=== PATIENT | female | born 1940 | race Caucasian/White ===

== ENCOUNTER 2017-04-22 11:51 | Emergency (ER) | payer MEDICARE, OTHER ==
[2017-04-22] MEDS ORDERED: Zofran 4 MG/2 ML VIAL IV ONE (12:18)
[2017-04-22] MEDS ORDERED: MORPHINE SULFATE 10 MG/ML IV ONE (12:21)
[2017-04-22] MEDS ORDERED: MORPHINE SULFATE 10 MG/ML ONE (12:23)
[2017-04-22] MEDS ORDERED: Zofran 4 MG/2 ML VIAL ONE (12:23)
[2017-04-22] MEDS ORDERED: Sodium Chloride 0.9% 1000 ML 1,000 ML ONE (12:23)
--- NOTE | 2017-04-22 12:25 | ERPHSYRPT ---
- History of Present Illness Time Seen by Provider: 04/22/17 12:05 Source: patient Exam Limitations: clinical condition Patient Subjective Stated Complaint: slipped in snow and fell landed on left arm. pt co pain to left arm and left knee Triage Nursing Assessment: pt arrived per wc moaning and crying in pain . pt alert, resp easy. skin w/d pink. pt unable to left left arm or move wrist, no swelling oar brusing noted. Physician History: PATIENT SLIPPED AND FELL IN SNOW SUSTAINED INJURY TO LEFT KNEE, SHOULDER, AND WRIST. DENIES HEAD OR NECK INJURY, LOSS OF CONSCIOUSNESS, NUMBNESS, TINGLING OR WEAKNESS IN EXTREMITIES. PATIENT COMPLAINS OF SEVERE PAIN IN HER LEFT SHOULDER. Occurred: just prior to arrival Reason for Fall: slipped Injuries/Pain Location: upper extremity, lower extremity Loss of Consciousness: no loss of consciousness Severity of Pain-Max: severe Severity of Pain-Current: severe Modifying Factors: Improves With: movement Associated Symptoms (Fall): extremity injury Allergies/Adverse Reactions: cefaclor [From Ceclor] Allergy (Intermediate, Verified 04/22/17 12:07) Itching face tight, swelling, felt hot Penicillins Allergy (Intermediate, Verified 04/22/17 12:07) Rash clindamycin HCl [From Cleocin] Allergy (Verified 04/22/17 12:07) clindamycin palmitate HCl [From Cleocin] Allergy (Verified 04/22/17 12:07) Hives entire body clindamycin phosphate [From Cleocin] Allergy (Verified 04/22/17 12:07) Home Medications: Alendronate Sodium 70 mg [Fosamax 70 MG] 70 mg PO WEEKLY 07/01/13 [History ] Loratadine 10 mg [Claritin 10 mg] 10 mg PO DAILY PRN 07/01/13 [History] Venlafaxine HCl [Effexor] 75 mg PO DAILY 07/01/13 [History] Calcium Carbonate/Vitamin D3 [Calcium 500-Vit D3 200 Caplet] 1 each PO BID 07/02 [History] Alendronate Sodium [Alendronate Sodium] 70 mg DAILY 04/22/17 [History] Hx Tetanus, Diphtheria Vaccination/Date Given: Yes Hx Influenza Vaccination/Date Given: Yes Hx Pneumococcal Vaccination/Date Given: Yes Immunizations Up to Date: Yes - Review of Systems Constitutional: No Fever, No Chills Eyes: No Symptoms Ears, Nose, & Throat: No Symptoms Respiratory: No Symptoms, No Cough, No Dyspnea Cardiac: No Symptoms, No Chest Pain, No Edema, No Syncope Abdominal/Gastrointestinal: No Symptoms, No Abdominal Pain, No Nausea, No Vomiting, No Diarrhea Genitourinary Symptoms: Incontinence, No Dysuria Musculoskeletal: Injury, Joint Pain, Joint Swelling, No Back Pain, No Neck Pain Skin: No Rash Neurological: No Symptoms, No Dizziness, No Focal Weakness, No Sensory Changes Psychological: No Symptoms Endocrine: No Symptoms All Other Systems: Reviewed and Negative - Past Medical History Pertinent Past Medical History: Yes Neurological History: No Pertinent History ENT History: Cataracts, Other Cardiac History: No Pertinent History Respiratory History: Sleep Apnea Endocrine Medical History: No Pertinent History Musculoskeletal History: Osteoarthritis GI Medical History: GI Bleed, Polyps History: No Pertinent History Psycho-Social History: Anxiety, Depression, Panic Disorder Female Reproductive Disorders: No Pertinent History Other Medical History: sleep apnea - Past Surgical History Past Surgical History: Yes Neuro Surgical History: No Pertinent History Cardiac: No Pertinent History Respiratory: No Pertinent History Gastrointestinal: Appendectomy Genitourinary: No Pertinent History Musculoskeletal: Joint Replacement, Orthopedic Surgery Female Surgical History: Tubal Ligation, Other Other Surgical History: sinus surgery, tonsils, D&C x2, cataract, left KNEE REPLACEMENT , antibiotic spacer placement in left knee. - Social History Smoking Status: Never smoker Exposure to second hand smoke: No Alcohol Use: None Drug Use: none Patient Lives Alone: No Significant Family History: no pertinent family hx - Female History Hx Last Menstrual Period: post Hx Now: No - Nursing Vital Signs Nursing Vital Signs: Initial Vital Signs Temperature 97.6 F 04/22/17 11:53 Pulse Rate 91 H 04/22/17 11:53 Respiratory Rate 18 04/22/17 11:53 Blood Pressure 135/66 04/22/17 11:53 O2 Sat by Pulse Oximetry 97 04/22/17 11:53 Pain Scale Pain Intensity 5 - [place] Coma Score Best Eye Response ([place]): (4) open spontaneously Best Verbal Response ([place]): (5) oriented Best Motor Response ([place]): (6) obeys commands [place] Total: 15 - Physical Exam General Appearance: mild distress Head Injury: no evidence of injury Eye Exam: PERRL/EOMI ENT Exam: airway nml Neck Exam: normal inspection, other (NO POSTERIOR SPINAL TENDERNESS.), No tenderness Back Exam: normal inspection Extremity Exam: bony point tenderness (LEFT WRIST MINIMAL SWELLING WITH TENDERNESS, MINIMAL SWELLING, NO ECCHYMOSIS, LIMITED RANGE OF MOTION WITH PAIN , TENDERNESS LEFT LATERAL EPICONDYLE, NO CEPITUS, LEFT SHOULDER, MINIMLA TENDERNESS, NO SWELLING OR ECHYMOSIS, MARKED LIMITED RANGE OF MOTION, NO CREPITUS OR DEFORMITY), other (LEFT KNEE TENDERNESS OVER MEDIAL FEMORAL CONDYLE , NO SWELLING , FULL RANGE OF MOTION, MINIMAL PAIN) Peripheral Pulses: carotid (R): 2+, carotid (L): 2+, femoral (R): 2+, femoral (L ): 2+, dorsalis-pedis (R): 2+, dorsalis-pedis (L): 2+ Neurologic Exam: alert, 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 Skin Exam: normal color SpO2 Interpretation: normal SpO2: 97 Oxygen Delivery: Room Air - Radiology Exams Left Shoulder X-ray Interpretation: Interpreted by me (SURGICAL NECK FRACTURE LEFT SHOULDER MINIMAL DISPLACEMENT) Left Elbow X-ray Interpretation: Interpreted by me (NO FRACTURE OR DISLOCATION) Left Wrist X-ray Interpretation: Interpreted by me (OLD RIGHT ULNAR STYLOID FRACTURE ) Ordered Tests: Active Orders 24 hr Category Date Time Status IV Insertion STAT Care 04/22/17 12:16 Active Immobilizer STAT Care 04/22/17 13:41 Active Oxygen-ED Only NASAL CANNULA 2 lpm Care 04/22/17 12:18 Active Pulse Oximetry (ED) STAT Care 04/22/17 12:18 Active ELBOW (MINIMUM 3 VIEWS) Stat Exams 04/22/17 12:22 Taken KNEE (3 VIEWS) Stat Exams 04/22/17 12:26 Taken SHOULDER Stat Exams 04/22/17 12:21 Taken WRIST (MIN 3 VIEWS) Stat Exams 04/22/17 12:23 Taken Medication Summary Generic Name Dose Route Start Last Admin Trade Name Freq PRN Reason Stop Dose Admin Sodium Chloride 1,000 mls @ 50 mls/hr 04/22/17 12:30 04/22/17 12:25 Sodium Chloride 0.9% 1000 Ml IV 05/22/17 12:29 50 mls/hr .Q20H JOY Administration Discontinued Medications Generic Name Dose Route Start Last Admin Trade Name Freq PRN Reason Stop Dose Admin Morphine Sulfate 6 mg 04/22/17 12:21 04/22/17 12:25 Morphine Sulfate 10 Mg/Ml IV 04/22/17 12:22 6 mg STAT ONE Administration Morphine Sulfate Confirm 04/22/17 12:23 Morphine Sulfate 10 Mg/Ml Administered 04/22/17 12:24 Dose 10 mg .ROUTE .STK-MED ONE Ondansetron HCl 4 mg 04/22/17 12:18 04/22/17 12:25 Zofran 4 Mg/2 Ml Vial IV 04/22/17 12:19 4 mg STAT ONE Administration Ondansetron HCl Confirm 04/22/17 12:23 Zofran 4 Mg/2 Ml Vial Administered 04/22/17 12:24 Dose 4 mg .ROUTE .STK-MED ONE - Progress Progress: pain not gone completely Progress Note: 04/22/17 13:44 ADMINISTERED MORPHINE 6MG, ZOFRAN 4MG IV, APPLICATION SHOULDER IMMOBILIZER Counseled pt/family regarding: diagnosis, need for follow-up - Departure Time of Disposition: 14:00 Departure Disposition: Home Clinical Impression: LEFT HUMERAL HEAD FRACTURE Condition: Stable Critical Care Time: No Referrals: TA FREIRE [Primary Care Provider] - Additional Instructions: MAINTAIN SHOULDER IMMOBILIZER UNTIL EVALUATED BY ORTHOPEDIC SURGEON. CALL FOR APPOINTMENT IN 2 DAYS. APPLY ICE OVER LEFT SHOULDER EVERY 4 HOURS, 30 MINUTES FOR 48 HOURS. NOR[place] 10/325 EVERY 4 HOURS NEEDED FOR PAIN. Prescriptions: Hydrocodone/APAP 10/325 mg [[place] 10/325 MG Tablet] 1 tab PO Q4H PRN PRN # 20 tablet MDD 4 PRN Reason: Pain
[2017-04-22] MEDS ORDERED: Sodium Chloride 0.9% 1000 ML 1,000 ML IV SCH (12:30)
[2017-04-22 13:40] VITALS: BP 105/57; PULSE 68
[2017-04-22 13:45] VITALS: O2SAT 97
[2017-04-22] MEDS ORDERED: MORPHINE SULFATE 4 MG INJ IV ONE (13:45)
[2017-04-22] MEDS ORDERED: MORPHINE SULFATE 4 MG INJ ONE (13:48)
--- NOTE | 2017-04-22 23:02 | XRAY ---
Indication: Pain following fall. Comparison: August 02, 2013. 3 views of the left knee again demonstrates osteopenia with interval total knee arthroplasty revision with new intact bipolar prosthesis. No other bony, articular, or soft tissue abnormalities.
--- NOTE | 2017-04-22 23:04 | XRAY ---
Indication: Pain following fall. Comparison: None 3 views of the left elbow demonstrates osteopenia. No other bony, articular, or soft tissue abnormalities.
--- NOTE | 2017-04-22 23:04 | XRAY ---
Indication: Pain following fall. Comparison: None 3 views of the left shoulder demonstrates minimally impacted humeral subcapital fracture. Elsewhere osteopenia, degenerative spondylosis, and mild AC degenerative arthropathy. No other bony, articular, or soft tissue abnormalities.
--- NOTE | 2017-04-22 23:06 | XRAY ---
Indication: Pain following fall. Comparison: None 3 views of the left wrist demonstrates osteopenia, moderate first metacarpal multangular degenerative changes, and tiny ulnar styloid tip well-circumscribed ossification either degenerative versus old injury. No other bony, articular, or soft tissue abnormalities.
== END 2017-04-22 14:05 | disposition home or self-care (01) ==
LOC: ED 11:51
DX: S42.292A Other displaced fracture of upper end of left humerus, initial encounter for closed fracture (principal); W00.0XXA Fall on same level due to ice and snow, initial encounter; M79.602 Pain in left arm; M25.562 Pain in left knee; Z79.899 Other long term (current) drug therapy; G47.30 Sleep apnea, unspecified; F41.8 Other specified anxiety disorders
CPT/HCPCS: 36000; 73030; 73080; 73110; 73562; 96360; 96361; 96374; 96375; 96376; 99284; J2270; J2405; L3650

== ENCOUNTER 2018-07-26 14:14 | Emergency (ER) | payer MEDICARE, OTHER ==
[2018-07-26] MEDS ORDERED: Zofran 4 MG/2 ML VIAL IV ONE (14:32)
[2018-07-26] MEDS ORDERED: Sodium Chloride 0.9% 1000 ML 1,000 ML IV STA (14:32)
[2018-07-26] MEDS ORDERED: MORPHINE SULFATE 4 MG INJ IV ONE (14:32)
--- NOTE | 2018-07-26 14:37 | ERPHSYRPT ---
- History of Present Illness Time Seen by Provider: 07/26/18 14:33 Historian: patient Exam Limitations: no limitations Patient Subjective Stated Complaint: pt here for rigbht hip pain that radiates down leg for a week now, she was seen by coral and given advil and a muscle relaxer Triage Nursing Assessment: pt alert, walked in, no injury to hip, resp easy, skin w/d/p. no edema Physician History: 78-year-old white female arrives with complaint of pain in her right flank radiating to right lower quadrant symptoms for one week. Pain is described as sharp patient had been seen by her family doctor's she states it is worse with movement is not better with nonsteroidal anti- inflammatory agents. She denies dysuria hematuria. Past medical history includes cataracts, sleep apnea, osteoarthritis, GI bleed, polyps, anxiety, depression, panic disorder, Past surgical history includes left humeral head surgery appendectomy left knee replacement, tubal ligation, sinus surgery, D&C, Timing/Duration: week(s) (one week) Activities at Onset: none Quality: sharpness Abdominal Pain Onset Location: RLQ, flank (right flank) Pain Radiation: no radiation Severity of Pain-Max: moderate Severity of Pain-Current: moderate Modifying Factors: Improves With: other (nonsteroidal anti-inflammatories) Associated Symptoms: back (right flank pain), No chest pain, No diaphoresis, No diarrhea, No fever/chills, No fatigue, No headache, No heartburn, No loss of appetite, No nausea, No neck pain, No rash, No shortness of breath, No syncope Previous symptoms: recently seen (seen by Dr. Coto recently) Allergies/Adverse Reactions: cefaclor [From Ceclor] Allergy (Intermediate, Verified 04/22/17 12:07) Itching face tight, swelling, felt hot Penicillins Allergy (Intermediate, Verified 04/22/17 12:07) Rash clindamycin HCl [From Cleocin] Allergy (Verified 04/22/17 12:07) clindamycin palmitate HCl [From Cleocin] Allergy (Verified 04/22/17 12:07) Hives entire body clindamycin phosphate [From Cleocin] Allergy (Verified 04/22/17 12:07) Home Medications: Alendronate Sodium 70 mg [Fosamax 70 MG] 70 mg PO WEEKLY 07/01/13 [History ] Loratadine 10 mg [Claritin 10 mg] 10 mg PO DAILY PRN 07/01/13 [History] Venlafaxine HCl [Effexor] 75 mg PO DAILY 07/01/13 [History] Calcium Carbonate/Vitamin D3 [Calcium 500-Vit D3 200 Caplet] 1 each PO BID 07/02 [History] Alendronate Sodium 70 mg DAILY 04/22/17 [History] Hx Tetanus, Diphtheria Vaccination/Date Given: Yes Hx Influenza Vaccination/Date Given: Yes Hx Pneumococcal Vaccination/Date Given: Yes Immunizations Up to Date: Yes - Review of Systems Constitutional: No Symptoms Eyes: No Symptoms Ears, Nose, & Throat: No Symptoms Respiratory: No Cough, No Dyspnea Cardiac: No Chest Pain, No Edema, No Syncope Abdominal/Gastrointestinal: Abdominal Pain (right lower quadrant pain), No Nausea, No Vomiting, No Diarrhea, No Constipation, No Hematemesis, No Hematochezia, No Melena, No Dysphagia, No Appetite Changes Genitourinary Symptoms: Flank Pain ( right flank pain), No Dysuria, No Frequency , No Hematuria, No Hesitancy, No Incontinence, No Urgency, No Urinary Retention Musculoskeletal: Back Pain (right flank pain), No Arthralgias, No Deformity, No Fall, No Injury, No Joint Redness, No Joint Pain, No Joint Swelling, No Myalgias Skin: No Rash Neurological: No Dizziness, No Focal Weakness, No Sensory Changes Psychological: No Symptoms Endocrine: No Symptoms All Other Systems: Reviewed and Negative - Past Medical History Pertinent Past Medical History: Yes Neurological History: No Pertinent History ENT History: Cataracts, Other Cardiac History: High Cholesterol Respiratory History: Sleep Apnea, Other Endocrine Medical History: No Pertinent History Musculoskeletal History: Osteoarthritis GI Medical History: GI Bleed, Polyps History: No Pertinent History Psycho-Social History: Anxiety, Depression, Panic Disorder Female Reproductive Disorders: No Pertinent History Other Medical History: sleep apnea - Past Surgical History Past Surgical History: Yes Neuro Surgical History: No Pertinent History Cardiac: No Pertinent History Respiratory: No Pertinent History Gastrointestinal: Appendectomy Genitourinary: No Pertinent History Musculoskeletal: Joint Replacement, Orthopedic Surgery Female Surgical History: Tubal Ligation, Other Other Surgical History: sinus surgery, tonsils, D&C x2, cataract, left KNEE REPLACEMENT , antibiotic spacer placement in left knee. - Social History Smoking Status: Never smoker Exposure to second hand smoke: No Alcohol Use: None Drug Use: none Patient Lives Alone: No Significant Family History: no pertinent family hx - Female History Hx Last Menstrual Period: post Hx Now: No - Nursing Vital Signs Nursing Vital Signs: Initial Vital Signs Temperature 97.8 F 07/26/18 14:18 Pulse Rate 79 07/26/18 14:18 Respiratory Rate 18 07/26/18 14:18 Blood Pressure 125/89 07/26/18 14:18 O2 Sat by Pulse Oximetry 98 07/26/18 14:18 Pain Scale Pain Intensity 7 - Physical Exam General Appearance: mild distress, alert Eye Exam: PERRL/EOMI, eyes nml inspection Ears, Nose, Throat Exam: normal ENT inspection, pharynx normal, moist mucous membranes Neck Exam: normal inspection, non-tender, supple, full range of motion Respiratory Exam: normal breath sounds, lungs clear, No respiratory distress Cardiovascular Exam: regular rate/rhythm, normal heart sounds, capillary refill <2 sec Gastrointestinal/Abdomen Exam: soft, normal bowel sounds, tenderness (mild right lower quadrant tenderness), No distention, No mass, No guarding, No ecchymosis, No pulsatile mass, No rebound, No organomegaly, No splenomegaly Back Exam: normal range of motion, CVA tenderness (right flank tenderness), No vertebral tenderness, No rash, No decreased range of motion, No muscle spasm, No point tenderness Extremity Exam: normal inspection, normal range of motion, pelvis stable Neurologic Exam: alert, 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, cooperative, [place] II-XII nml as tested, normal mood/affect, nml cerebellar function, sensation nml, No motor deficits Skin Exam: normal color, warm, dry SpO2 Interpretation: normal (98%) SpO2: 98 O2 Delivery: Room Air - Course Nursing assessment & vital signs reviewed: Yes - CT Exams Abdomen/Pelvis CT Interpretation: Discussed w/radiologist (CT abdomen and pelvis: Impression 1. New punctate gallstone. No CT evidence for cholecystitis or biliary distention.2. Incidental hepatic cyst, degenerative spondylosis. L4 grade 1 spondylolisthesis. And evidence for old granulomatous disease. 3. No acute intra-abdominal/pelvic abnormalities on this noncontrast exam) Ordered Tests: Active Orders 24 hr Category Date Time Status IV Insertion STAT Care 07/26/18 14:32 Active ABDOMEN AND PELVIS W/0 CONTRAS [CT] Stat Exams 07/26/18 14:32 Completed AMYLASE Stat Lab 07/26/18 15:00 Completed CBC W DIFF Stat Lab 07/26/18 15:00 Completed CMP Stat Lab 07/26/18 15:00 Completed CULTURE,URINE Stat Lab 07/26/18 15:30 Received LIPASE Stat Lab 07/26/18 15:00 Completed UA W/RFX UR CULTURE Stat Lab 07/26/18 15:30 Completed Medication Summary Discontinued Medications Generic Name Dose Route Start Last Admin Trade Name Freq PRN Reason Stop Dose Admin Sodium Chloride 1,000 mls @ 999 mls/hr 07/26/18 14:32 07/26/18 15:23 Sodium Chloride 0.9% 1000 Ml IV 07/26/18 15:32 999 mls/hr .Q1H1M STA Administration Sodium Chloride Confirm 07/26/18 15:21 Sodium Chloride 0.9% 1000 Ml Administered 07/26/18 15:22 Dose 1,000 mls @ ud .ROUTE .STK-MED ONE Morphine Sulfate 4 mg 07/26/18 14:32 07/26/18 15:23 Morphine Sulfate 4 Mg Inj IV 07/26/18 14:33 4 mg STAT ONE Administration Morphine Sulfate Confirm 07/26/18 15:21 Morphine Sulfate 4 Mg Inj Administered 07/26/18 15:22 Dose 4 mg .ROUTE .STK-MED ONE Ondansetron HCl 4 mg 07/26/18 14:32 07/26/18 15:22 Zofran 4 Mg/2 Ml Vial IV 07/26/18 14:33 4 mg STAT ONE Administration Ondansetron HCl Confirm 07/26/18 15:21 Zofran 4 Mg/2 Ml Vial Administered 07/26/18 15:22 Dose 4 mg .ROUTE .STK-MED ONE Lab/Rad Data: Laboratory Result Diagrams 07/26/18 15:00 07/26/18 15:00 Laboratory Results 07/26/18 07/26/18 07/26/18 Range/Units 15:30 15:00 15:00 WBC 6.9 (4.0-10.5) K/mm3 RBC 4.71 (4.1-5.4) M/mm3 Hgb 13.8 (12.0-16.0) gm/dl Hct 43.1 (35-47) % MCV 91.5 (78-100) fl MCH 29.3 (26-32) pg MCHC 32.0 (32-36) g/dl RDW 14.3 H (11.5-14.0) % Plt Count 187 (150-450) K/mm3 MPV 11.4 H (6-9.5) fl Gran % 54.1 (36.0-66.0) % Eos # (Auto) 0.47 (0-0.5) Absolute Lymphs (auto) 2.06 (1.0-4.6) Absolute Monos (auto) 0.63 (0.0-1.3) Lymphocytes % 29.9 (24.0-44.0) % Monocytes % 9.1 (0.0-12.0) % Eosinophils % 6.8 H (0.00-5.0) % Basophils % 0.1 (0.0-0.4) % Absolute Granulocytes 3.72 (1.4-6.9) Basophils # 0.01 (0-0.4) Sodium 142 (137-145) mmol/L Potassium 4.2 (3.5-5.1) mmol/L Chloride 106 (98-107) mmol/L Carbon Dioxide 26 (22-30) mmol/L Anion Gap 15.1 H (5-15) MEQ/L BUN 18 H (7-17) mg/dL Creatinine 0.96 (0.52-1.04) mg/dL Estimated GFR > 60.0 ML/MIN Glucose 91 (74-106) mg/dL Calcium 9.9 (8.4-10.2) mg/dL Total Bilirubin 0.50 (0.2-1.3) mg/dL AST 38 H (14-36) U/L ALT 25 (0-35) U/L Alkaline Phosphatase 53 (38-126) U/L Serum Total Protein 7.9 (6.3-8.2) g/dL Albumin 4.3 (3.5-5.0) g/dL Amylase 107 (30-110) U/L Lipase 141 (23-300) U/L Urine Color YELLOW (YELLOW) Urine Appearance CLEAR (CLEAR) Urine pH 6.0 (5-6) Ur Specific [place] 1.013 (1.005-1.025) Urine Protein NEGATIVE (Negative) Urine Ketones NEGATIVE (NEGATIVE) Urine Blood NEGATIVE (0-5) [place] Urine Nitrite NEGATIVE (NEGATIVE) Urine Bilirubin NEGATIVE (NEGATIVE) Urine Urobilinogen NEGATIVE (0-1) mg/dL Ur Leukocyte Esterase SMALL (NEGATIVE) Urine WBC (Auto) 11-15 (0-5) /HPF Urine RBC (Auto) NONE (0-2) /HPF U Epithel Cells (Auto) NONE (FEW) /HPF Urine Bacteria (Auto) RARE (NEGATIVE) /HPF Urine Mucus (Auto) SLIGHT (NEGATIVE) /HPF Urine Culture Reflexed YES (NO) Urine Glucose NEGATIVE (NEGATIVE) mg/dL - Progress Progress: improved Progress Note: 07/26/18 16:06 Patient feeling better after morphine injection. Patient is on hydrocodone at home she also states she is on muscle relaxers. Patient with a positive UTI CT abdomen remarkable for a new punctate gallstone. No evidence for cholecystitis or biliary distention 2. Incidental hepatic cyst, degenerative spondylolisthesis L4 grade 1, spondylolisthesis and evidence for old granulomatous disease There are no acute intra-abdominal/pelvic abnormalities on this noncontrast exam. Will go ahead and place patient on Bactrim. patient is on muscle relaxants will place patient on tramadol She is to follow-up with your family doctor. 07/26/18 16:13 - Departure Departure Disposition: Home (:) Clinical Impression: Right flank pain, Spondylolisthesis at L4-L5 level, Spondylosis UTI (urinary tract infection) Qualifiers: Urinary tract infection type: site unspecified Hematuria presence: without hematuria Qualified Code(s): N39.0 - Urinary tract infection, site not specified Condition: Fair Critical Care Time: No Referrals: TA COTO [Primary Care Provider] - Additional Instructions: Return home. tramadol as prescribed Bactrim DS one orally twice a day for 10 days. Follow-up with your family doctor Return for acute distress or for severe symptoms. Prescriptions: Tramadol HCl 50 mg [Ultram 50 mg] 50 mg PO Q6H PRN PRN #12 tablet PRN Reason: right flank pain Smz/Tmp Ds Tablet [Bactrim Ds Tablet] 1 tab PO BID #20 tablet
[2018-07-26 15:14] LABS: BASOPHIL % 0.1 % (0.0-0.4); Basophil (Absolute #) 0.01 (0-0.4); Eosinophil % 6.8 % (0.00-5.0); Eosinophil (Absolute #) 0.47 (0-0.5); Granulocyte Absolute (ANC) 3.72 (1.4-6.9); Granulocytes % 54.1 % (36.0-66.0); Hematocrit 43.1 % (35-47); Hemoglobin 13.8 gm/dl (12.0-16.0); Lymphocyte (Absolute #) 2.06 (1.0-4.6); Lymphocytes % 29.9 % (24.0-44.0); Mean Cell Volume 91.5 fl (78-100); Mean Corpuscular Hemoglobin 29.3 pg (26-32); Mean Platelet Volume 11.4 fl (6-9.5); Monocyte (Absolute #) 0.63 (0.0-1.3); Monocytes % 9.1 % (0.0-12.0); Platelet Count 187 K/mm3 (150-450); Red Blood Count 4.71 M/mm3 (4.1-5.4); Red Cell Distribution Width 14.3 % (11.5-14.0); White Blood Count 6.9 K/mm3 (4.0-10.5)
--- NOTE | 2018-07-26 15:16 | XRAY ---
Indication: Right side/flank pain. Multiple contiguous axial images obtained through the abdomen and pelvis without contrast as ordered. Comparison: CT renal stone study January 24, 2011. Lung bases again demonstrates minimal fibrosis/scarring and right base calcified granuloma. No infiltrate or effusion. Heart is not enlarged. A few tiny right infrahilar calcified nodes not previously imaged. Stomach is distended with food/fluid.. Noncontrasted stomach and bowel loops appear nonobstructed. Previous reported appendectomy. No free fluid/air. New punctate gallstone without cholelithiasis or biliary distention.. Minimally enlarging 2.4 cm inferior right lobe hepatic cyst, previously 1.8 cm. Again calcified splenic granulomas. Remaining liver, gallbladder, pancreas, spleen, adrenal glands, kidneys, ureters, bladder, and uterus appear unremarkable for noncontrast exam. Mild aortoiliac calcifications without AAA. Osseous structures again demonstrates mild/moderate degenerative changes throughout the spine including grade 1 L4 spondylolisthesis. No ventral or inguinal hernias. Impression: 1. New punctate gallstone. No CT evidence for cholecystitis or biliary distention. 2. Again incidental hepatic cyst, degenerative spondylosis, L4 grade 1 spondylolisthesis, and evidence for old granulomatous disease. 3. No acute intra-abdominal/pelvic abnormalities on this noncontrast exam. CT DI 22.00
[2018-07-26] MEDS ORDERED: MORPHINE SULFATE 4 MG INJ ONE (15:21)
[2018-07-26] MEDS ORDERED: Zofran 4 MG/2 ML VIAL ONE (15:21)
[2018-07-26] MEDS ORDERED: Sodium Chloride 0.9% 1000 ML 1,000 ML ONE (15:21)
[2018-07-26 15:24] LABS: ALBUMIN 4.3 g/dL (3.5-5.0); ALKALINE PHOSPHATASE 53 U/L (38-126); AMYLASE 107 U/L (30-110); ANION GAP 15.1 MEQ/L (5-15); BLOOD UREA NITROGEN 18 mg/dL (7-17); CHLORIDE 106 mmol/L (98-107); Calcium 9.9 mg/dL (8.4-10.2); Carbon Dioxide 26 mmol/L (22-30); Creatinine 1 0.96 mg/dL (0.52-1.04); Glucose 91 mg/dL (74-106); LIPASE 141 U/L (23-300); Potassium 4.2 mmol/L (3.5-5.1); SGOT/AST 38 U/L (14-36); SGPT/ALT 25 U/L (0-35); SODIUM 142 mmol/L (137-145); Total Protein 7.9 g/dL (6.3-8.2)
[2018-07-26 15:59] LABS: Appearance CLEAR (CLEAR); Bacteria RARE /HPF (NEGATIVE); Bilirubin NEGATIVE (NEGATIVE); Blood NEGATIVE Ery/ul (0-5); Glucose NEGATIVE (NEGATIVE); Ketones NEGATIVE (NEGATIVE); Leukocyte Esterase SMALL (NEGATIVE); Mucus SLIGHT /HPF (NEGATIVE); Nitrite NEGATIVE (NEGATIVE); Protein,Urine Dip NEGATIVE (Negative); Specific Gravity 1.013 (1.005-1.025); Urobilinogen NEGATIVE mg/dL (0-1)
[2018-07-26 16:43] VITALS: BP 121/63; PULSE 61; O2SAT 96
== END 2018-07-26 16:45 | disposition home or self-care (01) ==
LOC: ED 14:14
DX: R10.9 Unspecified abdominal pain (principal); M47.896 Other spondylosis, lumbar region; N39.0 Urinary tract infection, site not specified; G47.30 Sleep apnea, unspecified; F41.8 Other specified anxiety disorders; M19.90 Unspecified osteoarthritis, unspecified site; F32.9 Major depressive disorder, single episode, unspecified; Z79.899 Other long term (current) drug therapy
CPT/HCPCS: 36000; 36415; 74176; 80053; 81001; 82150; 83690; 85025; 87086; 96360; 96374; 96375; 99284; J2270; J2405

== ENCOUNTER 2018-11-02 09:50 | Inpatient (IN) | payer MEDICARE, OTHER ==
[2018-11-02] MEDS ORDERED: Sodium Chloride 0.9% 1000 ML 1,000 ML IV STA (10:01)
[2018-11-02] MEDS ORDERED: BABY ASPIRIN 81 MG CHEW PO ONE (10:01)
--- NOTE | 2018-11-02 10:02 | ERPHSYRPT ---
- History of Present Illness Time Seen by Provider: 11/02/18 09:55 Source: patient, family Exam Limitations: no limitations Patient Subjective Stated Complaint: Pt states "I started to have chest pain a couple hours ago and it feels like a band in my chest." Triage Nursing Assessment: Pt presented through the front door and placed in room 4. Pt presented alert and oriented X4, skin pwd Pt ambulates with an upright steady gait, able to speak in clear full sentences. PT in no apparent respiratory distress. Physician History: 78 y/o white female presents with cp described as a tight band around her chest. pt also noticed her heart racing. pt has no cardiac issues. 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 pt is under a lot of stress. sudden onset 2 hours ago. no new meds. no changes in meds. no cough, no fever. pt does have anxiety and panic disorder Activities at Onset: none Quality: tightness Location: other (band like around chest) Chest Pain Radiation: no radiation Severity of Pain-Max: mild Severity of Pain-Current: mild Modifying Factors: Improves With: nothing Aspirin Treatment Today: 81 mg x 4, provided by ED Associated Symptoms: shortness of breath (mild), chest pain (mild), No nausea, No vomiting, No abdominal pain Prior Chest Pain/Cardiac Workup: no prior chest pain Allergies/Adverse Reactions: cefaclor [From Ceclor] Allergy (Intermediate, Verified 04/22/17 12:07) Itching face tight, swelling, felt hot Penicillins Allergy (Intermediate, Verified 04/22/17 12:07) Rash clindamycin HCl [From Cleocin] Allergy (Verified 04/22/17 12:07) clindamycin palmitate HCl [From Cleocin] Allergy (Verified 04/22/17 12:07) Hives entire body clindamycin phosphate [From Cleocin] Allergy (Verified 04/22/17 12:07) Home Medications: Alendronate Sodium 70 mg [Fosamax 70 MG] 70 mg PO WEEKLY 07/01/13 [History ] Loratadine 10 mg [Claritin 10 mg] 10 mg PO DAILY PRN 07/01/13 [History] Venlafaxine HCl [Effexor] 75 mg PO DAILY 07/01/13 [History] Calcium Carbonate/Vitamin D3 [Calcium 500-Vit D3 200 Caplet] 1 each PO BID 07/02 [History] Magnesium 200 mg PO HS 11/02/18 [History] Simvastatin 40 mg PO HS 11/02/18 [History] Hx Tetanus, Diphtheria Vaccination/Date Given: Yes Hx Influenza Vaccination/Date Given: Yes Hx Pneumococcal Vaccination/Date Given: Yes Immunizations Up to Date: Yes - Review of Systems Constitutional: No Symptoms Eyes: No Symptoms Ears, Nose, & Throat: No Symptoms Respiratory: No Symptoms Cardiac: Chest Pain, Palpitations Abdominal/Gastrointestinal: No Symptoms Genitourinary Symptoms: No Symptoms Musculoskeletal: No Symptoms Skin: No Symptoms Neurological: No Symptoms Psychological: No Symptoms Endocrine: No Symptoms Hematologic/Lymphatic: No Symptoms Immunological/Allergic: No Symptoms All Other Systems: Reviewed and Negative - Past Medical History Pertinent Past Medical History: Yes Neurological History: No Pertinent History ENT History: Cataracts, Other Cardiac History: High Cholesterol Respiratory History: Sleep Apnea, Other Endocrine Medical History: No Pertinent History Musculoskeletal History: Osteoarthritis GI Medical History: GI Bleed, Polyps History: No Pertinent History Psycho-Social History: Anxiety, Depression, Panic Disorder Female Reproductive Disorders: No Pertinent History Other Medical History: sleep apnea - Past Surgical History Past Surgical History: Yes Neuro Surgical History: No Pertinent History Cardiac: No Pertinent History Respiratory: No Pertinent History Gastrointestinal: Appendectomy Genitourinary: No Pertinent History Musculoskeletal: Joint Replacement, Orthopedic Surgery Female Surgical History: Tubal Ligation, Other Other Surgical History: sinus surgery, tonsils, D&C x2, cataract, left KNEE REPLACEMENT , antibiotic spacer placement in left knee. - Social History Smoking Status: Former smoker Exposure to second hand smoke: No Alcohol Use: None Drug Use: none Patient Lives Alone: No Significant Family History: no pertinent family hx - Female History Hx Now: No - Nursing Vital Signs Nursing Vital Signs: Initial Vital Signs Temperature 98.1 F 11/02/18 09:53 Pulse Rate 160 H 11/02/18 09:53 Respiratory Rate 24 11/02/18 09:53 Blood Pressure 147/118 11/02/18 09:53 O2 Sat by Pulse Oximetry 94 L 11/02/18 09:53 Pain Scale Pain Intensity 0 - Physical Exam General Appearance: mild distress, alert, anxiety Eye Exam: PERRL/EOMI, eyes nml inspection Ears, Nose, Throat Exam: normal ENT inspection, moist mucous membranes Neck Exam: normal inspection Respiratory Exam: normal breath sounds, lungs clear, airway intact, No chest tenderness, No respiratory distress Cardiovascular Exam: tachycardia, irregular Gastrointestinal/Abdomen Exam: soft, normal bowel sounds, No tenderness, No guarding Pelvic Exam: not done Rectal Exam: not done Back Exam: normal inspection, normal range of motion, No CVA tenderness, No vertebral tenderness Extremity Exam: normal inspection, normal range of motion, pelvis stable Neurologic Exam: alert, 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, cooperative, assistant in nursing II-XII nml as tested Skin Exam: normal color, warm, dry Lymphatic Exam: No adenopathy SpO2 Interpretation: normal SpO2: 94 O2 Delivery: Room Air - Course Nursing assessment & vital signs reviewed: Yes EKG Interpreted by Me: RATE (153), A-fib, NORMAL AXIS, NORMAL INTERVALS, NORMAL QRS, Other (new afib with rvr compared to ekg dated 06/20/13) Ordered Tests: Active Orders 24 hr Category Date Time 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 Care 11/02/18 10:02 Active EKG-ER Only STAT Care 11/02/18 10:01 Active Nuno [Catheter-[place] Nuno] STAT Care 11/02/18 13:15 Active IV Insertion STAT Care 11/02/18 10:01 Active CHEST 1 VIEW (PORTABLE) Stat Exams 11/02/18 10:02 Completed CHEST WITH CONTRAST [CT] Stat Exams 11/02/18 10:53 Completed FOOT (MINIMUM 3 VIEWS) Stat Exams 11/02/18 10:52 Completed BLOOD CULTURE Stat Lab 11/02/18 12:07 Received CBC W DIFF Stat Lab 11/02/18 10:10 Completed CMP Stat Lab 11/02/18 10:10 Completed D-DIMER QUANTITATION Stat Lab 11/02/18 10:10 Completed NT PRO BNP Stat Lab 11/02/18 10:10 Completed TROPONIN Q3H Lab 11/02/18 10:10 Completed TROPONIN Q3H Lab 11/02/18 12:15 Completed TROPONIN Q3H Lab 11/02/18 16:15 Ordered TROPONIN Q3H Lab 11/02/18 19:15 Ordered TROPONIN Q3H Lab 11/02/18 22:15 Ordered Transfer Order Routine Transfer 11/02/18 Ordered Medication Summary Generic Name Dose Route Start Last Admin Trade Name Freq PRN Reason Stop Dose Admin Diltiazem HCl 100 mls @ 5 mls/hr 11/02/18 10:19 Cardizem Drip 100 Mg/100 Ml D5w IV 12/02/18 10:18 .Q20H PRN HEART RATE/ A-FIB Protocol 5 MG/HR Sodium Chloride 1,000 mls @ 100 mls/hr 11/02/18 12:15 11/02/18 12:34 Sodium Chloride 0.9% 1000 Ml IV 12/02/18 12:14 Not Given .Q10H JOY Levofloxacin/Dextrose 750 mg in 150 mls @ 100 mls/hr 11/02/18 13:14 Levofloxacin 750mg/150ml D5w IV 11/02/18 14:43 STAT STA Discontinued Medications Generic Name Dose Route Start Last Admin Trade Name Freq PRN Reason Stop Dose Admin Aspirin 324 mg 11/02/18 10:01 11/02/18 10:07 Baby Aspirin 81 Mg Chew PO 11/02/18 10:02 324 mg STAT ONE Administration Aspirin Confirm 11/02/18 10:06 Baby Aspirin 81 Mg Chew Administered 11/02/18 10:07 Dose 324 mg .ROUTE .STK-MED ONE Diltiazem HCl 15 mg 11/02/18 10:03 11/02/18 10:08 Cardizem Iv 50 Mg/10 Ml IV 11/02/18 10:04 15 mg STAT ONE Administration Diltiazem HCl Confirm 11/02/18 10:07 Cardizem Iv 50 Mg/10 Ml Administered 11/02/18 10:08 Dose 50 mg IV .STK-MED ONE Diltiazem HCl 10 mg 11/02/18 10:53 11/02/18 10:57 Cardizem Iv 50 Mg/10 Ml IV 11/02/18 10:54 10 mg STAT ONE Administration Enoxaparin Sodium 80 mg 11/02/18 13:14 Enoxaparin Sodium SQ 11/02/18 13:15 STAT ONE Furosemide 40 mg 11/02/18 11:39 11/02/18 13:00 Lasix 40 Mg/4 Ml IV 11/02/18 11:40 40 mg STAT ONE Administration Furosemide Confirm 11/02/18 12:59 Lasix 40 Mg/4 Ml Administered 11/02/18 13:00 Dose 40 mg .ROUTE .STK-MED ONE Sodium Chloride 1,000 mls @ 999 mls/hr 11/02/18 10:01 08/02/19 12:10 Sodium Chloride 0.9% 1000 Ml IV 11/02/18 11:01 Infused .Q1H1M STA Infusion Sodium Chloride Confirm 11/02/18 10:06 Sodium Chloride 0.9% 1000 Ml Administered 11/02/18 10:07 Dose 1,000 mls @ ud .ROUTE .STK-MED ONE Diltiazem HCl Confirm 11/02/18 10:17 Cardizem Drip 100 Mg/100 Ml D5w Administered 11/02/18 10:18 Dose 100 mls @ ud IV .STK-MED ONE Lab/Rad Data: Laboratory Result Diagrams 11/02/18 10:10 11/02/18 10:10 Laboratory Results 11/02/18 11/02/18 11/02/18 Range/Units 12:15 10:10 10:10 WBC (4.0-10.5) K/mm3 RBC (4.1-5.4) M/mm3 Hgb (12.0-16.0) gm/dl Hct (35-47) % MCV (78-100) fl MCH (26-32) pg MCHC (32-36) g/dl RDW (11.5-14.0) % Plt Count (150-450) K/mm3 MPV (6-9.5) fl Gran % (36.0-66.0) % Eos # (Auto) (0-0.5) Absolute Lymphs (auto) (1.0-4.6) Absolute Monos (auto) (0.0-1.3) Lymphocytes % (24.0-44.0) % Monocytes % (0.0-12.0) % Eosinophils % (0.00-5.0) % Basophils % (0.0-0.4) % Absolute Granulocytes (1.4-6.9) Basophils # (0-0.4) D-Dimer 553 H* (215-500) ng/mL Sodium (137-145) mmol/L Potassium (3.5-5.1) mmol/L Chloride (98-107) mmol/L Carbon Dioxide (22-30) mmol/L Anion Gap (5-15) MEQ/L BUN (7-17) mg/dL Creatinine (0.52-1.04) mg/dL Estimated GFR ML/MIN Glucose (74-106) mg/dL Calcium (8.4-10.2) mg/dL Total Bilirubin (0.2-1.3) mg/dL AST (14-36) U/L ALT (0-35) U/L Alkaline Phosphatase (38-126) U/L Troponin I 0.018 0.016 (0.000-0.034) ng/mL NT-Pro-B Natriuret Pep (0-1800) pg/mL Serum Total Protein (6.3-8.2) g/dL Albumin (3.5-5.0) g/dL 11/02/18 11/02/18 Range/Units 10:10 10:10 WBC 11.7 H (4.0-10.5) K/mm3 RBC 4.71 (4.1-5.4) M/mm3 Hgb 13.7 (12.0-16.0) gm/dl Hct 42.4 (35-47) % MCV 90.0 (78-100) fl MCH 29.1 (26-32) pg MCHC 32.3 (32-36) g/dl RDW 15.0 H (11.5-14.0) % Plt Count 225 (150-450) K/mm3 MPV 11.1 H (6-9.5) fl Gran % 78.7 H (36.0-66.0) % Eos # (Auto) 0.12 (0-0.5) Absolute Lymphs (auto) 1.35 (1.0-4.6) Absolute Monos (auto) 1.00 (0.0-1.3) Lymphocytes % 11.6 L (24.0-44.0) % Monocytes % 8.6 (0.0-12.0) % Eosinophils % 1.0 (0.00-5.0) % Basophils % 0.1 (0.0-0.4) % Absolute Granulocytes 9.18 H (1.4-6.9) Basophils # 0.01 (0-0.4) D-Dimer (215-500) ng/mL Sodium 139 (137-145) mmol/L Potassium 4.1 (3.5-5.1) mmol/L Chloride 108 H (98-107) mmol/L Carbon Dioxide 24 (22-30) mmol/L Anion Gap 11.4 (5-15) MEQ/L BUN 18 H (7-17) mg/dL Creatinine 0.83 (0.52-1.04) mg/dL Estimated GFR > 60.0 ML/MIN Glucose 154 H (74-106) mg/dL Calcium 9.2 (8.4-10.2) mg/dL Total Bilirubin 0.70 (0.2-1.3) mg/dL AST 41 H (14-36) U/L ALT 49 H (0-35) U/L Alkaline Phosphatase 48 (38-126) U/L Troponin I (0.000-0.034) ng/mL NT-Pro-B Natriuret Pep 2430 H (0-1800) pg/mL Serum Total Protein 7.2 (6.3-8.2) g/dL Albumin 3.9 (3.5-5.0) g/dL - Progress Progress: improved, re-examined Air Movement: good Progress Note: 11/02/18 12:03 cxr-cannot r/o superimposed pneumonia cta chest-borderline cardiomegaly with bilat effusions. no pulmonary emboli. cannot r/o a superimposed pneumonia 11/02/18 13:[address] cruz who is covering for dr. moncada. i reviewed pt hx, condition, labs, ekg and xray results. he accepts for admission. levaquin, lovenox and echo ordered. Blood Culture(s) Obtained: Yes Antibiotics given: Yes Discussed with : Eder Counseled pt/family regarding: lab results, diagnosis, rad results - Departure Departure Disposition: In-patient Admission Clinical Impression: Atrial fibrillation with RVR, CHF (congestive heart failure), Pulmonary infiltrate Condition: Fair Critical Care Time: Yes Critical Care Time(excluding separately billable procedures): 30-74 minutes Referrals: TA MONCADA [Primary Care Provider] - Instructions: Heart Failure
[2018-11-02] MEDS ORDERED: Cardizem IV 50 MG/10 ML IV ONE ×3 (10:03→10:53)
[2018-11-02] MEDS ORDERED: Sodium Chloride 0.9% 1000 ML 1,000 ML ONE ×2 (10:06→12:12)
[2018-11-02] MEDS ORDERED: BABY ASPIRIN 81 MG CHEW ONE (10:06)
[2018-11-02] MEDS ORDERED: CARDIZEM DRIP 100 MG/100 ML D5W 100 ML IV ONE (10:17)
[2018-11-02 10:19] LABS: BASOPHIL % 0.1 % (0.0-0.4); Basophil (Absolute #) 0.01 (0-0.4); Eosinophil (Absolute #) 0.12 (0-0.5); Granulocyte Absolute (ANC) 9.18 (1.4-6.9); Granulocytes % 78.7 % (36.0-66.0); Hematocrit 42.4 % (35-47); Hemoglobin 13.7 gm/dl (12.0-16.0); Lymphocyte (Absolute #) 1.35 (1.0-4.6); Lymphocytes % 11.6 % (24.0-44.0); Mean Corpuscular Hemoglobin 29.1 pg (26-32); Mean Corpuscular Hgb Concent. 32.3 g/dl (32-36); Mean Platelet Volume 11.1 fl (6-9.5); Monocytes % 8.6 % (0.0-12.0); Platelet Count 225 K/mm3 (150-450); Red Blood Count 4.71 M/mm3 (4.1-5.4); White Blood Count 11.7 K/mm3 (4.0-10.5)
--- NOTE | 2018-11-02 10:22 | XRAY ---
Indication: Tachycardia. Chest pain. Comparison: July 01, 2015. Portable chest demonstrates new left mid to lower lung infiltrate/atelectasis, small bibasilar effusions, and borderline cardiomegaly possibly cardiac decompensation. Superimposed pneumonia not completely excluded. Stable calcified granulomas and mild bony degenerative changes.
[2018-11-02 10:34] LABS: ALBUMIN 3.9 g/dL (3.5-5.0); ALKALINE PHOSPHATASE 48 U/L (38-126); ANION GAP 11.4 MEQ/L (5-15); BLOOD UREA NITROGEN 18 mg/dL (7-17); CHLORIDE 108 mmol/L (98-107); Calcium 9.2 mg/dL (8.4-10.2); Carbon Dioxide 24 mmol/L (22-30); Creatinine 1 0.83 mg/dL (0.52-1.04); Glucose 154 mg/dL (74-106); NT PRO BNP 2430 pg/mL (0-1800); Potassium 4.1 mmol/L (3.5-5.1); SGOT/AST 41 U/L (14-36); SGPT/ALT 49 U/L (0-35); SODIUM 139 mmol/L (137-145); Total Protein 7.2 g/dL (6.3-8.2)
[2018-11-02] MEDS ORDERED: Lasix 40 MG/4 ML IV ONE (11:39)
--- NOTE | 2018-11-02 11:45 | XRAY ---
Indication: Tachycardia. Chest pain. Elevated d-dimer. Multiple contiguous axial images obtained through the chest using 80 cc Isovue 370 contrast and PE protocol. Comparison: None There is satisfactory opacification of the pulmonary arteries to include the lobar and segmental branches. No filling defect or pulmonary embolus. Heart is borderline enlarged. No pericardial effusion. Aorta is normal in course and caliber. Small subcarinal and bilateral perihilar calcified nodes. No pathologic mediastinal/hilar lymphadenopathy. Examination of the lung parenchyma demonstrates small bilateral effusions, right greater than left with minimal compressive atelectasis. Additional bilateral mid to lower lung subsegmental atelectasis/scarring. Small right base calcified granuloma. Bony thorax intact with flowing osteophytes throughout the spine. Limited upper abdomen demonstrates fatty liver and calcified splenic granulomas. Left upper kidney demonstrates subtle wedge-shaped cortical hypoattenuation, possible focal nephritis. Impression: 1. Negative pulmonary embolus. 2. Borderline cardiomegaly with bilateral effusions. Rule out cardiac decompensation. Superimposed pneumonia not completely excluded. 3. Left upper renal cortical wedge-shaped hypoattenuation. Rule out focal nephritis. 4. Fatty liver and evidence for old granulomatous disease. CT DI 18.85
--- NOTE | 2018-11-02 11:56 | XRAY ---
Indication: Swelling following injury 2 weeks ago. Comparison: None 3 nonweightbearing views of the left foot demonstrates mild 1st MTP degenerative changes, small heel spurs, and medial/lateral midfoot accessory ossicles. No other bony, articular, or soft tissue abnormalities.
[2018-11-02] MEDS: Sodium Chloride 0.9% 1000 ML 1,000 ML IV SCH ×2 (12:13→12:34)
[2018-11-02] MEDS ORDERED: Lasix 40 MG/4 ML ONE (12:59)
[2018-11-02] MEDS ORDERED: ENOXAPARIN SODIUM SQ ONE ×2 (13:14→13:39)
[2018-11-02] MEDS ORDERED: LEVOFLOXACIN 750MG/150ML D5W 750 MG/150 ML BAG IV STA (13:14)
[2018-11-02] MEDS ORDERED: Levofloxacin 250MG Tablet ONE (13:39)
[2018-11-02] MEDS ORDERED: Levofloxacin 500 MG Tablet ONE (13:39)
[2018-11-02] MEDS ORDERED: TYLENOL 325 MG PO PRN (14:05)
[2018-11-02] MEDS ORDERED: Zofran 4 MG/2 ML VIAL IV PRN (14:05)
[2018-11-02 15:04] LABS: Appearance CLEAR (CLEAR); Bilirubin NEGATIVE (NEGATIVE); Blood NEGATIVE Ery/ul (0-5); Glucose NEGATIVE (NEGATIVE); Ketones NEGATIVE (NEGATIVE); Leukocyte Esterase NEGATIVE (NEGATIVE); Nitrite NEGATIVE (NEGATIVE); Protein,Urine Dip NEGATIVE (Negative); Specific Gravity 1.008 (1.005-1.025); Urobilinogen NEGATIVE mg/dL (0-1)
[2018-11-02 15:09] LABS: Bacteria NONE SEEN /HPF (NEGATIVE)
--- NOTE | 2018-11-02 16:39 | PCM.HP ---
History of Present Illness - Chief Complaint Chief Complaint: afib with rvr History of Present Illness: is a 78 year old female who presented to the ER this morning with a tight sensation in her lower chest and upper abdomen. She denies cough or shortness of breath. She has no prior cardiac history, has had vague symptoms of feeling poorly since yesterday. Denies any recent stoppage or starting of a new medication. - Review of Systems Constitutional: Fever, Chills Cardiac: Chest Pain Abdominal/Gastrointestinal: No Abdominal Pain, No Nausea, No Vomiting, No Diarrhea Genitourinary Symptoms: No Dysuria Skin: No Rash Neurological: No Dizziness, No Focal Weakness, No Sensory Changes All Other Systems: Reviewed and Negative Medications & Allergies Home Medications: Home Medication List Alendronate Sodium 70 mg [Fosamax 70 MG] 70 mg PO WEEKLY 07/01/13 [ History Confirmed 11/02/18] Loratadine 10 mg [Claritin 10 mg] 10 mg PO DAILY PRN 07/01/13 [History Confirmed 11/02/18] Venlafaxine HCl [Effexor] 75 mg PO HS 07/01/13 [History Confirmed 11/02/18] Calcium Carbonate/Vitamin D3 [Calcium 500-Vit D3 200 Caplet] 1 each PO BID 07/02 [History Confirmed 11/02/18] Magnesium 200 mg PO HS 11/02/18 [History Confirmed 11/02/18] Simvastatin 40 mg PO HS 11/02/18 [History Confirmed 11/02/18] Venlafaxine HCl [Venlafaxine HCl ER] 150 mg PO DAILY 11/02/18 [History Confirmed 11/02/18] Allergies/Adverse Reactions: Allergies Allergy/AdvReac Type Severity Reaction Status Date / Time cefaclor [From Ceclor] Allergy Intermediate Itching Verified 04/22/17 12:07 Penicillins Allergy Intermediate Rash Verified 04/22/17 12:07 clindamycin HCl Allergy Verified 04/22/17 12:07 [From Cleocin] clindamycin palmitate HCl Allergy Hives Verified 04/22/17 12:07 [From Cleocin] clindamycin phosphate Allergy Verified 04/22/17 12:07 [From Cleocin] - Past Medical History Past Medical History: Yes Neurological History: No Pertinent History ENT History: Cataracts, Other Cardiac History: High Cholesterol Respiratory History: Sleep Apnea, Other Endocrine Medical History: No Pertinent History Musculoskelatal History: Osteoarthritis GI Medical History: GI Bleed, Polyps History: No Pertinent History Pyscho-Social History: Anxiety, Depression, Panic Disorder Reproductive Disorders: No Pertinent History Comment: sleep apnea - Female History Are you now?: No - Past Surgical History Past Surgical History: Yes Neuro Surgical History: No Pertinent History Cardiac History: No Pertinent History Respiratory Surgery: No Pertinent History GI Surgical History: Appendectomy Genitourinary Surgical Hx: No Pertinent History Musculskeletal Surgical Hx: Joint Replacement, Orthopedic Surgery Female Surgical History: Tubal Ligation, Other Other Surgical History: sinus surgery, tonsils, D&C x2, cataract, left KNEE REPLACEMENT , antibiotic spacer placement in left knee. - Social History Smoking Status: Never smoker Exposure to second hand smoke: No Alcohol: None Drug Use: none Significant Family History: no pertinent family hx - Physical Exam Vital Signs: Vital Signs - 24 hr Temp Pulse Pulse Resp BP BP Pulse Ox 11/02/18 15:48 98.3 F 138 H 122/82 95 11/02/18 14:05 91 L 11/02/18 14:04 98 F 147 H 20 114/87 94 L 11/02/18 14:01 98 F 147 H 20 114/87 120/96 94 L 11/02/18 13:40 98 F 147 H 20 114/87 11/02/18 13:29 94 L 11/02/18 12:55 135 H 18 120/96 98 11/02/18 12:04 97.7 F 128 H 18 128/90 98 11/02/18 11:10 97.8 F 118 H 18 109/88 98 11/02/18 09:53 98.1 F 162 H 160 H 24 147/118 94 L Oxygen-Last 24 hours O2 Percentage 2 Liters = 28% General Appearance: no apparent distress Neurologic Exam: alert, 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 Eye Exam: PERRL/EOMI, eyes nml inspection Respiratory Exam: normal breath sounds, lungs clear, No respiratory distress Cardiovascular Exam: tachycardia, irregular Gastrointestinal/Abdomen Exam: soft, normal bowel sounds, No tenderness, No mass Extremity Exam: normal inspection, normal range of motion, pelvis stable Skin Exam: normal color, warm, dry, No rash Results - Labs Lab/Micro Results: Lab Results-Last 24 Hours 11/02/18 11/02/18 11/02/18 Range/Units 10:10 10:10 10:10 WBC 11.7 H (4.0-10.5) K/mm3 RBC 4.71 (4.1-5.4) M/mm3 Hgb 13.7 (12.0-16.0) gm/dl Hct 42.4 (35-47) % MCV 90.0 (78-100) fl MCH 29.1 (26-32) pg MCHC 32.3 (32-36) g/dl RDW 15.0 H (11.5-14.0) % Plt Count 225 (150-450) K/mm3 MPV 11.1 H (6-9.5) fl Gran % 78.7 H (36.0-66.0) % Eos # (Auto) 0.12 (0-0.5) Absolute Lymphs (auto) 1.35 (1.0-4.6) Absolute Monos (auto) 1.00 (0.0-1.3) Lymphocytes % 11.6 L (24.0-44.0) % Monocytes % 8.6 (0.0-12.0) % Eosinophils % 1.0 (0.00-5.0) % Basophils % 0.1 (0.0-0.4) % Absolute Granulocytes 9.18 H (1.4-6.9) Basophils # 0.01 (0-0.4) D-Dimer 553 H* (215-500) ng/mL Sodium 139 (137-145) mmol/L Potassium 4.1 (3.5-5.1) mmol/L Chloride 108 H (98-107) mmol/L Carbon Dioxide 24 (22-30) mmol/L Anion Gap 11.4 (5-15) MEQ/L BUN 18 H (7-17) mg/dL Creatinine 0.83 (0.52-1.04) mg/dL Estimated GFR > 60.0 ML/MIN Glucose 154 H (74-106) mg/dL Calcium 9.2 (8.4-10.2) mg/dL Total Bilirubin 0.70 (0.2-1.3) mg/dL AST 41 H (14-36) U/L ALT 49 H (0-35) U/L Alkaline Phosphatase 48 (38-126) U/L Troponin I (0.000-0.034) ng/mL NT-Pro-B Natriuret Pep 2430 H (0-1800) pg/mL Serum Total Protein 7.2 (6.3-8.2) g/dL Albumin 3.9 (3.5-5.0) g/dL Urine Color (YELLOW) Urine Appearance (CLEAR) Urine pH (5-6) Ur Specific [place] (1.005-1.025) Urine Protein (Negative) Urine Ketones (NEGATIVE) Urine Blood (0-5) Ryder/ul Urine Nitrite (NEGATIVE) Urine Bilirubin (NEGATIVE) Urine Urobilinogen (0-1) mg/dL Ur Leukocyte Esterase (NEGATIVE) Urine WBC (Auto) (0-5) /HPF Urine RBC (Auto) (0-2) /HPF U Epithel Cells (Auto) (FEW) /HPF Urine Bacteria (Auto) (NEGATIVE) /HPF Urine Glucose (NEGATIVE) mg/dL 11/02/18 11/02/18 11/02/18 Range/Units 10:10 12:15 14:22 WBC (4.0-10.5) K/mm3 RBC (4.1-5.4) M/mm3 Hgb (12.0-16.0) gm/dl Hct (35-47) % MCV (78-100) fl MCH (26-32) pg MCHC (32-36) g/dl RDW (11.5-14.0) % Plt Count (150-450) K/mm3 MPV (6-9.5) fl Gran % (36.0-66.0) % Eos # (Auto) (0-0.5) Absolute Lymphs (auto) (1.0-4.6) Absolute Monos (auto) (0.0-1.3) Lymphocytes % (24.0-44.0) % Monocytes % (0.0-12.0) % Eosinophils % (0.00-5.0) % Basophils % (0.0-0.4) % Absolute Granulocytes (1.4-6.9) Basophils # (0-0.4) D-Dimer (215-500) ng/mL Sodium (137-145) mmol/L Potassium (3.5-5.1) mmol/L Chloride (98-107) mmol/L Carbon Dioxide (22-30) mmol/L Anion Gap (5-15) MEQ/L BUN (7-17) mg/dL Creatinine (0.52-1.04) mg/dL Estimated GFR ML/MIN Glucose (74-106) mg/dL Calcium (8.4-10.2) mg/dL Total Bilirubin (0.2-1.3) mg/dL AST (14-36) U/L ALT (0-35) U/L Alkaline Phosphatase (38-126) U/L Troponin I 0.016 0.018 (0.000-0.034) ng/mL NT-Pro-B Natriuret Pep (0-1800) pg/mL Serum Total Protein (6.3-8.2) g/dL Albumin (3.5-5.0) g/dL Urine Color COLORLESS (YELLOW) Urine Appearance CLEAR (CLEAR) Urine pH 7.0 (5-6) Ur Specific [place] 1.008 (1.005-1.025) Urine Protein NEGATIVE (Negative) Urine Ketones NEGATIVE (NEGATIVE) Urine Blood NEGATIVE (0-5) Ryder/ul Urine Nitrite NEGATIVE (NEGATIVE) Urine Bilirubin NEGATIVE (NEGATIVE) Urine Urobilinogen NEGATIVE (0-1) mg/dL Ur Leukocyte Esterase NEGATIVE (NEGATIVE) Urine WBC (Auto) NONE (0-5) /HPF Urine RBC (Auto) NONE (0-2) /HPF U Epithel Cells (Auto) NONE (FEW) /HPF Urine Bacteria (Auto) NONE SEEN (NEGATIVE) /HPF Urine Glucose NEGATIVE (NEGATIVE) mg/dL - Radiology Impressions Radiology Exams & Impressions: Radiology Procedures Category Date Time Status CHEST 1 VIEW (PORTABLE) Stat Exams 11/02/18 10:02 Completed CHEST WITH CONTRAST [CT] Stat Exams 11/02/18 10:53 Completed ECHO W/2D AND DOPPLER [US] Routine Exams 11/02/18 14:05 Taken FOOT (MINIMUM 3 VIEWS) Stat Exams 11/02/18 10:52 Completed - Other Procedures and Tests Respiratory Therapy 11/02/18 14:05 EKG REPEAT IN AM 11/02/18 15:02 RT Screen per Nursing Assess ONCE Assessment/Plan (1) Atrial fibrillation with RVR Current Visit: Yes Status: Acute Assessment & Plan: on cardizem gtt at 10mg/hr and current bp 108 systolic so unable to increase and heart rate still 130-140, will check thyroid labs. initial troponins are negative. bnp elevated and has some signs of chf on chest ct, was given lasix in ER. will consult with Dr Cage regarding rate control and further recommendations. on lovenox 70mg bid Code(s): I48.91 - UNSPECIFIED ATRIAL FIBRILLATION (2) CHF (congestive heart failure) Current Visit: Yes Status: Acute Assessment & Plan: on lasix currently, will monitor Code(s): I50.9 - HEART FAILURE, UNSPECIFIED (3) Chest pain Current Visit: Yes Status: Acute Assessment & Plan: continue chest pain pathway to r/o TN, no PE on CTA chest Code(s): R07.9 - CHEST PAIN, UNSPECIFIED (4) Fatty liver Current Visit: Yes Status: Acute Assessment & Plan: elevated LFT's are mild, were elevated similarly 07/2018 and has fatty liver on ct chest Code(s): K76.0 - FATTY (CHANGE OF) LIVER, NOT ELSEWHERE CLASSIFIED
[2018-11-02] MEDS ORDERED: Lanoxin 0.5 MG/2 ML INJECTION IV ONE (18:23)
[2018-11-02] MEDS: Klor Con 10 MEQ PO SCH (21:27)
[2018-11-02] MEDS: Lasix 40 MG/4 ML IV SCH (21:27)
[2018-11-02] MEDS: CARDIZEM DRIP 100 MG/100 ML D5W 100 ML IV PRN (21:31)
[2018-11-02] MEDS ORDERED: ZOCOR 20MG PO ONE (22:00)
[2018-11-02] MEDS ORDERED: ENOXAPARIN SODIUM SQ SCH (22:00)
[2018-11-02] MEDS ORDERED: Calcium 500MG W/Vit D Tablet PO ONE (22:00)
[2018-11-03] MEDS: CARDIZEM DRIP 100 MG/100 ML D5W 100 ML IV PRN (04:13)
[2018-11-03 05:59] LABS: BASOPHIL % 0.2 % (0.0-0.4); Basophil (Absolute #) 0.02 (0-0.4); Eosinophil (Absolute #) 0.26 (0-0.5); Granulocyte Absolute (ANC) 5.45 (1.4-6.9); Granulocytes % 62.4 % (36.0-66.0); Hematocrit 42.4 % (35-47); Hemoglobin 13.5 gm/dl (12.0-16.0); Lymphocyte (Absolute #) 2.08 (1.0-4.6); Lymphocytes % 23.8 % (24.0-44.0); Mean Corpuscular Hgb Concent. 31.8 g/dl (32-36); Mean Platelet Volume 11.3 fl (6-9.5); Monocyte (Absolute #) 0.93 (0.0-1.3); Monocytes % 10.6 % (0.0-12.0); Platelet Count 205 K/mm3 (150-450); Red Blood Count 4.66 M/mm3 (4.1-5.4); Red Cell Distribution Width 14.9 % (11.5-14.0); White Blood Count 8.7 K/mm3 (4.0-10.5)
[2018-11-03 06:13] LABS: ALBUMIN 3.8 g/dL (3.5-5.0); ANION GAP 9.7 MEQ/L (5-15); BILIRUBIN,TOTAL 0.7 mg/dL (0.2-1.3); Calcium 8.7 mg/dL (8.4-10.2); Creatinine 1 1.02 mg/dL (0.52-1.04); MAGNESIUM 1.6 mg/dL (1.6-2.3); Potassium 4.4 mmol/L (3.5-5.1); Total Protein 6.9 g/dL (6.3-8.2)
--- NOTE | 2018-11-03 09:59 | PCM.NOTE ---
Date and Time: 11/03/18955 Subjective Assessment: patient doing well today, has some pressure in upper abdomen she attributes to trying to move in bed and going to restroom etc. her heart rate is stable under 100 at this time, remains in a fib. no shortness of breath Objective Exam General Appearance: no apparent distress, alert Respiratory Exam: normal breath sounds, lungs clear, No respiratory distress Cardiovascular Exam: irregular Gastrointestinal/Abdomen Exam: soft, No tenderness, No mass Extremity Exam: normal inspection, normal range of motion OBJECTIVE DATA Vital Signs: Vital Signs - 24 hr Temp Pulse Resp BP BP BP Pulse Ox 11/03/18 09:00 88 16 121/80 93 L 11/03/18 08:00 97.8 F 95 H 16 128/71 91 L 11/03/18 07:00 92 H 16 112/85 94 L 11/03/18 05:59 103 H 18 112/64 95 11/03/18 05:37 96 H 18 100/77 11/03/18 05:00 109 H 18 100/77 96 11/03/18 04:13 101 H 23 113/73 11/03/18 04:00 97.9 F 120 H 23 113/73 97 11/03/18 03:00 106 H 18 125/76 94 L 11/03/18 02:00 117 H 114/77 11/03/18 01:00 124 H 117/71 11/03/18 00:01 128 H 11/03/18 00:00 98.3 F 128 H 22 114/64 98 11/02/18 23:00 121 H 114/64 11/02/18 22:00 98.4 F 133 H 22 98/51 115/75 95 11/02/18 21:31 109 H 18 99/76 11/02/18 21:00 120 H 98/51 11/02/18 20:29 96 11/02/18 20:00 119 H 22 112/58 96 11/02/18 19:00 98.2 F 109 H 24 103/82 96 11/02/18 16:00 134 H 11/02/18 15:48 98.3 F 138 H 122/82 95 11/02/18 14:05 91 L 11/02/18 14:04 98 F 147 H 20 114/87 94 L 11/02/18 14:01 98 F 147 H 20 114/87 120/96 94 L 11/02/18 13:40 98 F 147 H 20 114/87 11/02/18 13:29 94 L 11/02/18 12:55 135 H 18 120/96 98 11/02/18 12:04 97.7 F 128 H 18 128/90 98 11/02/18 11:10 97.8 F 118 H 18 109/88 98 Oxygen-Last 24 hours O2 Percentage 2 Liters = 28% O2 Percentage 2 Liters = 28% O2 Percentage 2 Liters = 28% O2 Percentage 2 Liters = 28% O2 Percentage 2 Liters = 28% O2 Percentage 2 Liters = 28% O2 Percentage 2 Liters = 28% O2 Percentage 2 Liters = 28% O2 Percentage 2 Liters = 28% O2 Percentage 2 Liters = 28% Pain Assessment - Last Documented Pain Intensity 0 Pain Scale Used 0-10 Pain Scale Intake and Output: Intake & Output 10/31/18 11/01/18 11/02/18 11/03/18 11:59 11:59 11:59 11:59 Intake Total 1940 Output Total 4450 Balance -2510 Weight 72.575 kg 72.575 kg Lab Results: Lab Results-Last 24 Hours 11/02/18 11/02/18 11/02/18 Range/Units 10:10 10:10 10:10 WBC 11.7 H (4.0-10.5) K/mm3 RBC 4.71 (4.1-5.4) M/mm3 Hgb 13.7 (12.0-16.0) gm/dl Hct 42.4 (35-47) % MCV 90.0 (78-100) fl MCH 29.1 (26-32) pg MCHC 32.3 (32-36) g/dl RDW 15.0 H (11.5-14.0) % Plt Count 225 (150-450) K/mm3 MPV 11.1 H (6-9.5) fl Gran % 78.7 H (36.0-66.0) % Eos # (Auto) 0.12 (0-0.5) Absolute Lymphs (auto) 1.35 (1.0-4.6) Absolute Monos (auto) 1.00 (0.0-1.3) Lymphocytes % 11.6 L (24.0-44.0) % Monocytes % 8.6 (0.0-12.0) % Eosinophils % 1.0 (0.00-5.0) % Basophils % 0.1 (0.0-0.4) % Absolute Granulocytes 9.18 H (1.4-6.9) Basophils # 0.01 (0-0.4) D-Dimer 553 H* (215-500) ng/mL Sodium 139 (137-145) mmol/L Potassium 4.1 (3.5-5.1) mmol/L Chloride 108 H (98-107) mmol/L Carbon Dioxide 24 (22-30) mmol/L Anion Gap 11.4 (5-15) MEQ/L BUN 18 H (7-17) mg/dL Creatinine 0.83 (0.52-1.04) mg/dL Estimated GFR > 60.0 ML/MIN Glucose 154 H (74-106) mg/dL Hemoglobin A1c (4.5-6.0) % Calcium 9.2 (8.4-10.2) mg/dL Magnesium (1.6-2.3) mg/dL Total Bilirubin 0.70 (0.2-1.3) mg/dL AST 41 H (14-36) U/L ALT 49 H (0-35) U/L Alkaline Phosphatase 48 (38-126) U/L Troponin I (0.000-0.034) ng/mL NT-Pro-B Natriuret Pep 2430 H (0-1800) pg/mL Serum Total Protein 7.2 (6.3-8.2) g/dL Albumin 3.9 (3.5-5.0) g/dL TSH 3rd Generation (0.47-4.68) mIU/L Urine Color (YELLOW) Urine Appearance (CLEAR) Urine pH (5-6) Ur Specific Arion (1.005-1.025) Urine Protein (Negative) Urine Ketones (NEGATIVE) Urine Blood (0-5) Ryder/ul Urine Nitrite (NEGATIVE) Urine Bilirubin (NEGATIVE) Urine Urobilinogen (0-1) mg/dL Ur Leukocyte Esterase (NEGATIVE) Urine WBC (Auto) (0-5) /HPF Urine RBC (Auto) (0-2) /HPF U Epithel Cells (Auto) (FEW) /HPF Urine Bacteria (Auto) (NEGATIVE) /HPF Urine Glucose (NEGATIVE) mg/dL 08/02/19 08/02/19 08/02/19 Range/Units 10:10 12:15 14:22 WBC (4.0-10.5) K/mm3 RBC (4.1-5.4) M/mm3 Hgb (12.0-16.0) gm/dl Hct (35-47) % MCV (78-100) fl MCH (26-32) pg MCHC (32-36) g/dl RDW (11.5-14.0) % Plt Count (150-450) K/mm3 MPV (6-9.5) fl Gran % (36.0-66.0) % Eos # (Auto) (0-0.5) Absolute Lymphs (auto) (1.0-4.6) Absolute Monos (auto) (0.0-1.3) Lymphocytes % (24.0-44.0) % Monocytes % (0.0-12.0) % Eosinophils % (0.00-5.0) % Basophils % (0.0-0.4) % Absolute Granulocytes (1.4-6.9) Basophils # (0-0.4) D-Dimer (215-500) ng/mL Sodium (137-145) mmol/L Potassium (3.5-5.1) mmol/L Chloride (98-107) mmol/L Carbon Dioxide (22-30) mmol/L Anion Gap (5-15) MEQ/L BUN (7-17) mg/dL Creatinine (0.52-1.04) mg/dL Estimated GFR ML/MIN Glucose (74-106) mg/dL Hemoglobin A1c (4.5-6.0) % Calcium (8.4-10.2) mg/dL Magnesium (1.6-2.3) mg/dL Total Bilirubin (0.2-1.3) mg/dL AST (14-36) U/L ALT (0-35) U/L Alkaline Phosphatase (38-126) U/L Troponin I 0.016 0.018 (0.000-0.034) ng/mL NT-Pro-B Natriuret Pep (0-1800) pg/mL Serum Total Protein (6.3-8.2) g/dL Albumin (3.5-5.0) g/dL TSH 3rd Generation (0.47-4.68) mIU/L Urine Color COLORLESS (YELLOW) Urine Appearance CLEAR (CLEAR) Urine pH 7.0 (5-6) Ur Specific Arion 1.008 (1.005-1.025) Urine Protein NEGATIVE (Negative) Urine Ketones NEGATIVE (NEGATIVE) Urine Blood NEGATIVE (0-5) Ryder/ul Urine Nitrite NEGATIVE (NEGATIVE) Urine Bilirubin NEGATIVE (NEGATIVE) Urine Urobilinogen NEGATIVE (0-1) mg/dL Ur Leukocyte Esterase NEGATIVE (NEGATIVE) Urine WBC (Auto) NONE (0-5) /HPF Urine RBC (Auto) NONE (0-2) /HPF U Epithel Cells (Auto) NONE (FEW) /HPF Urine Bacteria (Auto) NONE SEEN (NEGATIVE) /HPF Urine Glucose NEGATIVE (NEGATIVE) mg/dL 11/02/18 11/02/18 11/02/18 Range/Units 16:18 16:33 19:24 WBC (4.0-10.5) K/mm3 RBC (4.1-5.4) M/mm3 Hgb (12.0-16.0) gm/dl Hct (35-47) % MCV (78-100) fl MCH (26-32) pg MCHC (32-36) g/dl RDW (11.5-14.0) % Plt Count (150-450) K/mm3 MPV (6-9.5) fl Gran % (36.0-66.0) % Eos # (Auto) (0-0.5) Absolute Lymphs (auto) (1.0-4.6) Absolute Monos (auto) (0.0-1.3) Lymphocytes % (24.0-44.0) % Monocytes % (0.0-12.0) % Eosinophils % (0.00-5.0) % Basophils % (0.0-0.4) % Absolute Granulocytes (1.4-6.9) Basophils # (0-0.4) D-Dimer (215-500) ng/mL Sodium (137-145) mmol/L Potassium (3.5-5.1) mmol/L Chloride (98-107) mmol/L Carbon Dioxide (22-30) mmol/L Anion Gap (5-15) MEQ/L BUN (7-17) mg/dL Creatinine (0.52-1.04) mg/dL Estimated GFR ML/MIN Glucose (74-106) mg/dL Hemoglobin A1c (4.5-6.0) % Calcium (8.4-10.2) mg/dL Magnesium (1.6-2.3) mg/dL Total Bilirubin (0.2-1.3) mg/dL AST (14-36) U/L ALT (0-35) U/L Alkaline Phosphatase (38-126) U/L Troponin I 0.020 0.017 (0.000-0.034) ng/mL NT-Pro-B Natriuret Pep (0-1800) pg/mL Serum Total Protein (6.3-8.2) g/dL Albumin (3.5-5.0) g/dL TSH 3rd Generation 4.820 H (0.47-4.68) mIU/L Urine Color (YELLOW) Urine Appearance (CLEAR) Urine pH (5-6) Ur Specific Arion (1.005-1.025) Urine Protein (Negative) Urine Ketones (NEGATIVE) Urine Blood (0-5) Ryder/ul Urine Nitrite (NEGATIVE) Urine Bilirubin (NEGATIVE) Urine Urobilinogen (0-1) mg/dL Ur Leukocyte Esterase (NEGATIVE) Urine WBC (Auto) (0-5) /HPF Urine RBC (Auto) (0-2) /HPF U Epithel Cells (Auto) (FEW) /HPF Urine Bacteria (Auto) (NEGATIVE) /HPF Urine Glucose (NEGATIVE) mg/dL 11/02/18 11/02/18 11/03/18 Range/Units 22:32 Unknown 05:25 WBC 8.7 (4.0-10.5) K/mm3 RBC 4.66 (4.1-5.4) M/mm3 Hgb 13.5 (12.0-16.0) gm/dl Hct 42.4 (35-47) % MCV 91.0 (78-100) fl MCH 29.0 (26-32) pg MCHC 31.8 L (32-36) g/dl RDW 14.9 H (11.5-14.0) % Plt Count 205 (150-450) K/mm3 MPV 11.3 H (6-9.5) fl Gran % 62.4 (36.0-66.0) % Eos # (Auto) 0.26 (0-0.5) Absolute Lymphs (auto) 2.08 (1.0-4.6) Absolute Monos (auto) 0.93 (0.0-1.3) Lymphocytes % 23.8 L (24.0-44.0) % Monocytes % 10.6 (0.0-12.0) % Eosinophils % 3.0 (0.00-5.0) % Basophils % 0.2 (0.0-0.4) % Absolute Granulocytes 5.45 (1.4-6.9) Basophils # 0.02 (0-0.4) D-Dimer (215-500) ng/mL Sodium (137-145) mmol/L Potassium (3.5-5.1) mmol/L Chloride (98-107) mmol/L Carbon Dioxide (22-30) mmol/L Anion Gap (5-15) MEQ/L BUN (7-17) mg/dL Creatinine (0.52-1.04) mg/dL Estimated GFR ML/MIN Glucose (74-106) mg/dL Hemoglobin A1c 5.72 (4.5-6.0) % Calcium (8.4-10.2) mg/dL Magnesium (1.6-2.3) mg/dL Total Bilirubin (0.2-1.3) mg/dL AST (14-36) U/L ALT (0-35) U/L Alkaline Phosphatase (38-126) U/L Troponin I 0.025 (0.000-0.034) ng/mL NT-Pro-B Natriuret Pep (0-1800) pg/mL Serum Total Protein (6.3-8.2) g/dL Albumin (3.5-5.0) g/dL TSH 3rd Generation (0.47-4.68) mIU/L Urine Color (YELLOW) Urine Appearance (CLEAR) Urine pH (5-6) Ur Specific Arion (1.005-1.025) Urine Protein (Negative) Urine Ketones (NEGATIVE) Urine Blood (0-5) Ryder/ul Urine Nitrite (NEGATIVE) Urine Bilirubin (NEGATIVE) Urine Urobilinogen (0-1) mg/dL Ur Leukocyte Esterase (NEGATIVE) Urine WBC (Auto) (0-5) /HPF Urine RBC (Auto) (0-2) /HPF U Epithel Cells (Auto) (FEW) /HPF Urine Bacteria (Auto) (NEGATIVE) /HPF Urine Glucose (NEGATIVE) mg/dL 11/03/18 Range/Units 05:25 WBC (4.0-10.5) K/mm3 RBC (4.1-5.4) M/mm3 Hgb (12.0-16.0) gm/dl Hct (35-47) % MCV (78-100) fl MCH (26-32) pg MCHC (32-36) g/dl RDW (11.5-14.0) % Plt Count (150-450) K/mm3 MPV (6-9.5) fl Gran % (36.0-66.0) % Eos # (Auto) (0-0.5) Absolute Lymphs (auto) (1.0-4.6) Absolute Monos (auto) (0.0-1.3) Lymphocytes % (24.0-44.0) % Monocytes % (0.0-12.0) % Eosinophils % (0.00-5.0) % Basophils % (0.0-0.4) % Absolute Granulocytes (1.4-6.9) Basophils # (0-0.4) D-Dimer (215-500) ng/mL Sodium 140 (137-145) mmol/L Potassium 4.4 (3.5-5.1) mmol/L Chloride 103 (98-107) mmol/L Carbon Dioxide 32 H (22-30) mmol/L Anion Gap 9.7 (5-15) MEQ/L BUN 16 (7-17) mg/dL Creatinine 1.02 (0.52-1.04) mg/dL Estimated GFR 56.0 ML/MIN Glucose 115 H (74-106) mg/dL Hemoglobin A1c (4.5-6.0) % Calcium 8.7 (8.4-10.2) mg/dL Magnesium 1.6 (1.6-2.3) mg/dL Total Bilirubin 0.70 (0.2-1.3) mg/dL AST 38 H (14-36) U/L ALT 46 H (0-35) U/L Alkaline Phosphatase 49 (38-126) U/L Troponin I (0.000-0.034) ng/mL NT-Pro-B Natriuret Pep 1660 (0-1800) pg/mL Serum Total Protein 6.9 (6.3-8.2) g/dL Albumin 3.8 (3.5-5.0) g/dL TSH 3rd Generation (0.47-4.68) mIU/L Urine Color (YELLOW) Urine Appearance (CLEAR) Urine pH (5-6) Ur Specific Arion (1.005-1.025) Urine Protein (Negative) Urine Ketones (NEGATIVE) Urine Blood (0-5) Ryder/ul Urine Nitrite (NEGATIVE) Urine Bilirubin (NEGATIVE) Urine Urobilinogen (0-1) mg/dL Ur Leukocyte Esterase (NEGATIVE) Urine WBC (Auto) (0-5) /HPF Urine RBC (Auto) (0-2) /HPF U Epithel Cells (Auto) (FEW) /HPF Urine Bacteria (Auto) (NEGATIVE) /HPF Urine Glucose (NEGATIVE) mg/dL Radiology Exams: Radiology Procedures Category Date Time Status CHEST 1 VIEW (PORTABLE) Stat Exams 11/02/18 10:02 Completed CHEST WITH CONTRAST [CT] Stat Exams 11/02/18 10:53 Completed ECHO W/2D AND DOPPLER [US] Routine Exams 11/02/18 14:05 Taken FOOT (MINIMUM 3 VIEWS) Stat Exams 11/02/18 10:52 Completed Assessment/Plan (1) Atrial fibrillation with RVR Current Visit: Yes Status: Acute Assessment & Plan: heart rate currently controlled with cardizem 10mg/hr gtt and addition of digoxin. echo pending, appreciate Dr Cage's input Code(s): I48.91 - UNSPECIFIED ATRIAL FIBRILLATION (2) CHF (congestive heart failure) Current Visit: Yes Status: Acute Assessment & Plan: good diuresis noted Code(s): I50.9 - HEART FAILURE, UNSPECIFIED (3) Chest pain Current Visit: Yes Status: Acute Assessment & Plan: CT ruled out Code(s): R07.9 - CHEST PAIN, UNSPECIFIED (4) Fatty liver Current Visit: Yes Status: Acute Code(s): K76.0 - FATTY (CHANGE OF) LIVER, NOT ELSEWHERE CLASSIFIED
[2018-11-03] MEDS ORDERED: Levofloxacin 500 MG Tablet PO SCH ×2 (10:00)
[2018-11-03] MEDS ORDERED: Lanoxin 0.5 MG/2 ML INJECTION IV SCH (10:00)
[2018-11-03] MEDS ORDERED: Levofloxacin 500MG/100ML D5W 500 MG/100 ML BAG IV SCH (10:00)
[2018-11-03] MEDS ORDERED: PHARMACY DOSING REQUEST MC ONE (10:15)
[2018-11-03] MEDS: Lasix 40 MG/4 ML IV SCH ×2 (10:20→21:13)
[2018-11-03] MEDS: Klor Con 10 MEQ PO SCH ×2 (10:21→21:13)
[2018-11-03] MEDS: Calcium 500MG W/Vit D Tablet PO SCH ×2 (10:50→21:12)
[2018-11-03] MEDS: Cardizem 30 MG PO SCH ×2 (10:50→17:42)
[2018-11-03] MEDS: ELIQUIS 2.5 MG TABLET PO SCH ×2 (10:50→21:10)
[2018-11-03] MEDS: Effexor XR 75 MG PO SCH ×2 (10:51→21:10)
[2018-11-03] MEDS: MAG-OX 400 PO SCH (21:11)
[2018-11-03] MEDS: ZOCOR 20MG PO SCH (21:13)
[2018-11-03] MEDS ORDERED: MAG-OX 400 PO ONE (22:00)
[2018-11-03] MEDS ORDERED: NON-FORMULARY ITEM (Venlafaxine Hcl [Effexor] 75 MG) PO SCH (22:00)
[2018-11-03] MEDS ORDERED: MAGNESIUM 200 MG PO SCH (22:00)
[2018-11-03] MEDS ORDERED: Lanoxin 0.5 MG/2 ML INJECTION IV ONE (22:49)
[2018-11-04] MEDS: CARDIZEM DRIP 100 MG/100 ML D5W 100 ML IV PRN ×2 (00:45→01:55)
[2018-11-04] MEDS ORDERED: D5w 100ML Mini Bag 100 ML 100 ML IV ONE (01:45)
[2018-11-04] MEDS: Cardizem 30 MG PO SCH (02:06)
[2018-11-04 05:49] LABS: BASOPHIL % 0.1 % (0.0-0.4); Basophil (Absolute #) 0.01 (0-0.4); Eosinophil % 3.1 % (0.00-5.0); Eosinophil (Absolute #) 0.31 (0-0.5); Granulocyte Absolute (ANC) 6.91 (1.4-6.9); Granulocytes % 70.1 % (36.0-66.0); Hematocrit 45.6 % (35-47); Hemoglobin 14.5 gm/dl (12.0-16.0); Lymphocyte (Absolute #) 1.84 (1.0-4.6); Lymphocytes % 18.7 % (24.0-44.0); Mean Cell Volume 90.8 fl (78-100); Mean Corpuscular Hemoglobin 28.9 pg (26-32); Mean Corpuscular Hgb Concent. 31.8 g/dl (32-36); Mean Platelet Volume 11.3 fl (6-9.5); Monocyte (Absolute #) 0.79 (0.0-1.3); Platelet Count 231 K/mm3 (150-450); Red Blood Count 5.02 M/mm3 (4.1-5.4); White Blood Count 9.9 K/mm3 (4.0-10.5)
[2018-11-04 06:23] LABS: ANION GAP 9.4 MEQ/L (5-15); Calcium 9.7 mg/dL (8.4-10.2); Creatinine 1 0.98 mg/dL (0.52-1.04); Potassium 4.8 mmol/L (3.5-5.1); TROPONIN 0.018 ng/mL (0.000-0.034)
--- NOTE | 2018-11-04 08:04 | PCM.NOTE ---
Date and Time: 11/04/18801 Subjective Assessment: patient had cardizem gtt restarted last pm, currently on 12.5mg/hr/ bp 120's/70' s and heart rate in 90's. was not controlled on po cardizem with digoxin. she denies chest pain or shortness of breath, cecil po intake Objective Exam General Appearance: no apparent distress Neurologic Exam: alert, 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 Respiratory Exam: normal breath sounds, lungs clear, No respiratory distress Cardiovascular Exam: irregular Gastrointestinal/Abdomen Exam: soft, No tenderness, No mass Extremity Exam: normal inspection, normal range of motion OBJECTIVE DATA Vital Signs: Vital Signs - 24 hr Temp Pulse Resp BP BP Pulse Ox 11/04/18 07:37 97.4 F 105 H 25 H 128/77 94 L 11/04/18 07:11 105 H 25 H 128/77 94 L 11/04/18 06:00 113 H 24 128/77 92 L 11/04/18 05:00 111 H 25 H 140/84 96 11/04/18 04:19 137 H 24 139/85 11/04/18 04:00 97.4 F 137 H 24 139/85 95 11/04/18 03:00 132 H 21 133/84 95 11/04/18 02:56 132 H 21 133/84 11/04/18 02:00 124 H 23 108/69 97 11/04/18 01:55 124 H 19 142/93 11/04/18 01:00 128 H 142/93 11/04/18 00:45 132 H 19 128/97 11/04/18 00:01 153 H 11/04/18 00:00 153 H 128/97 11/03/18 23:11 131 H 23 122/78 95 11/03/18 22:00 142 H 25 H 134/84 90 L 11/03/18 21:14 113 H 20 142/67 95 11/03/18 20:00 113 H 11/03/18 19:55 94 L 11/03/18 19:22 98.2 F 123 H 18 115/87 95 11/03/18 19:00 133 H 23 93 L 11/03/18 18:00 120 H 21 123/78 95 11/03/18 17:48 122 H 20 96 11/03/18 17:00 138 H 23 129/93 93 L 11/03/18 16:00 97.5 F 101 H 20 128/109 94 L 11/03/18 15:00 118 H 20 122/80 94 L 11/03/18 13:33 93 H 20 124/71 94 L 11/03/18 12:53 102 H 18 119/67 92 L 11/03/18 12:00 98.0 F 111 H 22 145/82 94 L 11/03/18 11:53 103 H 14 131/74 11/03/18 10:00 101 H 20 115/47 92 L 11/03/18 09:00 88 16 121/80 93 L Oxygen-Last 24 hours O2 Percentage 2 Liters = 28% O2 Percentage 2 Liters = 28% O2 Percentage 2 Liters = 28% O2 Percentage 2 Liters = 28% Pain Assessment - Last Documented Pain Intensity 0 Pain Scale Used 0-10 Pain Scale Intake and Output: Intake & Output 11/01/18 11/02/18 11/03/18 11/04/18 11:59 11:59 11:59 11:59 Intake Total 1940 1189 Output Total 4455 2740 Balance -9340 -3324 Weight 72.575 kg 72.575 kg 73.3 kg Lab Results: Lab Results-Last 24 Hours 11/04/18 11/04/18 Range/Units 05:25 05:25 WBC 9.9 (4.0-10.5) K/mm3 RBC 5.02 (4.1-5.4) M/mm3 Hgb 14.5 (12.0-16.0) gm/dl Hct 45.6 (35-47) % MCV 90.8 (78-100) fl MCH 28.9 (26-32) pg MCHC 31.8 L (32-36) g/dl RDW 15.0 H (11.5-14.0) % Plt Count 231 (150-450) K/mm3 MPV 11.3 H (6-9.5) fl Gran % 70.1 H (36.0-66.0) % Eos # (Auto) 0.31 (0-0.5) Absolute Lymphs (auto) 1.84 (1.0-4.6) Absolute Monos (auto) 0.79 (0.0-1.3) Lymphocytes % 18.7 L (24.0-44.0) % Monocytes % 8.0 (0.0-12.0) % Eosinophils % 3.1 (0.00-5.0) % Basophils % 0.1 (0.0-0.4) % Absolute Granulocytes 6.91 H (1.4-6.9) Basophils # 0.01 (0-0.4) Sodium 140 (137-145) mmol/L Potassium 4.8 (3.5-5.1) mmol/L Chloride 100 (98-107) mmol/L Carbon Dioxide 36 H (22-30) mmol/L Anion Gap 9.4 (5-15) MEQ/L BUN 20 H (7-17) mg/dL Creatinine 0.98 (0.52-1.04) mg/dL Estimated GFR 58.6 ML/MIN Glucose 124 H (74-106) mg/dL Calcium 9.7 (8.4-10.2) mg/dL Troponin I 0.018 (0.000-0.034) ng/mL NT-Pro-B Natriuret Pep 788 (0-1800) pg/mL Radiology Exams: Radiology Procedures Category Date Time Status CHEST 1 VIEW (PORTABLE) Stat Exams 11/02/18 10:02 Completed CHEST WITH CONTRAST [CT] Stat Exams 11/02/18 10:53 Completed ECHO W/2D AND DOPPLER [US] Routine Exams 11/02/18 14:05 Taken FOOT (MINIMUM 3 VIEWS) Stat Exams 11/02/18 10:52 Completed Assessment/Plan (1) Atrial fibrillation with RVR Current Visit: Yes Status: Acute Assessment & Plan: continue digoxin and cardizem gtt. will check with Dr Cage regarding adding amiodarone at this point. patient is stable and doing well clinically Code(s): I48.91 - UNSPECIFIED ATRIAL FIBRILLATION (2) CHF (congestive heart failure) Current Visit: Yes Status: Acute Assessment & Plan: appears euvolemic at this time, will reduce lasix Code(s): I50.9 - HEART FAILURE, UNSPECIFIED (3) Chest pain Current Visit: Yes Status: Acute Code(s): R07.9 - CHEST PAIN, UNSPECIFIED (4) Fatty liver Current Visit: Yes Status: Acute Code(s): K76.0 - FATTY (CHANGE OF) LIVER, NOT ELSEWHERE CLASSIFIED
[2018-11-04] MEDS ORDERED: PHARMACY DOSING REQUEST MC ONE (08:07)
[2018-11-04] MEDS ORDERED: Cordarone 150 MG/3 ML Injection*** 150 MG in D5w 100ML Mini Bag 100 ML 100 ML IV ONE (08:15)
[2018-11-04] MEDS: NEXTERONE 360 MG/200 ML BAG 360 MG/200 ML PLAST..BAG IV SCH ×2 (08:47→14:18)
[2018-11-04] MEDS: Effexor XR 75 MG PO SCH ×2 (09:14→21:34)
[2018-11-04] MEDS: ELIQUIS 2.5 MG TABLET PO SCH ×2 (09:14→21:35)
[2018-11-04] MEDS: Calcium 500MG W/Vit D Tablet PO SCH ×2 (09:14→21:34)
[2018-11-04] MEDS: LASIX 20 MG PO SCH (09:14)
[2018-11-04] MEDS: Klor Con 10 MEQ PO SCH (10:00)
[2018-11-04] MEDS ORDERED: Lanoxin 0.125MG TABLET PO SCH (10:00)
[2018-11-04] MEDS: ZOCOR 20MG PO SCH (21:34)
[2018-11-04] MEDS: MAG-OX 400 PO SCH (21:34)
[2018-11-05 06:49] LABS: SGOT/AST 41 U/L (14-36); SGPT/ALT 38 U/L (0-35)
[2018-11-05] MEDS: Cordarone 200 MG PO SCH ×2 (09:02→21:44)
[2018-11-05] MEDS: Lopressor 50 MG PO SCH ×2 (09:03→21:44)
[2018-11-05] MEDS: Klor Con 10 MEQ PO SCH (09:04)
[2018-11-05] MEDS: Effexor XR 75 MG PO SCH ×2 (09:04→21:43)
[2018-11-05] MEDS: Calcium 500MG W/Vit D Tablet PO SCH ×2 (09:04→21:43)
[2018-11-05] MEDS: Lanoxin 0.125MG TABLET PO SCH (09:05)
[2018-11-05] MEDS: ELIQUIS 2.5 MG TABLET PO SCH ×2 (09:05→21:44)
[2018-11-05] MEDS: LASIX 20 MG PO SCH (09:06)
--- NOTE | 2018-11-05 09:17 | CONS ---
CONSULT DATE: 11/02/2018 BRIEF HISTORY: This is a 78 year-old female who was seen because of shortness of breath, atrial fibrillation. The patient stated that for the last one and a half weeks after having some guests and family at home she noticed that she has been getting increasingly short of breath and was having also some chest discomfort. She eventually went to the [facility] and subsequently admitted. Initial evaluation was found to be in atrial fibrillation with rapid ventricular response and she was placed on Cardizem drip and was anticoagulated with Lovenox. The patient stated that prior to this incident she has been doing well. 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 She has never had myocardial infarction or previous heart failure. She denies any paroxysmal nocturnal dyspnea, no orthopnea prior to this illness. She has no peripheral edema. No syncopal attacks. CARDIAC RISK FACTORS: Negative for diabetes. No hypertension. She has hyperlipidemia. She does not smoke. CURRENT MEDICATIONS: Fosamax, calcium with vitamin D, loratadine, magnesium, simvastatin, Effexor. ALLERGIES: PENICILLIN, CEFACLOR, CLINDAMYCIN. FAMILY HISTORY: Negative for premature coronary artery disease. REVIEW OF SYSTEMS: CONSULTING PROPERTY MANAGER: There is no history of stroke. No seizures. No chronic headache. No visual disturbances. No hearing difficulties. RESPIRATORY: No chronic cough or hemoptysis. No history of pulmonary embolism. Recent chest x-ray did show some pleural effusion. GI: Denies any nausea. No vomiting. No diarrhea or constipation. : Negative for dysuria or hematuria. PERIPHERAL VASCULAR: No history of DVT or claudication. SKIN: No active dermatological problems. HEMATOLOGY: No blood dyscrasia. She does have some bruising. ENDOCRINE: No history of thyroid disorder. Her TSH is just mildly elevated. MUSCULOSKELETAL: No significant degenerative joint disorder. PAST SURGICAL HISTORY: Knee replacement. SOCIAL HISTORY: She is . 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 She denies any significant alcohol intake. PHYSICAL EXAMINATION: Her blood pressure is 123/70 with a heart rate of 150 in atrial fibrillation, respirations about 18. GENERAL: The patient is an elderly female who is alert, oriented, who is not in any form of distress. Conversational, very pleasant. HEENT: Unremarkable. NECK: No significant JVD. No carotid bruits. CHEST: The breath sounds are clear bilaterally. CARDIAC: Heart tones are distant. The rhythm is atrial fibrillation with variable first heart sound. No definite S3 gallop is noted. ABDOMEN: Soft with normal bowel sounds. No hepatosplenomegaly. EXTREMITIES: No significant edema. Distal pulses are palpable. IMPRESSION: 1) The EKG shows atrial fibrillation with rapid ventricular response. I agree with IV Cardizem. We are going to add Lanoxin for heart rate control. If this is ineffective will place on amiodarone. Meanwhile continue with subcu Lovenox and switch to DOAC (direct oral anticoagulant) when her rhythm has stabilized. Henrique troponin I is still in the normal range. The chest pain is probably secondary to tachycardia. Eventually will do some work up for coronary artery disease. 2) Hyperlipidemia: Continue statin therapy. I will review her echocardiogram. I will follow up with you.
--- NOTE | 2018-11-05 09:25 | ECHO ---
Transthoracic echocardiographic examination and color Doppler was done on 11/02/2018. INDICATION: atrial fibrillation, shortness of breath. IMPRESSION: 1) MILD LEFT VENTRICULAR HYPOKINESIA. EJECTION FRACTION 50%. 2) MILD TO MODERATE MITRAL REGURGITATION. 3) MODERATE MILD TRICUSPID REGURGITATION. RIGHT VENTRICULAR SYSTOLIC PRESSURE OF 25 MM OF MERCURY. 4) MILD PULMONARY INSUFFICIENCY. 5) LEFT ATRIAL ENLARGEMENT. 6) LEFT VENTRICULAR HYPERTROPHY. 7) MILDLY DILATED RIGHT-SIDE CHAMBERS. 8) MILD PERICARDIAL EFFUSION. The left ventricle is visualized and demonstrated mild left ventricular hypokinesia with a global left ventricular ejection fraction around 50% (this may be under estimation because of the tachycardia). There is some mild left ventricular hypertrophy. The mitral valve is sclerotic but opens adequately. There is mild to moderate mitral regurgitation. Left atrium is enlarged. The aortic valve is sclerotic. The peak gradient across the aortic valve is 12 mm of Mercury. The right side chambers are mildly dilated. There is moderate tricuspid regurgitation. The right ventricular systolic pressure of 35 mm of Mercury. There is also mild pulmonic insufficiency. There is also mild pulmonic insufficiency. There is mild pericardial effusion.
[2018-11-05] MEDS: MAG-OX 400 PO SCH (21:42)
[2018-11-05] MEDS: ZOCOR 20MG PO SCH (21:43)
[2018-11-06] MEDS ORDERED: Sodium Chloride 0.9% 10 ML FLUSH Syringe IV SCH (06:00)
[2018-11-06 07:37] VITALS: BP 129/89; O2SAT 95
[2018-11-06] MEDS: Cordarone 200 MG PO SCH (09:08)
[2018-11-06] MEDS: Lanoxin 0.125MG TABLET PO SCH (09:09)
[2018-11-06] MEDS: Klor Con 10 MEQ PO SCH (09:10)
[2018-11-06] MEDS: Lopressor 50 MG PO SCH (09:10)
[2018-11-06] MEDS: LASIX 20 MG PO SCH (09:11)
[2018-11-06] MEDS: Effexor XR 75 MG PO SCH (09:12)
[2018-11-06] MEDS: ELIQUIS 2.5 MG TABLET PO SCH (09:12)
[2018-11-06] MEDS: Calcium 500MG W/Vit D Tablet PO SCH (09:13)
[2018-11-06 09:14] VITALS: PULSE 89
[2018-11-06 10:49] LABS: INR 1.6 (0.8-3.0); PROTIME 18.2 SECONDS (9.95-12.35)
--- NOTE | 2018-11-06 11:41 | DS ---
DISCHARGE DIAGNOSIS: ATRIAL FIBRILLATION WITH RAPID VENTRICULAR RESPONSE. HOSPITAL COURSE: The patient is a 78 year-old white female who presented to the hospital with shortness of breath and chest pain. She was ruled out for myocardial infarction but was found to be in atrial fibrillation with rapid ventricular response. She was admitted to the hospital and placed on a Cardizem drip. She did not convert with this and she was consulted by cardiology. Dr. Cage did see the patient and placed her on Cordarone drip. She still persisted to be in atrial fibrillation with rapid ventricular response even with this. She was placed on digoxin and once again still remained in atrial fibrillation with rapid ventricular response. By 11/05/2018, I saw the patient and placed her on metoprolol in addition to the other medicines after which she did slow her heart rate to less than 100 at rest where she was running 130's the day before. The patient is feeling much better today and had eaten all of her breakfast and appears to be in good spirits and otherwise doing okay. She is however still in atrial fibrillation. She reports to me that she may not be able to afford her Eliquis as prescribed by Dr. Cage for her atrial fibrillation. We will discuss with his office for potential second option for his choice of prophylaxis with stroke as she may not be able to afford her medication. She is otherwise ready for discharge home by the morning of 11/06/2018 with instructions to follow up with Dr. Cage in his office in the next coming week and my own office shortly thereafter. At this time she will discharge home with metoprolol 50 mg b.i.d., Cordarone 200 mg one and a half tablets b.i.d. and Eliquis 2.5 mg b.i.d., Lanoxin 0.125 mg a day, Lasix 20 mg a day, magnesium oxide 200 mg daily, potassium 10 mEq daily, Zocor 40 mg daily, Effexor 75 mg daily. She is instructed to return to the hospital should she have any problems in the interim.
[2018-11-08] MEDS ORDERED: Cordarone 200 MG PO SCH (10:00)
[2018-11-11] MEDS ORDERED: Cordarone 200 MG PO SCH (10:00)
== END 2018-11-06 13:05 | disposition home or self-care (01) | DRG 310 ==
LOC: ED 09:50 → ICU 14:01
PROVIDERS: ADMIT Family Medicine; ATTEND Family Medicine
DX: I48.91 Unspecified atrial fibrillation (principal); E78.5 Hyperlipidemia, unspecified; E78.00 Pure hypercholesterolemia, unspecified; I50.9 Heart failure, unspecified; R07.9 Chest pain, unspecified; K76.0 Fatty (change of) liver, not elsewhere classified; Z79.899 Other long term (current) drug therapy
CPT/HCPCS: 36000; 36415; 51702; 71045; 71260; 73630; 80048; 80053; 81001; 83036; 83735; 83880; 84443; 84450; 84460; 84484; 85025; 85379; 85610; 85652; 87040; 87086; 93005; 93041; 93306; 96360; 96372; 96374; 96375; 96376; 99285; J0282; J1160; J1650; J1940; A9270-GY

== ENCOUNTER 2019-01-29 19:35 | Emergency (ER) | payer MEDICARE, OTHER ==
--- NOTE | 2019-01-29 19:43 | ERPHSYRPT ---
- History of Present Illness Time Seen by Provider: 01/29/19 19:43 Source: patient, family Exam Limitations: no limitations Physician History: 78 y/o white female presents with lbp after a fall. pt with newly dx afib. pt on coumadin. pt tripped over cat and tried to miss cat when she fell. she hit her head. pt also complains of mild bilateral lateral rib pain on deep inspiration. additionally, pt fell last week injurying left knee. no xrays taken of this knee. Occurred: just prior to arrival Reason for Fall: tripped Injuries/Pain Location: head, chest, back, lower extremity (left knee), lower Loss of Consciousness: no loss of consciousness Quality: aching (mild) Modifying Factors: Improves With: movement Associated Symptoms (Fall): back pain, No neck pain, No shortness of breath Allergies/Adverse Reactions: cefaclor [From Ceclor] Allergy (Intermediate, Verified 01/29/19 19:58) Itching face tight, swelling, felt hot Penicillins Allergy (Intermediate, Verified 01/29/19 19:58) Rash clindamycin HCl [From Cleocin] Allergy (Verified 01/29/19 19:58) clindamycin palmitate HCl [From Cleocin] Allergy (Verified 01/29/19 19:58) Hives entire body clindamycin phosphate [From Cleocin] Allergy (Verified 01/29/19 19:58) Home Medications: Alendronate Sodium 70 mg [Fosamax 70 MG] 70 mg PO WEEKLY 07/01/13 [History ] Loratadine 10 mg [Claritin 10 mg] 10 mg PO DAILY PRN 07/01/13 [History] Venlafaxine HCl [Effexor] 75 mg PO HS 07/01/13 [History] Calcium Carbonate/Vitamin D3 [Calcium 500-Vit D3 200 Caplet] 1 each PO BID 07/02 [History] Magnesium 200 mg PO HS 11/02/18 [History] Simvastatin 40 mg PO HS 11/02/18 [History] Venlafaxine HCl [Venlafaxine HCl ER] 150 mg PO DAILY 11/02/18 [History] Furosemide 20 mg [Lasix 20 mg] 20 mg PO DAILY 11/13/18 [History] Metoprolol Tartrate 50 mg PO HS 11/13/18 [History] Potassium Chloride 10 meq PO DAILY 11/13/18 [History] Digoxin 0.125 mg Tablet [Lanoxin 0.125MG TABLET] 0.0625 mg PO DAILY [History] Metoprolol Tartrate 75 mg PO DAILY 01/29/19 [History] Hx Tetanus, Diphtheria Vaccination/Date Given: Yes Hx Influenza Vaccination/Date Given: Yes Hx Pneumococcal Vaccination/Date Given: Yes - Review of Systems Constitutional: No Symptoms Eyes: No Symptoms Ears, Nose, & Throat: No Symptoms Respiratory: No Symptoms Cardiac: No Symptoms Abdominal/Gastrointestinal: No Symptoms Genitourinary Symptoms: No Symptoms Musculoskeletal: Back Pain Skin: Other (ecchymosis left ant knee) Neurological: No Symptoms Psychological: No Symptoms Endocrine: No Symptoms Hematologic/Lymphatic: No Symptoms Immunological/Allergic: No Symptoms All Other Systems: Reviewed and Negative - Past Medical History Pertinent Past Medical History: Yes Neurological History: No Pertinent History ENT History: Cataracts, Other Cardiac History: High Cholesterol Respiratory History: Sleep Apnea, Other Endocrine Medical History: No Pertinent History Musculoskeletal History: Osteoarthritis GI Medical History: GI Bleed, Polyps History: No Pertinent History Psycho-Social History: Anxiety, Depression, Panic Disorder Female Reproductive Disorders: No Pertinent History Other Medical History: sleep apnea - Past Surgical History Past Surgical History: Yes Neuro Surgical History: No Pertinent History Cardiac: No Pertinent History Respiratory: No Pertinent History Gastrointestinal: Appendectomy Genitourinary: No Pertinent History Musculoskeletal: Joint Replacement, Orthopedic Surgery Female Surgical History: Tubal Ligation, Other Other Surgical History: sinus surgery, tonsils, D&C x2, cataract, left KNEE REPLACEMENT , antibiotic spacer placement in left knee. - Social History Smoking Status: Never smoker Exposure to second hand smoke: No Alcohol Use: None Drug Use: none Patient Lives Alone: No Significant Family History: no pertinent family hx - Nursing Vital Signs Nursing Vital Signs: Initial Vital Signs Temperature 97.6 F 01/29/19 19:38 Pulse Rate 103 H 01/29/19 19:38 Respiratory Rate 15 01/29/19 19:38 Blood Pressure 119/82 01/29/19 19:38 O2 Sat by Pulse Oximetry 97 01/29/19 19:38 Pain Scale Pain Intensity 9 - [place] Coma Score Best Eye Response ([place]): (4) open spontaneously Best Verbal Response ([place]): (5) oriented Best Motor Response ([place]): (6) obeys commands [place] Total: 15 - Physical Exam General Appearance: no apparent distress, alert, anxiety Head Injury: no evidence of injury Eye Exam: PERRL/EOMI, eyes nml inspection ENT Exam: airway nml, nml ext.inspection, No evidence of ENT injury Neck Exam: supple, trachea midline, full range of motion, normal alignment, normal inspection Respiratory/Chest Exam: normal breath sounds, No chest tenderness, No respiratory distress, No ecchymosis, No crepitus, No decreased breath sounds Gastrointestinal Exam: soft, normal bowel sounds, No tenderness, No guarding Rectal Exam: not done Back Exam: normal inspection, normal range of motion, muscle spasm Extremity Exam: normal range of motion, evidence of injury (left ant knee with ecchymosis and swelling) Neurologic Exam: alert, 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, cooperative, 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 tested, normal mood/affect Skin Exam: ecchymosis (as above) SpO2 Interpretation: normal O2 Delivery: Room Air Ordered Tests: Active Orders 24 hr Category Date Time Status CHEST 1 VIEW (PORTABLE) Stat Exams 01/29/19 20:21 Ordered HEAD WITHOUT CONTRAST [CT] Stat Exams 01/29/19 20:20 Ordered KNEE (3 VIEWS) Stat Exams 01/29/19 20:21 Ordered LUMBAR LIMITED (2 OR 3 VIEWS) Stat Exams 01/29/19 20:21 Ordered Medication Summary Discontinued Medications Generic Name Dose Route Start Last Admin Trade Name Dmq PRN Reason Stop Dose Admin Hydrocodone Bitart/Acetaminophen 1 tab 01/29/19 21:54 01/29/19 22:03 [place] 5/325 Mg PO 01/29/19 21:55 1 tab STAT ONE Administration Hydrocodone Bitart/Acetaminophen 2 tab 01/29/19 21:54 01/29/19 22:04 [place] 5/325 Mg PO 01/29/19 21:55 2 tab SENT HOME W/ PATIENT ONE Administration Hydrocodone Bitart/Acetaminophen Confirm 01/29/19 21:58 [place] 5/325 Mg Administered 01/29/19 21:59 Dose 3 tab .ROUTE .STK-MED ONE - Progress Progress: unchanged Progress Note: 01/29/19 21:55 xray chest, lumbar spine, left knee-no acute fx or subluxation/dislocation 01/29/19 22:25 ct head-no acute intracranial abnormality. Counseled pt/family regarding: diagnosis, need for follow-up, rad results - Departure Departure Disposition: Home Clinical Impression: Fall, Contusion Condition: Stable Critical Care Time: No Referrals: [facility] [LOCATION] - Additional Instructions: ice pack to sore areas 3 times daily for 2 days. follow up with primary doctor for further management Prescriptions: Hydrocodone/APAP 5/325 [[place] 5/325 mg] 1 each PO Q12H PRN PRN #4 tablet MDD 2 PRN Reason: Pain
[2019-01-29] MEDS ORDERED: NORCO 5/325 MG PO ONE ×2 (21:54)
[2019-01-29] MEDS ORDERED: NORCO 5/325 MG ONE (21:58)
[2019-01-29 22:07] VITALS: BP 132/95; PULSE 57; O2SAT 95
--- NOTE | 2019-01-30 09:00 | XRAY ---
Indication: Headache injury following fall. Coumadin therapy. Multiple contiguous axial images obtained through the head without contrast. Comparison: November 17, 2007. Again age-appropriate global atrophy and mild periventricular degenerative micro-ischemia bilaterally. No acute intracranial hemorrhage, abnormal extra-axial fluid collection, or mass effect. Fourth ventricle is midline without hydrocephalus. Bony calvarium intact. Visualized paranasal sinuses and mastoid air cells are clear. Impression: Nonacute senile brain. Comment: Preliminary interpretation was made by [facility]. No discrepancy. CT DI 40.54
--- NOTE | 2019-01-30 09:02 | XRAY ---
Indication: Low back pain following fall. Comparison: June 11, 2010. 3 views of the lumbar spine demonstrate stable mild osteopenia, grade 1 L4 anterolisthesis, L5-S1 disc space narrowing, calcified splenic granulomas, and scattered vascular calcifications. Progressive worsening mild/moderate multilevel thoracolumbar degenerative spondylosis. No new/acute findings.
--- NOTE | 2019-01-30 09:04 | XRAY ---
Indication: Short of breath. Status post fall. Comparison: November 02, 2018. Portable apical lordotic chest again demonstrates left mid to lower lung subsegmental atelectasis/scarring and right base calcified granuloma. Remaining lungs are clear. Heart is not enlarged. Bony thorax intact again with mild osteopenia, degenerative changes, and old left neck fracture. Impression: Nonacute chest with chronic features.
--- NOTE | 2019-01-30 09:04 | XRAY ---
Indication: Pain following fall. Comparison: April 22, 2017. 3 views of the left knee unchanged again demonstrating osteopenia, total knee arthroplasty with intact articulation/prosthesis, and scattered vascular calcifications. No new/acute findings.
== END 2019-01-29 22:41 | disposition home or self-care (01) ==
LOC: ED 19:35
DX: S00.93XA Contusion of unspecified part of head, initial encounter (principal); W01.198A Fall on same level from slipping, tripping and stumbling with subsequent striking against other object, initial encounter; S80.02XA Contusion of left knee, initial encounter; W19.XXXA Unspecified fall, initial encounter; R51 Headache; R07.9 Chest pain, unspecified; M54.9 Dorsalgia, unspecified; M25.562 Pain in left knee; Z79.01 Long term (current) use of anticoagulants; Z79.899 Other long term (current) drug therapy; E78.00 Pure hypercholesterolemia, unspecified
CPT/HCPCS: 70450; 71045; 72100; 73562; 99284; A9270-GY

== ENCOUNTER 2019-09-10 21:15 | Emergency (ER) | payer MEDICARE, OTHER ==
[2019-09-10] MEDS ORDERED: LOPRESSOR 5 MG/5 ML INJECTION IV ONE ×2 (21:30→21:40)
--- NOTE | 2019-09-10 21:30 | ERPHSYRPT ---
- History of Present Illness Time Seen by Provider: 09/10/19 21:25 Source: patient Exam Limitations: no limitations Physician History: This is a 79-year-old white female has a history of atrial fibrillation and is taking metoprolol and digoxin for it. Patient forgot to take her medications this morning. She has not yet taken her evening medications. Patient was walking around her house when she noticed her heart racing. She denies any chest pain and she just suddenly felt tired. Patient has a history of CHF. Patient is also on Coumadin daily. 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 Cage. Her primary care physician is Dr. Gardner. Timing/Duration: today Activities at Onset: activity Quality: other (No pain to palpitation) Chest Pain Radiation: no radiation Severity of Pain-Max: none Severity of Pain-Current: none Aspirin Treatment Today: no aspirin today Associated Symptoms: denies symptoms Allergies/Adverse Reactions: cefaclor [From Ceclor] Allergy (Intermediate, Verified 09/10/19 21:39) Itching face tight, swelling, felt hot clindamycin HCl [From Cleocin] Allergy (Intermediate, Verified 09/10/19 21:39) clindamycin palmitate HCl [From Cleocin] Allergy (Intermediate, Verified 21:39) Hives entire body clindamycin phosphate [From Cleocin] Allergy (Intermediate, Verified 09/10/19 21 :39) Penicillins Allergy (Intermediate, Verified 09/10/19 21:39) Rash Home Medications: Alendronate Sodium 70 mg [Fosamax 70 MG] 70 mg PO WEEKLY 07/01/13 [History ] Calcium Carbonate/Vitamin D3 [Calcium 500-Vit D3 200 Caplet] 1 each PO BID 07/02 [History] Magnesium 200 mg PO HS 11/02/18 [History] Simvastatin 40 mg PO HS 11/02/18 [History] Venlafaxine HCl [Venlafaxine HCl ER] 150 mg PO DAILY 11/02/18 [History] Furosemide 20 mg [Lasix 20 mg] 20 mg PO DAILY 11/13/18 [History] Potassium Chloride 10 meq PO DAILY 11/13/18 [History] Digoxin 0.125 mg Tablet [Lanoxin 0.125MG TABLET] 0.0625 mg PO DAILY [History] Metoprolol Tartrate 25 mg PO HS 03/21/19 [History] Metoprolol Tartrate 50 mg PO QAM 03/21/19 [History] Venlafaxine HCl [Effexor Xr] 75 mg PO HS 03/21/19 [History] Hx Tetanus, Diphtheria Vaccination/Date Given: Yes Hx Influenza Vaccination/Date Given: Yes Hx Pneumococcal Vaccination/Date Given: Yes Travel Risk - International Travel Have you traveled outside of the country in past 3 weeks: No - Coronavirus Screening Are you exhibiting any of the following symptoms?: No Close contact with a COVID-19 positive Pt in past 14-21 Days: No - Review of Systems Constitutional: No Symptoms Eyes: No Symptoms Ears, Nose, & Throat: No Symptoms Respiratory: No Symptoms Cardiac: Palpitations, No Chest Pain Abdominal/Gastrointestinal: No Symptoms Genitourinary Symptoms: No Symptoms Musculoskeletal: No Symptoms Skin: No Symptoms Neurological: No Symptoms Psychological: No Symptoms Endocrine: No Symptoms Hematologic/Lymphatic: No Symptoms Immunological/Allergic: No Symptoms All Other Systems: Reviewed and Negative - Past Medical History Pertinent Past Medical History: Yes Neurological History: No Pertinent History ENT History: Cataracts, Other Cardiac History: High Cholesterol Respiratory History: Sleep Apnea, Other Endocrine Medical History: No Pertinent History Musculoskeletal History: Osteoarthritis GI Medical History: GI Bleed, Polyps History: No Pertinent History Psycho-Social History: Anxiety, Depression, Panic Disorder Female Reproductive Disorders: No Pertinent History Other Medical History: sleep apnea - Past Surgical History Past Surgical History: Yes Neuro Surgical History: No Pertinent History Cardiac: No Pertinent History Respiratory: No Pertinent History Gastrointestinal: Appendectomy Genitourinary: No Pertinent History Musculoskeletal: Joint Replacement, Orthopedic Surgery Female Surgical History: Tubal Ligation, Other Other Surgical History: sinus surgery, tonsils, D&C x2, cataract, left KNEE REPLACEMENT , antibiotic spacer placement in left knee. - Social History Smoking Status: Never smoker Exposure to second hand smoke: No Alcohol Use: None Drug Use: none Patient Lives Alone: No Significant Family History: no pertinent family hx - Nursing Vital Signs Nursing Vital Signs: Initial Vital Signs Temperature 98.0 F 09/10/19 21:26 Pulse Rate 122 H 09/10/19 21:26 Respiratory Rate 20 09/10/19 21:26 Blood Pressure 113/83 09/10/19 21:26 O2 Sat by Pulse Oximetry 97 09/10/19 21:26 Pain Scale Pain Intensity 0 - Physical Exam General Appearance: mild distress, alert, anxiety Eye Exam: PERRL/EOMI, eyes nml inspection Ears, Nose, Throat Exam: normal ENT inspection, moist mucous membranes Neck Exam: normal inspection, non-tender, supple, full range of motion Respiratory Exam: normal breath sounds, lungs clear, airway intact, No chest tenderness, No respiratory distress Cardiovascular Exam: tachycardia, irregular Gastrointestinal/Abdomen Exam: soft, normal bowel sounds, No tenderness Pelvic Exam: not done Rectal Exam: not done Back Exam: normal inspection, normal range of motion, No CVA tenderness, No vertebral tenderness Extremity Exam: normal inspection, normal range of motion, pelvis stable Neurologic Exam: alert, 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, cooperative, 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 nml as tested, normal mood/affect, nml cerebellar function, nml station & gait Skin Exam: normal color, warm, dry Lymphatic Exam: No adenopathy SpO2 Interpretation: normal O2 Delivery: Room Air - Course Nursing assessment & vital signs reviewed: Yes EKG Interpreted by Me: RATE (112), A-fib, Left Hardy Deviation, Other (No acute ischemic changes) Ordered Tests: Active Orders 24 hr Category Date Time Status [place] Operator STAT Care 09/10/19 21:31 Active EKG-ER Only STAT Care 09/10/19 21:30 Active IV Insertion STAT Care 09/10/19 21:30 Active Re-Check Vital Signs STAT Care 09/10/19 21:30 Active CBC W DIFF Stat Lab 09/10/19 21:35 Completed CMP Stat Lab 09/10/19 21:35 Completed MAGNESIUM Stat Lab 09/10/19 21:35 Completed NT PRO BNP Stat Lab 09/10/19 21:35 Completed PROTIME WITH INR Stat Lab 09/10/19 21:35 Completed TROPONIN Q3H Lab 09/10/19 21:35 Completed TROPONIN Q3H Lab 09/11/19 00:45 Ordered TROPONIN Q3H Lab 09/11/19 03:45 Ordered TROPONIN Q3H Lab 09/11/19 06:45 Ordered TROPONIN Q3H Lab 09/11/19 09:45 Ordered UA W/RFX UR CULTURE Stat Lab 09/10/19 22:55 Completed Medication Summary Generic Name Dose Route Start Last Admin Trade Name Freq PRN Reason Stop Dose Admin Sodium Chloride 1,000 mls @ 100 mls/hr 09/10/19 22:00 09/10/19 21:58 Sodium Chloride 0.9% 1000 Ml IV 10/10/19 21:59 100 mls/hr .Q10H JOY Administration Discontinued Medications Generic Name Dose Route Start Last Admin Trade Name Livia PRN Reason Stop Dose Admin Digoxin 0.125 mg 09/10/19 22:10 09/10/19 22:47 Lanoxin 0.5 Mg/2 Ml Injection IV 09/10/19 22:11 0.125 mg STAT ONE Administration Digoxin Confirm 09/10/19 22:43 Lanoxin 0.5 Mg/2 Ml Injection Administered 09/10/19 22:44 Dose 0.5 mg .ROUTE .STK-MED ONE Sodium Chloride Confirm 09/10/19 21:40 Sodium Chloride 0.9% 1000 Ml Administered 09/10/19 21:41 Dose 1,000 mls @ ud .ROUTE .STK-MED ONE Metoprolol Tartrate 5 mg 09/10/19 21:30 09/10/19 21:43 Lopressor 5 Mg/5 Ml Injection IV 09/10/19 21:31 5 mg STAT ONE Administration Metoprolol Tartrate Confirm 09/10/19 21:40 Lopressor 5 Mg/5 Ml Injection Administered 09/10/19 21:41 Dose 5 mg IV .STK-MED ONE Lab/Rad Data: Laboratory Result Diagrams 09/10/19 21:35 09/10/19 21:35 Laboratory Results 09/10/19 09/10/19 09/10/19 Range/Units 22:55 21:35 21:35 WBC (4.0-10.5) K/mm3 RBC (4.1-5.4) M/mm3 Hgb (12.0-16.0) gm/dl Hct (35-47) % MCV (78-100) fl MCH (26-32) pg MCHC (32-36) g/dl RDW (11.5-14.0) % Plt Count (150-450) K/mm3 MPV (7.5-11.0) fl Gran % (36.0-66.0) % Eos # (Auto) (0-0.5) Absolute Lymphs (auto) (1.0-4.6) Absolute Monos (auto) (0.0-1.3) Lymphocytes % (24.0-44.0) % Monocytes % (0.0-12.0) % Eosinophils % (0.00-5.0) % Basophils % (0.0-0.4) % Absolute Granulocytes (1.4-6.9) Basophils # (0-0.4) PT (9.95-12.35) SECONDS INR (0.8-3.0) Sodium (137-145) mmol/L Potassium (3.5-5.1) mmol/L Chloride (98-107) mmol/L Carbon Dioxide (22-30) mmol/L Anion Gap (5-15) MEQ/L BUN (7-17) mg/dL Creatinine (0.52-1.04) mg/dL Estimated GFR ML/MIN Glucose (74-106) mg/dL Calcium (8.4-10.2) mg/dL Magnesium (1.6-2.3) mg/dL Total Bilirubin (0.2-1.3) mg/dL AST (14-36) U/L ALT (0-35) U/L Alkaline Phosphatase (38-126) U/L Troponin I < 0.012 (0.000-0.034) ng/mL NT-Pro-B Natriuret Pep (0-1800) pg/mL Serum Total Protein (6.3-8.2) g/dL Albumin (3.5-5.0) g/dL Urine Color YELLOW (YELLOW) Urine Appearance CLEAR (CLEAR) Urine pH 7.0 (5-6) Ur Specific [place] 1.008 (1.005-1.025) Urine Protein NEGATIVE (Negative) Urine Ketones NEGATIVE (NEGATIVE) Urine Blood NEGATIVE (0-5) [place] Urine Nitrite NEGATIVE (NEGATIVE) Urine Bilirubin NEGATIVE (NEGATIVE) Urine Urobilinogen NEGATIVE (0-1) mg/dL Ur Leukocyte Esterase SMALL (NEGATIVE) Urine WBC (Auto) 3-5 (0-5) /HPF Urine RBC (Auto) NONE (0-2) /HPF U Epithel Cells (Auto) NONE (FEW) /HPF Urine Bacteria (Auto) NONE (NEGATIVE) /HPF Urine Culture Reflexed NO (NO) Urine Glucose NEGATIVE (NEGATIVE) mg/dL Digoxin < 0.4 L (0.8-1.9) ng/mL 0609/10/19 09/10/19 Range/Units 21:35 21:35 21:35 WBC 9.0 (4.0-10.5) K/mm3 RBC 4.75 (4.1-5.4) M/mm3 Hgb 14.1 (12.0-16.0) gm/dl Hct 43.3 (35-47) % MCV 91.2 (78-100) fl MCH 29.7 (26-32) pg MCHC 32.6 (32-36) g/dl RDW 14.6 H (11.5-14.0) % Plt Count 197 (150-450) K/mm3 MPV 10.6 (7.5-11.0) fl Gran % 46.1 (36.0-66.0) % Eos # (Auto) 0.24 (0-0.5) Absolute Lymphs (auto) 3.70 (1.0-4.6) Absolute Monos (auto) 0.90 (0.0-1.3) Lymphocytes % 41.0 (24.0-44.0) % Monocytes % 10.0 (0.0-12.0) % Eosinophils % 2.7 (0.00-5.0) % Basophils % 0.2 (0.0-0.4) % Absolute Granulocytes 4.17 (1.4-6.9) Basophils # 0.02 (0-0.4) PT 24.0 H (9.95-12.35) SECONDS INR 2.09 (0.8-3.0) Sodium 144 (137-145) mmol/L Potassium 3.7 (3.5-5.1) mmol/L Chloride 104 (98-107) mmol/L Carbon Dioxide 30 (22-30) mmol/L Anion Gap 13.1 (5-15) MEQ/L BUN 24 H (7-17) mg/dL Creatinine 1.00 (0.52-1.04) mg/dL Estimated GFR 57.1 ML/MIN Glucose 79 (74-106) mg/dL Calcium 8.7 (8.4-10.2) mg/dL Magnesium 2.3 (1.6-2.3) mg/dL Total Bilirubin 0.40 (0.2-1.3) mg/dL AST 45 H (14-36) U/L ALT 46 H (0-35) U/L Alkaline Phosphatase 57 (38-126) U/L Troponin I (0.000-0.034) ng/mL NT-Pro-B Natriuret Pep 814 (0-1800) pg/mL Serum Total Protein 7.2 (6.3-8.2) g/dL Albumin 4.0 (3.5-5.0) g/dL Urine Color (YELLOW) Urine Appearance (CLEAR) Urine pH (5-6) Ur Specific [place] (1.005-1.025) Urine Protein (Negative) Urine Ketones (NEGATIVE) Urine Blood (0-5) [place]/ul Urine Nitrite (NEGATIVE) Urine Bilirubin (NEGATIVE) Urine Urobilinogen (0-1) mg/dL Ur Leukocyte Esterase (NEGATIVE) Urine WBC (Auto) (0-5) /HPF Urine RBC (Auto) (0-2) /HPF U Epithel Cells (Auto) (FEW) /HPF Urine Bacteria (Auto) (NEGATIVE) /HPF Urine Culture Reflexed (NO) Urine Glucose (NEGATIVE) mg/dL Digoxin (0.8-1.9) ng/mL - Progress Progress: improved, re-examined Air Movement: good Progress Note: 09/10/19 22:16 I placed a call into Dr. Gaines who is the hospitalist on for this week. I reviewed the patient's history condition, laboratory results, EKG results and patient's response to the treatment. We agree that the patient's symptoms are likely due to the fact that she did not take her medications this morning and this evening. Her BNP and troponin as well as her electrolytes are within normal limits. Patient responded well to intravenous metoprolol and digoxin. Patient symptoms have resolved. Dr. Gaines feels that the patient can go home but he is also okay with placing the patient in observation. I discussed this with the patient. She prefers to be discharged to home. Patient will take her medication as prescribed and follow-up with her primary care physician as well as her java programmer. Blood Culture(s) Obtained: No Antibiotics given: No Counseled pt/family regarding: lab results, diagnosis, need for follow-up - Departure Departure Disposition: Home Clinical Impression: Atrial fibrillation with RVR Condition: Stable Critical Care Time: No Referrals: [facility] [Primary Care Provider] - Additional Instructions: Take your medications as prescribed. Follow-up with your java programmer and primary care physician tomorrow for further management. Return to the emergency department if your symptoms recur.
[2019-09-10 21:40] LABS: Absolute Neutrophil Ct (ANC) 4.17 (1.4-6.9); BASOPHIL % 0.2 % (0.0-0.4); Basophil (Absolute #) 0.02 (0-0.4); Eosinophil % 2.7 % (0.00-5.0); Eosinophil (Absolute #) 0.24 (0-0.5); Hematocrit 43.3 % (35-47); Hemoglobin 14.1 gm/dl (12.0-16.0); Mean Cell Volume 91.2 fl (78-100); Mean Corpuscular Hemoglobin 29.7 pg (26-32); Mean Corpuscular Hgb Concent. 32.6 g/dl (32-36); Mean Platelet Volume 10.6 fl (7.5-11.0); Neutrophil % 46.1 % (36.0-66.0); Platelet Count 197 K/mm3 (150-450); Red Blood Count 4.75 M/mm3 (4.1-5.4); Red Cell Distribution Width 14.6 % (11.5-14.0)
[2019-09-10] MEDS ORDERED: Sodium Chloride 0.9% 1000 ML 1,000 ML ONE (21:40)
[2019-09-10 21:47] LABS: INR 2.09 (0.8-3.0)
[2019-09-10] MEDS ORDERED: Sodium Chloride 0.9% 1000 ML 1,000 ML IV SCH (22:00)
[2019-09-10 22:06] LABS: ANION GAP 13.1 MEQ/L (5-15); BILIRUBIN,TOTAL 0.4 mg/dL (0.2-1.3); Calcium 8.7 mg/dL (8.4-10.2); MAGNESIUM 2.3 mg/dL (1.6-2.3); Potassium 3.7 mmol/L (3.5-5.1); Total Protein 7.2 g/dL (6.3-8.2)
[2019-09-10] MEDS ORDERED: Lanoxin 0.5 MG/2 ML INJECTION IV ONE (22:10)
[2019-09-10] MEDS ORDERED: Lanoxin 0.5 MG/2 ML INJECTION ONE (22:43)
[2019-09-10 23:11] LABS: Appearance CLEAR (CLEAR); Bilirubin NEGATIVE (NEGATIVE); Blood NEGATIVE Ery/ul (0-5); Glucose NEGATIVE (NEGATIVE); Ketones NEGATIVE (NEGATIVE); Nitrite NEGATIVE (NEGATIVE); Protein,Urine Dip NEGATIVE (Negative); Specific Gravity 1.008 (1.005-1.025); Urobilinogen NEGATIVE mg/dL (0-1)
[2019-09-10 23:13] LABS: Leukocyte Esterase SMALL (NEGATIVE)
[2019-09-10 23:26] VITALS: BP 127/91; PULSE 91; O2SAT 96
== END 2019-09-10 23:40 | disposition home or self-care (01) ==
LOC: ED 21:15
DX: I48.91 Unspecified atrial fibrillation (principal); Z79.899 Other long term (current) drug therapy; I50.9 Heart failure, unspecified
CPT/HCPCS: 36000; 36415; 80053; 80162; 81001; 83735; 83880; 84484; 85025; 85610; 93005; 93041; 96374; 96375; 99284; J1160

== ENCOUNTER 2021-06-07 10:07 | Emergency (ER) | payer MEDICARE, OTHER ==
--- NOTE | 2021-06-07 10:49 | ERPHSYRPT ---
- History of Present Illness Source: patient Exam Limitations: no limitations Patient Subjective Stated Complaint: pt was standing by the bed with the foot on the bed putting a sock on and lost her balance and fell backwards and hit her head on the door and injured her head, left side of neck, left wrist, right lower back Triage Nursing Assessment: Pt brought to the ER by her , vitals wnl, rates pain as 9/10, lump to back of head, no swelling noted anywhere else, bruise noted to left hand and pt unsure if it was there previously and pt is on blood thinners, pulses normal, skin n/w/d Physician History: 80 yo wf fell after losing balance putting her sock on before ER arrival. Pt is on anticoagulant and hit her head. She denies LOC but has a CARRERA/C-spine pain/Lumbar pain/R flank pain/L wrist pain. She denies hip pain/chest pain/dys pnea. Occurred: just prior to arrival Reason for Fall: lost balance (While putting on sock) Injuries/Pain Location: head, neck, upper extremity (L wrist), abdomen, back Loss of Consciousness: no loss of consciousness, dazed Quality: aching Severity of Pain-Max: moderate Severity of Pain-Current: moderate Modifying Factors: Improves With: nothing, movement Associated Symptoms (Fall): abdominal pain, back pain, extremity injury (L wrist), headache, neck pain, No confusion, No chest pain, No dizziness, No lightheadedness, No muscle spasms, No nausea, No ringing in ears, No seizures, No shortness of breath, No slurred speech, No trouble walking, No vomiting, No vision changes Allergies/Adverse Reactions: cefaclor [From Ceclor] Allergy (Intermediate, Verified 06/07/21 10:26) Itching face tight, swelling, felt hot clindamycin HCl [From Cleocin] Allergy (Intermediate, Verified 06/07/21 10:26) clindamycin palmitate HCl [From Cleocin] Allergy (Intermediate, Verified 06/07/21 10:26) Hives entire body clindamycin phosphate [From Cleocin] Allergy (Intermediate, Verified 06/07/21 10:26) Penicillins Allergy (Intermediate, Verified 06/07/21 10:26) Rash Home Medications: Alendronate Sodium 70 mg [Fosamax 70 MG] 70 mg PO WEEKLY 07/01/13 [History] Calcium Carbonate/Vitamin D3 [Calcium 500-Vit D3 200 Caplet] 1 tab PO BID 07/02/13 [History] Magnesium 200 mg PO HS 11/02/18 [History] Furosemide 20 mg [Lasix 20 mg] 20 mg PO DAILY 11/13/18 [History] Potassium Chloride 10 meq PO DAILY 11/13/18 [History] Digoxin 0.125 mg Tablet [Lanoxin 0.125MG TABLET] 0.0625 mg PO DAILY 01/29/19 [History] Metoprolol Tartrate 25 mg PO HS 03/21/19 [History] Metoprolol Tartrate 50 mg PO QAM 03/21/19 [History] Venlafaxine HCl [Effexor Xr] 75 mg PO QAM 03/21/19 [History] Escitalopram Oxalate [Lexapro] 10 mg PO HS 03/12/20 [History] Ascorbic Acid [C-1000] 1,000 mg PO DAILY 04/20/21 [History] Levothyroxine Sodium [Levothyroxine] 75 mcg PO DAILY 04/20/21 [History] Simvastatin 10 mg PO HS 04/20/21 [History] Warfarin Sodium 2.5 mg PO WE 04/20/21 [History] Warfarin Sodium 5 mg PO SUMOTUTHFRSA 04/20/21 [History] Zinc 50 mg PO DAILY 04/20/21 [History] Hx Tetanus, Diphtheria Vaccination/Date Given: Yes Hx Influenza Vaccination/Date Given: Yes Hx Pneumococcal Vaccination/Date Given: Yes Travel Risk - International Travel Have you traveled outside of the country in past 3 weeks: No - Coronavirus Screening Are you exhibiting any of the following symptoms?: No Close contact with a COVID-19 positive Pt in past 14-21 Days: No - Vaccine Status Have you recieved a Covid-19 vaccination: Yes 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[employer] - Vaccination Dates Date of 2cond Vaccination (if applicable): 07/2020 - Review of Systems Constitutional: No Symptoms Eyes: No Symptoms Ears, Nose, & Throat: No Symptoms Respiratory: No Symptoms Cardiac: No Symptoms Abdominal/Gastrointestinal: No Symptoms, Abdominal Pain Genitourinary Symptoms: No Symptoms Musculoskeletal: No Symptoms, Back Pain Skin: No Symptoms Neurological: No Symptoms Psychological: No Symptoms Endocrine: No Symptoms Hematologic/Lymphatic: No Symptoms Immunological/Allergic: No Symptoms - Past Medical History Pertinent Past Medical History: Yes Neurological History: No Pertinent History ENT History: Cataracts, Other Cardiac History: High Cholesterol Respiratory History: Sleep Apnea, Other Endocrine Medical History: No Pertinent History Musculoskeletal History: Osteoarthritis GI Medical History: GI Bleed, Polyps History: No Pertinent History Psycho-Social History: Anxiety, Depression, Panic Disorder Female Reproductive Disorders: No Pertinent History Other Medical History: . - Past Surgical History Past Surgical History: Yes Neuro Surgical History: No Pertinent History Cardiac: No Pertinent History Respiratory: No Pertinent History Gastrointestinal: Appendectomy Genitourinary: No Pertinent History Musculoskeletal: Joint Replacement, Orthopedic Surgery Female Surgical History: Tubal Ligation, Other Other Surgical History: sinus surgery, tonsils, D&C x2, cataract, left KNEE REPLACEMENT , antibiotic spacer placement in left knee. - Social History Smoking Status: Never smoker Exposure to second hand smoke: No Alcohol Use: None Drug Use: none Patient Lives Alone: No Significant Family History: no pertinent family hx - Nursing Vital Signs Nursing Vital Signs: Initial Vital Signs Temperature 98.2 F 06/07/21 10:15 Pulse Rate 84 06/07/21 10:15 Blood Pressure 139/101 06/07/21 10:15 O2 Sat by Pulse Oximetry 97 06/07/21 10:15 Pain Scale Pain Intensity 9 Hypertensive - [place] Coma Score Best Eye Response ([place]): (4) open spontaneously Best Verbal Response ([place]): (5) oriented Best Motor Response ([place]): (6) obeys commands [place] Total: 15 - Physical Exam General Appearance: no apparent distress (In pain) Head Injury: tenderness (Occiput TTP) Eye Exam: PERRL/EOMI, eyes nml inspection ENT Exam: airway nml, No evidence of ENT injury, No clear fluid (ears), No clear fluid (nose) Neck Exam: supple, trachea midline, tenderness (C-spine TTP) Respiratory/Chest Exam: chest tenderness, normal breath sounds Cardiovascular Exam: normal heart sounds, regular rate/rhythm, normal peripheral pulses, No murmur Gastrointestinal Exam: soft, tenderness (R flank TTP) Back Exam: vertebral tenderness (L-spine TTP) Extremity Exam: capillary refill <3 sec, pelvis stable, other (L wrist TTP), No hip tenderness Peripheral Pulses: carotid (R): 2+, carotid (L): 2+ Neurologic Exam: alert, 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, cooperative, mixer foam rubber II-XII nml as tested, normal mood/affect, sensation nml, No motor deficits, No sensory deficit Skin Exam: normal color, warm, dry, No rash SpO2 Interpretation: normal SpO2: 97 O2 Delivery: Room Air Procedures - Splinting Location of Splint: Left, Wrist Type of Splint: Orthoglass Short Arm Splint Splint Applied By: ED Physician Pre-Proc Neuro Vasc Exam: normal Post-Proc Neuro Vasc Exam: neurovascular intact - Course Nursing assessment & vital signs reviewed: Yes - Radiology Exams Wrist X-ray Interpretation: Discussed w/ radiologist (Distal L radius Fx) - CT Exams Head CT Interpretation: Discussed w/radiologist (No acute traumatic injury) Cervical Spine CT Interpretation: Discussed w/radiologist (C-spine no acute traumatic injury) Abdomen/Pelvis CT Interpretation: Discussed w/radiologist (No acute traumatic injury) Ordered Tests: Active Orders 24 hr Category Date Time Status ABDOMEN AND PELVIS W CONTRAST [CT] Stat Exams 06/07/21 10:41 Completed CERVICAL SPINE WO CONTRAST [CT] Stat Exams 06/07/21 10:43 Completed HEAD WITHOUT CONTRAST [CT] Stat Exams 06/07/21 10:42 Completed WRIST (MIN 3 VIEWS) Stat Exams 06/07/21 12:34 Completed CBC W DIFF Stat Lab 06/07/21 11:11 Completed CMP Stat Lab 06/07/21 11:11 Completed TROPONIN Q3H Lab 06/07/21 11:11 Completed TROPONIN Q3H Lab 06/07/21 13:45 Ordered TROPONIN Q3H Lab 06/07/21 16:45 Ordered TROPONIN Q3H Lab 06/07/21 19:45 Ordered TROPONIN Q3H Lab 06/07/21 22:45 Ordered Medication Summary Discontinued Medications Generic Name Dose Route Start Last Admin Trade Name Freq PRN Reason Stop Dose Admin Hydrocodone Bitart/Acetaminophen 1 tablet 06/07/21 11:48 06/07/21 11:49 Hydrocodone/Acetamin 10-325 Mg Tablet PO 06/07/21 11:49 1 tablet STAT ONE Administration Lab/Rad Data: Laboratory Result Diagrams 06/07/21 11:11 06/07/21 11:11 Laboratory Results 06/07/21 06/07/21 06/07/21 Range/Units 11:11 11:11 11:11 WBC 7.9 (4.0-10.5) K/mm3 RBC 4.71 (4.1-5.4) M/mm3 Hgb 13.9 (12.0-16.0) gm/dl Hct 43.2 (35-47) % MCV 91.7 (78-100) fl MCH 29.5 (26-32) pg MCHC 32.2 (32-36) g/dl RDW 14.2 H (11.5-14.0) % Plt Count 197 (150-450) K/mm3 MPV 10.5 (7.5-11.0) fl Gran % 69.7 H (36.0-66.0) % Eos # (Auto) 0.23 (0-0.5) Absolute Lymphs (auto) 1.49 (1.0-4.6) Absolute Monos (auto) 0.66 (0.0-1.3) Lymphocytes % 18.8 L (24.0-44.0) % Monocytes % 8.3 (0.0-12.0) % Eosinophils % 2.9 (0.00-5.0) % Basophils % 0.3 (0.0-0.4) % Absolute Granulocytes 5.53 (1.4-6.9) Basophils # 0.02 (0-0.4) Sodium 139 (137-145) mmol/L Potassium 3.8 (3.5-5.1) mmol/L Chloride 105 (98-107) mmol/L Carbon Dioxide 30 (22-30) mmol/L Anion Gap 7.3 (5-15) MEQ/L BUN 23 H (7-17) mg/dL Creatinine 1.01 (0.52-1.04) mg/dL Estimated GFR 56.3 ML/MIN Glucose 130 H (74-106) mg/dL Calcium 8.7 (8.4-10.2) mg/dL Total Bilirubin 0.50 (0.2-1.3) mg/dL AST 35 (14-36) U/L ALT 28 (0-35) U/L Alkaline Phosphatase 55 (38-126) U/L Troponin I < 0.012 (0.000-0.034) ng/mL Serum Total Protein 7.0 (6.3-8.2) g/dL Albumin 3.8 (3.5-5.0) g/dL - Progress Progress: improved Progress Note: 06/07/21 13:12 Pain improved w Norco10 po x1 Counseled pt/family regarding: lab results, diagnosis, need for follow-up, rad results - Departure Departure Disposition: Home Clinical Impression: Radius distal fracture, Lumbar back pain, Minor head injury without loss of consciousness, Cervical strain Condition: Stable Critical Care Time: No Referrals: [facility] [Primary Care Provider] - Follow up/PCP as directed [facility] - 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
[2021-06-07 11:17] LABS: Absolute Neutrophil Ct (ANC) 5.53 (1.4-6.9); Basophil (Absolute #) 0.02 (0-0.4); Eosinophil % 2.9 % (0.00-5.0); Eosinophil (Absolute #) 0.23 (0-0.5); Hematocrit 43.2 % (35-47); Hemoglobin 13.9 gm/dl (12.0-16.0); Lymphocyte (Absolute #) 1.49 (1.0-4.6); Lymphocytes % 18.8 % (24.0-44.0); Mean Cell Volume 91.7 fl (78-100); Mean Corpuscular Hemoglobin 29.5 pg (26-32); Mean Corpuscular Hgb Concent. 32.2 g/dl (32-36); Mean Platelet Volume 10.5 fl (7.5-11.0); Monocyte (Absolute #) 0.66 (0.0-1.3); Monocytes % 8.3 % (0.0-12.0); Neutrophil % 69.7 % (36.0-66.0); Platelet Count 197 K/mm3 (150-450); Red Blood Count 4.71 M/mm3 (4.1-5.4); Red Cell Distribution Width 14.2 % (11.5-14.0); White Blood Count 7.9 K/mm3 (4.0-10.5)
[2021-06-07 11:26] LABS: ALBUMIN 3.8 g/dL (3.5-5.0); ANION GAP 7.3 MEQ/L (5-15); BILIRUBIN,TOTAL 0.5 mg/dL (0.2-1.3); Calcium 8.7 mg/dL (8.4-10.2); Creatinine 1 1.01 mg/dL (0.52-1.04); EST GLOMERULAR FILTRATION RATE 56.3 ML/MIN; Potassium 3.8 mmol/L (3.5-5.1)
[2021-06-07] MEDS ORDERED: HYDROCODONE-ACETAMIN 10-325 MG PO ONE (11:48)
--- NOTE | 2021-06-07 12:40 | XRAY ---
Indication: Status post fall. Multiple contiguous axial images obtained through the head without contrast. Comparison: January 29, 2019. Again age-appropriate global atrophy and mild periventricular degenerative micro-ischemia bilaterally. No acute intracranial hemorrhage, abnormal extra-axial fluid collection, or mass effect. Fourth ventricle is midline without hydrocephalus. Bony calvarium intact. Visualized paranasal sinuses and mastoid air cells are clear. Impression: Continued nonacute senile brain.
--- NOTE | 2021-06-07 12:44 | XRAY ---
Indication: Status post fall. Multiple contiguous axial images obtained through the cervical spine. Sagittal and coronal reformatted images obtained. Comparison: None. Age-related osteopenia. Axial images negative for acute fracture, suspicious bony lesions, or spinal canal stenosis. Mild/moderate multilevel degenerative endplate spurring greatest at C6-C7. Incidental C2-C3 congenital fusion. Also moderate atlantoaxial degenerative arthropathy and moderate multilevel bilateral degenerative facet hypertrophy. Sagittal and coronal reformatted images demonstrates lordotic straightening, positional versus paraspinal spasm. Minimal 1-2 mm anterolisthesis of C4 on C5 on C6. No acute compression fracture or jumped facet. Normal appearing craniocervical junction. Visualized noncontrasted soft tissues demonstrates moderate scattered vascular calcifications. Lung apices are clear. Impression: 1. Cervical lordotic straightening, positional versus paraspinal spasm. 2. Osteopenia, multilevel degenerative changes, minimal grade 1 anterolisthesis of C4 on C5 on C6, and congenital C2-C3 fusion.
--- NOTE | 2021-06-07 12:48 | XRAY ---
Indication: Right flank and lumbar pain following fall. Multiple contiguous axial images obtained through the abdomen and pelvis using 80 cc Isovue 370 contrast. Comparison: July 26, 2018. Lung bases demonstrates minimal dependent atelectasis with stable small right lower lobe calcified granuloma. No infiltrate or effusion. Heart not enlarged. Noncontrasted stomach and bowel loops nonobstructed. Again previous appendectomy. No free fluid/air. Stable 2.4 cm inferior right lobe hepatic cyst and a few tiny splenic calcified granulomas. Remaining liver, gallbladder, pancreas, spleen, adrenal glands, kidneys, ureters, bladder, and uterus are unremarkable. Stable mild scattered aortoiliac calcifications. No AAA or pathologic retroperitoneal lymphadenopathy. Osseous structures intact again with osteopenia, mild/moderate multilevel thoracolumbar degenerative spondylosis and grade 1 L4 spondylolisthesis. New finding old right 10 rib fracture. Impression: 1. Again hepatic cyst, scattered arteriosclerotic disease, chronic bony findings, and old granulomatous disease. 2. Remaining CT abdomen/pelvis with contrast exam is negative.
--- NOTE | 2021-06-07 12:50 | XRAY ---
Indication: Pain following fall. Comparison: April 22, 2017. 3 view left wrist demonstrates osteopenia with new nondisplaced vertical fracture distal radius with intra-articular extension. Stable moderate 1st metacarpal multangular degenerative changes and old nonunited ulnar styloid tip fracture. Remaining wrist unremarkable.
[2021-06-07 13:20] VITALS: O2SAT 97
[2021-06-07 13:21] VITALS: BP 145/76; PULSE 82
== END 2021-06-07 13:40 | disposition home or self-care (01) ==
LOC: ED 10:07
DX: S09.90XA Unspecified injury of head, initial encounter (principal); S52.502A Unspecified fracture of the lower end of left radius, initial encounter for closed fracture; S16.1XXA Strain of muscle, fascia and tendon at neck level, initial encounter; W01.198A Fall on same level from slipping, tripping and stumbling with subsequent striking against other object, initial encounter; Y93.E8 Activity, other personal hygiene; Y92.003 Bedroom of unspecified non-institutional (private) residence as the place of occurrence of the external cause; M54.50 Low back pain, unspecified; E78.5 Hyperlipidemia, unspecified; Z79.01 Long term (current) use of anticoagulants; Z79.891 Long term (current) use of opiate analgesic
CPT/HCPCS: 29125; 36415; 70450; 72125; 73110; 74177; 80053; 84484; 85025; 99284; A9270-GY

== ENCOUNTER 2022-02-25 10:46 | Observation (INO) | payer MEDICARE, OTHER ==
--- NOTE | 2022-02-25 11:11 | ERPHSYRPT ---
- History of Present Illness Time Seen by Provider: 02/25/22 11:06 Source: patient, family, EMS Exam Limitations: no limitations Patient Subjective Stated Complaint: weakness Triage Nursing Assessment: Patient brought into ED per EMS and transferred to bed with assist of 3. Patient's skin pink, warm and dry. Patient states prior to coming to ED she was sitting at kitchen table with daughter when she had trouble thinking and her left side felt numb and weak. Patient's states he came into room and said she was confused and unable to speak for around 15 min. Patient complains of neck pain 5/10. Physician History: pt had aphasic episode about 30 minutes prior to admission and with left sided weakness. Is on Coumaden for A fib. Sym[ptoms are improving rapidly. No hx of trauma. No CP or SOBreath. No abd pain cough or fever. Neuro exam normal now with some slowness to respond to some questions but normal cognition now and speech. No pronator drift No facial droop. symmet strength and reflexes right pupil slightly larger and responsive. Timing/Duration: today Severity: moderate Character of Deficits: new weakness Deficits: weak Baseline/Normal Cognition: alert 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 Current Cognition: alert 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 Baseline Gait: walks w/o assistance Associated Symptoms: other (aphasia resolving) Allergies/Adverse Reactions: cefaclor [From Ceclor] Allergy (Intermediate, Verified 02/25/22 10:48) Itching face tight, swelling, felt hot clindamycin HCl [From Cleocin] Allergy (Intermediate, Verified 02/25/22 10:48) clindamycin palmitate HCl [From Cleocin] Allergy (Intermediate, Verified 02/25/22 10:48) Hives entire body clindamycin phosphate [From Cleocin] Allergy (Intermediate, Verified 02/25/22 10:48) Penicillins Allergy (Intermediate, Verified 02/25/22 10:48) Rash Home Medications: Alendronate Sodium 70 mg [Fosamax 70 MG] 70 mg PO WEEKLY 07/01/13 [History] Calcium Carbonate/Vitamin D3 [Calcium 500-Vit D3 200 Caplet] 1 tab PO BID@1200,2000 07/02/13 [History] Magnesium 200 mg PO QPM 11/02/18 [History] Furosemide 20 mg [Lasix 20 mg] 20 mg PO DAILY@1200 11/13/18 [History] Potassium Chloride 10 meq PO QAM 11/13/18 [History] Digoxin 0.125 mg Tablet [Lanoxin 0.125MG TABLET] 0.0625 mg PO QAM 01/29/19 [History] Metoprolol Tartrate 25 mg PO HS 03/21/19 [History] Metoprolol Tartrate 50 mg PO QAM 03/21/19 [History] Venlafaxine HCl [Effexor Xr] 75 mg PO QAM 03/21/19 [History] Escitalopram Oxalate [Lexapro] 10 mg PO DAILY@1200 03/12/20 [History] Ascorbic Acid [C-1000] 1,000 mg PO DAILY 04/20/21 [History] Levothyroxine Sodium [Levothyroxine] 75 mcg PO QAM 04/20/21 [History] Simvastatin 10 mg PO 04/20/21 [History] Warfarin Sodium 2.5 mg PO 04/20/21 [History] Warfarin Sodium 5 mg PO SUMOTUTHFRSA 04/20/21 [History] Zinc 50 mg PO QPM 04/20/21 [History] Albuterol 2.5 mg/0.5 ml [PROVENTIL Solution 2.5 MG/0.5 ML] 2.5 mg IH QID 10/07/21 [History] Allopurinol 100 mg [Zyloprim 100 mg] 100 mg PO DAILY 10/07/21 [History] Fluticasone Propionate [Flonase NASAL] 1 gm NS QA 10/07/21 [History] Ipratropium Tye 0.5 mg [Atrovent 0.5MG NEBULE] 0.5 mg IH QID 10/07/21 [History] Loratadine 10 mg PO QAM 10/07/21 [History] Hx Tetanus, Diphtheria Vaccination/Date Given: Yes Hx Influenza Vaccination/Date Given: Yes Hx Pneumococcal Vaccination/Date Given: Yes Immunizations Up to Date: Yes Travel Risk - International Travel Have you traveled outside of the country in past 3 weeks: No - Coronavirus Screening Are you exhibiting any of the following symptoms?: No Close contact with a COVID-19 positive Pt in past 14-21 Days: No - Vaccine Status Have you recieved a Covid-19 vaccination: Yes 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: [employer] - Vaccination Dates Date of 2cond Vaccination (if applicable): 07/2020 - Review of Systems Constitutional: Weakness, No Fever, No Chills Eyes: No Symptoms Ears, Nose, & Throat: No Symptoms Respiratory: No Cough, No Dyspnea Cardiac: No Chest Pain, No Edema, No Syncope Abdominal/Gastrointestinal: No Abdominal Pain, No Nausea, No Vomiting, No Diarrhea Genitourinary Symptoms: No Dysuria Musculoskeletal: No Back Pain, No Neck Pain Skin: No Symptoms, No Rash Neurological: No Dizziness, No Focal Weakness, No Sensory Changes Psychological: No Symptoms Endocrine: No Symptoms Hematologic/Lymphatic: No Symptoms Immunological/Allergic: No Symptoms All Other Systems: Reviewed and Negative - Past Medical History Pertinent Past Medical History: Yes Neurological History: No Pertinent History ENT History: Cataracts, Other Cardiac History: High Cholesterol Respiratory History: Sleep Apnea, Other Endocrine Medical History: No Pertinent History Musculoskeletal History: Osteoarthritis GI Medical History: GI Bleed, Polyps History: No Pertinent History Psycho-Social History: Anxiety, Depression, Panic Disorder Female Reproductive Disorders: No Pertinent History Other Medical History: . - Past Surgical History Past Surgical History: Yes Neuro Surgical History: No Pertinent History Cardiac: No Pertinent History Respiratory: No Pertinent History Gastrointestinal: Appendectomy Genitourinary: No Pertinent History Musculoskeletal: Joint Replacement, Orthopedic Surgery Female Surgical History: Tubal Ligation, Other Other Surgical History: sinus surgery, tonsils, D&C x2, cataract, left KNEE REPLACEMENT , antibiotic spacer placement in left knee. - Social History Smoking Status: Never smoker Exposure to second hand smoke: No Alcohol Use: None Drug Use: none Patient Lives Alone: No Significant Family History: no pertinent family hx - Nursing Vital Signs Nursing Vital Signs: Initial Vital Signs Temperature 97.2 F 02/25/22 10:49 Pulse Rate 103 H 02/25/22 10:49 Respiratory Rate 18 02/25/22 10:49 Blood Pressure 136/93 02/25/22 10:49 O2 Sat by Pulse Oximetry 98 02/25/22 10:49 Pain Scale Pain Intensity 0 - [place] Coma Scale Best Eye Response ([place]): (4) open spontaneously Best Verbal Response ([place]): (5) oriented Best Motor Response ([place]): (6) obeys commands [place] Total: 15 - Physical Exam General Appearance: no apparent distress, alert Eye Exam: bilateral eye: PERRL, EOMI Ears, Nose, Throat Exam: normal ENT inspection, moist mucous membranes Neck Exam: normal inspection, non-tender, supple Respiratory: normal breath sounds, lungs clear, airway intact, No respiratory distress Cardiovascular: regular rate/rhythm, No edema Gastrointestinal: soft, No tenderness, No distention Pelvic Exam: deferred Rectal Exam: deferred Back Exam: normal inspection Extremity Exam: normal inspection, No pedal edema Peripheral Pulses: carotid (R): 2+, carotid (L): 2+, femoral (R): 2+, femoral (L): 2+, dorsalis-pedis (R): 2+, dorsalis-pedis (L): 2+ Mental Status: alert, 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, 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 Exam: normal speech, PERRL (slightly larger right pupil reactive ), tongue midline, No facial asymmetry, No facial droop Coordination/Gait: normal finger to nose, normal gait Motor/Sensory: no motor deficit, no sensory deficit, no pronator drift, No pronator drift (R), No pronator drift (L) DTR: bicep (R): 2+, bicep (L): 2+, tricep (R): 2+, tricep (L): 2+, knee (R): 2+, knee (L): 2+, ankle (R): 2+, ankle (L): 2+ Skin Exam: normal color, warm, dry, No rash SpO2 Interpretation: normal SpO2: 98 O2 Delivery: Room Air - Course Nursing assessment & vital signs reviewed: Yes EKG Interpreted by Me: A-fib, Left [place] Deviation, Non-specific ST Changes, Other (low voltage) - Radiology Exams Chest X-ray Interpretation: Reviewed by me, Teleradiologist Report, Other (right granuloma and left elev diaph ) - CT Exams Head CT Interpretation: Tele-radiologist Report, No/Intracranial Hemorrhag, Other (age related changes per rad read ) Other CT Interpretation: Tele-radiologist Report, Other (athersclerotic vessels without obstruction. ) Ordered Tests: Active Orders 24 hr Category Date Time Status Operator Receptionist STAT Care 02/25/22 11:08 Active EKG-ER Only STAT Care 02/25/22 11:06 Active IV Insertion STAT Care 02/25/22 11:14 Active NPO (ED) STAT Care 02/25/22 11:06 Active Pulse Oximetry (ED) STAT Care 02/25/22 11:06 Active Tele-Health Consult ROUTINE Cons 02/25/22 11:08 Active CHEST 1 VIEW (PORTABLE) Stat Exams 02/25/22 11:[address] ANGIOGRAPHY NECK [CT] Stat Exams 02/25/22 15:15 Completed CTA HEAD W AND/OR WO CONTRAST [CT] Stat Exams 02/25/22 15:23 Completed HEAD WITHOUT CONTRAST [CT] Stat Exams 02/25/22 11:07 Completed MRI BRAIN W/O CONTRAST [MRI] Stat Exams 02/25/22 13:45 Completed CBC W DIFF Stat Lab 02/25/22 11:45 Completed CMP Stat Lab 02/25/22 11:45 Completed ESR [Erythrocyte Sedimentation Rate] Stat Lab 02/25/22 11:45 Completed Lactic Acid Stat Lab 02/25/22 12:10 Completed PROTIME WITH INR Stat Lab 02/25/22 11:45 Completed T4 (Thyroxine) Stat Lab 02/25/22 11:45 Completed TSH [TSH, 3RD Generation] Stat Lab 02/25/22 11:45 Completed UA W/RFX CULTURE Stat Lab 02/25/22 11:59 Completed Medication Summary Generic Name Dose Route Start Last Admin Trade Name Freq PRN Reason Stop Dose Admin Sodium Chloride 1,000 mls @ 100 mls/hr 02/25/22 11:15 02/25/22 11:21 Sodium Chloride 0.9% 1000 Ml IV 03/27/22 11:14 100 mls/hr .Q10H JOY Administration Discontinued Medications Generic Name Dose Route Start Last Admin Trade Name Freq PRN Reason Stop Dose Admin Lorazepam 1 mg 02/25/22 13:42 02/25/22 13:45 Lorazepam 1 Mg Tablet PO 02/25/22 13:43 1 mg STAT ONE Administration Lorazepam Confirm 02/25/22 13:41 Lorazepam 2 Mg/1 Ml 2 Mg Vial Administered 02/25/22 13:42 Dose 2 mg .ROUTE .STK-MED ONE Lab/Rad Data: Laboratory Result Diagrams 02/25/22 11:45 02/25/22 11:45 Laboratory Results 02/25/22 02/25/22 02/25/22 Range/Units 13:31 12:10 11:59 WBC (4.0-10.5) x10^3/uL RBC (4.1-5.4) x10^6/uL Hgb (12.0-16.0) g/dL Hct (35-47) % MCV (78-100) fL MCH (26-32) pg MCHC (32-36) g/dL RDW (11.5-14.0) % Plt Count (150-450) x10^3/uL MPV (7.5-11.0) fL Gran % (36.0-66.0) % Immature Gran % (Auto) (0.00-0.4) % Nucleat RBC Rel Count (0.00-0.1) % Eos # (Auto) (0-0.5) x10^3/uL Immature Gran # (Auto) (0.00-0.03) x10^3u/L Absolute Lymphs (auto) (1.0-4.6) x10^3/uL Absolute Monos (auto) (0.0-1.3) x10^3/uL Absolute Nucleated RBC (0.00-0.01) x10^3u/L Lymphocytes % (24.0-44.0) % Monocytes % (0.0-12.0) % Eosinophils % (0.00-5.0) % Basophils % (0.0-0.4) % Absolute Granulocytes (1.4-6.9) x10^3/uL Basophils # (0-0.4) x10^3/uL ESR (0-20) mm/hr PT (9.4-12.5) SECONDS INR (0.8-3.0) Sodium (137-145) mmol/L Potassium (3.5-5.1) mmol/L Chloride (98-107) mmol/L Carbon Dioxide (22-30) mmol/L Anion Gap (5-15) MEQ/L BUN (7-17) mg/dL Creatinine (0.52-1.04) mg/dL Estimated GFR ML/MIN Glucose (74-106) mg/dL Lactic Acid 1.2 (0.4-2.0) Calcium (8.4-10.2) mg/dL Total Bilirubin (0.2-1.3) mg/dL AST (14-36) U/L ALT (0-35) U/L Alkaline Phosphatase (38-126) U/L Serum Total Protein (6.3-8.2) g/dL Albumin (3.5-5.0) g/dL Thyroxine (T4) (5.53-10.96) ug/dL TSH 3rd Generation (0.47-4.68) mIU/L Urinalys Dipstick Clnc MAIN LAB Urine Color YELLOW (YELLOW) Urine Appearance CLEAR (CLEAR) Urine pH 7.0 (5-6) Ur Specific [place] 1.010 (1.005-1.025) POC Urine Protein Conf NEGATIVE (Negative) Urine Ketones NEGATIVE (NEGATIVE) Urine Nitrite NEGATIVE (NEGATIVE) Urine Bilirubin NEGATIVE (NEGATIVE) Urine Urobilinogen 0.2 (0-1) mg/dL Urine Leukocytes TRACE A (NEGATIVE) Urine WBC (Auto) 0-2 (0-5) /HPF Urine RBC (Auto) 0-2 (0-2) /HPF U Epithel Cells (Auto) Not Reportable Urine Bacteria (Auto) NONE (NEGATIVE) /HPF Urine RBC NEGATIVE (0-5) Ryder/ul Ur Culture Indicated? NO Urine Glucose NEGATIVE (NEGATIVE) mg/dL Influenza Type A Ag NEGATIVE (NEGATIVE) Influenza Type B Ag NEGATIVE (NEGATIVE) RSV (PCR) NEGATIVE (Negative) SARS-CoV-2 (PCR) NEGATIVE (NEGATIVE) 02/25/22 02/25/22 02/25/22 Range/Units 11:45 11:45 11:45 WBC (4.0-10.5) x10^3/uL RBC (4.1-5.4) x10^6/uL Hgb (12.0-16.0) g/dL Hct (35-47) % MCV (78-100) fL MCH (26-32) pg MCHC (32-36) g/dL RDW (11.5-14.0) % Plt Count (150-450) x10^3/uL MPV (7.5-11.0) fL Gran % (36.0-66.0) % Immature Gran % (Auto) (0.00-0.4) % Nucleat RBC Rel Count (0.00-0.1) % Eos # (Auto) (0-0.5) x10^3/uL Immature Gran # (Auto) (0.00-0.03) x10^3u/L Absolute Lymphs (auto) (1.0-4.6) x10^3/uL Absolute Monos (auto) (0.0-1.3) x10^3/uL Absolute Nucleated RBC (0.00-0.01) x10^3u/L Lymphocytes % (24.0-44.0) % Monocytes % (0.0-12.0) % Eosinophils % (0.00-5.0) % Basophils % (0.0-0.4) % Absolute Granulocytes (1.4-6.9) x10^3/uL Basophils # (0-0.4) x10^3/uL ESR 40 H (0-20) mm/hr PT (9.4-12.5) SECONDS INR (0.8-3.0) Sodium (137-145) mmol/L Potassium (3.5-5.1) mmol/L Chloride (98-107) mmol/L Carbon Dioxide (22-30) mmol/L Anion Gap (5-15) MEQ/L BUN (7-17) mg/dL Creatinine (0.52-1.04) mg/dL Estimated GFR ML/MIN Glucose (74-106) mg/dL Lactic Acid (0.4-2.0) Calcium (8.4-10.2) mg/dL Total Bilirubin (0.2-1.3) mg/dL AST (14-36) U/L ALT (0-35) U/L Alkaline Phosphatase (38-126) U/L Serum Total Protein (6.3-8.2) g/dL Albumin (3.5-5.0) g/dL Thyroxine (T4) 8.86 (5.53-10.96) ug/dL TSH 3rd Generation 0.403 L (0.47-4.68) mIU/L Urinalys Dipstick Clnc Urine Color (YELLOW) Urine Appearance (CLEAR) Urine pH (5-6) Ur Specific [place] (1.005-1.025) POC Urine Protein Conf (Negative) Urine Ketones (NEGATIVE) Urine Nitrite (NEGATIVE) Urine Bilirubin (NEGATIVE) Urine Urobilinogen (0-1) mg/dL Urine Leukocytes (NEGATIVE) Urine WBC (Auto) (0-5) /HPF Urine RBC (Auto) (0-2) /HPF U Epithel Cells (Auto) Urine Bacteria (Auto) (NEGATIVE) /HPF Urine RBC (0-5) Ryder/ul Ur Culture Indicated? Urine Glucose (NEGATIVE) mg/dL Influenza Type A Ag (NEGATIVE) Influenza Type B Ag (NEGATIVE) RSV (PCR) (Negative) SARS-CoV-2 (PCR) (NEGATIVE) 02/25/22 02/25/22 02/25/22 Range/Units 11:45 11:45 11:45 WBC 9.2 (4.0-10.5) x10^3/uL RBC 4.07 L (4.1-5.4) x10^6/uL Hgb 12.0 (12.0-16.0) g/dL Hct 38.5 (35-47) % MCV 94.6 (78-100) fL MCH 29.5 (26-32) pg MCHC 31.2 L (32-36) g/dL RDW 14.7 H (11.5-14.0) % Plt Count 241 (150-450) x10^3/uL MPV 10.0 (7.5-11.0) fL Gran % 69.7 H (36.0-66.0) % Immature Gran % (Auto) 0.5 H (0.00-0.4) % Nucleat RBC Rel Count 0.0 (0.00-0.1) % Eos # (Auto) 0.17 (0-0.5) x10^3/uL Immature Gran # (Auto) 0.05 H (0.00-0.03) x10^3u/L Absolute Lymphs (auto) 1.88 (1.0-4.6) x10^3/uL Absolute Monos (auto) 0.67 (0.0-1.3) x10^3/uL Absolute Nucleated RBC 0.00 (0.00-0.01) x10^3u/L Lymphocytes % 20.3 L (24.0-44.0) % Monocytes % 7.3 (0.0-12.0) % Eosinophils % 1.8 (0.00-5.0) % Basophils % 0.4 (0.0-0.4) % Absolute Granulocytes 6.43 (1.4-6.9) x10^3/uL Basophils # 0.04 (0-0.4) x10^3/uL ESR (0-20) mm/hr PT 20.8 H (9.4-12.5) SECONDS INR 2.10 (0.8-3.0) Sodium 139 (137-145) mmol/L Potassium 4.3 (3.5-5.1) mmol/L Chloride 104 (98-107) mmol/L Carbon Dioxide 33 H (22-30) mmol/L Anion Gap 5.9 (5-15) MEQ/L BUN 16 (7-17) mg/dL Creatinine 0.76 (0.52-1.04) mg/dL Estimated GFR > 60.0 ML/MIN Glucose 102 (74-106) mg/dL Lactic Acid (0.4-2.0) Calcium 8.6 (8.4-10.2) mg/dL Total Bilirubin 0.50 (0.2-1.3) mg/dL AST 39 H (14-36) U/L ALT 40 H (0-35) U/L Alkaline Phosphatase 56 (38-126) U/L Serum Total Protein 7.0 (6.3-8.2) g/dL Albumin 3.6 (3.5-5.0) g/dL Thyroxine (T4) (5.53-10.96) ug/dL TSH 3rd Generation (0.47-4.68) mIU/L Urinalys Dipstick Clnc Urine Color (YELLOW) Urine Appearance (CLEAR) Urine pH (5-6) Ur Specific [place] (1.005-1.025) POC Urine Protein Conf (Negative) Urine Ketones (NEGATIVE) Urine Nitrite (NEGATIVE) Urine Bilirubin (NEGATIVE) Urine Urobilinogen (0-1) mg/dL Urine Leukocytes (NEGATIVE) Urine WBC (Auto) (0-5) /HPF Urine RBC (Auto) (0-2) /HPF U Epithel Cells (Auto) Urine Bacteria (Auto) (NEGATIVE) /HPF Urine RBC (0-5) Ryder/ul Ur Culture Indicated? Urine Glucose (NEGATIVE) mg/dL Influenza Type A Ag (NEGATIVE) Influenza Type B Ag (NEGATIVE) RSV (PCR) (Negative) SARS-CoV-2 (PCR) (NEGATIVE) - Progress Progress: improved, re-examined Progress Note: 02/25/22 13:41 discussed with neuro and he agrees probably TIA or very small CVA and will try shorter MRI with sedation. Pt and agree. 02/25/22 13:41 02/25/22 14:33 Pt could not cecil MRI due ot anxiety. and discussed risk/benefit of sedation and will try with that again. 02/25/22 15:16 could not get MRA in radiology due to motion, so will now try CTA head and neck. 02/25/22 15:29 this process will take some more time prior to dispo and admit. 02/25/22 17:[address] Cabrera wardrobe consultant and he will take pt for obs and pt / family agree. 02/25/22 17:17 MRI has micro foci of ischemia - will discuss with neuro. 02/25/22 17:[address] ramos give one full ASA 325 then no furhter ASA and maintain coumaden. Counseled pt/family regarding: lab results, diagnosis, need for follow-up, rad results - Departure Departure Disposition: Observation Clinical Impression: TIA small CVA Condition: Good Critical Care Time: Yes Critical Care Time(excluding separately billable procedures): Critical 75-104 mins (90 minutes for teleneuro , CVA scale, monitoring) Referrals: CINDY ALONZO DO [Primary Care Provider] - Follow up/PCP as directed
[2022-02-25] MEDS ORDERED: Sodium Chloride 0.9% 1000 ML 1,000 ML IV SCH ×2 (11:15→21:26)
--- NOTE | 2022-02-25 11:31 | XRAY ---
Indication: Acute mental status change. Comparison: December 14, 2020 Portable chest remains clear again with incidental tiny right base calcified granuloma and mild left hemidiaphragm elevation. Heart not enlarged. Bony thorax intact again without osteopenia and degenerative changes. Impression: Continued nonacute chest with chronic features.
--- NOTE | 2022-02-25 11:33 | XRAY ---
Indication: "Trouble speaking." Left-sided numbness. CVA/TIA. Multiple contiguous axial images obtained through the head without contrast. Comparison: June 30, 2021. Again age-appropriate global atrophy and mild/moderate periventricular degenerative micro-ischemia bilaterally. No acute intracranial hemorrhage, abnormal extra-axial fluid collection, or mass effect. Fourth ventricle is midline without hydrocephalus. Bony calvarium intact. Visualized paranasal sinuses and mastoid air cells are clear. Impression: Continued nonacute senile brain.
[2022-02-25 12:12] LABS: Absolute Neutrophil Ct (ANC) 6.43 x10^3/uL (1.4-6.9); Basophil (Absolute #) 0.04 x10^3/uL (0-0.4); Eosinophil % 1.8 % (0.00-5.0); Eosinophil (Absolute #) 0.17 x10^3/uL (0-0.5); Hematocrit 38.5 % (35-47); Lymphocyte (Absolute #) 1.88 x10^3/uL (1.0-4.6); Lymphocytes % 20.3 % (24.0-44.0); Mean Cell Volume 94.6 fL (78-100); Mean Corpuscular Hemoglobin 29.5 pg (26-32); Mean Corpuscular Hgb Concent. 31.2 g/dL (32-36); Monocyte (Absolute #) 0.67 x10^3/uL (0.0-1.3); Monocytes % 7.3 % (0.0-12.0); Neutrophil % 69.7 % (36.0-66.0); Platelet Count 241 x10^3/uL (150-450); Red Blood Count 4.07 x10^6/uL (4.1-5.4); Red Cell Distribution Width 14.7 % (11.5-14.0); White Blood Count 9.2 x10^3/uL (4.0-10.5)
[2022-02-25 12:14] LABS: RBC 0-2 /HPF (0-2); WBC 0-2 /HPF (0-5)
[2022-02-25 12:21] LABS: Appearance CLEAR (CLEAR); Bilirubin NEGATIVE (NEGATIVE); Dipstick done @ ? MAIN LAB; Glucose NEGATIVE (NEGATIVE); Ketones NEGATIVE (NEGATIVE); Nitrite NEGATIVE (NEGATIVE); Protein,Urine Dip NEGATIVE (Negative); RBC NEGATIVE Ery/ul (0-5); Urobilinogen 0.2 mg/dL (0-1)
[2022-02-25 12:22] LABS: Urine Cultured Indicated? NO
[2022-02-25 12:23] LABS: INR 2.1 (0.8-3.0); PROTIME 20.8 SECONDS (9.4-12.5)
[2022-02-25 12:24] LABS: ALBUMIN 3.6 g/dL (3.5-5.0); ALKALINE PHOSPHATASE 56 U/L (38-126); ANION GAP 5.9 MEQ/L (5-15); BLOOD UREA NITROGEN 16 mg/dL (7-17); CHLORIDE 104 mmol/L (98-107); Calcium 8.6 mg/dL (8.4-10.2); Carbon Dioxide 33 mmol/L (22-30); Creatinine 1 0.76 mg/dL (0.52-1.04); EST GLOMERULAR FILTRATION RATE > 60.0 ML/MIN; Glucose 102 mg/dL (74-106); Potassium 4.3 mmol/L (3.5-5.1); SGOT/AST 39 U/L (14-36); SGPT/ALT 40 U/L (0-35); SODIUM 139 mmol/L (137-145)
[2022-02-25] MEDS ORDERED: Ativan 2 MG/1 ML VIAL ONE (13:41)
[2022-02-25] MEDS ORDERED: Ativan 1 MG PO ONE (13:42)
[2022-02-25 14:10] LABS: INFLUENZA A NEGATIVE (NEGATIVE); INFLUENZA B NEGATIVE (NEGATIVE); RESPIRATORY SYNCTIAL VIRUS NEGATIVE (Negative); SARS-CoV-2 Xpert Express NEGATIVE (NEGATIVE)
--- NOTE | 2022-02-25 15:21 | XRAY ---
Indication: Confusion and weakness. Sagittal, coronal, and axial MRI brain performed without contrast using T1, T2, FLAIR, diffusion, and ADC sequences. Comparison: None Several images and sequences are slightly degraded by motion artifact. Age-appropriate global atrophy and mild periventricular degenerative micro-ischemia signal bilaterally. Brainstem demonstrates additional minimal degenerative micro-ischemia signal. No acute intracranial hemorrhage, abnormal extra-axial fluid collection, or mass effect. Diffusion images demonstrates 2 petechial foci of restricted signal in the precentral gyrus near the vertex. Fourth ventricle is midline without hydrocephalus. 7/8 cranial nerve complex bilaterally symmetric. Normal flow void signal within the major intra-service circulation. Normal appearing craniocervical junction and sella turcica. Paranasal sinuses are clear. Impression: 1. Motion artifact. 2. 2 petechial foci acute micro-ischemia left precentral gyrus. 3. Atrophy and degenerative micro-ischemia within normal limits for patient's age.
--- NOTE | 2022-02-25 16:33 | XRAY ---
Indication: Confusion and weakness. Conventional contrast enhanced CTA head performed with contrast using 100 cc Isovue 370 contrast. 2-dimensional sagittal and coronal reformatted images obtained. Additional 3-dimensional reformatted images obtained using a separate workstation. Comparison: None Distal internal carotid arteries are bilaterally symmetric. Both parasellar internal carotid arteries demonstrates moderate arteriosclerotic calcifications without obstruction. Normal patent carotid terminus with normal branching anterior and middle cerebral arteries bilaterally. More distal anterior cerebral and middle cerebral arteries are normal in CTA appearance bilaterally. Posterior circulation demonstrates mild/moderate calcifications in both distal vertebral arteries without obstruction. Remaining basilar, left/right posterior cerebral, and left/right superior cerebellar arteries are normal in CTA appearance. Venous sinuses/drainage unremarkable. No abnormal enhancing intra extra-axial mass. Impression: Arteriosclerotic calcifications in both parasellar internal carotid and both distal vertebral arteries without obstruction. Remaining CTA head with contrast exam is negative.
--- NOTE | 2022-02-25 16:46 | XRAY ---
Indication: Confusion and weakness. Conventional contrast enhanced CTA neck performed with contrast using 100 cc Isovue 370 contrast. 2-dimensional sagittal and coronal reformatted images obtained. Additional 3-dimensional reformatted images obtained using a separate workstation. Comparison: None Visualized aortic arch demonstrates anatomic variant for bovine arch. Minimal calcifications origin right brachiocephalic artery and lesser degree origin left common carotid artery. Widely patent left subclavian artery. Examination of the right carotid circulation demonstrates minimal eccentric calcifications carotid bulb and lesser degree origin internal carotid. Remaining common carotid, internal carotid, and external carotid arteries are normal in CTA appearance. Examination of the left carotid circulation demonstrates mild calcifications at origin and proximal internal carotid artery. Remaining common carotid, carotid bulb, and external carotid arteries are normal in CTA appearance. Vertebral arteries are bilaterally symmetric with the right slightly larger in caliber. Distal vertebral arteries demonstrates moderate calcifications with high-grade 99% stenosis bilaterally just distal to the posterior inferior cerebellar artery branches. Visualized soft tissues demonstrates a few subcentimeter cervical and submandibular lymph nodes bilaterally. Parotid and submandibular glands are bilaterally symmetric. Thyroid gland is atrophic. Supra-and infraglottic airway widely patent. Osseous structures demonstrates osteopenia, congenital C2-C3 fusion, minimal 2 mm anterolisthesis of C5 on C6, and mild/moderate multilevel cervicothoracic degenerative changes greatest at C6-C7. Lung apices demonstrates bilateral patchy groundglass opacities. Impression: 1. Scattered arteriosclerotic calcifications in both distal vertebral arteries with high-grade 99% stenosis bilaterally. 2. Mild left carotid and minimal right carotid arteriosclerotic calcifications without critical stenosis/obstruction. 3. Biapical groundglass airspace disease. 4. Chronic bony findings.
[2022-02-25] MEDS ORDERED: Lopressor 50 MG ONE (19:24)
[2022-02-25] MEDS ORDERED: Lanoxin 0.125MG TABLET ONE (19:42)
[2022-02-25] MEDS ORDERED: JANTOVEN PO SCH (21:26)
[2022-02-25] MEDS ORDERED: TYLENOL 325 MG PO PRN (21:26)
[2022-02-25] MEDS ORDERED: Zofran 4 MG/2 ML VIAL IV PRN (21:26)
[2022-02-25] MEDS ORDERED: HUMULIN R SQ PRN (21:26)
[2022-02-25] MEDS ORDERED: DUONEB 0.5-3 MG/3 ml Neb IH PRN (22:16)
[2022-02-25] MEDS ORDERED: ZOCOR 20MG PO ONE (22:26)
[2022-02-25] MEDS ORDERED: Lexapro PO ONE (22:26)
[2022-02-25] MEDS ORDERED: CLARITIN 10 MG PO ONE (22:27)
[2022-02-25] MEDS ORDERED: Calcium 500MG W/Vit D Tablet PO ONE (22:28)
[2022-02-25] MEDS ORDERED: MAG-OX 400 PO ONE (22:29)
[2022-02-25] MEDS ORDERED: THERAGRAN MULTIVITAMIN PO ONE (22:30)
[2022-02-25] MEDS: Pepcid 20 MG VIAL IV SCH (22:43)
[2022-02-26 06:25] LABS: Absolute Neutrophil Ct (ANC) 5.58 x10^3/uL (1.4-6.9); Basophil (Absolute #) 0.05 x10^3/uL (0-0.4); Eosinophil % 2.7 % (0.00-5.0); Eosinophil (Absolute #) 0.22 x10^3/uL (0-0.5); Hematocrit 39.3 % (35-47); Lymphocyte (Absolute #) 1.69 x10^3/uL (1.0-4.6); Lymphocytes % 20.6 % (24.0-44.0); Mean Cell Volume 94.7 fL (78-100); Mean Corpuscular Hemoglobin 28.9 pg (26-32); Mean Corpuscular Hgb Concent. 30.5 g/dL (32-36); Mean Platelet Volume 10.2 fL (7.5-11.0); Monocyte (Absolute #) 0.64 x10^3/uL (0.0-1.3); Monocytes % 7.8 % (0.0-12.0); Neutrophil % 67.9 % (36.0-66.0); Platelet Count 249 x10^3/uL (150-450); Red Blood Count 4.15 x10^6/uL (4.1-5.4); White Blood Count 8.2 x10^3/uL (4.0-10.5)
[2022-02-26 06:40] LABS: PROTIME 19.9 SECONDS (9.4-12.5)
[2022-02-26 06:49] LABS: ALBUMIN 3.4 g/dL (3.5-5.0); ALKALINE PHOSPHATASE 54 U/L (38-126); ANION GAP 7.8 MEQ/L (5-15); BLOOD UREA NITROGEN 14 mg/dL (7-17); CHLORIDE 106 mmol/L (98-107); Calcium 8.5 mg/dL (8.4-10.2); Carbon Dioxide 28 mmol/L (22-30); Creatinine 1 0.77 mg/dL (0.52-1.04); EST GLOMERULAR FILTRATION RATE > 60.0 ML/MIN; Glucose 113 mg/dL (74-106); Potassium 4.2 mmol/L (3.5-5.1); SGOT/AST 34 U/L (14-36); SGPT/ALT 38 U/L (0-35); SODIUM 138 mmol/L (137-145); Total Protein 6.8 g/dL (6.3-8.2)
[2022-02-26] MEDS: Pepcid 20 MG VIAL IV SCH (09:10)
[2022-02-26] MEDS ORDERED: Toprol Xl 50 MG PO SCH (10:00)
[2022-02-26] MEDS ORDERED: Lopressor 25MG Tab PO SCH ×2 (10:00→22:00)
[2022-02-26] MEDS ORDERED: Lanoxin 0.125MG TABLET PO SCH (10:00)
[2022-02-26] MEDS ORDERED: LASIX 20 MG PO SCH (10:00)
[2022-02-26] MEDS ORDERED: PROVENTIL Solution 2.5 MG/0.5 ML IH SCH (11:30)
[2022-02-26 11:35] VITALS: BP 108/68; PULSE 87; O2SAT 94
[2022-02-26] MEDS ORDERED: Zinc Gluconate 50 MG PO SCH (12:00)
[2022-02-26] MEDS ORDERED: Vitamin C 500 MG PO SCH (12:00)
[2022-02-26] MEDS ORDERED: Calcium 500MG W/Vit D Tablet PO SCH (12:00)
[2022-02-26] MEDS ORDERED: ZYLOPRIM 100 MG PO SCH (12:00)
[2022-02-26] MEDS ORDERED: Flonase NASAL NS SCH (12:00)
[2022-02-26] MEDS ORDERED: Effexor XR 75 MG PO SCH (12:00)
[2022-02-26] MEDS ORDERED: Klor Con PO SCH (12:00)
[2022-02-26] MEDS ORDERED: Atrovent 0.5MG NEBULE IH SCH (15:00)
[2022-02-26] MEDS ORDERED: Lopressor 50 MG PO ONE (19:22)
[2022-02-26] MEDS ORDERED: Lanoxin 0.125MG TABLET PO ONE (19:23)
[2022-02-26] MEDS ORDERED: NON-FORMULARY ITEM (Magnesium [Magnesium] 200 MG Tablet) PO SCH (22:00)
[2022-02-26] MEDS ORDERED: Zocor 10MG PO SCH (22:00)
[2022-02-26] MEDS ORDERED: [UNRECOGNIZED DRUG - OTHER] PO SCH (22:00)
[2022-02-26] MEDS ORDERED: CLARITIN 10 MG PO SCH (22:00)
[2022-02-26] MEDS ORDERED: THERAGRAN MULTIVITAMIN PO SCH (22:00)
[2022-02-26] MEDS ORDERED: FOLIC ACID PO SCH (22:00)
[2022-02-26] MEDS ORDERED: IRON PO SCH (22:00)
[2022-02-26] MEDS ORDERED: MAG-OX 400 PO SCH (22:00)
[2022-02-26] MEDS ORDERED: ZOCOR 20MG PO SCH (22:00)
[2022-02-26] MEDS ORDERED: MULTIVIT MIN PO SCH (22:00)
[2022-02-26] MEDS ORDERED: Lexapro PO SCH (22:00)
[2022-02-27] MEDS ORDERED: NON-FORMULARY ITEM (Zinc [Zinc] 50 MG Tablet) PO SCH (10:00)
[2022-02-27] MEDS ORDERED: NON-FORMULARY ITEM (Potassium Chloride [Potassium Chloride] 10 MEQ Tablet.Er) PO SCH (10:00)
[2022-02-27] MEDS ORDERED: NON-FORMULARY ITEM (Ascorbic Acid [C-1000] 1,000 MG Tablet) PO SCH (10:00)
[2022-03-02] MEDS ORDERED: JANTOVEN PO SCH (18:00)
== END 2022-02-26 13:10 | disposition home or self-care (01) ==
LOC: ED 10:46 → MED SURG 21:20
PROVIDERS: ADMIT Family Medicine; ATTEND Family Medicine
DX: G45.9 Transient cerebral ischemic attack, unspecified (principal); I48.91 Unspecified atrial fibrillation; F80.9 Developmental disorder of speech and language, unspecified; Z79.01 Long term (current) use of anticoagulants; Z79.899 Other long term (current) drug therapy; Z20.828 Contact with and (suspected) exposure to other viral communicable diseases
CPT/HCPCS: 0241U; 36000; 36415; 70450; 70496; 70498; 70551; 71045; 80053; 81015; 83605; 84436; 84443; 85025; 85610; 85652; 93005; 93041; 94002; 94760; 99285; 99291; 99292; 93268; 96374; J2060; A9270-GY; G0378

== ENCOUNTER 2022-05-01 22:21 | Emergency (ER) | payer MEDICARE, OTHER ==
[2022-05-01] MEDS ORDERED: ULTRAM 50 MG PO ONE (22:46)
--- NOTE | 2022-05-01 22:46 | ERPHSYRPT ---
- History of Present Illness Time Seen by Provider: 05/01/22 22:40 Source: patient Exam Limitations: no limitations Patient Subjective Stated Complaint: L shoulder pain and pain up to L neck Triage Nursing Assessment: . Physician History: This is a 81 y/o white female pt of dr. march who c/o left post neck and left post shoulder pain without fall or injury. she states she woke up with the pain, ache this morning. she denies cp and sob. never had before. pt has h/o arrhythmia on digoxin and eliquis, anxiety issues, htn and high cholesterol. she denies headache and denies visual changes Timing/Duration: today Method of Injury: other (no injury) Quality: aching Back Pain Location: paraspinous muscles (left into left trapezius) Severity of Pain-Max: moderate Severity of Pain-Current: mild (to moderate with turning of head left) Modifying Factors: Improves With: movement (worsens), rest Previous symptoms: no prior history Allergies/Adverse Reactions: cefaclor [From Ceclor] Allergy (Intermediate, Verified 05/01/22 22:34) Itching face tight, swelling, felt hot clindamycin HCl [From Cleocin] Allergy (Intermediate, Verified 05/01/22 22:34) clindamycin palmitate HCl [From Cleocin] Allergy (Intermediate, Verified 05/01/22 22:34) Hives entire body clindamycin phosphate [From Cleocin] Allergy (Intermediate, Verified 05/01/22 22:34) Penicillins Allergy (Intermediate, Verified 05/01/22 22:34) Rash Home Medications: Calcium Carbonate/Vitamin D3 [Calcium 500-Vit D3 200 Caplet] 1 tab PO BID@1200,199907/02/13 [History] Magnesium 250 mg PO 11/02/18 [History] Furosemide 20 mg [Lasix 20 mg] 20 mg PO DAILY@1200 11/13/18 [History] Potassium Chloride 10 meq PO QA 11/13/18 [History] Digoxin 0.125 mg Tablet [Lanoxin 0.125MG TABLET] 0.0625 mg PO QA 01/29/19 [History] Metoprolol Tartrate 25 mg PO 03/21/19 [History] Metoprolol Tartrate 50 mg PO QA 03/21/19 [History] Venlafaxine HCl [Effexor Xr] 75 mg PO [facility] 03/21/19 [History] Escitalopram Oxalate [Lexapro] 10 mg PO 03/12/20 [History] Ascorbic Acid [C-1000] 500 mg PO DAILY 04/20/21 [History] Simvastatin 20 mg PO HS 04/20/21 [History] Zinc 50 mg PO DAILY 04/20/21 [History] Albuterol 2.5 mg/0.5 ml [PROVENTIL Solution 2.5 MG/0.5 ML] 2.5 mg IH QID 10/07/21 [History] Allopurinol 100 mg [Zyloprim 100 mg] 100 mg PO DAILY 10/07/21 [History] Fluticasone Propionate [Flonase NASAL] 1 gm NS [facility] 10/07/21 [History] Ipratropium [place] 0.5 mg [Atrovent 0.5MG NEBULE] 0.5 mg QID 10/07/21 [History] Loratadine 10 mg PO 10/07/21 [History] Multivit-Min/Iron/Folic Acid/K [Adults Multivitamin Tablet] 1 tablet PO HS 02/25/22 [History] Apixaban [Eliquis 5 mg Tablet] 1 tablet PO DAILY 05/01/22 [History] Hx Tetanus, Diphtheria Vaccination/Date Given: Yes Hx Influenza Vaccination/Date Given: Yes Hx Pneumococcal Vaccination/Date Given: Yes Travel Risk - International Travel Have you traveled outside of the country in past 3 weeks: No - Coronavirus Screening Are you exhibiting any of the following symptoms?: No Symptoms: Cough: New Onset Close contact with a COVID-19 positive Pt in past 14-21 Days: No - Vaccine Status Have you recieved a Covid-19 vaccination: Yes [employer]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: [employer] - Vaccination Dates Date of 2cond Vaccination (if applicable): 2020 - Review of Systems Constitutional: No Symptoms Eyes: No Symptoms Ears, Nose, & Throat: No Symptoms Respiratory: No Symptoms Cardiac: No Symptoms Abdominal/Gastrointestinal: No Symptoms Genitourinary Symptoms: No Symptoms Musculoskeletal: Neck Pain (left cervical paraspinous mm) Skin: No Symptoms Neurological: No Symptoms Psychological: No Symptoms Endocrine: No Symptoms Hematologic/Lymphatic: No Symptoms Immunological/Allergic: No Symptoms All Other Systems: Reviewed and Negative - Past Medical History Pertinent Past Medical History: Yes Neurological History: No Pertinent History ENT History: Cataracts, Other Cardiac History: High Cholesterol, Hypertension Respiratory History: Sleep Apnea, Other Endocrine Medical History: No Pertinent History Musculoskeletal History: Osteoarthritis GI Medical History: GI Bleed, Polyps History: No Pertinent History Psycho-Social History: Anxiety, Depression, Panic Disorder Female Reproductive Disorders: No Pertinent History Other Medical History: . - Past Surgical History Past Surgical History: Yes Neuro Surgical History: No Pertinent History Cardiac: No Pertinent History Respiratory: No Pertinent History Gastrointestinal: Appendectomy Genitourinary: No Pertinent History Musculoskeletal: Joint Replacement, Orthopedic Surgery Female Surgical History: Tubal Ligation, Other Other Surgical History: sinus surgery, tonsils, D&C x2, cataract, left KNEE REPLACEMENT , antibiotic spacer placement in left knee. - Social History Smoking Status: Never smoker Exposure to second hand smoke: No Alcohol Use: None Drug Use: none Patient Lives Alone: No Significant Family History: no pertinent family hx - Nursing Vital Signs Nursing Vital Signs: Initial Vital Signs Temperature 97.2 F 05/01/22 22:27 Pulse Rate 63 05/01/22 22:27 Respiratory Rate 16 05/01/22 22:27 Blood Pressure 133/82 05/01/22 22:27 O2 Sat by Pulse Oximetry 95 05/01/22 22:27 Pain Scale Pain Intensity 8 - Physical Exam General Appearance: no apparent distress, alert, anxiety Eye Exam: PERRL/EOMI, eyes nml inspection Ears, Nose, Throat Exam: normal ENT inspection, moist mucous membranes Neck Exam: normal inspection, supple, full range of motion, other (tenderness to palpation left cervical paraspinous mm and left trapezius m) Cardiovascular Exam: normal peripheral pulses Gastrointestinal Exam: No tenderness Pelvic Exam: not done Rectal Exam: not done Back Exam: normal inspection, normal range of motion, No CVA tenderness, No vertebral tenderness Extremity Exam: normal inspection, normal range of motion, pelvis stable Neurologic Exam: alert, 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, cooperative, immersion metalcleaner II-XII nml as tested, normal mood/affect, nml cerebellar function, nml station & gait, sensation nml Skin Exam: normal color, warm, dry Lymphatic Exam: No adenopathy SpO2 Interpretation: normal SpO2: 95 O2 Delivery: Room Air - Course Nursing assessment & vital signs reviewed: Yes Ordered Tests: Active Orders 24 hr Category Date Time Status CERVICAL SPINE WO CONTRAST [CT] Stat Exams 05/01/22 22:33 Taken Medication Summary Generic Name Dose Route Start Last Admin Trade Name Livia PRN Reason Stop Dose Admin Prednisone 20 mg 05/01/22 23:31 Prednisone 20 Mg Tablet PO 05/01/22 23:32 STAT ONE Discontinued Medications Generic Name Dose Route Start Last Admin Trade Name Livia PRN Reason Stop Dose Admin Tramadol HCl 50 mg 05/01/22 22:46 05/01/22 23:05 Tramadol Hcl 50 Mg Tablet PO 05/01/22 22:47 50 mg STAT ONE Administration Tramadol HCl Confirm 05/01/22 23:05 Tramadol Hcl 50 Mg Tablet Administered 05/01/22 23:06 Dose 50 mg .ROUTE .STK-MED ONE - Progress Progress: improved, pain not gone completely, re-examined Progress Note: 05/01/22 23:32 ct cervical spine without shows no fx or subluxation. degenerative changes. Medical decision making: using the hx obtained from pt and additional hx from pt spouse and after examining the patient and review of pts medication, i obtained a ct scan of the cervicle spine. results indicate pt has a low complexiity medical issue. pt is anticoagulated on eliquis and has multiple medical issues. .i revieweed the radiographic results with patient and spouse. after all the above, i provided pt with medications here in the ed and formulated and provided pt and spouse with discharge medications and instruction Counseled pt/family regarding: diagnosis, need for follow-up, rad results - Departure Departure Disposition: Home Clinical Impression: Cervical spine arthritis, Musculoskeletal pain Condition: Stable Critical Care Time: No Referrals: CINDY MARCH DO [Primary Care Provider] - Follow up/PCP as directed Additional Instructions: take your medications as prescribed. follow up with your primary doctor tomorrow to make arrangements for further management. Prescriptions: Prednisone 10 mg [Deltasone 10 mg] 10 mg PO TID #12 tablet Orphenadrine Citrate 100 mg [Norflex 100 MG Tablet] 100 mg PO BID #10 tab
[2022-05-01] MEDS ORDERED: ULTRAM 50 MG ONE (23:05)
[2022-05-01 23:17] VITALS: BP 125/97; PULSE 94
[2022-05-01] MEDS ORDERED: DELTASONE 20 MG PO ONE (23:31)
[2022-05-01 23:37] VITALS: O2SAT 95
[2022-05-01] MEDS ORDERED: DELTASONE 20 MG ONE (23:39)
--- NOTE | 2022-05-02 08:55 | XRAY ---
Indication: Left neck and left shoulder pain. Multiple contiguous images obtained through the cervical spine. Sagittal and coronal reformatted images obtained. Comparison: February 25, 2022 Osseous structures remain demineralized. Axial images negative for acute fracture, suspicious bony lesions, or spinal canal stenosis. Stable C2-C3 congenital fusion, moderate atlantoaxial, mild/moderate multilevel degenerative endplate spurring, and moderate/significant multilevel bilateral degenerative facet hypertrophy. Sagittal and coronal reformatted images again demonstrates minimal grade 1 anterolisthesis of C5 on C6. No acute compression fracture or jumped facet. Normal appearing craniocervical junction. Visualized noncontrasted soft tissues again demonstrates scattered arteriosclerotic calcifications bilaterally. Base of brain unremarkable. New left maxillary sinus fluid leveling and incompletely visualized left upper lobe consolidating airspace disease. Impression: 1. Stable osteopenia, multilevel degenerative spondylosis, minimal grade 1 C5 listhesis, and scattered arteriosclerotic disease. 2. New left maxillary sinus disease and incompletely visualized left upper lobe consolidating airspace disease. Comment: Preliminary interpretation made by [facility]. No critical discrepancy.
== END 2022-05-02 00:01 | disposition home or self-care (01) ==
LOC: ED 22:21
DX: M47.812 Spondylosis without myelopathy or radiculopathy, cervical region (principal); M79.18 Myalgia, other site; M54.2 Cervicalgia; M25.512 Pain in left shoulder; I10 Essential (primary) hypertension; E78.5 Hyperlipidemia, unspecified; Z79.01 Long term (current) use of anticoagulants; Z79.52 Long term (current) use of systemic steroids; Z79.899 Other long term (current) drug therapy
CPT/HCPCS: 72125; 99283; A9270-GY

== ENCOUNTER 2023-01-13 09:26 | Emergency (ER) | payer MEDICARE ==
--- NOTE | 2023-01-13 09:33 | ERPHSYRPT ---
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 Patient's also provided independent, additional history on this patient. Patient has a history of rate controlled atrial fibrillation and is on Eliquis, metoprolol and digoxin. This morning, patient woke up fine and was beginning to eat breakfast when she just felt off. She stated that she could not figure out exactly what she was supposed to do when the cereal was presented to her. Patient states she always has double vision but she also had an episode of double vision at that time. was there at the time and felt maybe her left lip was drooping. Both patient and state that the patient's symptoms appear to have completely resolved. Patient has a history of TIA in the past. Patient also states that she had a cough that was productive of thick mucus yesterday. No coughing today. Patient was diagnosed with COVID 19 infection approximately 2 to 3 weeks ago. Additionally, patient has a history of hypertension, hyperlipidemia and panic disorder. She presents to the emergency department with no complaints of pain whatsoever. Paramedics found the patient to be in atrial fibrillation with RVR and a heart rate of 130s. She was given Cardizem intravenously 15 mg. When she arrived to the emergency department patient was still in atrial fibrillation but her heart rate was in the 80s. Timing/Duration: today Activities at Onset: none Quality: other Location: other (No pain no pain) Severity of Pain-Max: none Severity of Pain-Current: none Modifying Factors: Improves With: other (Atrial fibrillation with RVR resolved with 50 mg Cardizem intravenously) Nitro Today/Relief: no nitro taken today Aspirin Treatment Today: no aspirin today (Patient is on Eliquis) Associated Symptoms: denies symptoms (Patient's foggy thoughts and double vision have resolved) Prior Chest Pain/Cardiac Workup: no prior chest pain, no prior cardiac workup, non-cardiac Allergies/Adverse Reactions: cefaclor [From Ceclor] Allergy (Intermediate, Verified 01/13/23 09:33) Itching face tight, swelling, felt hot clindamycin HCl [From Cleocin] Allergy (Intermediate, Verified 05/01/22 22:34) clindamycin palmitate HCl [From Cleocin] Allergy (Intermediate, Verified 05/01/22 22:34) Hives entire body clindamycin phosphate [From Cleocin] Allergy (Intermediate, Verified 05/01/22 22:34) Penicillins Allergy (Intermediate, Verified 05/01/22 22:34) Rash Home Medications: Calcium Carbonate/Vitamin D3 [Calcium 500-Vit D3 200 Caplet] 1 tab PO BID@1200,199907/02/13 [History] Magnesium 250 mg PO HS 11/02/18 [History] Furosemide 20 mg [Lasix 20 mg] 20 mg PO DAILY@1200 11/13/18 [History] Potassium Chloride 10 meq PO QA 11/13/18 [History] Digoxin 0.125 mg Tablet [Lanoxin 0.125MG TABLET] 0.0625 mg PO QA 01/29/19 [History] Metoprolol Tartrate 25 mg PO 03/21/19 [History] Metoprolol Tartrate 50 mg PO QA 03/21/19 [History] Venlafaxine HCl [Effexor Xr] 75 mg PO QA 03/21/19 [History] Escitalopram Oxalate [Lexapro] 10 mg PO HS 03/12/20 [History] Ascorbic Acid [C-1000] 500 mg PO DAILY 04/20/21 [History] Simvastatin 20 mg PO HS 04/20/21 [History] Zinc 50 mg PO DAILY 04/20/21 [History] Albuterol 2.5 mg/0.5 ml [PROVENTIL Solution 2.5 MG/0.5 ML] 2.5 mg IH QID 10/07/21 [History] Allopurinol 100 mg [Zyloprim 100 mg] 100 mg PO DAILY 10/07/21 [History] Fluticasone Propionate [Flonase NASAL] 1 gm NS QA 10/07/21 [History] Ipratropium [place] 0.5 mg [Atrovent 0.5MG NEBULE] 0.5 mg IH QID 10/07/21 [History] Loratadine 10 mg PO HS 10/07/21 [History] Multivit-Min/Iron/Folic Acid/K [Adults Multivitamin Tablet] 1 tablet PO HS 02/25/22 [History] Apixaban [Eliquis 5 mg Tablet] 1 tablet PO DAILY 05/01/22 [History] Hx Tetanus, Diphtheria Vaccination/Date Given: Yes Hx Influenza Vaccination/Date Given: Yes Hx Pneumococcal Vaccination/Date Given: Yes Travel Risk - International Travel Have you traveled outside of the country in past 3 weeks: No - Coronavirus Screening Are you exhibiting any of the following symptoms?: Yes Symptoms: Cough: New Onset Close contact with a COVID-19 positive Pt in past 14-21 Days: No - Vaccine Status Have you recieved a Covid-19 vaccination: Yes 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: [employer] - Vaccination Dates Date of 2cond Vaccination (if applicable): 2020 - Review of Systems Constitutional: No Symptoms Eyes: No Symptoms Ears, Nose, & Throat: No Symptoms Respiratory: Cough Cardiac: No Symptoms Abdominal/Gastrointestinal: No Symptoms Genitourinary Symptoms: No Symptoms Musculoskeletal: No Symptoms Skin: No Symptoms Neurological: Other (Double visionresolved; drooping left lip resolved) Psychological: No Symptoms Endocrine: No Symptoms Hematologic/Lymphatic: No Symptoms Immunological/Allergic: No Symptoms All Other Systems: Reviewed and Negative - Past Medical History Pertinent Past Medical History: Yes Neurological History: No Pertinent History ENT History: Cataracts, Other Cardiac History: High Cholesterol, Hypertension Respiratory History: Sleep Apnea, Other Endocrine Medical History: No Pertinent History Musculoskeletal History: Osteoarthritis GI Medical History: GI Bleed, Polyps History: No Pertinent History Psycho-Social History: Anxiety, Depression, Panic Disorder Female Reproductive Disorders: No Pertinent History Other Medical History: . - Past Surgical History Past Surgical History: Yes Neuro Surgical History: No Pertinent History Cardiac: No Pertinent History Respiratory: No Pertinent History Gastrointestinal: Appendectomy Genitourinary: No Pertinent History Musculoskeletal: Joint Replacement, Orthopedic Surgery Female Surgical History: Tubal Ligation, Other Other Surgical History: sinus surgery, tonsils, D&C x2, cataract, left KNEE REPLACEMENT , antibiotic spacer placement in left knee. - Social History Smoking Status: Never smoker Exposure to second hand smoke: No Alcohol Use: None Drug Use: none Patient Lives Alone: No Significant Family History: no pertinent family hx - Nursing Vital Signs Nursing Vital Signs: Initial Vital Signs Pulse Rate 64 01/13/23 09:27 Respiratory Rate 22 01/13/23 09:27 Blood Pressure 126/84 01/13/23 09:27 O2 Sat by Pulse Oximetry 95 01/13/23 09:27 Pain Scale Pain Intensity 0 - Physical Exam General Appearance: no apparent distress, alert, anxiety, obese Eye Exam: PERRL/EOMI, eyes nml inspection Ears, Nose, Throat Exam: normal ENT inspection, moist mucous membranes Neck Exam: normal inspection, non-tender, supple, full range of motion Respiratory Exam: normal breath sounds, lungs clear, No chest tenderness, No respiratory distress Cardiovascular Exam: irregular Gastrointestinal/Abdomen Exam: soft, normal bowel sounds, No tenderness Pelvic Exam: not done Rectal Exam: not done Back Exam: normal inspection, normal range of motion, No CVA tenderness, No vertebral tenderness Extremity Exam: normal inspection, normal range of motion, pelvis stable Neurologic Exam: alert, 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, 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, 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, normal mood/affect, nml station & gait, No facial droop, No slurred speech Skin Exam: normal color, warm, dry Lymphatic Exam: No adenopathy SpO2 Interpretation: normal O2 Delivery: Room Air - Course Nursing assessment & vital signs reviewed: Yes EKG Interpreted by Me: RATE (86), A-fib, Other (No acute ischemic changes on today's twelve-lead EKG) Ordered Tests: Active Orders 24 hr Category Date Time 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 STAT Care 01/13/23 09:34 Active EKG-ER Only STAT Care 01/13/23 09:34 Active IV Insertion STAT Care 01/13/23 09:34 Active Pulse Oximetry (ED) STAT Care 01/13/23 09:34 Active CHEST 1 VIEW (PORTABLE) Stat Exams 01/13/23 09:47 Completed HEAD WITHOUT CONTRAST [CT] Stat Exams 01/13/23 09:35 Completed CBC W DIFF Stat Lab 01/13/23 10:00 Completed CMP Stat Lab 01/13/23 10:00 Completed PROTIME WITH INR Stat Lab 01/13/23 10:00 Completed T4 (Thyroxine) Stat Lab 01/13/23 10:00 Completed TROPONIN Q4H Lab 01/13/23 10:00 Completed TROPONIN Q4H Lab 01/13/23 13:45 Ordered TROPONIN Q4H Lab 01/13/23 17:45 Ordered TSH [TSH, 3RD Generation] Stat Lab 01/13/23 10:00 Completed UA W/RFX UR CULTURE Stat Lab 01/13/23 10:56 Ordered Medication Summary Discontinued Medications Generic Name Dose Route Start Last Admin Trade Name Livia PRN Reason Stop Dose Admin Apixaban 5 mg 01/13/23 10:14 01/13/23 10:44 Apixaban 2.5 Mg Tablet PO 01/13/23 10:15 5 mg STAT ONE Administration Digoxin 0.0625 mg 01/13/23 10:15 01/13/23 10:44 Digoxin 0.125 Mg Tablet PO 01/13/23 10:16 0.0625 mg STAT ONE Administration Lab/Rad Data: Laboratory Result Diagrams 01/13/23 10:00 01/13/23 10:00 Laboratory Results 01/13/23 01/13/23 01/13/23 Range/Units 10:00 10:00 10:00 WBC (4.0-10.5) x10^3/uL RBC (4.1-5.4) x10^6/uL Hgb (12.0-16.0) g/dL Hct (35-47) % MCV (78-100) fL MCH (26-32) pg MCHC (32-36) g/dL RDW (11.5-14.0) % Plt Count (150-450) x10^3/uL MPV (7.5-11.0) fL Gran % (36.0-66.0) % Immature Gran % (Auto) (0.00-0.4) % Nucleat RBC Rel Count (0.00-0.1) % Eos # (Auto) (0-0.5) x10^3/uL Immature Gran # (Auto) (0.00-0.03) x10^3u/L Absolute Lymphs (auto) (1.0-4.6) x10^3/uL Absolute Monos (auto) (0.0-1.3) x10^3/uL Absolute Nucleated RBC (0.00-0.01) x10^3u/L Lymphocytes % (24.0-44.0) % Monocytes % (0.0-12.0) % Eosinophils % (0.00-5.0) % Basophils % (0.0-0.4) % Absolute Granulocytes (1.4-6.9) x10^3/uL Basophils # (0-0.4) x10^3/uL PT (9.4-12.5) SECONDS INR (0.8-3.0) Sodium (137-145) mmol/L Potassium (3.5-5.1) mmol/L Chloride (98-107) mmol/L Carbon Dioxide (22-30) mmol/L Anion Gap (5-15) MEQ/L BUN (7-17) mg/dL Creatinine (0.52-1.04) mg/dL Estimated GFR ML/MIN Glucose (74-106) mg/dL Calcium (8.4-10.2) mg/dL Total Bilirubin (0.2-1.3) mg/dL AST (14-36) U/L ALT (0-35) U/L Alkaline Phosphatase (38-126) U/L Troponin I (0.000-0.034) ng/mL Serum Total Protein (6.3-8.2) g/dL Albumin (3.5-5.0) g/dL Thyroxine (T4) 8.51 (5.53-10.96) ug/dL TSH 3rd Generation 2.700 (0.47-4.68) mIU/L Digoxin < 0.4 L (0.8-1.9) ng/mL Influenza Type A Ag NEGATIVE (NEGATIVE) Influenza Type B Ag NEGATIVE (NEGATIVE) RSV (PCR) NEGATIVE (NEGATIVE) SARS-CoV-2 (PCR) POSITIVE A (NEGATIVE) 01/13/23 01/13/23 01/13/23 Range/Units 10:00 10:00 10:00 WBC (4.0-10.5) x10^3/uL RBC (4.1-5.4) x10^6/uL Hgb (12.0-16.0) g/dL Hct (35-47) % MCV (78-100) fL MCH (26-32) pg MCHC (32-36) g/dL RDW (11.5-14.0) % Plt Count (150-450) x10^3/uL MPV (7.5-11.0) fL Gran % (36.0-66.0) % Immature Gran % (Auto) (0.00-0.4) % Nucleat RBC Rel Count (0.00-0.1) % Eos # (Auto) (0-0.5) x10^3/uL Immature Gran # (Auto) (0.00-0.03) x10^3u/L Absolute Lymphs (auto) (1.0-4.6) x10^3/uL Absolute Monos (auto) (0.0-1.3) x10^3/uL Absolute Nucleated RBC (0.00-0.01) x10^3u/L Lymphocytes % (24.0-44.0) % Monocytes % (0.0-12.0) % Eosinophils % (0.00-5.0) % Basophils % (0.0-0.4) % Absolute Granulocytes (1.4-6.9) x10^3/uL Basophils # (0-0.4) x10^3/uL PT 11.5 (9.4-12.5) SECONDS INR 1.06 (0.8-3.0) Sodium 141 (137-145) mmol/L Potassium 3.9 (3.5-5.1) mmol/L Chloride 103 (98-107) mmol/L Carbon Dioxide 29 (22-30) mmol/L Anion Gap 12.7 (5-15) MEQ/L BUN 19 H (7-17) mg/dL Creatinine 0.86 (0.52-1.04) mg/dL Estimated GFR > 60.0 ML/MIN Glucose 159 H (74-106) mg/dL Calcium 8.8 (8.4-10.2) mg/dL Total Bilirubin 0.50 (0.2-1.3) mg/dL AST 32 (14-36) U/L ALT 24 (0-35) U/L Alkaline Phosphatase 63 (38-126) U/L Troponin I < 0.012 (0.000-0.034) ng/mL Serum Total Protein 7.0 (6.3-8.2) g/dL Albumin 3.9 (3.5-5.0) g/dL Thyroxine (T4) (5.53-10.96) ug/dL TSH 3rd Generation (0.47-4.68) mIU/L Digoxin (0.8-1.9) ng/mL Influenza Type A Ag (NEGATIVE) Influenza Type B Ag (NEGATIVE) RSV (PCR) (NEGATIVE) SARS-CoV-2 (PCR) (NEGATIVE) 01/13/23 Range/Units 10:00 WBC 8.2 (4.0-10.5) x10^3/uL RBC 4.39 (4.1-5.4) x10^6/uL Hgb 12.8 (12.0-16.0) g/dL Hct 40.2 (35-47) % MCV 91.6 (78-100) fL MCH 29.2 (26-32) pg MCHC 31.8 L (32-36) g/dL RDW 14.3 H (11.5-14.0) % Plt Count 204 (150-450) x10^3/uL MPV 10.1 (7.5-11.0) fL Gran % 66.3 H (36.0-66.0) % Immature Gran % (Auto) 0.5 H (0.00-0.4) % Nucleat RBC Rel Count 0.0 (0.00-0.1) % Eos # (Auto) 0.30 (0-0.5) x10^3/uL Immature Gran # (Auto) 0.04 H (0.00-0.03) x10^3u/L Absolute Lymphs (auto) 1.79 (1.0-4.6) x10^3/uL Absolute Monos (auto) 0.59 (0.0-1.3) x10^3/uL Absolute Nucleated RBC 0.00 (0.00-0.01) x10^3u/L Lymphocytes % 21.8 L (24.0-44.0) % Monocytes % 7.2 (0.0-12.0) % Eosinophils % 3.7 (0.00-5.0) % Basophils % 0.5 (0.0-0.4) % Absolute Granulocytes 5.45 (1.4-6.9) x10^3/uL Basophils # 0.04 (0-0.4) x10^3/uL PT (9.4-12.5) SECONDS INR (0.8-3.0) Sodium (137-145) mmol/L Potassium (3.5-5.1) mmol/L Chloride (98-107) mmol/L Carbon Dioxide (22-30) mmol/L Anion Gap (5-15) MEQ/L BUN (7-17) mg/dL Creatinine (0.52-1.04) mg/dL Estimated GFR ML/MIN Glucose (74-106) mg/dL Calcium (8.4-10.2) mg/dL Total Bilirubin (0.2-1.3) mg/dL AST (14-36) U/L ALT (0-35) U/L Alkaline Phosphatase (38-126) U/L Troponin I (0.000-0.034) ng/mL Serum Total Protein (6.3-8.2) g/dL Albumin (3.5-5.0) g/dL Thyroxine (T4) (5.53-10.96) ug/dL TSH 3rd Generation (0.47-4.68) mIU/L Digoxin (0.8-1.9) ng/mL Influenza Type A Ag (NEGATIVE) Influenza Type B Ag (NEGATIVE) RSV (PCR) (NEGATIVE) SARS-CoV-2 (PCR) (NEGATIVE) - Progress Progress: improved, re-examined Air Movement: good Progress Note: 01/13/23 10:12 This patient's medical issue is of moderate complexity. The level complexity in the work-up performed based on review of the patient's past medical history, review of the patient's medication list, review the patient's drug allergy list, history present illness and physical findings on examination. The work-up includes placement of intravenous line, twelve-lead EKG, troponin level, urinalysis, T4 and TSH level, CT scan of the head without contrast, CBC, CMP and digoxin level. 01/13/23 11:28 Chest x-ray was interpreted by the radiologist and I reviewed the impression. The chest x-ray shows nonacute with chronic features study. CT scan of the head without contrast shows new pansinusitis. Continued nonacute senile brain. Blood Culture(s) Obtained: No Counseled pt/family regarding: lab results, diagnosis, rad results - Departure Departure Disposition: Home Clinical Impression: Sinusitis, COVID-19 virus infection Condition: Stable Critical Care Time: No Referrals: NICHELLE HECK DO [Primary Care Provider] - Follow up/PCP as directed Additional Instructions: Drink plenty of fluids. Take your medication as prescribed. Follow-up with your primary care provider for further evaluation management. Prescriptions: Doxycycline Hyclate 100 mg [Vibramycin 100 MG] 100 mg PO BID #14 tab
[2023-01-13 09:38] VITALS: TEMP 96.8
[2023-01-13 10:07] LABS: Absolute Neutrophil Ct (ANC) 5.45 x10^3/uL (1.4-6.9); BASOPHIL % 0.5 % (0.0-0.4); Basophil (Absolute #) 0.04 x10^3/uL (0-0.4); Eosinophil % 3.7 % (0.00-5.0); Hematocrit 40.2 % (35-47); Hemoglobin 12.8 g/dL (12.0-16.0); IMMATURE GRAN # 0.04 x10^3u/L (0.00-0.03); IMMATURE GRAN % 0.5 % (0.00-0.4); Lymphocyte (Absolute #) 1.79 x10^3/uL (1.0-4.6); Lymphocytes % 21.8 % (24.0-44.0); Mean Cell Volume 91.6 fL (78-100); Mean Corpuscular Hemoglobin 29.2 pg (26-32); Mean Corpuscular Hgb Concent. 31.8 g/dL (32-36); Mean Platelet Volume 10.1 fL (7.5-11.0); Monocyte (Absolute #) 0.59 x10^3/uL (0.0-1.3); Monocytes % 7.2 % (0.0-12.0); Neutrophil % 66.3 % (36.0-66.0); Platelet Count 204 x10^3/uL (150-450); Red Blood Count 4.39 x10^6/uL (4.1-5.4); Red Cell Distribution Width 14.3 % (11.5-14.0); White Blood Count 8.2 x10^3/uL (4.0-10.5)
[2023-01-13] MEDS ORDERED: ELIQUIS 2.5 MG TABLET PO ONE (10:14)
[2023-01-13] MEDS ORDERED: Lanoxin 0.125MG TABLET PO ONE (10:15)
[2023-01-13 10:21] LABS: INR 1.06 (0.8-3.0); PROTIME 11.5 SECONDS (9.4-12.5)
[2023-01-13 10:23] LABS: ALBUMIN 3.9 g/dL (3.5-5.0); ALKALINE PHOSPHATASE 63 U/L (38-126); ANION GAP 12.7 MEQ/L (5-15); BLOOD UREA NITROGEN 19 mg/dL (7-17); CHLORIDE 103 mmol/L (98-107); Calcium 8.8 mg/dL (8.4-10.2); Carbon Dioxide 29 mmol/L (22-30); Creatinine 1 0.86 mg/dL (0.52-1.04); EST GLOMERULAR FILTRATION RATE > 60.0 ML/MIN; Glucose 159 mg/dL (74-106); Potassium 3.9 mmol/L (3.5-5.1); SGOT/AST 32 U/L (14-36); SGPT/ALT 24 U/L (0-35); SODIUM 141 mmol/L (137-145)
[2023-01-13 10:43] LABS: INFLUENZA A NEGATIVE (NEGATIVE); INFLUENZA B NEGATIVE (NEGATIVE); RESPIRATORY SYNCTIAL VIRUS NEGATIVE (NEGATIVE)
[2023-01-13 10:44] LABS: SARS-CoV-2 Xpert Express POSITIVE (NEGATIVE)
[2023-01-13 10:52] LABS: T4 (Thyroxine) 8.51 ug/dL (5.53-10.96); TSH, 3RD Generation 2.7 mIU/L (0.47-4.68)
--- NOTE | 2023-01-13 10:54 | XRAY ---
Indication: Brief visual change. TIA. Multiple contiguous axial images obtained through the head without contrast. Comparison: February 25, 2022 Again age-appropriate global atrophy and moderate periventricular degenerative micro-ischemia bilaterally. No acute intracranial hemorrhage, abnormal extra-axial fluid collection, or mass effect. Fourth ventricle is midline without hydrocephalus. Bony calvarium intact. New mild/moderate mucosal thickening paranasal sinuses bilaterally. Mastoid air cells are clear. Impression: New pansinusitis. Otherwise continued nonacute senile brain.
--- NOTE | 2023-01-13 10:56 | XRAY ---
Indication: Cough. Comparison: August 20, 2022 Portable chest again demonstrates minimal left mid lung subsegmental atelectasis/scarring and a few tiny calcified granulomas. No focal infiltrate, consolidation, or large effusion. Heart and mediastinal structures within normal limits. Bony thorax intact again with osteopenia and mild degenerative changes. Impression: Nonacute chest with chronic features.
[2023-01-13 11:48] LABS: Appearance Clear (Clear); Bacteria None Seen /HPF (None Seen); Bilirubin Negative (Negative); Blood Negative (Negative); Epithelial Cells None Seen /HPF (None Seen); Glucose, Urine Negative (Negative); Hyaline Casts NONE SEEN /LPF (0-2); Ketones Negative (Negative); Leukocyte Esterase Negative (Negative); Nitrite Negative (Negative); Protein,Urine Dip Negative (Negative); RBC 0-2 /HPF (0-5); Specific Gravity <=1.005 (1.005-1.030); Urobilinogen 0.2 mg/dL (0.2); WBC 0-2 /HPF (0-5)
[2023-01-13 11:50] LABS: ADD URINE CULTURE? NO (NO)
[2023-01-13 12:03] VITALS: BP 105/78; PULSE 93; RESP 22; O2SAT 93
== END 2023-01-13 12:15 | disposition home or self-care (01) ==
LOC: ED 09:26
DX: J01.40 Acute pansinusitis, unspecified (principal); U07.1 COVID-19; I48.91 Unspecified atrial fibrillation; R41.0 Disorientation, unspecified; R05.9 Cough, unspecified; I10 Essential (primary) hypertension; E78.5 Hyperlipidemia, unspecified; Z79.01 Long term (current) use of anticoagulants; Z79.899 Other long term (current) drug therapy
CPT/HCPCS: 0241U; 36000; 36415; 70450; 71045; 80053; 80162; 81001; 84436; 84443; 84484; 85025; 85610; 93005; 93041; 94760; 99284; A9270-GY

== ENCOUNTER 2023-06-21 11:22 | Emergency (ER) | payer MEDICARE ==
--- NOTE | 2023-06-21 11:25 | ERPHSYRPT ---
- History of Present Illness Time Seen by Provider: 06/21/23 11:25 Source: patient Exam Limitations: clinical condition Physician History: This is an 82-year-old white female patient of Dr. Heck and financial institution president Dr. Cage who was brought to the emergency department by the ambulance from the patient's outpatient psychiatric clinic visit. Patient was brought to the emergency department because the psychiatrist and therapist were concerned that this patient might be having a TIA or stroke. They felt that the patient was confused and not answering questions appropriately. Patient states that she is not confused and she heard all the questions but several of the questions she just did not know how to answer. She gave the example about questions regarding her childhood and just was not sure how to answer but this was also emotionally provoking. Patient does have a history of TIA in the past. She has a history of sleep apnea, panic disorder, hyperlipidemia, hypertension, atrial fibrillation. Patient is on Eliquis, metoprolol and digoxin to aid in treatment of her atrial fibrillation. Patient denies headache. She denies visual changes. Patient denies chest pain. She has no abdominal pain. She is not short of breath. Timing/Duration: today Allergies/Adverse Reactions: cefaclor [From Ceclor] Allergy (Intermediate, Verified 06/21/23 11:48) Itching face tight, swelling, felt hot clindamycin HCl [From Cleocin] Allergy (Intermediate, Verified 06/21/23 11:48) clindamycin palmitate HCl [From Cleocin] Allergy (Intermediate, Verified 06/21/23 11:48) Hives entire body clindamycin phosphate [From Cleocin] Allergy (Intermediate, Verified 06/21/23 11:48) Penicillins Allergy (Intermediate, Verified 06/21/23 11:48) Rash Home Medications: Calcium Carbonate/Vitamin D3 [Calcium 500-Vit D3 200 [place]] 1 tab PO BID@1200,199907/02/13 [History] Magnesium 250 mg PO HS 11/02/18 [History] Furosemide 20 mg [Lasix 20 mg] 20 mg PO DAILY@1200 11/13/18 [History] Potassium Chloride 10 meq PO QAM 11/13/18 [History] Digoxin 0.125 mg Tablet [Lanoxin 0.125MG TABLET] 0.0625 mg PO QAM 01/29/19 [History] Metoprolol Tartrate 25 mg PO HS 03/21/19 [History] Metoprolol Tartrate 50 mg PO QA 03/21/19 [History] Escitalopram Oxalate [Lexapro] 10 mg PO HS 03/12/20 [History] Ascorbic Acid [C-1000] 500 mg PO DAILY 04/20/21 [History] Simvastatin 20 mg PO HS 04/20/21 [History] Zinc 50 mg PO DAILY 04/20/21 [History] Albuterol 2.5 mg/0.5 ml [PROVENTIL Solution 2.5 MG/0.5 ML] 2.5 mg IH QID 10/07/21 [History] Allopurinol 100 mg [Zyloprim 100 mg] 100 mg PO DAILY 10/07/21 [History] Fluticasone Propionate [Flonase NASAL] 1 gm NS [facility] 10/07/21 [History] Ipratropium [place] 0.5 mg [Atrovent 0.5MG NEBULE] 0.5 mg IH QID 10/07/21 [History] Loratadine 10 mg PO HS 10/07/21 [History] Multivit-Min/Iron/Folic Acid/K [Adults Multivitamin Tablet] 1 tablet PO HS 02/25/22 [History] Apixaban [Eliquis 5 mg Tablet] 1 tablet PO DAILY 05/01/22 [History] Alendronate Sodium 70 mg [Fosamax 70 MG] 70 mg PO Q7D@0600 06/21/23 [History] Levothyroxine Sodium 75 Mcg [Synthroid 75 Mcg] 75 mcg PO DAILY 06/21/23 [History] Ubidecarenone [Co Q-10] 10 mg PO DAILY 06/21/23 [History] Venlafaxine HCl ER 75 mg [Effexor XR 75 MG] 75 mg PO DAILY 06/21/23 [History] Hx Tetanus, Diphtheria Vaccination/Date Given: Yes Hx Influenza Vaccination/Date Given: Yes Hx Pneumococcal Vaccination/Date Given: Yes Travel Risk - Vaccine Status Have you recieved a Covid-19 vaccination: Yes 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: [employer] - Vaccination Dates Date of 2cond Vaccination (if applicable): 2020 - Past Medical History Pertinent Past Medical History: Yes Neurological History: No Pertinent History, TIA ENT History: Cataracts, Other Cardiac History: Hypertension Respiratory History: No Pertinent History Endocrine Medical History: Hypothyroidism Musculoskeletal History: Osteoarthritis GI Medical History: GI Bleed, Polyps History: No Pertinent History Psycho-Social History: Anxiety, Depression, Panic Disorder Female Reproductive Disorders: No Pertinent History Other Medical History: TIA - Past Surgical History Past Surgical History: Yes Neuro Surgical History: No Pertinent History Cardiac: No Pertinent History Respiratory: No Pertinent History Gastrointestinal: Appendectomy Genitourinary: No Pertinent History Musculoskeletal: Joint Replacement, Orthopedic Surgery Female Surgical History: Tubal Ligation, Other Other Surgical History: sinus surgery, tonsils, D&C x2, cataract, left KNEE REPLACEMENT , antibiotic spacer placement in left knee. Significant Family History: no pertinent family hx - Social History Smoking Status: Never smoker Exposure to second hand smoke: No Alcohol Use: None Drug Use: none Patient Lives Alone: No - Nursing Vital Signs Nursing Vital Signs: Initial Vital Signs O2 Sat by Pulse Oximetry 96 06/21/23 11:22 Pain Scale Pain Intensity 0 - Course Nursing assessment & vital signs reviewed: Yes EKG Interpreted by Me: RATE (79), A-fib, NORMAL AXIS, NORMAL INTERVALS, NORMAL QRS, Other (No acute ischemic changes on today's twelve-lead EKG.) Ordered Tests: Active Orders 24 hr Category Date Time Status Garden Consultant STAT Care 06/21/23 11:35 Active EKG-ER Only STAT Care 06/21/23 11:34 Active IV Insertion STAT Care 06/21/23 11:34 Active NPO (ED) STAT Care 06/21/23 11:35 Active POCT Glucose Check STAT Care 06/21/23 11:34 Active Pulse Oximetry (ED) STAT Care 06/21/23 11:34 Active HEAD WITHOUT CONTRAST [CT] Stat Exams 06/21/23 11:23 Completed CBC W DIFF Stat Lab 06/21/23 12:20 Completed CMP Stat Lab 06/21/23 12:20 Completed MAGNESIUM Stat Lab 06/21/23 12:20 Completed PROTIME WITH INR Stat Lab 06/21/23 12:20 Completed TSH, 3RD Generation Stat Lab 06/21/23 12:20 Completed UA W/RFX UR CULTURE Stat Lab 06/21/23 14:47 Completed Lab/Rad Data: Laboratory Result Diagrams 06/21/23 12:20 06/21/23 12:20 Laboratory Results 06/21/23 06/21/23 06/21/23 Range/Units 14:47 12:20 12:20 WBC (4.0-10.5) x10^3/uL RBC (4.1-5.4) x10^6/uL Hgb (12.0-16.0) g/dL Hct (35-47) % MCV (78-100) fL MCH (26-32) pg MCHC (32-36) g/dL RDW (11.5-14.0) % Plt Count (150-450) x10^3/uL MPV (7.5-11.0) fL Gran % (36.0-66.0) % Immature Gran % (Auto) (0.00-0.4) % Nucleat RBC Rel Count (0.00-0.1) % Eos # (Auto) (0-0.5) x10^3/uL Immature Gran # (Auto) (0.00-0.03) x10^3u/L Absolute Lymphs (auto) (1.0-4.6) x10^3/uL Absolute Monos (auto) (0.0-1.3) x10^3/uL Absolute Nucleated RBC (0.00-0.01) x10^3u/L Lymphocytes % (24.0-44.0) % Monocytes % (0.0-12.0) % Eosinophils % (0.00-5.0) % Basophils % (0.0-0.4) % Absolute Granulocytes (1.4-6.9) x10^3/uL Basophils # (0-0.4) x10^3/uL PT (9.4-12.5) SECONDS INR (0.8-3.0) Sodium (135-145) mmol/L Potassium (3.5-5.1) mmol/L Chloride (98-107) mmol/L Carbon Dioxide (22-30) mmol/L Anion Gap (5-15) MEQ/L BUN (7-17) mg/dL Creatinine (0.52-1.04) mg/dL Estimated GFR ML/MIN Glucose (74-106) mg/dL Calcium (8.4-10.2) mg/dL Magnesium (1.6-2.3) mg/dL Total Bilirubin (0.2-1.3) mg/dL AST (14-36) U/L ALT (0-35) U/L Alkaline Phosphatase (38-126) U/L Serum Total Protein (6.3-8.2) g/dL Albumin (3.5-5.0) g/dL Free T4 1.33 (0.78-2.19) ng/dL TSH 3rd Generation (0.47-4.68) mIU/L Urine Color Yellow (Yellow) Urine Appearance Clear (Clear) Urine pH 7.5 (4.6-8.0) Ur Specific [place] 1.010 (1.005-1.030) Urine Protein Negative (Negative) Urine Glucose (UA) Negative (Negative) mg/dL Urine Ketones Negative (Negative) Urine Blood Negative (Negative) Urine Nitrite Negative (Negative) Urine Bilirubin Negative (Negative) Urine Urobilinogen 0.2 (0.2) mg/dL Ur Leukocyte Esterase Small A (Negative) U Hyaline Cast (Auto) NONE SEEN (0-2) /LPF Urine Microscopic RBC 3-5 (0-5) /HPF Urine Microscopic WBC 0-2 (0-5) /HPF Ur Epithelial Cells None Seen (None Seen) /HPF Urine Bacteria None Seen (None Seen) /HPF Urine Culture Reflexed NO (NO) Digoxin < 0.4 L (0.8-1.9) ng/mL 06/21/23 06/21/23 06/21/23 Range/Units 12:20 12:20 12:20 WBC 9.4 (4.0-10.5) x10^3/uL RBC 4.51 (4.1-5.4) x10^6/uL Hgb 12.9 (12.0-16.0) g/dL Hct 41.0 (35-47) % MCV 90.9 (78-100) fL MCH 28.6 (26-32) pg MCHC 31.5 L (32-36) g/dL RDW 14.4 H (11.5-14.0) % Plt Count 253 (150-450) x10^3/uL MPV 10.3 (7.5-11.0) fL Gran % 71.5 H (36.0-66.0) % Immature Gran % (Auto) 0.2 (0.00-0.4) % Nucleat RBC Rel Count 0.0 (0.00-0.1) % Eos # (Auto) 0.21 (0-0.5) x10^3/uL Immature Gran # (Auto) 0.02 (0.00-0.03) x10^3u/L Absolute Lymphs (auto) 1.53 (1.0-4.6) x10^3/uL Absolute Monos (auto) 0.89 (0.0-1.3) x10^3/uL Absolute Nucleated RBC 0.00 (0.00-0.01) x10^3u/L Lymphocytes % 16.2 L (24.0-44.0) % Monocytes % 9.4 (0.0-12.0) % Eosinophils % 2.2 (0.00-5.0) % Basophils % 0.5 (0.0-0.4) % Absolute Granulocytes 6.73 (1.4-6.9) x10^3/uL Basophils # 0.05 (0-0.4) x10^3/uL PT 11.9 (9.4-12.5) SECONDS INR 1.10 (0.8-3.0) Sodium 141 (135-145) mmol/L Potassium 4.5 (3.5-5.1) mmol/L Chloride 105 (98-107) mmol/L Carbon Dioxide 28 (22-30) mmol/L Anion Gap 11.9 (5-15) MEQ/L BUN 20 H (7-17) mg/dL Creatinine 1.02 (0.52-1.04) mg/dL Estimated GFR 55.6 ML/MIN Glucose 101 (74-106) mg/dL Calcium 9.3 (8.4-10.2) mg/dL Magnesium 2.0 (1.6-2.3) mg/dL Total Bilirubin 0.40 (0.2-1.3) mg/dL AST 28 (14-36) U/L ALT 18 (0-35) U/L Alkaline Phosphatase 51 (38-126) U/L Serum Total Protein 7.5 (6.3-8.2) g/dL Albumin 3.7 (3.5-5.0) g/dL Free T4 (0.78-2.19) ng/dL TSH 3rd Generation 2.100 (0.47-4.68) mIU/L Urine Color (Yellow) Urine Appearance (Clear) Urine pH (4.6-8.0) Ur Specific [place] (1.005-1.030) Urine Protein (Negative) Urine Glucose (UA) (Negative) mg/dL Urine Ketones (Negative) Urine Blood (Negative) Urine Nitrite (Negative) Urine Bilirubin (Negative) Urine Urobilinogen (0.2) mg/dL Ur Leukocyte Esterase (Negative) U Hyaline Cast (Auto) (0-2) /LPF Urine Microscopic RBC (0-5) /HPF Urine Microscopic WBC (0-5) /HPF Ur Epithelial Cells (None Seen) /HPF Urine Bacteria (None Seen) /HPF Urine Culture Reflexed (NO) Digoxin (0.8-1.9) ng/mL - Progress Progress: improved, re-examined Progress Note: 06/21/23 11:42 This patient's medical issue is 1 of moderate complexity. Level of complexity in the workup performed is based on review of the patient's past medical history, review the patient's medication list, review the patient drug allergy list, history present illness and physical findings on examination. The workup includes placement of intravenous line, twelve-lead EKG, urinalysis, CBC, CMP, T3, free T4, magnesium level, twelve-lead EKG and CT scan of the head without contrast. 06/21/23 12:[address] scan of the head without contrast was interpreted by the radiologist. The impression is nonacute senile brain. 06/21/23 15:24 I interpreted the patient's laboratory data results. There is no evidence of an acute, emergent medical issue based on the laboratory data results. Counseled pt/family regarding: lab results, diagnosis, need for follow-up, rad results Medical Desision Making - Diagnostic Testing Diagnostic test were ordered, analyzed, and reviewed by me: Yes Radiological Interpretation: Reviewed by me, Teleradiologist Report - Risk of complications Minimal Risk: Minimal risk of morbidity - Departure Departure Disposition: Home Clinical Impression: Anxiety, Depression Condition: Stable Critical Care Time: No Referrals: NICHELLE HECK DO [Primary Care Provider] - Follow up/PCP as directed Additional Instructions: Drink plenty of fluids take your medication as prescribed. Follow-up with your primary care provider and mental health provider today to make arrangements for follow-up appointment in the next 3 to 5 days.
[2023-06-21 11:26] VITALS: TEMP 97
--- NOTE | 2023-06-21 12:05 | XRAY ---
Indication: Confusion. Right-sided weakness. Multiple contiguous axial images obtained through the head without contrast. Comparison: January 13, 2023 Again age-appropriate global atrophy and moderate periventricular degenerative micro-ischemia bilaterally. Again no acute intracranial hemorrhage, abnormal extra-axial fluid collection, or mass effect. Fourth ventricle is midline without hydrocephalus. Bony calvarium intact. Visualized paranasal sinuses and mastoid air cells are now clear. Impression: Continued nonacute senile brain.
[2023-06-21 12:24] LABS: Absolute Neutrophil Ct (ANC) 6.73 x10^3/uL (1.4-6.9); BASOPHIL % 0.5 % (0.0-0.4); Basophil (Absolute #) 0.05 x10^3/uL (0-0.4); Eosinophil % 2.2 % (0.00-5.0); Eosinophil (Absolute #) 0.21 x10^3/uL (0-0.5); Hemoglobin 12.9 g/dL (12.0-16.0); IMMATURE GRAN # 0.02 x10^3u/L (0.00-0.03); IMMATURE GRAN % 0.2 % (0.00-0.4); Lymphocyte (Absolute #) 1.53 x10^3/uL (1.0-4.6); Lymphocytes % 16.2 % (24.0-44.0); Mean Cell Volume 90.9 fL (78-100); Mean Corpuscular Hemoglobin 28.6 pg (26-32); Mean Corpuscular Hgb Concent. 31.5 g/dL (32-36); Mean Platelet Volume 10.3 fL (7.5-11.0); Monocyte (Absolute #) 0.89 x10^3/uL (0.0-1.3); Monocytes % 9.4 % (0.0-12.0); Neutrophil % 71.5 % (36.0-66.0); Platelet Count 253 x10^3/uL (150-450); Red Blood Count 4.51 x10^6/uL (4.1-5.4); Red Cell Distribution Width 14.4 % (11.5-14.0); White Blood Count 9.4 x10^3/uL (4.0-10.5)
[2023-06-21 12:41] LABS: INR 1.1 (0.8-3.0); PROTIME 11.9 SECONDS (9.4-12.5)
[2023-06-21 13:06] LABS: ALBUMIN 3.7 g/dL (3.5-5.0); ANION GAP 11.9 MEQ/L (5-15); BILIRUBIN,TOTAL 0.4 mg/dL (0.2-1.3); Calcium 9.3 mg/dL (8.4-10.2); Creatinine 1 1.02 mg/dL (0.52-1.04); EST GLOMERULAR FILTRATION RATE 55.6 ML/MIN; Potassium 4.5 mmol/L (3.5-5.1); TSH, 3RD Generation 2.1 mIU/L (0.47-4.68); Total Protein 7.5 g/dL (6.3-8.2)
[2023-06-21 15:19] LABS: Appearance Clear (Clear); Bacteria None Seen /HPF (None Seen); Bilirubin Negative (Negative); Blood Negative (Negative); Epithelial Cells None Seen /HPF (None Seen); Glucose, Urine Negative (Negative); Hyaline Casts NONE SEEN /LPF (0-2); Ketones Negative (Negative); Leukocyte Esterase Small (Negative); Nitrite Negative (Negative); Ph 7.5 (4.6-8.0); Protein,Urine Dip Negative (Negative); Urobilinogen 0.2 mg/dL (0.2); WBC 0-2 /HPF (0-5)
[2023-06-21 15:20] LABS: ADD URINE CULTURE? NO (NO)
[2023-06-21 15:30] VITALS: BP 126/86; PULSE 83; RESP 15; O2SAT 95
== END 2023-06-21 15:48 | disposition home or self-care (01) ==
LOC: ED 11:22
DX: F41.9 Anxiety disorder, unspecified (principal); F32.A Depression, unspecified; E78.5 Hyperlipidemia, unspecified; I10 Essential (primary) hypertension; Z79.01 Long term (current) use of anticoagulants; Z79.899 Other long term (current) drug therapy; Z86.73 Personal history of transient ischemic attack (TIA), and cerebral infarction without residual deficits
CPT/HCPCS: 36000; 36415; 70450; 80053; 80162; 81001; 83735; 84439; 84443; 85025; 85610; 93005; 93041; 94760; 99284

== ENCOUNTER 2023-10-07 15:24 | Observation (INO) | payer MEDICARE ==
--- NOTE | 2023-10-07 16:38 | ERPHSYRPT ---
- History of Present Illness Source: patient, family Exam Limitations: no limitations Patient Subjective Stated Complaint: confusion Triage Nursing Assessment: patients states that patient had a sudden episode of confusion. last known normal was 2 hours ago. approx 1300. states that he started talking to her and noticed that she looked "puzzled" so he started asking her questions and the only response she gave was "i dont know" to every question. he stated she had a left sided droop. she does not current exibit that now. and is oriented x3 Timing/Duration: today Severity: moderate Character of Deficits: impaired speech Deficits: no difficulties Baseline/Normal Cognition: alert 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 Current Cognition: alert 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 Associated Symptoms: confusion, No fever, No chills, No nausea, No vomiting, No seizures, No slurred speech, No vision changes, No chest pain, No headache Hx Tetanus, Diphtheria Vaccination/Date Given: Yes Hx Influenza Vaccination/Date Given: Yes Hx Pneumococcal Vaccination/Date Given: Yes <BETTE ARVIZU - Last Filed: 10/07/23 19:02> <LUKASZ PARKER - Last Filed: 10/09/23 00:52> - History of Present Illness Time Seen by Provider: 10/07/23 16:20 Physician History: 83yo f presents w/ and son via private vehicle for stroke like sx. states roughly 30min [employer] pt was disoriented, was not answering questions appropriately, was not aware of where she was. and son both agree that pt is back to baseline mental status at time of exam. Pt AxO x 3 on exam. Pt denies any CARRERA, vision changes, n/v, cp, soa. Pt has hx of TIA several yrs ago. On eliquis for hx of afib (BETTE ARVIZU) Allergies/Adverse Reactions: cefaclor [From Ceclor] Allergy (Intermediate, Verified 10/07/23 15:42) Itching face tight, swelling, felt hot clindamycin HCl [From Cleocin] Allergy (Intermediate, Verified 10/07/23 15:42) clindamycin palmitate HCl [From Cleocin] Allergy (Intermediate, Verified 10/07/23 15:42) Hives entire body clindamycin phosphate [From Cleocin] Allergy (Intermediate, Verified 10/07/23 15:42) Penicillins Allergy (Intermediate, Verified 10/07/23 15:42) Rash Home Medications: Calcium Carbonate/Vitamin D3 [Calcium 500-Vit D3 200 Caplet] 1 tab PO BID@1200,2000 07/02/13 [History] Magnesium 250 mg PO HS 11/02/18 [History] Furosemide 20 mg [Lasix 20 mg] 20 mg PO DAILY@1200 11/13/18 [History] Potassium Chloride 10 meq PO QAM 11/13/18 [History] Digoxin 0.125 mg Tablet [Lanoxin 0.125MG TABLET] 0.0625 mg PO QAM 01/29/19 [History] Metoprolol Tartrate 50 mg PO QAM 03/21/19 [History] Escitalopram Oxalate [Lexapro] 20 mg PO HS 03/12/20 [History] Ascorbic Acid [C-1000] 500 mg PO DAILY 04/20/21 [History] Simvastatin 20 mg PO HS 04/20/21 [History] Zinc 50 mg PO DAILY 04/20/21 [History] Albuterol 2.5 mg/0.5 ml [PROVENTIL Solution 2.5 MG/0.5 ML] 2.5 mg IH QID 10/07/21 [History] Allopurinol 100 mg [Zyloprim 100 mg] 100 mg PO DAILY 10/07/21 [History] Fluticasone Propionate [Flonase NASAL] 1 gm NS QA 10/07/21 [History] Ipratropium [place] 0.5 mg [Atrovent 0.5MG NEBULE] 0.5 mg IH QID 10/07/21 [History] Loratadine 10 mg PO HS 10/07/21 [History] Multivit-Min/Iron/Folic Acid/K [Adults Multivitamin Tablet] 1 tablet PO HS 02/25/22 [History] Apixaban [Eliquis 5 mg Tablet] 1 tablet PO DAILY 05/01/22 [History] Alendronate Sodium 70 mg [Fosamax 70 MG] 70 mg PO Q7D@0600 06/21/23 [History] Levothyroxine Sodium 75 Mcg [Synthroid 75 Mcg] 75 mcg PO DAILY 06/21/23 [History] Ubidecarenone [Co Q-10] 10 mg PO DAILY 06/21/23 [History] Apixaban [Eliquis 2.5 mg Tablet] 5 mg PO DAILY 10/07/23 [History] Travel Risk - International Travel Have you traveled outside of the country in past 3 weeks: No - Emerging Infectious Disease Are you exhibiting symptoms associated with any current EIDs: No <BETTE ARVIZU ANY - Last Filed: 10/07/23 19:02> - Review of Systems Constitutional: No Symptoms Respiratory: No Symptoms Cardiac: No Symptoms Abdominal/Gastrointestinal: No Symptoms Neurological: No Symptoms Psychological: No Symptoms <LUHBETTE ANY - Last Filed: 10/07/23 19:02> - Past Medical History Pertinent Past Medical History: Yes Neurological History: No Pertinent History, TIA ENT History: Cataracts, Other Cardiac History: Hypertension Respiratory History: No Pertinent History Endocrine Medical History: Hypothyroidism Musculoskeletal History: Osteoarthritis GI Medical History: GI Bleed, Polyps History: No Pertinent History Psycho-Social History: Anxiety, Depression, Panic Disorder Female Reproductive Disorders: No Pertinent History Other Medical History: TIA - Past Surgical History Past Surgical History: Yes Neuro Surgical History: No Pertinent History Cardiac: No Pertinent History Respiratory: No Pertinent History Gastrointestinal: Appendectomy Genitourinary: No Pertinent History Musculoskeletal: Joint Replacement, Orthopedic Surgery Female Surgical History: Tubal Ligation, Other Other Surgical History: sinus surgery, tonsils, D&C x2, cataract, left KNEE REPLACEMENT , antibiotic spacer placement in left knee. Significant Family History: no pertinent family hx - Social History Smoking Status: Never smoker Exposure to second hand smoke: No Alcohol Use: None Drug Use: none Patient Lives Alone: No <BETTE ARVIZU ANY - Last Filed: 10/07/23 19:02> - [place] Coma Scale Best Eye Response ([place]): (4) open spontaneously Best Verbal Response ([place]): (5) oriented Best Motor Response ([place]): (6) obeys commands [place] Total: 15 - Physical Exam General Appearance: no apparent distress, alert Eye Exam: right eye: normal inspection, bilateral eye: PERRL, EOMI, abnormal pupil (minimal anisocoria right slightly greater than left) Ears, Nose, Throat Exam: normal ENT inspection Respiratory: normal breath sounds, lungs clear, airway intact, No chest tenderness, No respiratory distress Cardiovascular: regular rate/rhythm, normal heart sounds, normal peripheral puls es, edema (minimal pedal edema, non-pitting, right LE midshin to foot) Mental Status: alert, 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, 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 Exam: normal hearing, normal speech, PERRL Coordination/Gait: normal finger to nose, negative Romberg's sign Motor/Sensory: no motor deficit, no sensory deficit, no pronator drift, negative Babinski's sign Skin Exam: normal color SpO2 Interpretation: normal SpO2: 94 O2 Delivery: Room Air <BETTE ARVIZU ANY - Noman Filed: 10/07/23 19:02> - Nursing Vital Signs Nursing Vital Signs: Initial Vital Signs Temperature 97.8 F 10/07/23 15:28 Pulse Rate 67 10/07/23 15:28 Respiratory Rate 16 10/07/23 15:28 Blood Pressure 114/59 10/07/23 15:28 Pain Scale Pain Intensity 0 - Course EKG Interpreted by Me: RATE (80), A-fib, Other (qtcb 430, not suggestive of acute ischemia) <BETTE ARVIZU ANY - Noman Filed: 10/07/23 19:02> Ordered Tests: Medication Summary Generic Name Dose Route Start Last Admin Trade Name Freq PRN Reason Stop Dose Admin Albuterol Sulfate 2.5 mg 10/07/23 23:22 Albuterol Solution 2.5 Mg/0.5 Ml Ud Solution IH 11/07/23 09:59 QID PRN SHORTNESS OF BREATH/WHEEZING Alendronate Sodium 70 mg 10/14/23 06:00 Alendronate Sodium 70 Mg Tablet PO 11/13/23 05:59 Q7D@0600 JOY Allopurinol 100 mg 10/08/23 10:00 10/08/23 08:37 Allopurinol 100 Mg Tablet PO 11/07/23 09:59 100 mg DAILY JOY Administration Apixaban 5 mg 10/08/23 10:00 10/08/23 08:34 Apixaban 2.5 Mg Tablet PO 11/07/23 09:59 5 mg DAILY JOY Administration Ascorbic Acid 500 mg 10/08/23 10:00 10/08/23 08:34 Ascorbic Acid 500 Mg Tablet PO 11/07/23 09:59 500 mg DAILY JOY Administration Calcium Carbonate 1 tab 10/08/23 12:00 10/08/23 19:56 Calcium Carbonate 500 Mg/Vitamin D 1 Tab Tablet PO 11/07/23 11:59 1 tab BID@1200,2000 JOY Administration Digoxin 0.0625 mg 10/08/23 10:00 10/08/23 08:34 Digoxin 0.125 Mg Tablet PO 11/07/23 09:59 0.0625 mg QAM JOY Administration Escitalopram Oxalate 20 mg 10/08/23 22:00 10/08/23 21:50 Escitalopram Oxalate 10 Mg Tablet PO 11/07/23 21:59 20 mg HS JOY Administration Fluticasone Propionate 0 gm 10/08/23 10:00 10/08/23 08:43 Fluticasone Propionate 16 Gm Bottle Nasal [place] NS 11/07/23 09:59 1 gm QAM JOY Administration Furosemide 20 mg 10/08/23 12:00 10/08/23 12:06 Furosemide 20 Mg Tablet PO 11/07/23 11:59 20 mg DAILY@1200 JOY Administration Ipratropium [place] 0.5 mg 10/07/23 23:24 Ipratropium [place] 0.5 Mg/Neb IH 11/07/23 09:59 QID PRN SHORTNESS OF BREATH/WHEEZING Levothyroxine Sodium 75 mcg 10/08/23 10:00 10/08/23 08:37 Levothyroxine Sodium 75 Mcg Tablet PO 11/07/23 09:59 75 mcg DAILY JOY Administration Loratadine 10 mg 10/08/23 22:00 10/08/23 21:50 Loratadine 10 Mg Tablet PO 11/07/23 21:59 10 mg HS JOY Administration Magnesium Oxide 200 mg 10/08/23 22:00 10/08/23 21:50 Magnesium Oxide 400 Mg Tablet PO 11/07/23 21:59 200 mg HS JOY Administration Metoprolol Tartrate 50 mg 10/08/23 10:00 10/08/23 08:33 Metoprolol Tartrate 25 Mg Tab PO 11/07/23 09:59 50 mg QAM JOY Administration Multivitamins Therapeutic 1 tab 10/08/23 22:00 10/08/23 21:50 Multivitamins,Therapeutic 1 Tab Tab PO 11/07/23 21:59 1 tab HS JOY Administration Potassium Chloride 10 meq 10/08/23 10:00 10/08/23 08:34 Potassium Chloride Tab 10 Meq Tab PO 11/07/23 09:59 10 meq QAM JOY Administration Simvastatin 20 mg 10/08/23 22:00 10/08/23 21:50 Simvastatin 10 Mg Tablet PO 11/07/23 21:59 20 mg HS JOY Administration Discontinued Medications Generic Name Dose Route Start Last Admin Trade Name Dmq PRN Reason Stop Dose Admin Albuterol Sulfate 2.5 mg 10/08/23 10:00 Albuterol Solution 2.5 Mg/0.5 Ml Ud Solution 11/07/23 09:59 QID JOY Ipratropium [place] 0.5 mg 10/08/23 10:00 Ipratropium [place] 0.5 Mg/Neb IH 11/07/23 09:59 QID JOY Metoprolol Tartrate 25 mg 10/08/23 09:06 10/08/23 09:25 Metoprolol Tartrate 25 Mg Tab PO 10/08/23 09:07 25 mg STAT ONE Administration Lab/Rad Data: Laboratory Result Diagrams 10/07/23 16:45 10/07/23 16:45 Laboratory Results 10/07/23 10/07/23 10/07/23 Range/Units 20:50 18:05 16:45 WBC (3.98-10.04) x10^3/uL RBC (3.93-5.22) x10^6/uL Hgb (11.2-15.7) g/dL Hct (34.1-44.9) % MCV (79.4-94.8) fL MCH (25.6-32.2) pg MCHC (32.2-35.5) g/dL RDW (11.7-14.4) % Plt Count (182-369) x10^3/uL MPV (9.4-12.3) fL Gran % (34.0-71.1) % Immature Gran % (Auto) (0.001-0.429) % Nucleat RBC Rel Count (0.00-0.2) % Eos # (Auto) (0.04-0.36) x10^3/uL Immature Gran # (Auto) (0.001-0.031) x10^3u/L Absolute Lymphs (auto) (1.18-3.74) x10^3/uL Absolute Monos (auto) (0.24-0.86) x10^3/uL Absolute Nucleated RBC (0.00-0.012) x10^3u/L Lymphocytes % (19.3-51.7) % Monocytes % (4.7-12.5) % Eosinophils % (0.7-5.8) % Basophils % (0.1-1.2) % Absolute Granulocytes (1.56-6.13) x10^3/uL Basophils # (0.01-0.08) x10^3/uL PT (9.4-12.5) SECONDS INR (0.8-3.0) APTT (25.1-36.5) SECONDS Sodium (135-145) mmol/L Potassium (3.5-5.1) mmol/L Chloride (98-107) mmol/L Carbon Dioxide (22-30) mmol/L Anion Gap (5-15) MEQ/L BUN (7-17) mg/dL Creatinine (0.52-1.04) mg/dL Estimated GFR ML/MIN Glucose (74-106) mg/dL Hemoglobin A1c 6.25 H (4.5-6.0) % Calcium (8.4-10.2) mg/dL Total Bilirubin (0.2-1.3) mg/dL AST (14-36) U/L ALT (0-35) U/L Alkaline Phosphatase (38-126) U/L Troponin I < 0.012 (0.000-0.033) ng/mL NT-Pro-B Natriuret Pep (<300) pg/mL Serum Total Protein (6.3-8.2) g/dL Albumin (3.5-5.0) g/dL Urine Color Yellow (Yellow) Urine Appearance Clear (Clear) Urine pH 6.5 (4.6-8.0) Ur Specific [place] 1.010 (1.005-1.030) Urine Protein Negative (Negative) Urine Glucose (UA) Negative (Negative) mg/dL Urine Ketones Negative (Negative) Urine Blood Negative (Negative) Urine Nitrite Negative (Negative) Urine Bilirubin Negative (Negative) Urine Urobilinogen 0.2 (0.2) mg/dL Ur Leukocyte Esterase Negative (Negative) U Hyaline Cast (Auto) NONE SEEN (0-2) /LPF Urine Microscopic RBC 3-5 (0-5) /HPF Urine Microscopic WBC 0-2 (0-5) /HPF Ur Epithelial Cells None Seen (None Seen) /HPF Urine Bacteria None Seen (None Seen) /HPF Urine Culture Reflexed NO (NO) 10/07/23 10/07/23 10/07/23 Range/Units 16:45 16:45 16:45 WBC (3.98-10.04) x10^3/uL RBC (3.93-5.22) x10^6/uL Hgb (11.2-15.7) g/dL Hct (34.1-44.9) % MCV (79.4-94.8) fL MCH (25.6-32.2) pg MCHC (32.2-35.5) g/dL RDW (11.7-14.4) % Plt Count (182-369) x10^3/uL MPV (9.4-12.3) fL Gran % (34.0-71.1) % Immature Gran % (Auto) (0.001-0.429) % Nucleat RBC Rel Count (0.00-0.2) % Eos # (Auto) (0.04-0.36) x10^3/uL Immature Gran # (Auto) (0.001-0.031) x10^3u/L Absolute Lymphs (auto) (1.18-3.74) x10^3/uL Absolute Monos (auto) (0.24-0.86) x10^3/uL Absolute Nucleated RBC (0.00-0.012) x10^3u/L Lymphocytes % (19.3-51.7) % Monocytes % (4.7-12.5) % Eosinophils % (0.7-5.8) % Basophils % (0.1-1.2) % Absolute Granulocytes (1.56-6.13) x10^3/uL Basophils # (0.01-0.08) x10^3/uL PT 12.0 (9.4-12.5) SECONDS INR 1.11 (0.8-3.0) APTT 33.6 (25.1-36.5) SECONDS Sodium 138 (135-145) mmol/L Potassium 4.3 (3.5-5.1) mmol/L Chloride 103 (98-107) mmol/L Carbon Dioxide 30 (22-30) mmol/L Anion Gap 9.7 (5-15) MEQ/L BUN 23 H (7-17) mg/dL Creatinine 0.87 (0.52-1.04) mg/dL Estimated GFR 66.9 ML/MIN Glucose 107 H (74-106) mg/dL Hemoglobin A1c (4.5-6.0) % Calcium 9.2 (8.4-10.2) mg/dL Total Bilirubin 0.50 (0.2-1.3) mg/dL AST 27 (14-36) U/L ALT 20 (0-35) U/L Alkaline Phosphatase 55 (38-126) U/L Troponin I < 0.012 (0.000-0.033) ng/mL NT-Pro-B Natriuret Pep 1270 (<300) pg/mL Serum Total Protein 6.8 (6.3-8.2) g/dL Albumin 3.4 L (3.5-5.0) g/dL Urine Color (Yellow) Urine Appearance (Clear) Urine pH (4.6-8.0) Ur Specific [place] (1.005-1.030) Urine Protein (Negative) Urine Glucose (UA) (Negative) mg/dL Urine Ketones (Negative) Urine Blood (Negative) Urine Nitrite (Negative) Urine Bilirubin (Negative) Urine Urobilinogen (0.2) mg/dL Ur Leukocyte Esterase (Negative) U Hyaline Cast (Auto) (0-2) /LPF Urine Microscopic RBC (0-5) /HPF Urine Microscopic WBC (0-5) /HPF Ur Epithelial Cells (None Seen) /HPF Urine Bacteria (None Seen) /HPF Urine Culture Reflexed (NO) 10/07/23 Range/Units 16:45 WBC 8.4 (3.98-10.04) x10^3/uL RBC 4.27 (3.93-5.22) x10^6/uL Hgb 11.7 (11.2-15.7) g/dL Hct 37.0 (34.1-44.9) % MCV 86.7 (79.4-94.8) fL MCH 27.4 (25.6-32.2) pg MCHC 31.6 L (32.2-35.5) g/dL RDW 15.0 H (11.7-14.4) % Plt Count 320 (182-369) x10^3/uL MPV 10.2 (9.4-12.3) fL Gran % 63.4 (34.0-71.1) % Immature Gran % (Auto) 0.2 (0.001-0.429) % Nucleat RBC Rel Count 0.0 (0.00-0.2) % Eos # (Auto) 0.25 (0.04-0.36) x10^3/uL Immature Gran # (Auto) 0.02 (0.001-0.031) x10^3u/L Absolute Lymphs (auto) 1.99 (1.18-3.74) x10^3/uL Absolute Monos (auto) 0.76 (0.24-0.86) x10^3/uL Absolute Nucleated RBC 0.00 (0.00-0.012) x10^3u/L Lymphocytes % 23.8 (19.3-51.7) % Monocytes % 9.1 (4.7-12.5) % Eosinophils % 3.0 (0.7-5.8) % Basophils % 0.5 (0.1-1.2) % Absolute Granulocytes 5.29 (1.56-6.13) x10^3/uL Basophils # 0.04 (0.01-0.08) x10^3/uL PT (9.4-12.5) SECONDS INR (0.8-3.0) APTT (25.1-36.5) SECONDS Sodium (135-145) mmol/L Potassium (3.5-5.1) mmol/L Chloride (98-107) mmol/L Carbon Dioxide (22-30) mmol/L Anion Gap (5-15) MEQ/L BUN (7-17) mg/dL Creatinine (0.52-1.04) mg/dL Estimated GFR ML/MIN Glucose (74-106) mg/dL Hemoglobin A1c (4.5-6.0) % Calcium (8.4-10.2) mg/dL Total Bilirubin (0.2-1.3) mg/dL AST (14-36) U/L ALT (0-35) U/L Alkaline Phosphatase (38-126) U/L Troponin I (0.000-0.033) ng/mL NT-Pro-B Natriuret Pep (<300) pg/mL Serum Total Protein (6.3-8.2) g/dL Albumin (3.5-5.0) g/dL Urine Color (Yellow) Urine Appearance (Clear) Urine pH (4.6-8.0) Ur Specific [place] (1.005-1.030) Urine Protein (Negative) Urine Glucose (UA) (Negative) mg/dL Urine Ketones (Negative) Urine Blood (Negative) Urine Nitrite (Negative) Urine Bilirubin (Negative) Urine Urobilinogen (0.2) mg/dL Ur Leukocyte Esterase (Negative) U Hyaline Cast (Auto) (0-2) /LPF Urine Microscopic RBC (0-5) /HPF Urine Microscopic WBC (0-5) /HPF Ur Epithelial Cells (None Seen) /HPF Urine Bacteria (None Seen) /HPF Urine Culture Reflexed (NO) - Progress Progress: improved <BETTE ARVIZU - Last Filed: 10/07/23 19:02> - Progress Counseled pt/family regarding: lab results, diagnosis, need for follow-up, rad results <LUKASZ PARKER - Last Filed: 10/09/23 00:52> - Progress Progress Note: 10/07/23 18:19 CT head negative for hemorrhagic stroke lab w/u grossly unremarkable will proceed w/ CTA head/neck 10/07/23 19:03 i discussed pt case w/ Dr Parker who assumes care at 1900 (BETTE ARVIZU) CTA head/neck neg for acute findings. Patient needs MRI to complete w/u for TIA. She would like to stay here even though we don't have MRI capabilities until Monday. 10/07/23 21:15 Patient accepted for admission to complete TIA workup by Dr. Viola Bermeo at 2100. (LUKASZ PARKER) Medical Desision Making - Diagnostic Testing Diagnostic test were ordered, analyzed, and reviewed by me: Yes Radiological Interpretation: Reviewed by me, Teleradiologist Report <BETTE ARVIZU - Last Filed: 10/07/23 19:02> - Discussion of managment Care discussed with:: hospitalist Reviewed:: Need for additional workup Agreed on:: place in obs Will see patient: in hospital - Risk of complications The pt has a mod risk of morbidity or mortality based on: Need for prescription drug management The pt has a high risk of morbidity or mortality based on: Decision regarding hospitilization or escalation of hosp level of care <LUKASZ PARKER - Last Filed: 10/09/23 00:52> - Departure Critical Care Time: No <BETTE ARVIZU - Last Filed: 10/07/23 19:02> - Departure Departure Disposition: Observation <LUKASZ PARKER - Last Filed: 10/09/23 00:52> - Departure Clinical Impression: Confusion, TIA (transient ischemic attack), Bilateral carotid artery stenosis without cerebral infarction Condition: Stable
--- NOTE | 2023-10-07 16:43 | XRAY ---
CLINICAL HISTORY: confusion COMPARISON: None TECHNIQUE: Axial contrast non enhanced CT scan of the brain was performed from the skull base to the high parietal region with coronal and sagittal reformatted images. FINDINGS: There are few tiny ill-defined hypodense areas in right basal ganglia represent old infarcts. Hypodense changes noted in the subcortical white matter bilaterally, more at the perisylvian fissure, suggestive of microvascular ischemic changes. The ventricular system, cortical sulci and basal cisterns are prominent consistent with senile changes. Rest of the visualized brain parenchyma shows a normal appearance. No focal parenchymal abnormalities are demonstrated. Weber-white matter differentiation is maintained. No midline shifts or deformity. No intracerebral or extra axial hematoma. Normal CT appearance of the posterior fossa structures namely the cerebellar hemispheres, brainstem and cerebellar peduncles. The IACs are unremarkable. The cerebello-pontine angles are clear. The pituitary gland, the pineal gland, the optic chiasm is unremarkable. The osseous structures in the skull base are unremarkable. No definite calvarium fractures. Scanned paranasal sinuses are clear. IMPRESSION: 1. 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 2. Microvascular ischemic disease with senile atrophic changes are noted. 3. If clinically needed, MRI with diffusion-weighted imaging is recommended for further evaluation. [facility] was called at [phone] at 3:36 PM [employer], 10/07/[address] Wei was informed about stroke results. Electronically Signed by: Angeles Hurd MD. (10/07/2023 16:39:07 EDT)
[2023-10-07 16:55] LABS: Absolute Neutrophil Ct (ANC) 5.29 x10^3/uL (1.56-6.13); BASOPHIL % 0.5 % (0.1-1.2); Basophil (Absolute #) 0.04 x10^3/uL (0.01-0.08); Eosinophil (Absolute #) 0.25 x10^3/uL (0.04-0.36); Hemoglobin 11.7 g/dL (11.2-15.7); IMMATURE GRAN # 0.02 x10^3u/L (0.001-0.031); IMMATURE GRAN % 0.2 % (0.001-0.429); Lymphocyte (Absolute #) 1.99 x10^3/uL (1.18-3.74); Lymphocytes % 23.8 % (19.3-51.7); Mean Cell Volume 86.7 fL (79.4-94.8); Mean Corpuscular Hemoglobin 27.4 pg (25.6-32.2); Mean Corpuscular Hgb Concent. 31.6 g/dL (32.2-35.5); Mean Platelet Volume 10.2 fL (9.4-12.3); Monocyte (Absolute #) 0.76 x10^3/uL (0.24-0.86); Monocytes % 9.1 % (4.7-12.5); Neutrophil % 63.4 % (34.0-71.1); Platelet Count 320 x10^3/uL (182-369); Red Blood Count 4.27 x10^6/uL (3.93-5.22); White Blood Count 8.4 x10^3/uL (3.98-10.04)
[2023-10-07 17:12] LABS: INR 1.11 (0.8-3.0); PTT 33.6 SECONDS (25.1-36.5)
[2023-10-07 17:30] LABS: NT PRO BNPII 1270 pg/mL (<300); TROPONIN < 0.012 ng/mL (0.000-0.033)
[2023-10-07 18:06] LABS: ALBUMIN 3.4 g/dL (3.5-5.0); ANION GAP 9.7 MEQ/L (5-15); BILIRUBIN,TOTAL 0.5 mg/dL (0.2-1.3); Calcium 9.2 mg/dL (8.4-10.2); Creatinine 1 0.87 mg/dL (0.52-1.04); EST GLOMERULAR FILTRATION RATE 66.9 ML/MIN; Potassium 4.3 mmol/L (3.5-5.1); Total Protein 6.8 g/dL (6.3-8.2)
[2023-10-07 18:16] LABS: ADD URINE CULTURE? NO (NO); Appearance Clear (Clear); Bacteria None Seen /HPF (None Seen); Bilirubin Negative (Negative); Blood Negative (Negative); Epithelial Cells None Seen /HPF (None Seen); Glucose, Urine Negative (Negative); Hyaline Casts NONE SEEN /LPF (0-2); Ketones Negative (Negative); Leukocyte Esterase Negative (Negative); Nitrite Negative (Negative); Ph 6.5 (4.6-8.0); Protein,Urine Dip Negative (Negative); Urobilinogen 0.2 mg/dL (0.2); WBC 0-2 /HPF (0-5)
--- NOTE | 2023-10-07 20:44 | XRAY ---
CLINICAL HISTORY: AMS, stroke r/o COMPARISON: None. TECHNIQUE: Axial CT angiography of the head was done with contrast and sagittal and coronal reformats with MIP reconstructions. One of these 3D techniques was utilized: Maximum Intensity Pixel (MIP), 3D Reconstructed Images, Volume Rendered Images, Surface Shaded Rendering. One of the following dose reduction techniques were utilized for this exam: Automated exposure control, adjustment of the mA and/or kV according to patient size, and use of iterative reconstruction. Limitations: Faint opacifications of the visualized arteries due to early acquisition. FINDINGS: Heavy atherosclerotic changes of the cavernous and supra-clinoid segments of the internal carotid arteries bilaterally result in around 70% stenosis. Distal flow is noted. Heavy atherosclerotic changes of the terminal segments of both vertebral arteries resulting in severe stenosis (around 70% in the right and 80-90% in the left). Distal flow is noted. The visualized segments of the anterior cerebral arteries, middle cerebral arteries, posterior cerebral arteries and basilar artery are opacified showing no significant stenosis or occlusion. No evidence of aneurysm. The [place] is complete. Normal caliber of the communicating arteries. No vascular malformations or aneurysms. No intra-axial or extra-axial masses or focal enhancing lesions. IMPRESSION: 1. Faint opacifications of the visualized arteries due to technical factors limiting the sensitivity of the exam and resulting in non-opacification of the distal segments of the middle, anterior and posterior cerebral arteries. 2. Heavy atherosclerotic changes of the cavernous and supra-clinoid segments of the internal carotid arteries bilaterally result in around 70% stenosis. Distal flow is noted. 3. Heavy atherosclerotic changes of the terminal segments of both vertebral arteries resulting in severe stenosis (around 70% in the right and 80-90% in the left). Distal flow is noted. 4. The visualized segments of the anterior cerebral arteries, middle cerebral arteries, posterior cerebral arteries and basilar artery are opacified showing no significant stenosis or occlusion. Electronically Signed by: Angeles Hurd MD. (10/07/2023 20:40:33 EDT)
--- NOTE | 2023-10-07 20:48 | XRAY ---
CLINICAL HISTORY: confusion, AMS COMPARISON: None. TECHNIQUE: CT angiography study of the neck vessels with IV contrast was performed and multiple axial sections were obtained with coronal and sagittal reconstructions. One of the following dose reduction techniques was utilized for this exam: Automated exposure control, adjustment of the mA and/or kV according to patient size, and use of iterative reconstruction. One of these 3D techniques was utilized: Maximum Intensity Pixel (MIP), 3D Reconstructed Images, Volume Rendered Images, Surface Shaded Rendering. Limitations: Poor opacifications of the visualized arteries due to early acquisition. FINDINGS: Common carotid arteries, internal carotid arteries, and external carotid arteries bilaterally are poorly opacified. Heavy atherosclerotic changes of the carotid bifurcation and proximal internal carotid arteries bilaterally resulting in around 50% maximum diameter reduction. Atherosclerotic changes of the proximal left external carotid artery not causing significant stenosis or occlusion. The Vertebral arteries bilaterally are poorly opacified. Heavy atherosclerotic changes of the terminal segments of both vertebral arteries resulting in severe stenosis (around 70% in the right and 80-90% in the left). The subclavian arteries bilaterally are poorly -opacified. No evidence of dense significant stenosis or occlusion. The airways are unremarkable. No definite neck masses or lymphadenopathy. Degenerative changes of the visualized spine IMPRESSION: 1. Poor opacification of the visualized arteries due to early acquisition severely limiting the sensitivity of the exam. 2. Heavy atherosclerotic changes of the carotid bifurcation and proximal internal carotid arteries bilaterally resulting in around 50% maximum diameter reduction. 3. Heavy atherosclerotic changes of the terminal segments of both vertebral arteries resulting in severe stenosis (around 70% in the right and 80-90% in the left). Electronically Signed by: Angeles Hurd MD. (10/07/2023 20:43:47 EDT)
--- NOTE | 2023-10-07 21:27 | PCM.HP ---
History of Present Illness - Chief Complaint Chief Complaint: TIA History of Present Illness: is a 83 year old female who was brought by for brief altered mental status, where the patient was with her and began feeling confused, unable to recall information and reports a left sided facial droop. The symptoms resolved by the visit in the ED and the patient was alert and oriented. No headache, vision changes, nausea, vomiting. The patient has had a history of TIAs and has been on eiquis for afib. CTH was negative. Admit to monitor and to obtain a MRI of the brain, likely Monday. - Review of Systems Constitutional: No Fever, No Chills Eyes: No Symptoms Ears, Nose, & Throat: No Symptoms Respiratory: No Cough, No Short Of Breath Cardiac: No Chest Pain, No Edema, No Syncope Abdominal/Gastrointestinal: No Abdominal Pain, No Nausea, No Vomiting, No Diarrhea Genitourinary Symptoms: No Dysuria Musculoskeletal: No Back Pain, No Neck Pain Skin: No Rash Neurological: No Dizziness, No Focal Weakness, No Sensory Changes Psychological: No Symptoms Endocrine: No Symptoms Hematologic/Lymphatic: No Symptoms Immunological/Allergic: No Symptoms Medications & Allergies Home Medications: Home Medication List Calcium Carbonate/Vitamin D3 [Calcium 500-Vit D3 200 [place]] 1 tab PO BID@1200,199907/02/13 [History Confirmed 10/07/23] Magnesium 250 mg PO HS 11/02/18 [History Confirmed 10/07/23] Furosemide 20 mg [Lasix 20 mg] 20 mg PO DAILY@1200 11/13/18 [History Confirmed 10/07/23] Potassium Chloride 10 meq PO QAM 11/13/18 [History Confirmed 10/07/23] Digoxin 0.125 mg Tablet [Lanoxin 0.125MG TABLET] 0.0625 mg PO QAM 01/29/19 [History Confirmed 10/07/23] Metoprolol Tartrate 50 mg PO QAM 03/21/19 [History Confirmed 10/07/23] Escitalopram Oxalate [Lexapro] 20 mg PO HS 03/12/20 [History Confirmed 10/07/23] Ascorbic Acid [C-1000] 500 mg PO DAILY 04/20/21 [History Confirmed 10/07/23] Simvastatin 20 mg PO HS 04/20/21 [History Confirmed 10/07/23] Zinc 50 mg PO DAILY 04/20/21 [History Confirmed 10/07/23] Albuterol 2.5 mg/0.5 ml [PROVENTIL Solution 2.5 MG/0.5 ML] 2.5 mg IH QID 10/07/21 [History Confirmed 10/07/23] Allopurinol 100 mg [Zyloprim 100 mg] 100 mg PO DAILY 10/07/21 [History Confirmed 10/07/23] Fluticasone Propionate [Flonase NASAL] 1 gm NS QAM 10/07/21 [History Confirmed 10/07/23] Ipratropium [place] 0.5 mg [Atrovent 0.5MG NEBULE] 0.5 mg IH QID 10/07/21 [History Confirmed 10/07/23] Loratadine 10 mg PO HS 10/07/21 [History Confirmed 10/07/23] Multivit-Min/Iron/Folic Acid/K [Adults Multivitamin Tablet] 1 tablet PO HS 02/25/22 [History Confirmed 10/07/23] Apixaban [Eliquis 5 mg Tablet] 1 tablet PO DAILY 05/01/22 [History Confirmed 10/07/23] Alendronate Sodium 70 mg [Fosamax 70 MG] 70 mg PO Q7D@0600 06/21/23 [History Confirmed 10/07/23] Levothyroxine Sodium 75 Mcg [Synthroid 75 Mcg] 75 mcg PO DAILY 06/21/23 [History Confirmed 10/07/23] Ubidecarenone [Co Q-10] 10 mg PO DAILY 06/21/23 [History Confirmed 10/07/23] Apixaban [Eliquis 2.5 mg Tablet] 5 mg PO DAILY 10/07/23 [History Confirmed 10/07/23] Allergies/Adverse Reactions: Allergies Allergy/AdvReac Type Severity Reaction Status Date / Time cefaclor [From Ceclor] Allergy Intermediate Itching Verified 10/07/23 15:42 clindamycin HCl Allergy Intermediate Verified 10/07/23 15:42 [From Cleocin] clindamycin palmitate HCl Allergy Intermediate Hives Verified 10/07/23 15:42 [From Cleocin] clindamycin phosphate Allergy Intermediate Verified 10/07/23 15:42 [From Cleocin] Penicillins Allergy Intermediate Rash Verified 10/07/23 15:42 - Past Medical History Past Medical History: Yes Neurological History: No Pertinent History, TIA ENT History: Cataracts, Other Cardiac History: Hypertension Respiratory History: No Pertinent History Endocrine Medical History: Hypothyroidism Musculoskelatal History: Osteoarthritis GI Medical History: GI Bleed, Polyps History: No Pertinent History Pyscho-Social History: Anxiety, Depression, Panic Disorder Reproductive Disorders: No Pertinent History Comment: TIA - Past Surgical History Past Surgical History: Yes Neuro Surgical History: No Pertinent History Cardiac History: No Pertinent History Respiratory Surgery: No Pertinent History GI Surgical History: Appendectomy Genitourinary Surgical Hx: No Pertinent History Musculskeletal Surgical Hx: Joint Replacement, Orthopedic Surgery Female Surgical History: Tubal Ligation, Other Other Surgical History: sinus surgery, tonsils, D&C x2, cataract, left KNEE REPLACEMENT , antibiotic spacer placement in left knee. Significant Family History: no pertinent family hx - Social History Smoking Status: Never smoker Exposure to second hand smoke: No Alcohol: None Drug Use: none - Physical Exam Vital Signs: Vital Signs - 24 hr Temp Pulse Resp BP BP Pulse Ox 10/07/23 19:04 94 L 10/07/23 17:30 108/79 10/07/23 17:00 100/54 93 L 10/07/23 16:51 108/70 92 L 10/07/23 16:30 124/67 94 L 10/07/23 15:28 97.8 F 67 16 114/59 Results - Labs Lab/Micro Results: Lab Results-Last 24 Hours 10/07/23 10/07/23 10/07/23 Range/Units 16:45 16:45 16:45 WBC 8.4 (3.98-10.04) x10^3/uL RBC 4.27 (3.93-5.22) x10^6/uL Hgb 11.7 (11.2-15.7) g/dL Hct 37.0 (34.1-44.9) % MCV 86.7 (79.4-94.8) fL MCH 27.4 (25.6-32.2) pg MCHC 31.6 L (32.2-35.5) g/dL RDW 15.0 H (11.7-14.4) % Plt Count 320 (182-369) x10^3/uL MPV 10.2 (9.4-12.3) fL Gran % 63.4 (34.0-71.1) % Immature Gran % (Auto) 0.2 (0.001-0.429) % Nucleat RBC Rel Count 0.0 (0.00-0.2) % Eos # (Auto) 0.25 (0.04-0.36) x10^3/uL Immature Gran # (Auto) 0.02 (0.001-0.031) x10^3u/L Absolute Lymphs (auto) 1.99 (1.18-3.74) x10^3/uL Absolute Monos (auto) 0.76 (0.24-0.86) x10^3/uL Absolute Nucleated RBC 0.00 (0.00-0.012) x10^3u/L Lymphocytes % 23.8 (19.3-51.7) % Monocytes % 9.1 (4.7-12.5) % Eosinophils % 3.0 (0.7-5.8) % Basophils % 0.5 (0.1-1.2) % Absolute Granulocytes 5.29 (1.56-6.13) x10^3/uL Basophils # 0.04 (0.01-0.08) x10^3/uL PT 12.0 (9.4-12.5) SECONDS INR 1.11 (0.8-3.0) APTT 33.6 (25.1-36.5) SECONDS Sodium 138 (135-145) mmol/L Potassium 4.3 (3.5-5.1) mmol/L Chloride 103 (98-107) mmol/L Carbon Dioxide 30 (22-30) mmol/L Anion Gap 9.7 (5-15) MEQ/L BUN 23 H (7-17) mg/dL Creatinine 0.87 (0.52-1.04) mg/dL Estimated GFR 66.9 ML/MIN Glucose 107 H (74-106) mg/dL Hemoglobin A1c (4.5-6.0) % Calcium 9.2 (8.4-10.2) mg/dL Total Bilirubin 0.50 (0.2-1.3) mg/dL AST 27 (14-36) U/L ALT 20 (0-35) U/L Alkaline Phosphatase 55 (38-126) U/L Troponin I (0.000-0.033) ng/mL NT-Pro-B Natriuret Pep (<300) pg/mL Serum Total Protein 6.8 (6.3-8.2) g/dL Albumin 3.4 L (3.5-5.0) g/dL Urine Color (Yellow) Urine Appearance (Clear) Urine pH (4.6-8.0) Ur Specific [place] (1.005-1.030) Urine Protein (Negative) Urine Glucose (UA) (Negative) mg/dL Urine Ketones (Negative) Urine Blood (Negative) Urine Nitrite (Negative) Urine Bilirubin (Negative) Urine Urobilinogen (0.2) mg/dL Ur Leukocyte Esterase (Negative) U Hyaline Cast (Auto) (0-2) /LPF Urine Microscopic RBC (0-5) /HPF Urine Microscopic WBC (0-5) /HPF Ur Epithelial Cells (None Seen) /HPF Urine Bacteria (None Seen) /HPF Urine Culture Reflexed (NO) 10/07/23 10/07/23 10/07/23 Range/Units 16:45 16:45 18:05 WBC (3.98-10.04) x10^3/uL RBC (3.93-5.22) x10^6/uL Hgb (11.2-15.7) g/dL Hct (34.1-44.9) % MCV (79.4-94.8) fL MCH (25.6-32.2) pg MCHC (32.2-35.5) g/dL RDW (11.7-14.4) % Plt Count (182-369) x10^3/uL MPV (9.4-12.3) fL Gran % (34.0-71.1) % Immature Gran % (Auto) (0.001-0.429) % Nucleat RBC Rel Count (0.00-0.2) % Eos # (Auto) (0.04-0.36) x10^3/uL Immature Gran # (Auto) (0.001-0.031) x10^3u/L Absolute Lymphs (auto) (1.18-3.74) x10^3/uL Absolute Monos (auto) (0.24-0.86) x10^3/uL Absolute Nucleated RBC (0.00-0.012) x10^3u/L Lymphocytes % (19.3-51.7) % Monocytes % (4.7-12.5) % Eosinophils % (0.7-5.8) % Basophils % (0.1-1.2) % Absolute Granulocytes (1.56-6.13) x10^3/uL Basophils # (0.01-0.08) x10^3/uL PT (9.4-12.5) SECONDS INR (0.8-3.0) APTT (25.1-36.5) SECONDS Sodium (135-145) mmol/L Potassium (3.5-5.1) mmol/L Chloride (98-107) mmol/L Carbon Dioxide (22-30) mmol/L Anion Gap (5-15) MEQ/L BUN (7-17) mg/dL Creatinine (0.52-1.04) mg/dL Estimated GFR ML/MIN Glucose (74-106) mg/dL Hemoglobin A1c 6.25 H (4.5-6.0) % Calcium (8.4-10.2) mg/dL Total Bilirubin (0.2-1.3) mg/dL AST (14-36) U/L ALT (0-35) U/L Alkaline Phosphatase (38-126) U/L Troponin I < 0.012 (0.000-0.033) ng/mL NT-Pro-B Natriuret Pep 1270 (<300) pg/mL Serum Total Protein (6.3-8.2) g/dL Albumin (3.5-5.0) g/dL Urine Color Yellow (Yellow) Urine Appearance Clear (Clear) Urine pH 6.5 (4.6-8.0) Ur Specific [place] 1.010 (1.005-1.030) Urine Protein Negative (Negative) Urine Glucose (UA) Negative (Negative) mg/dL Urine Ketones Negative (Negative) Urine Blood Negative (Negative) Urine Nitrite Negative (Negative) Urine Bilirubin Negative (Negative) Urine Urobilinogen 0.2 (0.2) mg/dL Ur Leukocyte Esterase Negative (Negative) U Hyaline Cast (Auto) NONE SEEN (0-2) /LPF Urine Microscopic RBC 3-5 (0-5) /HPF Urine Microscopic WBC 0-2 (0-5) /HPF Ur Epithelial Cells None Seen (None Seen) /HPF Urine Bacteria None Seen (None Seen) /HPF Urine Culture Reflexed NO (NO) 10/07/23 Range/Units 20:50 WBC (3.98-10.04) x10^3/uL RBC (3.93-5.22) x10^6/uL Hgb (11.2-15.7) g/dL Hct (34.1-44.9) % MCV (79.4-94.8) fL MCH (25.6-32.2) pg MCHC (32.2-35.5) g/dL RDW (11.7-14.4) % Plt Count (182-369) x10^3/uL MPV (9.4-12.3) fL Gran % (34.0-71.1) % Immature Gran % (Auto) (0.001-0.429) % Nucleat RBC Rel Count (0.00-0.2) % Eos # (Auto) (0.04-0.36) x10^3/uL Immature Gran # (Auto) (0.001-0.031) x10^3u/L Absolute Lymphs (auto) (1.18-3.74) x10^3/uL Absolute Monos (auto) (0.24-0.86) x10^3/uL Absolute Nucleated RBC (0.00-0.012) x10^3u/L Lymphocytes % (19.3-51.7) % Monocytes % (4.7-12.5) % Eosinophils % (0.7-5.8) % Basophils % (0.1-1.2) % Absolute Granulocytes (1.56-6.13) x10^3/uL Basophils # (0.01-0.08) x10^3/uL PT (9.4-12.5) SECONDS INR (0.8-3.0) APTT (25.1-36.5) SECONDS Sodium (135-145) mmol/L Potassium (3.5-5.1) mmol/L Chloride (98-107) mmol/L Carbon Dioxide (22-30) mmol/L Anion Gap (5-15) MEQ/L BUN (7-17) mg/dL Creatinine (0.52-1.04) mg/dL Estimated GFR ML/MIN Glucose (74-106) mg/dL Hemoglobin A1c (4.5-6.0) % Calcium (8.4-10.2) mg/dL Total Bilirubin (0.2-1.3) mg/dL AST (14-36) U/L ALT (0-35) U/L Alkaline Phosphatase (38-126) U/L Troponin I < 0.012 (0.000-0.033) ng/mL NT-Pro-B Natriuret Pep (<300) pg/mL Serum Total Protein (6.3-8.2) g/dL Albumin (3.5-5.0) g/dL Urine Color (Yellow) Urine Appearance (Clear) Urine pH (4.6-8.0) Ur Specific [place] (1.005-1.030) Urine Protein (Negative) Urine Glucose (UA) (Negative) mg/dL Urine Ketones (Negative) Urine Blood (Negative) Urine Nitrite (Negative) Urine Bilirubin (Negative) Urine Urobilinogen (0.2) mg/dL Ur Leukocyte Esterase (Negative) U Hyaline Cast (Auto) (0-2) /LPF Urine Microscopic RBC (0-5) /HPF Urine Microscopic WBC (0-5) /HPF Ur Epithelial Cells (None Seen) /HPF Urine Bacteria (None Seen) /HPF Urine Culture Reflexed (NO) - Radiology Impressions Radiology Exams & Impressions: Radiology Procedures Category Date Time Status CTA HEAD W AND/OR WO CONTRAST [CT] Stat Exams 10/07/23 18:19 Completed HEAD WITHOUT CONTRAST [CT] Stat Exams 10/07/23 15:51 Completed NECK WITH CONTRAST [CT] Stat Exams 10/07/23 18:18 Completed Assessment/Plan (1) TIA (transient ischemic attack) Current Visit: Yes Status: Acute Assessment & Plan: 1. On eliquis 2. CTH negative 3. Awaiting brain MRI, likely Monday Code(s): G45.9 - TRANSIENT CEREBRAL ISCHEMIC ATTACK, UNSPECIFIED Telemedicine Encounter - Telemedicine Encounter Telemedicine Encounter: "The entirety of this encounter was performed via Telemedicine" This visit was performed using real-time audio and video connection between my location and thepatients locationwith the assistance of a surrogateat the patients location. Written or verbal consent was obtained from the patient/guardian to perform this visit usings[facility] technology. Any patient questions regarding the telemedicine interaction were answered.
[2023-10-07] MEDS ORDERED: PROVENTIL Solution 2.5 MG/0.5 ML IH PRN (23:22)
[2023-10-07] MEDS ORDERED: Atrovent 0.5MG NEBULE IH PRN (23:24)
[2023-10-08 05:14] LABS: Hematocrit 38.4 % (34.1-44.9); Hemoglobin 12.1 g/dL (11.2-15.7); Mean Cell Volume 87.7 fL (79.4-94.8); Mean Corpuscular Hemoglobin 27.6 pg (25.6-32.2); Mean Corpuscular Hgb Concent. 31.5 g/dL (32.2-35.5); Mean Platelet Volume 9.6 fL (9.4-12.3); Platelet Count 280 x10^3/uL (182-369); Red Blood Count 4.38 x10^6/uL (3.93-5.22); Red Cell Distribution Width 14.8 % (11.7-14.4); White Blood Count 7.3 x10^3/uL (3.98-10.04)
[2023-10-08 05:44] LABS: ANION GAP 9.9 MEQ/L (5-15); Calcium 8.9 mg/dL (8.4-10.2); Creatinine 1 0.79 mg/dL (0.52-1.04); EST GLOMERULAR FILTRATION RATE 75.1 ML/MIN; Potassium 3.6 mmol/L (3.5-5.1)
--- NOTE | 2023-10-08 07:23 | PCM.NOTE ---
Date and Time: 10/08/23716 Subjective Assessment: 10/08/23 is a 83 year old female with PMHX of TIA, HTN, OA, anxiety, depression, panic disorder, and chronic obesity. She was brought to ER by on 10/07/23 for brief altered mental status, where the patient was with her and began feeling confused, unable to recall information and reports a left sided facial droop. The symptoms resolved by the visit in the ED and the patient was alert and oriented. No headache, vision changes, nausea, vomiting. The patient has had a history of TIAs and has been on eliquis for afib. CT brain was negative. Admit to monitor and to obtain a MRI of the brain, likely Monday. She denies any further concerns at this time. - Review of Systems Constitutional: No Fever, No Chills Eyes: No Symptoms Ears, Nose, & Throat: No Symptoms Respiratory: No Cough, No Short Of Breath Cardiac: Edema (RLE- chronic), No Chest Pain, No Syncope Abdominal/Gastrointestinal: No Abdominal Pain, No Nausea, No Vomiting, No Diarrhea Genitourinary Symptoms: No Dysuria Musculoskeletal: No Back Pain, No Neck Pain Skin: No Rash Neurological: No Dizziness, No Focal Weakness, No Sensory Changes Psychological: No Symptoms Endocrine: No Symptoms Hematologic/Lymphatic: No Symptoms Immunological/Allergic: No Symptoms Objective Exam General Appearance: no apparent distress, alert Neurologic Exam: alert, 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, cooperative, normal mood/affect, nml cerebellar function, sensation nml, No motor deficits Skin Exam: normal color, warm, dry Eye Exam: PERRL, EOMI, eyes nml inspection Ears, Nose, Throat Exam: normal ENT inspection, pharynx normal, moist mucous m embranes Neck Exam: normal inspection, non-tender, supple, full range of motion Respiratory Exam: normal breath sounds, lungs clear, No respiratory distress Cardiovascular Exam: regular rate/rhythm, normal heart sounds, edema (RLE- chronic per pt.) Gastrointestinal/Abdomen Exam: soft, No tenderness, No mass Extremity Exam: normal inspection, normal range of motion Back Exam: normal inspection, normal range of motion, No CVA tenderness, No vertebral tenderness Pelvic Exam: deferred Rectal Exam: deferred Objective Data Vital Signs: Vital Signs - 24 hr Temp Pulse Resp BP BP Pulse Ox 10/08/23 07:15 97.6 F 113 H 16 130/75 95 10/08/23 04:00 97.3 F 88 15 125/81 93 L 10/08/23 00:00 92 H 18 10/07/23 23:27 65 16 94 L 10/07/23 22:01 97.3 F 77 16 122/64 97 10/07/23 21:44 76 18 129/79 97 10/07/23 19:04 94 L 10/07/23 17:30 108/79 10/07/23 17:00 100/54 93 L 10/07/23 16:51 108/70 92 L 10/07/23 16:30 124/67 94 L 10/07/23 15:28 97.8 F 67 16 114/59 Pain Assessment - Last Documented Pain Intensity 0 Intake and Output: Intake & Output 10/05/23 10/06/23 10/07/23 10/08/23 11:59 11:59 11:59 11:59 Weight 71.5 kg Lab Results: Lab Results-Last 24 Hours 10/07/23 10/07/23 10/07/23 Range/Units 16:45 16:45 16:45 WBC 8.4 (3.98-10.04) x10^3/uL RBC 4.27 (3.93-5.22) x10^6/uL Hgb 11.7 (11.2-15.7) g/dL Hct 37.0 (34.1-44.9) % MCV 86.7 (79.4-94.8) fL MCH 27.4 (25.6-32.2) pg MCHC 31.6 L (32.2-35.5) g/dL RDW 15.0 H (11.7-14.4) % Plt Count 320 (182-369) x10^3/uL MPV 10.2 (9.4-12.3) fL Gran % 63.4 (34.0-71.1) % Immature Gran % (Auto) 0.2 (0.001-0.429) % Nucleat RBC Rel Count 0.0 (0.00-0.2) % Eos # (Auto) 0.25 (0.04-0.36) x10^3/uL Immature Gran # (Auto) 0.02 (0.001-0.031) x10^3u/L Absolute Lymphs (auto) 1.99 (1.18-3.74) x10^3/uL Absolute Monos (auto) 0.76 (0.24-0.86) x10^3/uL Absolute Nucleated RBC 0.00 (0.00-0.012) x10^3u/L Lymphocytes % 23.8 (19.3-51.7) % Monocytes % 9.1 (4.7-12.5) % Eosinophils % 3.0 (0.7-5.8) % Basophils % 0.5 (0.1-1.2) % Absolute Granulocytes 5.29 (1.56-6.13) x10^3/uL Basophils # 0.04 (0.01-0.08) x10^3/uL PT 12.0 (9.4-12.5) SECONDS INR 1.11 (0.8-3.0) APTT 33.6 (25.1-36.5) SECONDS Sodium 138 (135-145) mmol/L Potassium 4.3 (3.5-5.1) mmol/L Chloride 103 (98-107) mmol/L Carbon Dioxide 30 (22-30) mmol/L Anion Gap 9.7 (5-15) MEQ/L BUN 23 H (7-17) mg/dL Creatinine 0.87 (0.52-1.04) mg/dL Estimated GFR 66.9 ML/MIN Glucose 107 H (74-106) mg/dL Hemoglobin A1c (4.5-6.0) % Calcium 9.2 (8.4-10.2) mg/dL Total Bilirubin 0.50 (0.2-1.3) mg/dL AST 27 (14-36) U/L ALT 20 (0-35) U/L Alkaline Phosphatase 55 (38-126) U/L Troponin I (0.000-0.033) ng/mL NT-Pro-B Natriuret Pep (<300) pg/mL Serum Total Protein 6.8 (6.3-8.2) g/dL Albumin 3.4 L (3.5-5.0) g/dL Triglycerides (30-150) mg/dL Cholesterol (50-200) mg/dL LDL Cholesterol (30-100) mg/dL HDL Cholesterol (40-60) mg/dL Heart Disease Risk Ratio Urine Color (Yellow) Urine Appearance (Clear) Urine pH (4.6-8.0) Ur Specific [place] (1.005-1.030) Urine Protein (Negative) Urine Glucose (UA) (Negative) mg/dL Urine Ketones (Negative) Urine Blood (Negative) Urine Nitrite (Negative) Urine Bilirubin (Negative) Urine Urobilinogen (0.2) mg/dL Ur Leukocyte Esterase (Negative) U Hyaline Cast (Auto) (0-2) /LPF Urine Microscopic RBC (0-5) /HPF Urine Microscopic WBC (0-5) /HPF Ur Epithelial Cells (None Seen) /HPF Urine Bacteria (None Seen) /HPF Urine Culture Reflexed (NO) 10/07/23 10/07/23 10/07/23 Range/Units 16:45 16:45 18:05 WBC (3.98-10.04) x10^3/uL RBC (3.93-5.22) x10^6/uL Hgb (11.2-15.7) g/dL Hct (34.1-44.9) % MCV (79.4-94.8) fL MCH (25.6-32.2) pg MCHC (32.2-35.5) g/dL RDW (11.7-14.4) % Plt Count (182-369) x10^3/uL MPV (9.4-12.3) fL Gran % (34.0-71.1) % Immature Gran % (Auto) (0.001-0.429) % Nucleat RBC Rel Count (0.00-0.2) % Eos # (Auto) (0.04-0.36) x10^3/uL Immature Gran # (Auto) (0.001-0.031) x10^3u/L Absolute Lymphs (auto) (1.18-3.74) x10^3/uL Absolute Monos (auto) (0.24-0.86) x10^3/uL Absolute Nucleated RBC (0.00-0.012) x10^3u/L Lymphocytes % (19.3-51.7) % Monocytes % (4.7-12.5) % Eosinophils % (0.7-5.8) % Basophils % (0.1-1.2) % Absolute Granulocytes (1.56-6.13) x10^3/uL Basophils # (0.01-0.08) x10^3/uL PT (9.4-12.5) SECONDS INR (0.8-3.0) APTT (25.1-36.5) SECONDS Sodium (135-145) mmol/L Potassium (3.5-5.1) mmol/L Chloride (98-107) mmol/L Carbon Dioxide (22-30) mmol/L Anion Gap (5-15) MEQ/L BUN (7-17) mg/dL Creatinine (0.52-1.04) mg/dL Estimated GFR ML/MIN Glucose (74-106) mg/dL Hemoglobin A1c 6.25 H (4.5-6.0) % Calcium (8.4-10.2) mg/dL Total Bilirubin (0.2-1.3) mg/dL AST (14-36) U/L ALT (0-35) U/L Alkaline Phosphatase (38-126) U/L Troponin I < 0.012 (0.000-0.033) ng/mL NT-Pro-B Natriuret Pep 1270 (<300) pg/mL Serum Total Protein (6.3-8.2) g/dL Albumin (3.5-5.0) g/dL Triglycerides (30-150) mg/dL Cholesterol (50-200) mg/dL LDL Cholesterol (30-100) mg/dL HDL Cholesterol (40-60) mg/dL Heart Disease Risk Ratio Urine Color Yellow (Yellow) Urine Appearance Clear (Clear) Urine pH 6.5 (4.6-8.0) Ur Specific [place] 1.010 (1.005-1.030) Urine Protein Negative (Negative) Urine Glucose (UA) Negative (Negative) mg/dL Urine Ketones Negative (Negative) Urine Blood Negative (Negative) Urine Nitrite Negative (Negative) Urine Bilirubin Negative (Negative) Urine Urobilinogen 0.2 (0.2) mg/dL Ur Leukocyte Esterase Negative (Negative) U Hyaline Cast (Auto) NONE SEEN (0-2) /LPF Urine Microscopic RBC 3-5 (0-5) /HPF Urine Microscopic WBC 0-2 (0-5) /HPF Ur Epithelial Cells None Seen (None Seen) /HPF Urine Bacteria None Seen (None Seen) /HPF Urine Culture Reflexed NO (NO) 10/07/23 10/08/23 10/08/23 Range/Units 20:50 05:10 05:10 WBC 7.3 (3.98-10.04) x10^3/uL RBC 4.38 (3.93-5.22) x10^6/uL Hgb 12.1 (11.2-15.7) g/dL Hct 38.4 (34.1-44.9) % MCV 87.7 (79.4-94.8) fL MCH 27.6 (25.6-32.2) pg MCHC 31.5 L (32.2-35.5) g/dL RDW 14.8 H (11.7-14.4) % Plt Count 280 (182-369) x10^3/uL MPV 9.6 (9.4-12.3) fL Gran % (34.0-71.1) % Immature Gran % (Auto) (0.001-0.429) % Nucleat RBC Rel Count (0.00-0.2) % Eos # (Auto) (0.04-0.36) x10^3/uL Immature Gran # (Auto) (0.001-0.031) x10^3u/L Absolute Lymphs (auto) (1.18-3.74) x10^3/uL Absolute Monos (auto) (0.24-0.86) x10^3/uL Absolute Nucleated RBC (0.00-0.012) x10^3u/L Lymphocytes % (19.3-51.7) % Monocytes % (4.7-12.5) % Eosinophils % (0.7-5.8) % Basophils % (0.1-1.2) % Absolute Granulocytes (1.56-6.13) x10^3/uL Basophils # (0.01-0.08) x10^3/uL PT (9.4-12.5) SECONDS INR (0.8-3.0) APTT (25.1-36.5) SECONDS Sodium 139 (135-145) mmol/L Potassium 3.6 (3.5-5.1) mmol/L Chloride 105 (98-107) mmol/L Carbon Dioxide 28 (22-30) mmol/L Anion Gap 9.9 (5-15) MEQ/L BUN 18 H (7-17) mg/dL Creatinine 0.79 (0.52-1.04) mg/dL Estimated GFR 75.1 ML/MIN Glucose 138 H (74-106) mg/dL Hemoglobin A1c (4.5-6.0) % Calcium 8.9 (8.4-10.2) mg/dL Total Bilirubin (0.2-1.3) mg/dL AST (14-36) U/L ALT (0-35) U/L Alkaline Phosphatase (38-126) U/L Troponin I < 0.012 (0.000-0.033) ng/mL NT-Pro-B Natriuret Pep (<300) pg/mL Serum Total Protein (6.3-8.2) g/dL Albumin (3.5-5.0) g/dL Triglycerides 110 (30-150) mg/dL Cholesterol 142 (50-200) mg/dL LDL Cholesterol 85 (30-100) mg/dL HDL Cholesterol 39 L (40-60) mg/dL Heart Disease Risk Ratio 4.0 Urine Color (Yellow) Urine Appearance (Clear) Urine pH (4.6-8.0) Ur Specific [place] (1.005-1.030) Urine Protein (Negative) Urine Glucose (UA) (Negative) mg/dL Urine Ketones (Negative) Urine Blood (Negative) Urine Nitrite (Negative) Urine Bilirubin (Negative) Urine Urobilinogen (0.2) mg/dL Ur Leukocyte Esterase (Negative) U Hyaline Cast (Auto) (0-2) /LPF Urine Microscopic RBC (0-5) /HPF Urine Microscopic WBC (0-5) /HPF Ur Epithelial Cells (None Seen) /HPF Urine Bacteria (None Seen) /HPF Urine Culture Reflexed (NO) Radiology Exams: Radiology Procedures Category Date Time Status CTA HEAD W AND/OR WO CONTRAST [CT] Stat Exams 10/07/23 18:19 Completed HEAD WITHOUT CONTRAST [CT] Stat Exams 10/07/23 15:51 Completed NECK WITH CONTRAST [CT] Stat Exams 10/07/23 18:18 Completed Multi-Disciplinary Progress Notes: Multi-Disciplinary Progress Notes 10/08/23 00:01 Respiratory Note by Priscila Estes Placed patient on BIPAP per home settings. Patient tolerated well Initialized on 10/08/23 00:01 - END OF NOTE Assessment/Plan (1) TIA (transient ischemic attack) Current Visit: Yes Status: Acute Assessment & Plan: - CT head negative for acute concern - Dx based on sxs and hx - MRI Monday as this is not available on the s - Consider neurology consult after MRI - Venous duplex in AM Code(s): G45.9 - TRANSIENT CEREBRAL ISCHEMIC ATTACK, UNSPECIFIED (2) Bilateral carotid artery stenosis without cerebral infarction Current Visit: Yes Status: Acute Assessment & Plan: - as seen on neck CT and head CTA - Head CTA: IMPRESSION: 1. Faint opacifications of the visualized arteries due to technical factors limiting the sensitivity of the exam and resulting in non-opacification of the distal segments of the middle, anterior and posterior cerebral arteries. 2. Heavy atherosclerotic changes of the cavernous and supra-clinoid segments of the internal carotid arteries bilaterally result in around 70% stenosis. Distal flow is noted. 3. Heavy atherosclerotic changes of the terminal segments of both vertebral arteries resulting in severe stenosis (around 70% in the right and 80-90% in the left). Distal flow is noted. 4. The visualized segments of the anterior cerebral arteries, middle cerebral arteries, posterior cerebral arteries and basilar artery are opacified showing no significant stenosis or occlusion. - Neck CT IMPRESSION: 1. Poor opacification of the visualized arteries due to early acquisition severely limiting the sensitivity of the exam. 2. Heavy atherosclerotic changes of the carotid bifurcation and proximal internal carotid arteries bilaterally resulting in around 50% maximum diameter reduction. 3. Heavy atherosclerotic changes of the terminal segments of both vertebral arteries resulting in severe stenosis (around 70% in the right and 80-90% in the left). - Will need OP f/u with cardiothoracic surgery. Code(s): I65.23 - OCCLUSION AND STENOSIS OF BILATERAL CAROTID ARTERIES (3) Confusion Current Visit: Yes Status: Resolved Assessment & Plan: - resolved since admission Code(s): R41.0 - DISORIENTATION, UNSPECIFIED (4) Atrial fibrillation with RVR Current Visit: No Status: Chronic Assessment & Plan: - Tele - Continue Eliquis - HR in 100's this morning - added 25mg of metoprolol in combination with 50mg today. - Continue Digoxin - a- fib/ a-flutter seen on monitor Code(s): I48.91 - UNSPECIFIED ATRIAL FIBRILLATION (5) CHF (congestive heart failure) Current Visit: No Status: Chronic Assessment & Plan: - not in acute exacerbation - Continue home meds Code(s): I50.9 - HEART FAILURE, UNSPECIFIED (6) Depression with anxiety Current Visit: Yes Status: Chronic Assessment & Plan: - Continue Lexapro Code(s): F41.8 - OTHER SPECIFIED ANXIETY DISORDERS (7) Hypothyroidism Current Visit: Yes Status: Chronic Assessment & Plan: - continue synthroid Code(s): E03.9 - HYPOTHYROIDISM, UNSPECIFIED (8) Hyperlipidemia Current Visit: Yes Status: Chronic Assessment & Plan: - Continue statin - lipid panel reviewed - F/U with PCP Op VTE: Eliquis Next of KIN: Spouse, JADON Ewing [phone] D/C plan: 1-2 days Code status: Full Code(s): E78.5 - HYPERLIPIDEMIA, UNSPECIFIED
[2023-10-08] MEDS: Lopressor 25MG Tab PO SCH (08:33)
[2023-10-08] MEDS: ELIQUIS 2.5 MG TABLET PO SCH (08:34)
[2023-10-08] MEDS: Klor Con PO SCH (08:34)
[2023-10-08] MEDS: Lanoxin 0.125MG TABLET PO SCH (08:34)
[2023-10-08] MEDS: Vitamin C 500 MG PO SCH (08:34)
[2023-10-08] MEDS: ZYLOPRIM 100 MG PO SCH (08:37)
[2023-10-08] MEDS: SYNTHROID 75 MCG PO SCH (08:37)
[2023-10-08] MEDS: Flonase NASAL NS SCH (08:43)
[2023-10-08] MEDS: Lopressor 25MG Tab PO ONE (09:25)
[2023-10-08] MEDS ORDERED: NON-FORMULARY ITEM (Ascorbic Acid [C-1000] 1,000 MG Tablet) PO SCH (10:00)
[2023-10-08] MEDS ORDERED: PROVENTIL Solution 2.5 MG/0.5 ML IH SCH (10:00)
[2023-10-08] MEDS ORDERED: Atrovent 0.5MG NEBULE IH SCH (10:00)
[2023-10-08] MEDS: Calcium 500MG W/Vit D Tablet PO SCH (12:06)
[2023-10-08] MEDS: LASIX 20 MG PO SCH (12:06)
[2023-10-08] MEDS: Lexapro PO SCH (21:50)
[2023-10-08] MEDS: CLARITIN 10 MG PO SCH (21:50)
[2023-10-08] MEDS: MAG-OX 400 PO SCH (21:50)
[2023-10-08] MEDS: Zocor 10MG PO SCH (21:50)
[2023-10-08] MEDS: THERAGRAN MULTIVITAMIN PO SCH (21:50)
[2023-10-08] MEDS ORDERED: MULTIVIT MIN PO SCH (22:00)
[2023-10-08] MEDS ORDERED: NON-FORMULARY ITEM (Magnesium [Magnesium] 200 MG Tablet) PO SCH (22:00)
[2023-10-08] MEDS ORDERED: IRON PO SCH (22:00)
[2023-10-08] MEDS ORDERED: FOLIC ACID PO SCH (22:00)
[2023-10-08] MEDS ORDERED: [UNRECOGNIZED DRUG - OTHER] PO SCH (22:00)
[2023-10-09 04:38] LABS: Hematocrit 39.4 % (34.1-44.9); Hemoglobin 12.3 g/dL (11.2-15.7); Mean Cell Volume 86.6 fL (79.4-94.8); Mean Corpuscular Hgb Concent. 31.2 g/dL (32.2-35.5); Mean Platelet Volume 9.7 fL (9.4-12.3); Platelet Count 278 x10^3/uL (182-369); Red Blood Count 4.55 x10^6/uL (3.93-5.22); Red Cell Distribution Width 14.7 % (11.7-14.4); White Blood Count 8.7 x10^3/uL (3.98-10.04)
[2023-10-09 04:56] LABS: ALBUMIN 3.5 g/dL (3.5-5.0); ANION GAP 10.7 MEQ/L (5-15); BILIRUBIN,TOTAL 0.5 mg/dL (0.2-1.3); Calcium 9.2 mg/dL (8.4-10.2); Creatinine 1 0.8 mg/dL (0.52-1.04); Potassium 3.9 mmol/L (3.5-5.1); Total Protein 7.2 g/dL (6.3-8.2)
--- NOTE | 2023-10-09 05:18 | PCM.NOTE ---
Date and Time: 10/09/23 0513 Subjective Assessment: is a 83 year old female with PMHX of TIA, AFIB (Eliquis),HTN, OA, anxiety, depression, panic disorder, and chronic obesity admitted 10/07/23 for a possible TIA after experiencing left-sided facial droop and brief altered mental status at home. CT head with no acute findings . CTA head/ neck with 50% reduction noted in bilateral carotid arteries, and bilateral vertebral arteries with severe stenosis around 70% in the right and 80-90% in the left. She will need to follow up OP with cardiothoracic surgery. Lab and urine studies unremarkable. Symptoms resolved prior to admission with no further incidence. During hospital course, AFIB/Aflutter noted on tele. Metoprolol has been increased from 50mg to 75mg. Plan for MRI today. Discharge pending results. 10/09/23: Met with patient bedside. No overnight events noted. No further symptoms since admission. No complaints during interview. Patient was scheduled for MRI. She is very claustrophobic and pre-treated with Ativan prior. Exam was not performed as patient unable to remain still. CT head repeated with no acute findings. Neurology consulted, pending recommendations. - Review of Systems Constitutional: No Symptoms Eyes: No Symptoms Ears, Nose, & Throat: No Symptoms Respiratory: No Symptoms Cardiac: No Symptoms Abdominal/Gastrointestinal: No Symptoms Genitourinary Symptoms: No Symptoms Musculoskeletal: No Symptoms Skin: No Symptoms Neurological: No Symptoms Psychological: No Symptoms Endocrine: No Symptoms Hematologic/Lymphatic: No Symptoms Immunological/Allergic: No Symptoms Objective Exam General Appearance: no apparent distress Neurologic Exam: alert, 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, cooperative Skin Exam: normal color Eye Exam: PERRL Ears, Nose, Throat Exam: normal ENT inspection Neck Exam: normal inspection Respiratory Exam: normal breath sounds, lungs clear Cardiovascular Exam: regular rate/rhythm, normal heart sounds Gastrointestinal/Abdomen Exam: soft, normal bowel sounds Extremity Exam: normal inspection Back Exam: normal inspection Pelvic Exam: deferred Rectal Exam: deferred Objective Data Vital Signs: Vital Signs - 24 hr Temp Pulse Resp BP BP Pulse Ox 10/09/23 04:00 97.6 F 78 18 126/76 94 L 10/09/23 00:00 97.3 F 92 H 20 126/79 95 10/08/23 22:00 78 10/08/23 19:50 97.5 F 78 17 122/71 95 10/08/23 18:30 92 H 18 94 L 10/08/23 15:56 97.6 F 82 16 123/67 95 10/08/23 11:17 97.9 F 79 16 119/66 96 10/08/23 08:46 103 H 18 95 10/08/23 08:34 113 H 143/64 10/08/23 07:15 97.6 F 113 H 16 130/75 95 Pain Assessment - Last Documented Pain Intensity 0 Intake and Output: Intake & Output 10/06/23 10/07/23 10/08/23 10/09/23 11:59 11:59 11:59 11:59 Intake Total 360 1260 Output Total 650 2300 Balance -290 -1040 Weight 71.5 kg Lab Results: Lab Results-Last 24 Hours 10/08/23 10/08/23 10/09/23 Range/Units 05:10 05:10 04:20 WBC 7.3 8.7 (3.98-10.04) x10^3/uL RBC 4.38 4.55 (3.93-5.22) x10^6/uL Hgb 12.1 12.3 (11.2-15.7) g/dL Hct 38.4 39.4 (34.1-44.9) % MCV 87.7 86.6 (79.4-94.8) fL MCH 27.6 27.0 (25.6-32.2) pg MCHC 31.5 L 31.2 L (32.2-35.5) g/dL RDW 14.8 H 14.7 H (11.7-14.4) % Plt Count 280 278 (182-369) x10^3/uL MPV 9.6 9.7 (9.4-12.3) fL Sodium 139 (135-145) mmol/L Potassium 3.6 (3.5-5.1) mmol/L Chloride 105 (98-107) mmol/L Carbon Dioxide 28 (22-30) mmol/L Anion Gap 9.9 (5-15) MEQ/L BUN 18 H (7-17) mg/dL Creatinine 0.79 (0.52-1.04) mg/dL Estimated GFR 75.1 ML/MIN Glucose 138 H (74-106) mg/dL Calcium 8.9 (8.4-10.2) mg/dL Total Bilirubin (0.2-1.3) mg/dL AST (14-36) U/L ALT (0-35) U/L Alkaline Phosphatase (38-126) U/L Serum Total Protein (6.3-8.2) g/dL Albumin (3.5-5.0) g/dL Triglycerides 110 (30-150) mg/dL Cholesterol 142 (50-200) mg/dL LDL Cholesterol 85 (30-100) mg/dL HDL Cholesterol 39 L (40-60) mg/dL Heart Disease Risk Ratio 4.0 /11/24 Range/Units 04:20 WBC (3.98-10.04) x10^3/uL RBC (3.93-5.22) x10^6/uL Hgb (11.2-15.7) g/dL Hct (34.1-44.9) % MCV (79.4-94.8) fL MCH (25.6-32.2) pg MCHC (32.2-35.5) g/dL RDW (11.7-14.4) % Plt Count (182-369) x10^3/uL MPV (9.4-12.3) fL Sodium 138 (135-145) mmol/L Potassium 3.9 (3.5-5.1) mmol/L Chloride 103 (98-107) mmol/L Carbon Dioxide 28 (22-30) mmol/L Anion Gap 10.7 (5-15) MEQ/L BUN 16 (7-17) mg/dL Creatinine 0.80 (0.52-1.04) mg/dL Estimated GFR 74.0 ML/MIN Glucose 133 H (74-106) mg/dL Calcium 9.2 (8.4-10.2) mg/dL Total Bilirubin 0.50 (0.2-1.3) mg/dL AST 31 (14-36) U/L ALT 20 (0-35) U/L Alkaline Phosphatase 54 (38-126) U/L Serum Total Protein 7.2 (6.3-8.2) g/dL Albumin 3.5 (3.5-5.0) g/dL Triglycerides (30-150) mg/dL Cholesterol (50-200) mg/dL LDL Cholesterol (30-100) mg/dL HDL Cholesterol (40-60) mg/dL Heart Disease Risk Ratio Radiology Exams: Radiology Procedures Category Date Time Status CTA HEAD W AND/OR WO CONTRAST [CT] Stat Exams 10/07/23 18:19 Completed HEAD WITHOUT CONTRAST [CT] Stat Exams 10/07/23 15:51 Completed MRI BRAIN W & W/O CONTRAST [MRI] Routine Exams 10/09/23 08:00 Ordered NECK WITH CONTRAST [CT] Stat Exams 10/07/23 18:18 Completed VENOUS BILATERAL EXTREMITY [US] Routine Exams 10/09/23 08:39 Ordered Assessment/Plan (1) TIA (transient ischemic attack) Current Visit: Yes Status: Acute Assessment & Plan: -CT negative for acute etiology -CTA head/ neck with 50% reduction noted in bilateral carotid arteries, and bilateral vertebral arteries with severe stenosis around 70% in the right and 80-90% in the left. She will need to follow up OP with neuro surgery -Pt unable to tolerate MRI - repeat head CT negative for acute findings, neuro consult pending -Symptoms resolved prior to arrival Code(s): G45.9 - TRANSIENT CEREBRAL ISCHEMIC ATTACK, UNSPECIFIED (2) Bilateral carotid artery stenosis without cerebral infarction Current Visit: Yes Status: Acute Assessment & Plan: -CTA head/ neck with 50% reduction noted in bilateral carotid arteries, and bilateral vertebral arteries with severe stenosis around 70% in the right and 80-90% in the left. She will need to follow up OP with cardiothoracic surgery Code(s): I65.23 - OCCLUSION AND STENOSIS OF BILATERAL CAROTID ARTERIES (3) Depression with anxiety Current Visit: Yes Status: Chronic Assessment & Plan: - Continue home med Lexapro Code(s): F41.8 - OTHER SPECIFIED ANXIETY DISORDERS (4) Hyperlipidemia Current Visit: Yes Status: Chronic Assessment & Plan: - Continue statin - lipid panel reviewed - F/U with PCP Op Code(s): E78.5 - HYPERLIPIDEMIA, UNSPECIFIED (5) Hypothyroidism Current Visit: Yes Status: Chronic Assessment & Plan: - continue home med Synthroid Code(s): E03.9 - HYPOTHYROIDISM, UNSPECIFIED (6) Confusion Current Visit: Yes Status: Resolved Assessment & Plan: -Resolved since admission -A1c 6.25 - no incidence of hypoglycemia -UA unremarkable -CT as stated above -check TSH, B12/fol Code(s): R41.0 - DISORIENTATION, UNSPECIFIED (7) Atrial fibrillation with RVR Current Visit: No Status: Chronic Assessment & Plan: - Tele - Continue Eliquis - Increased metoprolol from 50mg to 75mg 10/08/23 due to afib/aflutter with HR > 100 - Continue Digoxin Code(s): I48.91 - UNSPECIFIED ATRIAL FIBRILLATION (8) CHF (congestive heart failure) Current Visit: No Status: Chronic Assessment & Plan: - BNP 1270 - Continue home meds VTE: Eliquis Next of KIN: Spouse, JADON Ewing [phone] D/C plan: 1-2 days Code status: Full Code(s): I50.9 - HEART FAILURE, UNSPECIFIED
--- NOTE | 2023-10-09 10:54 | XRAY ---
Indication: Pain and swelling. Two-dimensional sonogram and color Doppler imaging major venous vessels left and right leg performed. Comparison: None No thrombus seen in the examined deep venous vessels left and right leg including greater saphenous vein. Veins demonstrate normal compressibility. Venous waveforms are normal with and without augmentation. Impression: Left and right legs negative for DVT.
[2023-10-09 11:17] LABS: Folate (Folic Acid) > 16.6 ng/mL (2.76 - >20); TSH, 3RD Generation 2.578 mIU/L (0.470-4.680); Vitamin B12 862 pg/mL (239-931)
[2023-10-09] MEDS: Ativan 2 MG/1 ML VIAL IV ONE (12:35)
--- NOTE | 2023-10-09 14:07 | XRAY ---
Indication: Questionable TIA. Stroke. Multiple contiguous axial images obtained through the head without contrast. Comparison: October 07, 2023 Again age-appropriate global atrophy, mild periventricular degenerative micro-ischemia bilaterally, and remote lacunar infarct right basal ganglia. No acute intracranial hemorrhage, abnormal extra-axial fluid collection, or mass effect. Fourth ventricle is midline without hydrocephalus. Bony calvarium intact. Visualized paranasal sinuses and mastoid air cells are clear. Impression: No change compared to CT 2 days ago. Continued nonacute senile brain with remote lacunar infarct right basal ganglia.
[2023-10-10 07:50] LABS: Absolute Neutrophil Ct (ANC) 6.43 x10^3/uL (1.56-6.13); BASOPHIL % 0.6 % (0.1-1.2); Basophil (Absolute #) 0.05 x10^3/uL (0.01-0.08); Eosinophil % 3.5 % (0.7-5.8); Eosinophil (Absolute #) 0.31 x10^3/uL (0.04-0.36); Hematocrit 40.4 % (34.1-44.9); Hemoglobin 12.8 g/dL (11.2-15.7); IMMATURE GRAN # 0.03 x10^3u/L (0.001-0.031); IMMATURE GRAN % 0.3 % (0.001-0.429); Lymphocyte (Absolute #) 1.42 x10^3/uL (1.18-3.74); Lymphocytes % 15.8 % (19.3-51.7); Mean Cell Volume 85.8 fL (79.4-94.8); Mean Corpuscular Hemoglobin 27.2 pg (25.6-32.2); Mean Corpuscular Hgb Concent. 31.7 g/dL (32.2-35.5); Mean Platelet Volume 9.6 fL (9.4-12.3); Monocyte (Absolute #) 0.72 x10^3/uL (0.24-0.86); Neutrophil % 71.8 % (34.0-71.1); Platelet Count 290 x10^3/uL (182-369); Red Blood Count 4.71 x10^6/uL (3.93-5.22); Red Cell Distribution Width 14.8 % (11.7-14.4)
[2023-10-10 08:01] LABS: ALBUMIN 3.6 g/dL (3.5-5.0); ANION GAP 10.5 MEQ/L (5-15); BILIRUBIN,TOTAL 0.7 mg/dL (0.2-1.3); Calcium 9.2 mg/dL (8.4-10.2); Creatinine 1 0.7 mg/dL (0.52-1.04); EST GLOMERULAR FILTRATION RATE 86.8 ML/MIN; Total Protein 7.6 g/dL (6.3-8.2)
[2023-10-10] MEDS: Lopressor 25MG Tab PO ONE (10:49)
[2023-10-10 11:30] VITALS: O2SAT 94
--- NOTE | 2023-10-10 17:17 | PCM.DS ---
Discharge Summary Date of Admission: 10/07/23 21:37 Date of Discharge: 10/10/23 Admitting Physician: KAYY CLARK MD Consults: Consults on Case 10/09/23 12:17 Consult Neurology ROUTINE Primary Care Provider: NICHELLE HECK DO Allergies Allergies cefaclor [From Ceclor] Allergy (Intermediate, Verified 10/07/23 15:42) Itching face tight, swelling, felt hot clindamycin HCl [From Cleocin] Allergy (Intermediate, Verified 10/07/23 15:42) clindamycin palmitate HCl [From Cleocin] Allergy (Intermediate, Verified 10/07/23 15:42) Hives entire body clindamycin phosphate [From Cleocin] Allergy (Intermediate, Verified 10/07/23 15:42) Penicillins Allergy (Intermediate, Verified 10/07/23 15:42) [facility] Summary - Hospital Course Hospital Course: is a 83 year old female with PMHX of TIA, AFIB (Eliquis),HTN, OA, anxiety, depression, panic disorder, and chronic obesity admitted 10/07/23 for a possible TIA after experiencing left-sided facial droop and brief altered mental status at home. CT head with no acute findings . CTA head/ neck with 50% reduction noted in bilateral carotid arteries, and bilateral vertebral arteries with severe stenosis around 70% in the right and 80-90% in the left. She will need to follow up OP with cardiovascular surgery. Lab and urine studies unremarkable. Symptoms resolved prior to admission with no further incidence. Patient was unable to tolerate MRI. Neurology consulted with recs to continue eliquis, start 81mg ASA, and lipitor 40mg. Patient advised follow up OP with neurology/PCP/cardiovascular (pt to call office tomorrow). Discharge Note New Diagnosis: TIA New Medications: ASA 81mg/Lipitor Follow Up: Neuro/PCP/cardiovascular surgery Latest Assessment & Plan (1) TIA (transient ischemic attack) Current Visit: Yes Status: Acute Assessment & Plan: -CT negative for acute etiology -CTA head/ neck with 50% reduction noted in bilateral carotid arteries, and bilateral vertebral arteries with severe stenosis around 70% in the right and 80-90% in the left. She will need to follow up OP with neuro surgery -Pt unable to tolerate MRI - repeat head CT negative for acute findings, neuro consult pending -Symptoms resolved prior to arrival Code(s): G45.9 - TRANSIENT CEREBRAL ISCHEMIC ATTACK, UNSPECIFIED (2) Bilateral carotid artery stenosis without cerebral infarction Current Visit: Yes Status: Acute Assessment & Plan: -CTA head/ neck with 50% reduction noted in bilateral carotid arteries, and bilateral vertebral arteries with severe stenosis around 70% in the right and 80-90% in the left. She will need to follow up OP with cardiothoracic surgery Code(s): I65.23 - OCCLUSION AND STENOSIS OF BILATERAL CAROTID ARTERIES (3) Depression with anxiety Current Visit: Yes Status: Chronic Assessment & Plan: - Continue home med Lexapro Code(s): F41.8 - OTHER SPECIFIED ANXIETY DISORDERS (4) Hyperlipidemia Current Visit: Yes Status: Chronic Assessment & Plan: - Continue statin - lipid panel reviewed - F/U with PCP Op Code(s): E78.5 - HYPERLIPIDEMIA, UNSPECIFIED (5) Hypothyroidism Current Visit: Yes Status: Chronic Assessment & Plan: - continue home med Synthroid Code(s): E03.9 - HYPOTHYROIDISM, UNSPECIFIED (6) Confusion Current Visit: Yes Status: Resolved Assessment & Plan: -Resolved since admission -A1c 6.25 - no incidence of hypoglycemia -UA unremarkable -CT as stated above -check TSH, B12/fol Code(s): R41.0 - DISORIENTATION, UNSPECIFIED (7) Atrial fibrillation with RVR Current Visit: No Status: Chronic Assessment & Plan: - Tele - Continue Eliquis - Increased metoprolol from 50mg to 75mg 10/08/23 x 1 dose due to afib/aflutter with HR > 100 - no further incidence - Continue Digoxin Code(s): I48.91 - UNSPECIFIED ATRIAL FIBRILLATION (8) CHF (congestive heart failure) Current Visit: No Status: Chronic Assessment & Plan: - BNP 1270 - Continue home meds I spent 35 minutes [id number] with the patient on the day of discharge performing discharge exam, discussing hospital stay and discharge instructions with patient and caregivers, preparation of discharge records, prescriptions & referral forms and addressing any questions/concerns the patient had as documented above. - Vitals & Intake/Output Vital Signs: Vital Signs Temperature 97.6 F 10/10/23 11:28 Pulse Rate 90 10/10/23 11:28 Respiratory Rate 16 10/10/23 11:28 Blood Pressure 123/69 07/09/24 11:28 O2 Sat by Pulse Oximetry 94 L 10/10/23 11:28 Intake & Output: Intake & Output 10/08/23 10/09/23 10/10/23 10/11/23 11:59 11:59 11:59 11:59 Intake Total 360 1500 1080 380 Output Total 650 2900 1100 500 Balance -290 -1400 -20 -120 Weight 71.5 kg 71.5 kg - Lab Result Diagrams: 10/10/23 07:45 10/10/23 07:45 Lab Results-Last 24 Hrs: Lab Results-Last 24 Hours 10/10/23 10/10/23 Range/Units 07:45 07:45 WBC 9.0 (3.98-10.04) x10^3/uL RBC 4.71 (3.93-5.22) x10^6/uL Hgb 12.8 (11.2-15.7) g/dL Hct 40.4 (34.1-44.9) % MCV 85.8 (79.4-94.8) fL MCH 27.2 (25.6-32.2) pg MCHC 31.7 L (32.2-35.5) g/dL RDW 14.8 H (11.7-14.4) % Plt Count 290 (182-369) x10^3/uL MPV 9.6 (9.4-12.3) fL Gran % 71.8 H (34.0-71.1) % Immature Gran % (Auto) 0.3 (0.001-0.429) % Nucleat RBC Rel Count 0.0 (0.00-0.2) % Eos # (Auto) 0.31 (0.04-0.36) x10^3/uL Immature Gran # (Auto) 0.03 (0.001-0.031) x10^3u/L Absolute Lymphs (auto) 1.42 (1.18-3.74) x10^3/uL Absolute Monos (auto) 0.72 (0.24-0.86) x10^3/uL Absolute Nucleated RBC 0.00 (0.00-0.012) x10^3u/L Lymphocytes % 15.8 L (19.3-51.7) % Monocytes % 8.0 (4.7-12.5) % Eosinophils % 3.5 (0.7-5.8) % Basophils % 0.6 (0.1-1.2) % Absolute Granulocytes 6.43 H (1.56-6.13) x10^3/uL Basophils # 0.05 (0.01-0.08) x10^3/uL Sodium 138 (135-145) mmol/L Potassium 4.0 (3.5-5.1) mmol/L Chloride 104 (98-107) mmol/L Carbon Dioxide 28 (22-30) mmol/L Anion Gap 10.5 (5-15) MEQ/L BUN 12 (7-17) mg/dL Creatinine 0.70 (0.52-1.04) mg/dL Estimated GFR 86.8 ML/MIN Glucose 152 H (74-106) mg/dL Calcium 9.2 (8.4-10.2) mg/dL Total Bilirubin 0.70 (0.2-1.3) mg/dL AST 31 (14-36) U/L ALT 21 (0-35) U/L Alkaline Phosphatase 55 (38-126) U/L Serum Total Protein 7.6 (6.3-8.2) g/dL Albumin 3.6 (3.5-5.0) g/dL - Radiology Exams Ordered Rad Exams-Entire Visit: Radiology Procedures Category Date Time Status HEAD WITHOUT CONTRAST [CT] Stat Exams 10/09/23 13:24 Completed VENOUS BILATERAL EXTREMITY [US] Routine Exams 10/09/23 08:39 Completed - Procedures and Test Procedures and Tests throughout Hospitalization: Therapy Orders & Screens 10/07/23 22:20 RT Screen per Nursing Assess ONCE Comment: Protocol Order Physician Instructions: Greater than 3 points order RT Admission Screen Reason For Exam: Triggered on Admission Diagnosis: TIA Diagnosis: TIA Pneumonia: No Home O2: Yes: with bipap only Asthma: No CHF: No Home CPAP/BIPAP: Yes Home Nebs/MDI: Yes Total Points: 15 10/07/23 23:19 BiPap/CPAP ROUTINE Comment: Diagnosis: TIA Respiratory Therapy Assessment DAILY Comment: Diagnosis: TIA 10/07/23 23:25 Oxygen Nasal Cannula 2 lpm Comment: Diagnosis: TIA 10/08/23 09:28 PT Eval & Treat (MD Order) ONCE Reason for Eval:: TIA, weakness Diagnosis: TIA Discharge Exam General Appearance: no apparent distress Neurologic Exam: alert, 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, cooperative Eye Exam: PERRL Ears, Nose, Throat Exam: normal ENT inspection Neck Exam: normal inspection Respiratory Exam: normal breath sounds, lungs clear Cardiovascular Exam: regular rate/rhythm, normal heart sounds Gastrointestinal/Abdomen Exam: soft, normal bowel sounds Pelvic Exam: deferred Rectal Exam: deferred Back Exam: normal inspection Extremity Exam: normal inspection Skin Exam: normal color Final Diagnosis/Problem List - Final Discharge Diagnosis/Problem (1) TIA (transient ischemic attack) Current Visit: Yes Status: Acute Code(s): G45.9 - TRANSIENT CEREBRAL ISCHEMIC ATTACK, UNSPECIFIED (2) Bilateral carotid artery stenosis without cerebral infarction Current Visit: Yes Status: Chronic Code(s): I65.23 - OCCLUSION AND STENOSIS OF BILATERAL CAROTID ARTERIES (3) Depression with anxiety Current Visit: Yes Status: Chronic Code(s): F41.8 - OTHER SPECIFIED ANXIETY DISORDERS (4) Hyperlipidemia Current Visit: Yes Status: Chronic Code(s): E78.5 - HYPERLIPIDEMIA, UNSPECIF IED (5) Hypothyroidism Current Visit: Yes Status: Chronic Code(s): E03.9 - HYPOTHYROIDISM, UNSPECIFIED (6) Confusion Current Visit: Yes Status: Resolved Code(s): R41.0 - DISORIENTATION, UNSPECIFIED (7) Atrial fibrillation with RVR Current Visit: No Status: Chronic Code(s): I48.91 - UNSPECIFIED ATRIAL FIBRILLATION (8) CHF (congestive heart failure) Current Visit: No Status: Chronic Code(s): I50.9 - HEART FAILURE, UNSPECIFIED - Discharge Disposition: Home, Self-Care Condition: Stable Prescriptions: New Aspirin EC 81 mg [Ecotrin 81 mg] 81 mg PO DAILY 30 Days #30 tablet Atorvastatin Calcium [Lipitor 40Mg] 40 mg PO DAILY 30 Days #30 tablet Continue Calcium Carbonate/Vitamin D3 [Calcium 500-Vit D3 200 Caplet] 1 tab PO BID@1200,2000 Magnesium 250 mg PO HS Potassium Chloride 10 meq PO QAM Furosemide 20 mg [Lasix 20 mg] 20 mg PO DAILY@1200 Digoxin 0.125 mg Tablet [Lanoxin 0.125MG TABLET] 0.0625 mg PO QAM Metoprolol Tartrate 50 mg PO QAM Escitalopram Oxalate [Lexapro] 20 mg PO HS Zinc 50 mg PO DAILY Ascorbic Acid [C-1000] 500 mg PO DAILY Allopurinol 100 mg [Zyloprim 100 mg] 100 mg PO DAILY Loratadine 10 mg PO HS Fluticasone Propionate [Flonase NASAL] 1 gm NS QAM Ipratropium Funk 0.5 mg [Atrovent 0.5MG NEBULE] 0.5 mg IH QID Albuterol 2.5 mg/0.5 ml [PROVENTIL Solution 2.5 MG/0.5 ML] 2.5 mg IH QID Multivit-Min/Iron/Folic Acid/K [Adults Multivitamin Tablet] 1 tablet PO HS Apixaban [Eliquis 5 mg Tablet] 1 tablet PO DAILY Levothyroxine Sodium 75 Mcg [Synthroid 75 Mcg] 75 mcg PO DAILY Alendronate Sodium 70 mg [Fosamax 70 MG] 70 mg PO Q7D@0600 Ubidecarenone [Co Q-10] 10 mg PO DAILY Apixaban [Eliquis 2.5 mg Tablet] 5 mg PO DAILY Discontinued Simvastatin 20 mg PO HS Additional Instructions: Call Dr. Briseno - Cardiovascular surgery for follow up appointment on carotid stenosis at [phone] Follow up with: NICHELLE HECK DO [Primary Care Provider] - 10/16/23 11:00 am ANUPAMA CARLISLE [NON-STAFF PHY W/O PRIVILEGES] - 11/03/23 9:30 am
[2023-10-10 17:42] VITALS: BP 164/74; PULSE 94; RESP 20; TEMP 97.9
[2023-10-14] MEDS ORDERED: Fosamax 70 MG PO SCH (06:00)
== END 2023-10-10 17:58 | disposition home or self-care (01) ==
LOC: ED 15:24 → MED SURG 21:37
PROVIDERS: ADMIT Student in an Organized Health Care Education/Training Program; ATTEND Student in an Organized Health Care Education/Training Program
DX: G45.9 Transient cerebral ischemic attack, unspecified (principal); F41.8 Other specified anxiety disorders; E78.5 Hyperlipidemia, unspecified; E03.9 Hypothyroidism, unspecified; R41.0 Disorientation, unspecified; I48.20 Chronic atrial fibrillation, unspecified; M79.604 Pain in right leg; Z79.01 Long term (current) use of anticoagulants; I11.0 Hypertensive heart disease with heart failure; I50.9 Heart failure, unspecified; Z79.899 Other long term (current) drug therapy; Z86.73 Personal history of transient ischemic attack (TIA), and cerebral infarction without residual deficits
CPT/HCPCS: 36415; 70450; 70496; 70498; 80048; 80053; 80061; 81001; 82607; 82746; 83036; 83721; 83880; 84443; 84484; 85025; 85027; 85610; 85730; 93268; 93970; 94660; 94760; 97110; 97161; 99284; G0378; Q3014; 70491; J2060; A9270-GY

== ENCOUNTER 2023-11-16 15:53 | Observation (INO) | payer MEDICARE ==
[2023-11-16 18:29] LABS: Absolute Neutrophil Ct (ANC) 6.44 x10^3/uL (1.56-6.13); BASOPHIL % 0.5 % (0.1-1.2); Basophil (Absolute #) 0.05 x10^3/uL (0.01-0.08); Eosinophil % 3.8 % (0.7-5.8); Eosinophil (Absolute #) 0.35 x10^3/uL (0.04-0.36); Hematocrit 39.3 % (34.1-44.9); Hemoglobin 12.3 g/dL (11.2-15.7); IMMATURE GRAN # 0.03 x10^3u/L (0.001-0.031); IMMATURE GRAN % 0.3 % (0.001-0.429); Lymphocyte (Absolute #) 1.52 x10^3/uL (1.18-3.74); Lymphocytes % 16.6 % (19.3-51.7); Mean Cell Volume 85.6 fL (79.4-94.8); Mean Corpuscular Hemoglobin 26.8 pg (25.6-32.2); Mean Corpuscular Hgb Concent. 31.3 g/dL (32.2-35.5); Mean Platelet Volume 9.3 fL (9.4-12.3); Monocyte (Absolute #) 0.75 x10^3/uL (0.24-0.86); Monocytes % 8.2 % (4.7-12.5); Neutrophil % 70.6 % (34.0-71.1); Platelet Count 363 x10^3/uL (182-369); Red Blood Count 4.59 x10^6/uL (3.93-5.22); Red Cell Distribution Width 15.3 % (11.7-14.4); White Blood Count 9.1 x10^3/uL (3.98-10.04)
[2023-11-16 18:45] LABS: ALBUMIN 3.8 g/dL (3.5-5.0); ANION GAP 11.7 MEQ/L (5-15); BILIRUBIN,TOTAL 0.4 mg/dL (0.2-1.3); Calcium 9.1 mg/dL (8.4-10.2); Creatinine 1 0.93 mg/dL (0.52-1.04); EST GLOMERULAR FILTRATION RATE 61.8 ML/MIN; Potassium 3.8 mmol/L (3.5-5.1); Total Protein 7.7 g/dL (6.3-8.2)
[2023-11-16 18:53] LABS: ADD URINE CULTURE? NO (NO); Appearance Clear (Clear); Bacteria None Seen /HPF (None Seen); Bilirubin Negative (Negative); Blood Negative (Negative); Epithelial Cells None Seen /HPF (None Seen); Glucose, Urine Negative (Negative); Hyaline Casts NONE SEEN /LPF (0-2); Ketones Negative (Negative); Leukocyte Esterase Negative (Negative); Nitrite Negative (Negative); Protein,Urine Dip Negative (Negative); Urobilinogen 0.2 mg/dL (0.2); WBC 0-2 /HPF (0-5)
--- NOTE | 2023-11-16 21:30 | ERPHSYRPT ---
- History of Present Illness Time Seen by Provider: 11/16/23 17:45 Source: patient, family Exam Limitations: no limitations Patient Subjective Stated Complaint: Hand pain Triage Nursing Assessment: Patient brought into ED per w/c and transferred to bed with assist of 1. Patient A+O X3. Patient's skin pink, warm and dry. Patient states she started having right hand pain a few days ago and today her right hand was numb and tingled and was cramped up. Patient went to [facility] and was told to come to ER for eval. Patient currently denies pain or discomfort and LOPES well. Physician History: 83-year-old right-handed dominant female with history of atrial fibrillation on Eliquis, congestive heart failure, hypothyroidism, TIA last month presented in the ER with sudden onset right hand weakness and tingling sensation around 2 PM while she was sitting. Reports some discomfort or pain. She was not able to squeeze anything per . Patient initially went to [facility] and sent in here for further evaluation. On presentation in the ER her symptoms are resolved. Currently she denies any numbness tingling or weakness. No pain. Denies any chest pain palpitations or shortness of breath. No visual disturbanc e. No difficulty speech. Allergies/Adverse Reactions: cefaclor [From Ceclor] Allergy (Intermediate, Verified 11/16/23 17:39) Itching face tight, swelling, felt hot clindamycin HCl [From Cleocin] Allergy (Intermediate, Verified 11/16/23 17:39) clindamycin palmitate HCl [From Cleocin] Allergy (Intermediate, Verified 11/16/23 17:39) Hives entire body clindamycin phosphate [From Cleocin] Allergy (Intermediate, Verified 11/16/23 17:39) Penicillins Allergy (Intermediate, Verified 11/16/23 17:39) Rash Home Medications: Calcium Carbonate/Vitamin D3 [Calcium 500-Vit D3 200 Caplet] 600 mg PO BID@1200,2300 07/02/13 [History] Magnesium 250 mg PO HS 11/02/18 [History] Potassium Chloride 10 meq PO BID 11/13/18 [History] Digoxin 0.125 mg Tablet [Lanoxin 0.125MG TABLET] 0.0625 mg PO QAM 01/29/19 [History] Metoprolol Tartrate 50 mg PO QAM 03/21/19 [History] Escitalopram Oxalate [Lexapro] 20 mg PO HS 03/12/20 [History] Zinc 50 mg PO DAILY 04/20/21 [History] Albuterol 2.5 mg/0.5 ml [PROVENTIL Solution 2.5 MG/0.5 ML] 2.5 mg IH QID 10/07/21 [History] Allopurinol 100 mg [Zyloprim 100 mg] 100 mg PO DAILY 10/07/21 [History] Fluticasone Propionate [Flonase NASAL] 1 gm NS QAM 10/07/21 [History] Loratadine 10 mg PO HS 10/07/21 [History] Multivit-Min/Iron/Folic Acid/K [Adults Multivitamin Tablet] 1 tablet PO HS [History] Apixaban [Eliquis 5 mg Tablet] 5 mg PO BID 05/01/22 [History] Alendronate Sodium 70 mg [Fosamax 70 MG] 70 mg PO Q7D@0600 06/21/23 [History] Levothyroxine Sodium 75 Mcg [Synthroid 75 Mcg] 75 mcg PO DAILY 06/21/23 [History] Ascorbic Acid [Vitamin C] 500 mg PO DAILY 11/16/23 [History] Atorvastatin Calcium [Lipitor 40Mg] 40 mg PO HS 11/16/23 [History] Cholecalciferol (Vitamin D3) [Vitamin D3] 25 mcg PO DAILY 11/16/23 [History] Furosemide 40 mg [Lasix 40 MG] 40 mg PO DAILY 11/16/23 [History] Metoprolol Tartrate 25 mg [Lopressor 25MG Tab] 25 mg PO HS 11/16/23 [History] Modafinil 100 mg [Provigil 100MG Tablet] 100 mg PO DAILY 11/16/23 [History] Sulfamethoxazole/Trimethoprim [Sulfamethoxazole-Tmp Ds Tablet] 1 tab PO BID 11/16/23 [History] Ubidecarenone/Vit E Acet [Co Q-10 100 mg Softgel] 1 each PO DAILY 11/16/23 [History] Hx Tetanus, Diphtheria Vaccination/Date Given: Yes Hx Influenza Vaccination/Date Given: Yes Hx Pneumococcal Vaccination/Date Given: Yes Immunizations Up to Date: Yes Travel Risk - International Travel Have you traveled outside of the country in past 3 weeks: No - Emerging Infectious Disease Are you exhibiting symptoms associated with any current EIDs: No - Review of Systems Constitutional: No Symptoms Eyes: No Symptoms Ears, Nose, & Throat: No Symptoms Respiratory: No Symptoms Cardiac: No Symptoms Abdominal/Gastrointestinal: No Symptoms Genitourinary Symptoms: No Symptoms Musculoskeletal: Arthralgias Skin: No Symptoms Neurological: Paralysis, Sensory Changes Psychological: No Symptoms Endocrine: No Symptoms Hematologic/Lymphatic: No Symptoms - Past Medical History Pertinent Past Medical History: Yes Neurological History: Stroke, TIA ENT History: Cataracts, Other Cardiac History: Arrhythmia, Congenital Heart Disease, High Cholesterol Respiratory History: Sleep Apnea Endocrine Medical History: Hypothyroidism, Other Musculoskeletal History: Osteoarthritis, Osteoporosis GI Medical History: GI Bleed, Polyps History: No Pertinent History Psycho-Social History: Anxiety, Depression, Panic Disorder Female Reproductive Disorders: No Pertinent History Other Medical History: GOUT, CERVICAL OA, DEPRESSIVE DISORDER, MILD MEMORY DISTURBANCE. PATIENT ATTENDS GROUP THERAPY AT [employer] 2X/WEEK. - Past Surgical History Past Surgical History: Yes Neuro Surgical History: No Pertinent History Cardiac: No Pertinent History Respiratory: No Pertinent History Gastrointestinal: Appendectomy Genitourinary: No Pertinent History Musculoskeletal: Joint Replacement, Orthopedic Surgery Female Surgical History: Tubal Ligation, Other Other Surgical History: sinus surgery, tonsils, D&C x2, cataract, left KNEE REPLACEMENT , antibiotic spacer placement in left knee. Significant Family History: no pertinent family hx - Social History Smoking Status: Never smoker Exposure to second hand smoke: No Alcohol Use: None Drug Use: none Patient Lives Alone: No - Social Determinants of Health Will the patient participate in the screening: Yes Do you worry about a steady place to live?: No Do you have any problems with any of the following?: No known problems In the past 12 months,have you had to go without utilities?: No Transportation Issues: No Has anyone in your support network made you feel unsafe?: No Have you or anyone in your house had to go without enough: No - Nursing Vital Signs Nursing Vital Signs: Initial Vital Signs Temperature 97.8 F 11/16/23 17:43 Pain Scale Pain Intensity 0 - Fraser Coma Scale Best Eye Response (Fraser): (4) open spontaneously Best Verbal Response (Fraser): (5) oriented Best Motor Response ([place]): (6) obeys commands [place] Total: 15 - Physical Exam General Appearance: no apparent distress, alert, anxiety Eye Exam: bilateral eye: normal inspection, PERRL, EOMI Ears, Nose, Throat Exam: normal ENT inspection, TMs normal, pharynx normal, moist mucous membranes Neck Exam: normal inspection, non-tender, supple, full range of motion Respiratory: normal breath sounds, lungs clear Cardiovascular: regular rate/rhythm, normal heart sounds Gastrointestinal: soft, normal bowel sounds, No tenderness Back Exam: normal inspection, normal range of motion Extremity Exam: normal inspection, normal range of motion, pelvis stable Mental Status: alert, 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, cooperative 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 Exam: normal hearing, normal speech, PERRL Coordination/Gait: normal finger to nose, normal cerebellar function Motor/Sensory: no motor deficit, no sensory deficit, no pronator drift, negative Babinski's sign DTR: bicep (R): 2+, bicep (L): 2+, knee (R): 2+, knee (L): 2+ Skin Exam: normal color SpO2 Interpretation: normal SpO2: 97 O2 Delivery: Room Air - Course EKG Interpreted by Me: A-fib Ordered Tests: Medication Summary Discontinued Medications Generic Name Dose Route Start Last Admin Trade Name Dmq PRN Reason Stop Dose Admin Acetaminophen 325 mg 11/17/23 00:25 Acetaminophen 325 Mg Tablet PO 12/17/23 00:24 Q4H PRN PRN PAIN, FEVER, HEADACHE Allopurinol 100 mg 11/17/23 10:00 11/17/23 09:49 Allopurinol 100 Mg Tablet PO 12/17/23 09:59 100 mg DAILY JOY Administration Alprazolam 0.25 mg 11/17/23 11:33 11/17/23 12:15 Alprazolam 0.25 Mg Tablet PO 11/17/23 11:34 0.25 mg STAT ONE Administration Apixaban 5 mg 11/17/23 10:00 11/17/23 09:49 Apixaban 2.5 Mg Tablet PO 12/17/23 09:59 5 mg BID JOY Administration Ascorbic Acid 500 mg 11/17/23 10:00 11/17/23 09:49 Ascorbic Acid 500 Mg Tablet PO 12/17/23 09:59 500 mg DAILY JOY Administration Aspirin 243 mg 11/16/23 21:29 11/16/23 21:37 Aspirin 81 Mg Tab.Chew PO 11/16/23 21:30 243 mg STAT ONE Administration Aspirin Confirm 11/16/23 21:36 Aspirin 81 Mg Tab.Chew Administered 11/16/23 21:37 Dose 243 mg .ROUTE .STK-MED ONE Aspirin 81 mg 11/17/23 10:00 11/16/23 21:44 Aspirin 81 Mg Tab.Chew PO 12/17/23 09:59 81 mg QAM JOY Administration Aspirin Confirm 11/16/23 21:41 Aspirin 81 Mg Tab.Chew Administered 11/16/23 21:42 Dose 81 mg .ROUTE .STK-MED ONE Aspirin 81 mg 11/17/23 10:00 11/17/23 09:49 Aspirin 81 Mg Tablet.Ec PO 12/17/23 09:59 81 mg DAILY JOY Administration Calcium Carbonate 1 tab 11/17/23 12:00 11/17/23 11:28 Calcium Carbonate 500 Mg/Vitamin D 1 Tab Tablet PO 12/17/23 11:59 1 tab BID@1200,2300 JOY Administration Cholecalciferol 1,000 unit 11/17/23 10:00 11/17/23 09:49 Cholecalciferol (Vitamin D3) 1000 Unit Tablet PO 12/17/23 09:59 1,000 unit DAILY JOY Administration Digoxin 0.0625 mg 11/17/23 10:00 11/17/23 09:49 Digoxin 0.125 Mg Tablet PO 12/17/23 09:59 0.0625 mg QAM JOY Administration Docusate Sodium 100 mg 11/17/23 00:25 Docusate Sodium 100 Mg Capsule PO 12/17/23 00:24 BIDPRN PRN CONSTIPATION Escitalopram Oxalate 20 mg 11/17/23 22:00 Escitalopram Oxalate 10 Mg Tablet PO 12/17/23 21:59 HS JOY Fluticasone Propionate 1 gm 11/17/23 10:00 11/17/23 12:13 Fluticasone Propionate 16 Gm Bottle Nasal [place] 12/17/23 09:59 Not Given QAM JOY Fluticasone Propionate 0 gm 11/17/23 12:00 11/17/23 12:15 Fluticasone Propionate 16 Gm Bottle Nasal [place] 12/17/23 09:59 16 gm QAM JOY Administration Sodium Chloride 1,000 mls @ 50 mls/hr 11/17/23 00:30 11/17/23 00:30 Sodium Chloride 0.9% 1000 Ml IV 12/17/23 00:29 50 mls/hr .Q20H JOY Administration Levothyroxine Sodium 75 mcg 11/17/23 10:00 11/17/23 09:49 Levothyroxine Sodium 75 Mcg Tablet PO 12/17/23 09:59 75 mcg DAILY JOY Administration Loratadine 10 mg 11/17/23 22:00 Loratadine 10 Mg Tablet PO 12/17/23 21:59 HS JOY Metoprolol Tartrate 25 mg 11/17/23 22:00 Metoprolol Tartrate 25 Mg Tab PO 12/17/23 21:59 HS [facility] Metoprolol Tartrate 50 mg 11/17/23 10:00 11/17/23 09:49 Metoprolol Tartrate 50 Mg Tablet PO 12/17/23 09:59 50 mg QAM JOY Administration Modafinil 100 mg 11/17/23 10:00 11/17/23 09:49 Modafinil 100 Mg Tab PO 12/17/23 09:59 100 mg DAILY JOY Administration Multivitamins Therapeutic 1 tab 11/17/23 22:00 Multivitamins,Therapeutic 1 Tab Tab PO 12/17/23 21:59 HS [facility] Pantoprazole Sodium 40 mg 11/17/23 10:00 11/17/23 09:49 Protonix (Pantoprazole) 40 Mg Tablet PO 12/17/23 09:59 40 mg DAILY JOY Administration Simvastatin 40 mg 11/17/23 22:00 Simvastatin 20 Mg Tablet PO 12/17/23 21:59 HS [facility] Zinc Gluconate 50 mg 11/17/23 10:00 11/17/23 09:50 Zinc Gluconate 50 Mg Tablet PO 12/17/23 09:59 50 mg DAILY JOY Administration Lab/Rad Data: Laboratory Result Diagrams 11/16/23 18:15 11/16/23 18:15 Laboratory Results 11/16/23 11/16/23 11/16/23 Range/Units 18:42 18:15 18:15 WBC (3.98-10.04) x10^3/uL RBC (3.93-5.22) x10^6/uL Hgb (11.2-15.7) g/dL Hct (34.1-44.9) % MCV (79.4-94.8) fL MCH (25.6-32.2) pg MCHC (32.2-35.5) g/dL RDW (11.7-14.4) % Plt Count (182-369) x10^3/uL MPV (9.4-12.3) fL Gran % (34.0-71.1) % Immature Gran % (Auto) (0.001-0.429) % Nucleat RBC Rel Count (0.00-0.2) % Eos # (Auto) (0.04-0.36) x10^3/uL Immature Gran # (Auto) (0.001-0.031) x10^3u/L Absolute Lymphs (auto) (1.18-3.74) x10^3/uL Absolute Monos (auto) (0.24-0.86) x10^3/uL Absolute Nucleated RBC (0.00-0.012) x10^3u/L Lymphocytes % (19.3-51.7) % Monocytes % (4.7-12.5) % Eosinophils % (0.7-5.8) % Basophils % (0.1-1.2) % Absolute Granulocytes (1.56-6.13) x10^3/uL Basophils # (0.01-0.08) x10^3/uL Sodium 139 (135-145) mmol/L Potassium 3.8 (3.5-5.1) mmol/L Chloride 101 (98-107) mmol/L Carbon Dioxide 30 (22-30) mmol/L Anion Gap 11.7 (5-15) MEQ/L BUN 25 H (7-17) mg/dL Creatinine 0.93 (0.52-1.04) mg/dL Estimated GFR 61.8 ML/MIN Glucose 113 H (74-106) mg/dL Calcium 9.1 (8.4-10.2) mg/dL Total Bilirubin 0.40 (0.2-1.3) mg/dL AST 56 H (14-36) U/L ALT 58 H (0-35) U/L Alkaline Phosphatase 58 (38-126) U/L Troponin I < 0.012 (0.000-0.033) ng/mL Serum Total Protein 7.7 (6.3-8.2) g/dL Albumin 3.8 (3.5-5.0) g/dL Urine Color Yellow (Yellow) Urine Appearance Clear (Clear) Urine pH 7.0 (4.6-8.0) Ur Specific [place] 1.010 (1.005-1.030) Urine Protein Negative (Negative) Urine Glucose (UA) Negative (Negative) mg/dL Urine Ketones Negative (Negative) Urine Blood Negative (Negative) Urine Nitrite Negative (Negative) Urine Bilirubin Negative (Negative) Urine Urobilinogen 0.2 (0.2) mg/dL Ur Leukocyte Esterase Negative (Negative) U Hyaline Cast (Auto) NONE SEEN (0-2) /LPF Urine Microscopic RBC 3-5 (0-5) /HPF Urine Microscopic WBC 0-2 (0-5) /HPF Ur Epithelial Cells None Seen (None Seen) /HPF Urine Bacteria None Seen (None Seen) /HPF Urine Culture Reflexed NO (NO) 11/16/23 Range/Units 18:15 WBC 9.1 (3.98-10.04) x10^3/uL RBC 4.59 (3.93-5.22) x10^6/uL Hgb 12.3 (11.2-15.7) g/dL Hct 39.3 (34.1-44.9) % MCV 85.6 (79.4-94.8) fL MCH 26.8 (25.6-32.2) pg MCHC 31.3 L (32.2-35.5) g/dL RDW 15.3 H (11.7-14.4) % Plt Count 363 (182-369) x10^3/uL MPV 9.3 L (9.4-12.3) fL Gran % 70.6 (34.0-71.1) % Immature Gran % (Auto) 0.3 (0.001-0.429) % Nucleat RBC Rel Count 0.0 (0.00-0.2) % Eos # (Auto) 0.35 (0.04-0.36) x10^3/uL Immature Gran # (Auto) 0.03 (0.001-0.031) x10^3u/L Absolute Lymphs (auto) 1.52 (1.18-3.74) x10^3/uL Absolute Monos (auto) 0.75 (0.24-0.86) x10^3/uL Absolute Nucleated RBC 0.00 (0.00-0.012) x10^3u/L Lymphocytes % 16.6 L (19.3-51.7) % Monocytes % 8.2 (4.7-12.5) % Eosinophils % 3.8 (0.7-5.8) % Basophils % 0.5 (0.1-1.2) % Absolute Granulocytes 6.44 H (1.56-6.13) x10^3/uL Basophils # 0.05 (0.01-0.08) x10^3/uL Sodium (135-145) mmol/L Potassium (3.5-5.1) mmol/L Chloride (98-107) mmol/L Carbon Dioxide (22-30) mmol/L Anion Gap (5-15) MEQ/L BUN (7-17) mg/dL Creatinine (0.52-1.04) mg/dL Estimated GFR ML/MIN Glucose (74-106) mg/dL Calcium (8.4-10.2) mg/dL Total Bilirubin (0.2-1.3) mg/dL AST (14-36) U/L ALT (0-35) U/L Alkaline Phosphatase (38-126) U/L Troponin I (0.000-0.033) ng/mL Serum Total Protein (6.3-8.2) g/dL Albumin (3.5-5.0) g/dL Urine Color (Yellow) Urine Appearance (Clear) Urine pH (4.6-8.0) Ur Specific [place] (1.005-1.030) Urine Protein (Negative) Urine Glucose (UA) (Negative) mg/dL Urine Ketones (Negative) Urine Blood (Negative) Urine Nitrite (Negative) Urine Bilirubin (Negative) Urine Urobilinogen (0.2) mg/dL Ur Leukocyte Esterase (Negative) U Hyaline Cast (Auto) (0-2) /LPF Urine Microscopic RBC (0-5) /HPF Urine Microscopic WBC (0-5) /HPF Ur Epithelial Cells (None Seen) /HPF Urine Bacteria (None Seen) /HPF Urine Culture Reflexed (NO) - Progress Progress: improved Progress Note: 11/16/23 21:28 83-year-old with history of atrial fibrillation on Eliquis, previous TIA, hypothyroidism is evaluated in the ER for right hand numbness and weakness started around 2 PM which improved prior to arrival in the ER. Patient has NIH of 0 during my evaluation. I have obtained CT head which is negative for any acute findings. Workup showed normal white count, fairly unremarkable chem istries and no UTI. EKG is A-fib rate controlled with no ST elevations. Obtain [facility] neurology consult who has evaluated patient in the ER and thinks patient has another TIA. Recommended increasing dose of aspirin to 325 daily and obtaining CTA head and neck and admission to hospitalist service. I have discussed with Dr. Perkins, reviewed history, workup and agreed with admission. I have shared the results of workup with patient and family and neurology recommendation which they understand and agree. Discussed with Dr.: Other (Hospitalist Dr. Perkins, [facility] [place] Counseled pt/family regarding: lab results, diagnosis, rad results Medical Desision Making - Independent Historian Additional History obtained from: Spouse - Discussion of managment Care discussed with:: specialist ([facility] [place], Dr. Perkins hospitalist) Reviewed:: Test results, Need for additional workup Agreed on:: Treatment plan, place in obs Will see patient: in ED - Diagnostic Testing Diagnostic test were ordered, analyzed, and reviewed by me: Yes Radiological Interpretation: Interpreted by me, Reviewed by me, Teleradiologist Report - Risk of complications The pt has a high risk of morbidity or mortality based on: Decision regarding hospitilization or escalation of hosp level of care - Departure Departure Disposition: Home Clinical Impression: TIA (transient ischemic attack) Condition: Stable Critical Care Time: No
[2023-11-16] MEDS ORDERED: BABY ASPIRIN 81 MG CHEW ONE ×2 (21:36→21:41)
[2023-11-16] MEDS: BABY ASPIRIN 81 MG CHEW PO ONE (21:37)
[2023-11-16] MEDS: BABY ASPIRIN 81 MG CHEW PO SCH (21:44)
--- NOTE | 2023-11-16 22:11 | XRAY ---
Indication: Right hand weakness. TIA. Conventional contrast enhanced CTA neck performed using 80 cc Isovue 370 contrast. 2-D sagittal and coronal reformatted images obtained. Additional 3-D reformatted images obtained using a separate workstation. Comparison: October 07, 2023 Visualized aortic arch again demonstrates minimal calcifications without aneurysm/dissection. Again anatomic variants for bovine arch with common origin right brachiocephalic and left common carotid arteries with stable minimal calcifications. Again widely patent left subclavian artery. Examination right carotid circulation again demonstrates normal CTA appearance to the common carotid artery. Stable minimal calcifications carotid bulb and origins both internal carotid and external carotid arteries without critical stenosis/obstruction. Examination left carotid circulation again demonstrates normal CTA appearance to the common carotid artery. Stable minimal calcifications carotid bulb and mild calcifications origins both internal carotid and external carotid arteries without critical stenosis/obstruction. Vertebral arteries again bilaterally patent with right larger in caliber. Stable osteopenia, mild/moderate multilevel cervical thoracic degenerative spondylosis, and congenital fusion C2-C3. Remaining visualized noncontrasted soft tissues including on the bases are unremarkable. Impression: No change compared to CTA neck exam one month ago. Again minimal calcifications both carotid bulbs and origins internal/external carotid arteries without critical stenosis/obstruction.
--- NOTE | 2023-11-16 22:15 | XRAY ---
Indication: Right hand weakness. TIA. Conventional contrast enhanced CTA head performed using 80 cc Isovue 370 contrast. 2-D sagittal and coronal reformatted images obtained. Additional 3-D reformatted images obtained using a separate workstation. Comparison: October 07, 2023 Distal internal carotid arteries again demonstrates mild scattered calcifications both parasellar segments without critical stenosis/obstruction. Normal carotid terminus with normal branching A1 and M1 segments bilaterally. More distal anterior cerebral and middle cerebral arteries are normal in CTA appearance. Posterior circulation again demonstrates mild calcifications in both distal vertebral arteries without critical stenosis/obstruction. Normal CTA appearance to the remaining basilar, left/right posterior cerebral, and left/right superior cerebellar arteries. Venous sinuses/drainage unremarkable. Brain parenchyma negative for abnormal enhancing intra-or extra-axial mass. Impression: No change compared to CTA head exam one month ago. Again calcifications in both parasellar internal carotid arteries and both distal vertebral arteries without critical stenosis/obstruction. Remaining CTA head with contrast exam is negative.
--- NOTE | 2023-11-16 23:22 | XRAY ---
Indication: Weakness. Right hand numbness. Multiple contiguous axial images obtained of the head without contrast. Comparison: October 09, 2023 Again age-appropriate global atrophy, mild periventricular degenerative micro-ischemia bilaterally, and remote lacunar infarct right basal ganglia. No acute intracranial hemorrhage, abnormal extra-axial fluid collection, or mass effect. Fourth ventricle is midline without hydrocephalus. Bony calvarium intact. Visualized paranasal sinuses and mastoid air cells are clear. Impression: Continued nonacute senile brain with remote lacunar infarct right basal ganglia.
[2023-11-17] MEDS ORDERED: TYLENOL 325 MG PO PRN (00:25)
[2023-11-17] MEDS ORDERED: Docusate Sodium 100 MG PO PRN (00:25)
[2023-11-17] MEDS: Sodium Chloride 0.9% 1000 ML 1,000 ML IV SCH (00:30)
--- NOTE | 2023-11-17 00:34 | PCM.HP ---
History of Present Illness - Chief Complaint Chief Complaint: TIA Date: 11/16/23 History of Present Illness: is a 83 year old female with a past medical history significant for hypertension, atrial fibrillation, and previous TIA who presents to the hospital with complaints of R sided arm/hand tingling/numbness since 2 p.m. She reports symptoms were not the same as her last TIA though she cannot provide all the details. No focal leg weakness, facial droop or dysarthria. No chest pain or palpitations. No fever/chills. No nausea, vomiting or diarrhea. No dysuria, hematuria or foamy urine. - Review of Systems Constitutional: No Fever, No Chills Eyes: No Vision Changes Ears, Nose, & Throat: No Symptoms Respiratory: No Short Of Breath Cardiac: Edema, No Chest Pain, No Palpitations Abdominal/Gastrointestinal: No Abdominal Pain, No Nausea, No Vomiting, No Diarrhea Genitourinary Symptoms: No Dysuria, No Frequency, No Hematuria Musculoskeletal: No Arthralgias, No Back Pain Skin: No Cellulitis, No Rash Neurological: No Dizziness Psychological: No Suicidal Ideations Endocrine: No Polyuria, No Polydipsia Medications & Allergies Home Medications: Home Medication List Calcium Carbonate/Vitamin D3 [Calcium 500-Vit D3 200 Caplet] 600 mg PO BID@1200,2300 07/02/13 [History Confirmed 11/16/23] Magnesium 250 mg PO HS 11/02/18 [History Confirmed 11/16/23] Potassium Chloride 10 meq PO BID 11/13/18 [History Confirmed 11/16/23] Digoxin 0.125 mg Tablet [Lanoxin 0.125MG TABLET] 0.0625 mg PO QAM 01/29/19 [History Confirmed 11/16/23] Metoprolol Tartrate 50 mg PO QAM 03/21/19 [History Confirmed 11/16/23] Escitalopram Oxalate [Lexapro] 20 mg PO HS 03/12/20 [History Confirmed 11/16/23] Zinc 50 mg PO DAILY 04/20/21 [History Confirmed 11/16/23] Albuterol 2.5 mg/0.5 ml [PROVENTIL Solution 2.5 MG/0.5 ML] 2.5 mg IH QID 10/07/21 [History Confirmed 11/16/23] Allopurinol 100 mg [Zyloprim 100 mg] 100 mg PO DAILY 10/07/21 [History Confirmed 11/16/23] Fluticasone Propionate [Flonase NASAL] 1 gm NS QAM 10/07/21 [History Confirmed 11/16/23] Loratadine 10 mg PO HS 10/07/21 [History Confirmed 11/16/23] Multivit-Min/Iron/Folic Acid/K [Adults Multivitamin Tablet] 1 tablet PO HS 02/25/22 [History Confirmed 11/16/23] Apixaban [Eliquis 5 mg Tablet] 5 mg PO BID 05/01/22 [History Confirmed 11/16/23] Alendronate Sodium 70 mg [Fosamax 70 MG] 70 mg PO Q7D@0600 06/21/23 [History Confirmed 11/16/23] Levothyroxine Sodium 75 Mcg [Synthroid 75 Mcg] 75 mcg PO DAILY 06/21/23 [History Confirmed 11/16/23] Aspirin EC 81 mg [Ecotrin 81 mg] 81 mg PO DAILY 30 Days #30 tablet 10/10/23 [Rx Confirmed 11/16/23] Ascorbic Acid [Vitamin C] 500 mg PO DAILY 11/16/23 [History Confirmed 11/16/23] Atorvastatin Calcium [Lipitor 40Mg] 40 mg PO HS 11/16/23 [History Confirmed 11/16/23] Cholecalciferol (Vitamin D3) [Vitamin D3] 25 mcg PO DAILY 11/16/23 [History Confirmed 11/16/23] Furosemide 40 mg [Lasix 40 MG] 40 mg PO DAILY 11/16/23 [History Confirmed 11/16/23] Metoprolol Tartrate 25 mg [Lopressor 25MG Tab] 25 mg PO HS 11/16/23 [History Confirmed 11/16/23] Modafinil 100 mg [Provigil 100MG Tablet] 100 mg PO DAILY 11/16/23 [History Confirmed 11/16/23] Sulfamethoxazole/Trimethoprim [Sulfamethoxazole-Tmp Ds Tablet] 1 tab PO BID 11/16/23 [History Confirmed 11/16/23] Ubidecarenone/Vit E Acet [Co Q-10 100 mg Softgel] 1 each PO DAILY 11/16/23 [History Confirmed 11/16/23] Allergies/Adverse Reactions: Allergies Allergy/AdvReac Type Severity Reaction Status Date / Time cefaclor [From Ceclor] Allergy Intermediate Itching Verified 11/16/23 17:39 clindamycin HCl Allergy Intermediate Verified 11/16/23 17:39 [From Cleocin] clindamycin palmitate HCl Allergy Intermediate Hives Verified 11/16/23 17:39 [From Cleocin] clindamycin phosphate Allergy Intermediate Verified 11/16/23 17:39 [From Cleocin] Penicillins Allergy Intermediate Rash Verified 11/16/23 17:39 - Past Medical History Past Medical History: Yes Neurological History: TIA ENT History: Cataracts, Other Cardiac History: Arrhythmia, Congenital Heart Disease, High Cholesterol Respiratory History: Sleep Apnea Endocrine Medical History: Hypothyroidism, Other Musculoskelatal History: Osteoarthritis, Osteoporosis GI Medical History: Polyps History: No Pertinent History Pyscho-Social History: Anxiety, Depression, Panic Disorder Reproductive Disorders: No Pertinent History Comment: GOUT, CERVICAL OA, DEPRESSIVE DISORDER, MILD MEMORY DISTURBANCE. PATIENT ATTENDS GROUP THERAPY AT [facility] 2X/WEEK. - Past Surgical History Past Surgical History: Yes Neuro Surgical History: No Pertinent History Cardiac History: No Pertinent History Respiratory Surgery: No Pertinent History GI Surgical History: Appendectomy Genitourinary Surgical Hx: No Pertinent History Musculskeletal Surgical Hx: Joint Replacement, Orthopedic Surgery Female Surgical History: Tubal Ligation, Other Other Surgical History: sinus surgery, tonsils, D&C x2, cataract, left knee replacement, antibiotic spacer placement in left knee. Significant Family History: no pertinent family hx - Social History Smoking Status: Never smoker Exposure to second hand smoke: No Alcohol: None Drug Use: none - Social Determinants of Health Will the patient participate in the screening: Yes Do you worry about a steady place to live?: No Do you have any problems with any of the following?: No known problems In the past 12 months,have you had to go without utilities?: No Have you or anyone in your house had to go without enough: No Transportation Issues: No Has anyone in your support network made you feel unsafe?: No Does the patient want assistance with any of the above?: No - Physical Exam Vital Signs: Vital Signs - 24 hr Temp Pulse Resp BP BP Pulse Ox 11/16/23 22:11 97.9 F 105 H 19 111/60 90 L 11/16/23 21:57 97 11/16/23 21:30 82 118/77 93 L 11/16/23 21:11 97.9 F 98 H 18 123/62 97 11/16/23 21:10 92 H 31 H 97 11/16/23 21:03 105 H 82 L 11/16/23 20:30 125/76 11/16/23 20:00 96 H 15 125/71 96 11/16/23 19:30 103 H 18 139/69 97 11/16/23 19:00 101 H 18 117/65 98 11/16/23 17:43 97.8 F General Appearance: no apparent distress Neurologic Exam: alert Ears, Nose, Throat Exam: dry mucous membranes Neck Exam: supple Respiratory Exam: No respiratory distress Cardiovascular Exam: regular rate/rhythm Gastrointestinal/Abdomen Exam: soft Extremity Exam: pedal edema Skin Exam: normal color, No rash Results - Labs Lab/Micro Results: Lab Results-Last 24 Hours 11/16/23 11/16/23 11/16/23 Range/Units 18:15 18:15 18:15 WBC 9.1 (3.98-10.04) x10^3/uL RBC 4.59 (3.93-5.22) x10^6/uL Hgb 12.3 (11.2-15.7) g/dL Hct 39.3 (34.1-44.9) % MCV 85.6 (79.4-94.8) fL MCH 26.8 (25.6-32.2) pg MCHC 31.3 L (32.2-35.5) g/dL RDW 15.3 H (11.7-14.4) % Plt Count 363 (182-369) x10^3/uL MPV 9.3 L (9.4-12.3) fL Gran % 70.6 (34.0-71.1) % Immature Gran % (Auto) 0.3 (0.001-0.429) % Nucleat RBC Rel Count 0.0 (0.00-0.2) % Eos # (Auto) 0.35 (0.04-0.36) x10^3/uL Immature Gran # (Auto) 0.03 (0.001-0.031) x10^3u/L Absolute Lymphs (auto) 1.52 (1.18-3.74) x10^3/uL Absolute Monos (auto) 0.75 (0.24-0.86) x10^3/uL Absolute Nucleated RBC 0.00 (0.00-0.012) x10^3u/L Lymphocytes % 16.6 L (19.3-51.7) % Monocytes % 8.2 (4.7-12.5) % Eosinophils % 3.8 (0.7-5.8) % Basophils % 0.5 (0.1-1.2) % Absolute Granulocytes 6.44 H (1.56-6.13) x10^3/uL Basophils # 0.05 (0.01-0.08) x10^3/uL Sodium 139 (135-145) mmol/L Potassium 3.8 (3.5-5.1) mmol/L Chloride 101 (98-107) mmol/L Carbon Dioxide 30 (22-30) mmol/L Anion Gap 11.7 (5-15) MEQ/L BUN 25 H (7-17) mg/dL Creatinine 0.93 (0.52-1.04) mg/dL Estimated GFR 61.8 ML/MIN Glucose 113 H (74-106) mg/dL Calcium 9.1 (8.4-10.2) mg/dL Total Bilirubin 0.40 (0.2-1.3) mg/dL AST 56 H (14-36) U/L ALT 58 H (0-35) U/L Alkaline Phosphatase 58 (38-126) U/L Troponin I < 0.012 (0.000-0.033) ng/mL Serum Total Protein 7.7 (6.3-8.2) g/dL Albumin 3.8 (3.5-5.0) g/dL Urine Color (Yellow) Urine Appearance (Clear) Urine pH (4.6-8.0) Ur Specific [place] (1.005-1.030) Urine Protein (Negative) Urine Glucose (UA) (Negative) mg/dL Urine Ketones (Negative) Urine Blood (Negative) Urine Nitrite (Negative) Urine Bilirubin (Negative) Urine Urobilinogen (0.2) mg/dL Ur Leukocyte Esterase (Negative) U Hyaline Cast (Auto) (0-2) /LPF Urine Microscopic RBC (0-5) /HPF Urine Microscopic WBC (0-5) /HPF Ur Epithelial Cells (None Seen) /HPF Urine Bacteria (None Seen) /HPF Urine Culture Reflexed (NO) 11/16/23 Range/Units 18:42 WBC (3.98-10.04) x10^3/uL RBC (3.93-5.22) x10^6/uL Hgb (11.2-15.7) g/dL Hct (34.1-44.9) % MCV (79.4-94.8) fL MCH (25.6-32.2) pg MCHC (32.2-35.5) g/dL RDW (11.7-14.4) % Plt Count (182-369) x10^3/uL MPV (9.4-12.3) fL Gran % (34.0-71.1) % Immature Gran % (Auto) (0.001-0.429) % Nucleat RBC Rel Count (0.00-0.2) % Eos # (Auto) (0.04-0.36) x10^3/uL Immature Gran # (Auto) (0.001-0.031) x10^3u/L Absolute Lymphs (auto) (1.18-3.74) x10^3/uL Absolute Monos (auto) (0.24-0.86) x10^3/uL Absolute Nucleated RBC (0.00-0.012) x10^3u/L Lymphocytes % (19.3-51.7) % Monocytes % (4.7-12.5) % Eosinophils % (0.7-5.8) % Basophils % (0.1-1.2) % Absolute Granulocytes (1.56-6.13) x10^3/uL Basophils # (0.01-0.08) x10^3/uL Sodium (135-145) mmol/L Potassium (3.5-5.1) mmol/L Chloride (98-107) mmol/L Carbon Dioxide (22-30) mmol/L Anion Gap (5-15) MEQ/L BUN (7-17) mg/dL Creatinine (0.52-1.04) mg/dL Estimated GFR ML/MIN Glucose (74-106) mg/dL Calcium (8.4-10.2) mg/dL Total Bilirubin (0.2-1.3) mg/dL AST (14-36) U/L ALT (0-35) U/L Alkaline Phosphatase (38-126) U/L Troponin I (0.000-0.033) ng/mL Serum Total Protein (6.3-8.2) g/dL Albumin (3.5-5.0) g/dL Urine Color Yellow (Yellow) Urine Appearance Clear (Clear) Urine pH 7.0 (4.6-8.0) Ur Specific [place] 1.010 (1.005-1.030) Urine Protein Negative (Negative) Urine Glucose (UA) Negative (Negative) mg/dL Urine Ketones Negative (Negative) Urine Blood Negative (Negative) Urine Nitrite Negative (Negative) Urine Bilirubin Negative (Negative) Urine Urobilinogen 0.2 (0.2) mg/dL Ur Leukocyte Esterase Negative (Negative) U Hyaline Cast (Auto) NONE SEEN (0-2) /LPF Urine Microscopic RBC 3-5 (0-5) /HPF Urine Microscopic WBC 0-2 (0-5) /HPF Ur Epithelial Cells None Seen (None Seen) /HPF Urine Bacteria None Seen (None Seen) /HPF Urine Culture Reflexed NO (NO) - Radiology Impressions Radiology Exams & Impressions: Radiology Procedures Category Date Time Status CT ANGIOGRAPHY NECK [CT] Stat Exams 11/16/23 20:57 Completed CTA HEAD W AND/OR WO CONTRAST [CT] Routine Exams 11/17/23 09:00 Ordered CTA HEAD W AND/OR WO CONTRAST [CT] Stat Exams 11/16/23 20:08 Completed HEAD WITHOUT CONTRAST [CT] Stat Exams 11/16/23 18:10 Completed - Other Procedures and Tests Respiratory Therapy 11/17/23 00:13 RT Screen per Nursing Assess ONCE Assessment/Plan (1) TIA (transient ischemic attack) Current Visit: Yes Status: Acute Assessment & Plan: Patient with RUE tingling/numbness with history of afib 1. CTA head/neck 2. Neuro checks 3. ASA 4. PT/OT eval Code(s): G45.9 - TRANSIENT CEREBRAL ISCHEMIC ATTACK, UNSPECIFIED (2) Essential (primary) hypertension Current Visit: Yes Status: Acute Assessment & Plan: Blood pressure elevated today with target 130/80 1. Continue bp meds 2. Low Na diet 3. Monitor blood pressure readings Code(s): I10 - ESSENTIAL (PRIMARY) HYPERTENSION (3) CHF (congestive heart failure) Current Visit: No Status: Chronic Qualifiers: Heart failure chronicity: chronic Assessment & Plan: Patient with chronic LE edema on Lasix 1. Hold diuretics for now 2. Continue afterload reduction 3. Daily weights 4. PT Code(s): I50.9 - HEART FAILURE, UNSPECIFIED (4) Atrial fibrillation with RVR Current Visit: No Status: Chronic Assessment & Plan: Heart rate controlled but concerning with neuro symptoms 1. Continue Metoprolol/Dig 2. Continue antiplatelet agents 3. Telemetry 4. Monitor heart rate/rhythm Code(s): I48.91 - UNSPECIFIED ATRIAL FIBRILLATION Telemedicine Encounter - Telemedicine Encounter Telemedicine Encounter: "The entirety of this encounter was performed via Telemedicine" This visit was performed using real-time audio and video connection between my location and thepatients locationwith the assistance of a surrogateat the patients location. Written or verbal consent was obtained from the patient/guardian to perform this visit using[employer]medicine technology. Any patient questions regarding the telemedicine interaction were answered.
[2023-11-17 05:22] LABS: Absolute Neutrophil Ct (ANC) 5.79 x10^3/uL (1.56-6.13); BASOPHIL % 0.6 % (0.1-1.2); Basophil (Absolute #) 0.05 x10^3/uL (0.01-0.08); Eosinophil (Absolute #) 0.34 x10^3/uL (0.04-0.36); Hematocrit 38.4 % (34.1-44.9); Hemoglobin 11.9 g/dL (11.2-15.7); IMMATURE GRAN # 0.02 x10^3u/L (0.001-0.031); IMMATURE GRAN % 0.2 % (0.001-0.429); Lymphocyte (Absolute #) 1.52 x10^3/uL (1.18-3.74); Mean Cell Volume 85.7 fL (79.4-94.8); Mean Corpuscular Hemoglobin 26.6 pg (25.6-32.2); Mean Platelet Volume 9.7 fL (9.4-12.3); Monocyte (Absolute #) 0.72 x10^3/uL (0.24-0.86); Monocytes % 8.5 % (4.7-12.5); Neutrophil % 68.7 % (34.0-71.1); Platelet Count 334 x10^3/uL (182-369); Red Blood Count 4.48 x10^6/uL (3.93-5.22); Red Cell Distribution Width 15.3 % (11.7-14.4); White Blood Count 8.4 x10^3/uL (3.98-10.04)
[2023-11-17 05:53] LABS: ALBUMIN 3.4 g/dL (3.5-5.0); BILIRUBIN,TOTAL 0.6 mg/dL (0.2-1.3); Creatinine 1 0.9 mg/dL (0.52-1.04); EST GLOMERULAR FILTRATION RATE 64.2 ML/MIN; Potassium 3.7 mmol/L (3.5-5.1)
[2023-11-17] MEDS: SYNTHROID 75 MCG PO SCH (09:49)
[2023-11-17] MEDS: Lopressor 50 MG PO SCH (09:49)
[2023-11-17] MEDS: Lanoxin 0.125MG TABLET PO SCH (09:49)
[2023-11-17] MEDS: ELIQUIS 2.5 MG TABLET PO SCH (09:49)
[2023-11-17] MEDS: VITAMIN D PO SCH (09:49)
[2023-11-17] MEDS: Protonix 40MG Tablet PO SCH (09:49)
[2023-11-17] MEDS: Vitamin C 500 MG PO SCH (09:49)
[2023-11-17] MEDS: Provigil 100MG Tablet PO SCH (09:49)
[2023-11-17] MEDS: ZYLOPRIM 100 MG PO SCH (09:49)
[2023-11-17] MEDS: ECOTRIN 81 MG PO SCH (09:49)
[2023-11-17] MEDS: Zinc Gluconate 50 MG PO SCH (09:50)
[2023-11-17] MEDS: Calcium 500MG W/Vit D Tablet PO SCH (11:28)
[2023-11-17 11:32] LABS: INR 1.13 (0.8-3.0); PROTIME 12.2 SECONDS (9.4-12.5)
[2023-11-17] MEDS: Flonase NASAL NS SCH ×2 (12:13→12:15)
[2023-11-17] MEDS: xanAX 0.25 MG PO ONE (12:15)
--- NOTE | 2023-11-17 12:47 | PCM.DS ---
Discharge Summary Date of Admission: 11/16/23 22:10 Date of Discharge: 11/17/23 Admitting Physician: GRISELDA CHAIDEZ MD Primary Care Provider: NICHELLE HECK DO Allergies Allergies cefaclor [From Ceclor] Allergy (Intermediate, Verified 11/16/23 17:39) Itching face tight, swelling, felt hot clindamycin HCl [From Cleocin] Allergy (Intermediate, Verified 11/16/23 17:39) clindamycin palmitate HCl [From Cleocin] Allergy (Intermediate, Verified 11/16/23 17:39) Hives entire body clindamycin phosphate [From Cleocin] Allergy (Intermediate, Verified 11/16/23 17:39) Penicillins Allergy (Intermediate, Verified 11/16/23 17:39) [facility] Summary - Hospital Course Hospital Course: 11/17/23 is a 83 year old female with a past medical history significant for hypertension, atrial fibrillation, and previous TIA. She presented to the [facility] on 11/16/23 with complaints of R sided arm/hand tingling/numbness since 2 p.m. She reports symptoms were not the same as her last TIA though she cannot provide all the details. No focal leg weakness, facial droop or dysarthria. No recent fall or injury. No chest pain or palpitations. No fever/chills. No nausea, vomiting or diarrhea. No dysuria, hematuria or foamy urine. She reports the pain went away last night and then restarted again at 8am. MRI with contrast ordered for further evaluation. She asked for anxiety medication for the testing. Labs ordered per neurology recs and were non-concerning. She reports she feels she may as she is old and the sxs are concerning for her. She reports she does not feel impending doom. All radiology results from overnight reviewed and no new acute concerns. Echo ordered and pending. HR elevated when she feels anxious. Labs overall non-concerning. She denies CP, SOB, abd. pain, N/V/D. She would benefit from an EMG OP with neurology for further evaluation of sxs. MRI brain with contrast shows: Moderate white matter chronic ischaemic change. Age-related global cerebral atrophic changes with prominent lateral ventricles and cortical CSF spaces were noted. No interval changes. - Vitals & Intake/Output Vital Signs: Vital Signs Temperature 98.1 F 11/17/23 08:00 Pulse Rate 115 H 11/17/23 08:00 Respiratory Rate 24 11/17/23 08:00 Blood Pressure 126/75 11/17/23 08:00 O2 Sat by Pulse Oximetry 94 L 11/17/23 08:00 Intake & Output: Intake & Output 11/15/23 11/16/23 11/17/23 11/18/23 11:59 11:59 11:59 11:59 Intake Total 459 Output Total 700 Balance -241 Weight 69.3 kg - Lab Result Diagrams: 11/17/23 04:40 11/17/23 04:40 Lab Results-Last 24 Hrs: Lab Results-Last 24 Hours 11/16/23 11/16/23 11/16/23 Range/Units 18:15 18:15 18:15 WBC 9.1 (3.98-10.04) x10^3/uL RBC 4.59 (3.93-5.22) x10^6/uL Hgb 12.3 (11.2-15.7) g/dL Hct 39.3 (34.1-44.9) % MCV 85.6 (79.4-94.8) fL MCH 26.8 (25.6-32.2) pg MCHC 31.3 L (32.2-35.5) g/dL RDW 15.3 H (11.7-14.4) % Plt Count 363 (182-369) x10^3/uL MPV 9.3 L (9.4-12.3) fL Gran % 70.6 (34.0-71.1) % Immature Gran % (Auto) 0.3 (0.001-0.429) % Nucleat RBC Rel Count 0.0 (0.00-0.2) % Eos # (Auto) 0.35 (0.04-0.36) x10^3/uL Immature Gran # (Auto) 0.03 (0.001-0.031) x10^3u/L Absolute Lymphs (auto) 1.52 (1.18-3.74) x10^3/uL Absolute Monos (auto) 0.75 (0.24-0.86) x10^3/uL Absolute Nucleated RBC 0.00 (0.00-0.012) x10^3u/L Lymphocytes % 16.6 L (19.3-51.7) % Monocytes % 8.2 (4.7-12.5) % Eosinophils % 3.8 (0.7-5.8) % Basophils % 0.5 (0.1-1.2) % Absolute Granulocytes 6.44 H (1.56-6.13) x10^3/uL Basophils # 0.05 (0.01-0.08) x10^3/uL PT (9.4-12.5) SECONDS INR (0.8-3.0) Sodium 139 (135-145) mmol/L Potassium 3.8 (3.5-5.1) mmol/L Chloride 101 (98-107) mmol/L Carbon Dioxide 30 (22-30) mmol/L Anion Gap 11.7 (5-15) MEQ/L BUN 25 H (7-17) mg/dL Creatinine 0.93 (0.52-1.04) mg/dL Estimated GFR 61.8 ML/MIN Glucose 113 H (74-106) mg/dL Hemoglobin A1c (4.5-6.0) % Calcium 9.1 (8.4-10.2) mg/dL Total Bilirubin 0.40 (0.2-1.3) mg/dL AST 56 H (14-36) U/L ALT 58 H (0-35) U/L Alkaline Phosphatase 58 (38-126) U/L Troponin I < 0.012 (0.000-0.033) ng/mL Serum Total Protein 7.7 (6.3-8.2) g/dL Albumin 3.8 (3.5-5.0) g/dL Triglycerides (30-150) mg/dL Cholesterol (50-200) mg/dL LDL Cholesterol (30-100) mg/dL HDL Cholesterol (40-60) mg/dL Heart Disease Risk Ratio Free T4 (0.78-2.19) ng/dL TSH 3rd Generation (0.470-4.680) mIU/L Urine Color (Yellow) Urine Appearance (Clear) Urine pH (4.6-8.0) Ur Specific [place] (1.005-1.030) Urine Protein (Negative) Urine Glucose (UA) (Negative) mg/dL Urine Ketones (Negative) Urine Blood (Negative) Urine Nitrite (Negative) Urine Bilirubin (Negative) Urine Urobilinogen (0.2) mg/dL Ur Leukocyte Esterase (Negative) U Hyaline Cast (Auto) (0-2) /LPF Urine Microscopic RBC (0-5) /HPF Urine Microscopic WBC (0-5) /HPF Ur Epithelial Cells (None Seen) /HPF Urine Bacteria (None Seen) /HPF Urine Culture Reflexed (NO) 11/16/23 11/17/23 11/17/23 Range/Units 18:42 01:36 04:40 WBC (3.98-10.04) x10^3/uL RBC (3.93-5.22) x10^6/uL Hgb (11.2-15.7) g/dL Hct (34.1-44.9) % MCV (79.4-94.8) fL MCH (25.6-32.2) pg MCHC (32.2-35.5) g/dL RDW (11.7-14.4) % Plt Count (182-369) x10^3/uL MPV (9.4-12.3) fL Gran % (34.0-71.1) % Immature Gran % (Auto) (0.001-0.429) % Nucleat RBC Rel Count (0.00-0.2) % Eos # (Auto) (0.04-0.36) x10^3/uL Immature Gran # (Auto) (0.001-0.031) x10^3u/L Absolute Lymphs (auto) (1.18-3.74) x10^3/uL Absolute Monos (auto) (0.24-0.86) x10^3/uL Absolute Nucleated RBC (0.00-0.012) x10^3u/L Lymphocytes % (19.3-51.7) % Monocytes % (4.7-12.5) % Eosinophils % (0.7-5.8) % Basophils % (0.1-1.2) % Absolute Granulocytes (1.56-6.13) x10^3/uL Basophils # (0.01-0.08) x10^3/uL PT (9.4-12.5) SECONDS INR (0.8-3.0) Sodium (135-145) mmol/L Potassium (3.5-5.1) mmol/L Chloride (98-107) mmol/L Carbon Dioxide (22-30) mmol/L Anion Gap (5-15) MEQ/L BUN (7-17) mg/dL Creatinine (0.52-1.04) mg/dL Estimated GFR ML/MIN Glucose (74-106) mg/dL Hemoglobin A1c (4.5-6.0) % Calcium (8.4-10.2) mg/dL Total Bilirubin (0.2-1.3) mg/dL AST (14-36) U/L ALT (0-35) U/L Alkaline Phosphatase (38-126) U/L Troponin I < 0.012 < 0.012 (0.000-0.033) ng/mL Serum Total Protein (6.3-8.2) g/dL Albumin (3.5-5.0) g/dL Triglycerides (30-150) mg/dL Cholesterol (50-200) mg/dL LDL Cholesterol (30-100) mg/dL HDL Cholesterol (40-60) mg/dL Heart Disease Risk Ratio Free T4 (0.78-2.19) ng/dL TSH 3rd Generation (0.470-4.680) mIU/L Urine Color Yellow (Yellow) Urine Appearance Clear (Clear) Urine pH 7.0 (4.6-8.0) Ur Specific [place] 1.010 (1.005-1.030) Urine Protein Negative (Negative) Urine Glucose (UA) Negative (Negative) mg/dL Urine Ketones Negative (Negative) Urine Blood Negative (Negative) Urine Nitrite Negative (Negative) Urine Bilirubin Negative (Negative) Urine Urobilinogen 0.2 (0.2) mg/dL Ur Leukocyte Esterase Negative (Negative) U Hyaline Cast (Auto) NONE SEEN (0-2) /LPF Urine Microscopic RBC 3-5 (0-5) /HPF Urine Microscopic WBC 0-2 (0-5) /HPF Ur Epithelial Cells None Seen (None Seen) /HPF Urine Bacteria None Seen (None Seen) /HPF Urine Culture Reflexed NO (NO) 11/17/23 11/17/23 11/17/23 Range/Units 04:40 04:40 05:00 WBC 8.4 (3.98-10.04) x10^3/uL RBC 4.48 (3.93-5.22) x10^6/uL Hgb 11.9 (11.2-15.7) g/dL Hct 38.4 (34.1-44.9) % MCV 85.7 (79.4-94.8) fL MCH 26.6 (25.6-32.2) pg MCHC 31.0 L (32.2-35.5) g/dL RDW 15.3 H (11.7-14.4) % Plt Count 334 (182-369) x10^3/uL MPV 9.7 (9.4-12.3) fL Gran % 68.7 (34.0-71.1) % Immature Gran % (Auto) 0.2 (0.001-0.429) % Nucleat RBC Rel Count 0.0 (0.00-0.2) % Eos # (Auto) 0.34 (0.04-0.36) x10^3/uL Immature Gran # (Auto) 0.02 (0.001-0.031) x10^3u/L Absolute Lymphs (auto) 1.52 (1.18-3.74) x10^3/uL Absolute Monos (auto) 0.72 (0.24-0.86) x10^3/uL Absolute Nucleated RBC 0.00 (0.00-0.012) x10^3u/L Lymphocytes % 18.0 L (19.3-51.7) % Monocytes % 8.5 (4.7-12.5) % Eosinophils % 4.0 (0.7-5.8) % Basophils % 0.6 (0.1-1.2) % Absolute Granulocytes 5.79 (1.56-6.13) x10^3/uL Basophils # 0.05 (0.01-0.08) x10^3/uL PT (9.4-12.5) SECONDS INR (0.8-3.0) Sodium 140 (135-145) mmol/L Potassium 3.7 (3.5-5.1) mmol/L Chloride 104 (98-107) mmol/L Carbon Dioxide 28 (22-30) mmol/L Anion Gap 11.0 (5-15) MEQ/L BUN 20 H (7-17) mg/dL Creatinine 0.90 (0.52-1.04) mg/dL Estimated GFR 64.2 ML/MIN Glucose 105 (74-106) mg/dL Hemoglobin A1c (4.5-6.0) % Calcium 9.0 (8.4-10.2) mg/dL Total Bilirubin 0.60 (0.2-1.3) mg/dL AST 41 H (14-36) U/L ALT 46 H (0-35) U/L Alkaline Phosphatase 55 (38-126) U/L Troponin I (0.000-0.033) ng/mL Serum Total Protein 7.0 (6.3-8.2) g/dL Albumin 3.4 L (3.5-5.0) g/dL Triglycerides 81 (30-150) mg/dL Cholesterol 125 (50-200) mg/dL LDL Cholesterol 66 (30-100) mg/dL HDL Cholesterol 35 L (40-60) mg/dL Heart Disease Risk Ratio 4.0 Free T4 (0.78-2.19) ng/dL TSH 3rd Generation (0.470-4.680) mIU/L Urine Color (Yellow) Urine Appearance (Clear) Urine pH (4.6-8.0) Ur Specific [place] (1.005-1.030) Urine Protein (Negative) Urine Glucose (UA) (Negative) mg/dL Urine Ketones (Negative) Urine Blood (Negative) Urine Nitrite (Negative) Urine Bilirubin (Negative) Urine Urobilinogen (0.2) mg/dL Ur Leukocyte Esterase (Negative) U Hyaline Cast (Auto) (0-2) /LPF Urine Microscopic RBC (0-5) /HPF Urine Microscopic WBC (0-5) /HPF Ur Epithelial Cells (None Seen) /HPF Urine Bacteria (None Seen) /HPF Urine Culture Reflexed (NO) 11/17/23 11/17/23 11/17/23 Range/Units 05:00 05:00 05:00 WBC (3.98-10.04) x10^3/uL RBC (3.93-5.22) x10^6/uL Hgb (11.2-15.7) g/dL Hct (34.1-44.9) % MCV (79.4-94.8) fL MCH (25.6-32.2) pg MCHC (32.2-35.5) g/dL RDW (11.7-14.4) % Plt Count (182-369) x10^3/uL MPV (9.4-12.3) fL Gran % (34.0-71.1) % Immature Gran % (Auto) (0.001-0.429) % Nucleat RBC Rel Count (0.00-0.2) % Eos # (Auto) (0.04-0.36) x10^3/uL Immature Gran # (Auto) (0.001-0.031) x10^3u/L Absolute Lymphs (auto) (1.18-3.74) x10^3/uL Absolute Monos (auto) (0.24-0.86) x10^3/uL Absolute Nucleated RBC (0.00-0.012) x10^3u/L Lymphocytes % (19.3-51.7) % Monocytes % (4.7-12.5) % Eosinophils % (0.7-5.8) % Basophils % (0.1-1.2) % Absolute Granulocytes (1.56-6.13) x10^3/uL Basophils # (0.01-0.08) x10^3/uL PT 12.2 (9.4-12.5) SECONDS INR 1.13 (0.8-3.0) Sodium (135-145) mmol/L Potassium (3.5-5.1) mmol/L Chloride (98-107) mmol/L Carbon Dioxide (22-30) mmol/L Anion Gap (5-15) MEQ/L BUN (7-17) mg/dL Creatinine (0.52-1.04) mg/dL Estimated GFR ML/MIN Glucose (74-106) mg/dL Hemoglobin A1c 6.47 H (4.5-6.0) % Calcium (8.4-10.2) mg/dL Total Bilirubin (0.2-1.3) mg/dL AST (14-36) U/L ALT (0-35) U/L Alkaline Phosphatase (38-126) U/L Troponin I (0.000-0.033) ng/mL Serum Total Protein (6.3-8.2) g/dL Albumin (3.5-5.0) g/dL Triglycerides (30-150) mg/dL Cholesterol (50-200) mg/dL LDL Cholesterol (30-100) mg/dL HDL Cholesterol (40-60) mg/dL Heart Disease Risk Ratio Free T4 (0.78-2.19) ng/dL TSH 3rd Generation 2.845 (0.470-4.680) mIU/L Urine Color (Yellow) Urine Appearance (Clear) Urine pH (4.6-8.0) Ur Specific [place] (1.005-1.030) Urine Protein (Negative) Urine Glucose (UA) (Negative) mg/dL Urine Ketones (Negative) Urine Blood (Negative) Urine Nitrite (Negative) Urine Bilirubin (Negative) Urine Urobilinogen (0.2) mg/dL Ur Leukocyte Esterase (Negative) U Hyaline Cast (Auto) (0-2) /LPF Urine Microscopic RBC (0-5) /HPF Urine Microscopic WBC (0-5) /HPF Ur Epithelial Cells (None Seen) /HPF Urine Bacteria (None Seen) /HPF Urine Culture Reflexed (NO) 11/17/23 Range/Units 05:00 WBC (3.98-10.04) x10^3/uL RBC (3.93-5.22) x10^6/uL Hgb (11.2-15.7) g/dL Hct (34.1-44.9) % MCV (79.4-94.8) fL MCH (25.6-32.2) pg MCHC (32.2-35.5) g/dL RDW (11.7-14.4) % Plt Count (182-369) x10^3/uL MPV (9.4-12.3) fL Gran % (34.0-71.1) % Immature Gran % (Auto) (0.001-0.429) % Nucleat RBC Rel Count (0.00-0.2) % Eos # (Auto) (0.04-0.36) x10^3/uL Immature Gran # (Auto) (0.001-0.031) x10^3u/L Absolute Lymphs (auto) (1.18-3.74) x10^3/uL Absolute Monos (auto) (0.24-0.86) x10^3/uL Absolute Nucleated RBC (0.00-0.012) x10^3u/L Lymphocytes % (19.3-51.7) % Monocytes % (4.7-12.5) % Eosinophils % (0.7-5.8) % Basophils % (0.1-1.2) % Absolute Granulocytes (1.56-6.13) x10^3/uL Basophils # (0.01-0.08) x10^3/uL PT (9.4-12.5) SECONDS INR (0.8-3.0) Sodium (135-145) mmol/L Potassium (3.5-5.1) mmol/L Chloride (98-107) mmol/L Carbon Dioxide (22-30) mmol/L Anion Gap (5-15) MEQ/L BUN (7-17) mg/dL Creatinine (0.52-1.04) mg/dL Estimated GFR ML/MIN Glucose (74-106) mg/dL Hemoglobin A1c (4.5-6.0) % Calcium (8.4-10.2) mg/dL Total Bilirubin (0.2-1.3) mg/dL AST (14-36) U/L ALT (0-35) U/L Alkaline Phosphatase (38-126) U/L Troponin I (0.000-0.033) ng/mL Serum Total Protein (6.3-8.2) g/dL Albumin (3.5-5.0) g/dL Triglycerides (30-150) mg/dL Cholesterol (50-200) mg/dL LDL Cholesterol (30-100) mg/dL HDL Cholesterol (40-60) mg/dL Heart Disease Risk Ratio Free T4 1.59 (0.78-2.19) ng/dL TSH 3rd Generation (0.470-4.680) mIU/L Urine Color (Yellow) Urine Appearance (Clear) Urine pH (4.6-8.0) Ur Specific [place] (1.005-1.030) Urine Protein (Negative) Urine Glucose (UA) (Negative) mg/dL Urine Ketones (Negative) Urine Blood (Negative) Urine Nitrite (Negative) Urine Bilirubin (Negative) Urine Urobilinogen (0.2) mg/dL Ur Leukocyte Esterase (Negative) U Hyaline Cast (Auto) (0-2) /LPF Urine Microscopic RBC (0-5) /HPF Urine Microscopic WBC (0-5) /HPF Ur Epithelial Cells (None Seen) /HPF Urine Bacteria (None Seen) /HPF Urine Culture Reflexed (NO) - Radiology Exams Ordered Rad Exams-Entire Visit: Radiology Procedures Category Date Time Status CT ANGIOGRAPHY NECK [CT] Stat Exams 11/16/23 20:57 Completed CTA HEAD W AND/OR WO CONTRAST [CT] Stat Exams 11/16/23 20:08 Completed ECHO W/2D AND DOPPLER [US] Routine Exams 11/17/23 07:30 Taken HEAD WITHOUT CONTRAST [CT] Stat Exams 11/16/23 18:10 Completed MRI BRAIN WITH CONTRAST [MRI] Routine Exams 11/17/23 11:01 Ordered - Procedures and Test Procedures and Tests throughout Hospitalization: Therapy Orders & Screens 11/17/23 00:13 RT Screen per Nursing Assess ONCE Comment: Protocol Order Physician Instructions: Greater than 3 points order RT Admission Screen Reason For Exam: Triggered on Admission Diagnosis: TIA Diagnosis: TIA Pneumonia: No Home O2: Yes Asthma: No CHF: No Home CPAP/BIPAP: Yes Home Nebs/MDI: Yes Total Points: 15 11/17/23 00:25 PT Eval & Treat (MD Order) ONCE Reason for Eval:: Numbness Diagnosis: TIA OT Eval and Treat (MD Order) ONCE Comment: Physician Instructions: Reason For Exam: TIA/ right arm numbness Diagnosis: TIA 11/17/23 07:38 BiPap/CPAP ROUTINE Comment: Diagnosis: TIA Discharge Exam General Appearance: no apparent distress, alert Neurologic Exam: alert, 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, cooperative, normal mood/affect, nml cerebellar function, sensation nml, No motor deficits Eye Exam: PERRL, EOMI, eyes nml inspection Ears, Nose, Throat Exam: normal ENT inspection, pharynx normal, moist mucous membranes Neck Exam: normal inspection, non-tender, supple, full range of motion Respiratory Exam: normal breath sounds, lungs clear, No respiratory distress Cardiovascular Exam: regular rate/rhythm, normal heart sounds Gastrointestinal/Abdomen Exam: soft, No tenderness, No mass Pelvic Exam: deferred Rectal Exam: deferred Back Exam: normal inspection, normal range of motion, No CVA tenderness, No vertebral tenderness Extremity Exam: normal inspection, normal range of motion Skin Exam: normal color, warm, dry Final Diagnosis/Problem List - Final Discharge Diagnosis/Problem (1) TIA (transient ischemic attack) Current Visit: Yes Status: Acute Code(s): G45.9 - TRANSIENT CEREBRAL ISCHEMIC ATTACK, UNSPECIFIED (2) Essential (primary) hypertension Current Visit: Yes Status: Acute Code(s): I10 - ESSENTIAL (PRIMARY) HYPERTENSION (3) CHF (congestive heart failure) Current Visit: Yes Status: Acute Code(s): I50.9 - HEART FAILURE, UNSPECIFIED (4) Atrial fibrillation with RVR Current Visit: No Status: Chronic Assessment & Plan: 1) TIA (transient ischemic attack) Current Visit: Yes Status: Acute Assessment & Plan: Patient with RUE tingling/numbness with history of afib 1. CTA head/neck 2. Neuro checks 3. ASA 4. PT/OT eval 11/16 - MRI brain with contrast IMPRESSION: 1. Moderate white matter chronic ischaemic change ([place] 2). 2. Age-related global cerebral atrophic changes with prominent lateral ventricles and cortical CSF spaces were noted. 3. No interval changes. - anxiety med prior to exam - neurology note reviewed and agree with plan of care. - Labs ordered per neurology recs - Pt is established with Dr. Gray neurology in [place], [place]. Code(s): G45.9 - TRANSIENT CER EBRAL ISCHEMIC ATTACK, UNSPECIFIED (2) Essential (primary) hypertension Current Visit: Yes Status: Acute Assessment & Plan: Blood pressure elevated today with target 130/80 1. Continue bp meds 2. Low Na diet 3. Monitor blood pressure readings 11/16 - BP stable Code(s): I10 - ESSENTIAL (PRIMARY) HYPERTENSION (3) CHF (congestive heart failure) Current Visit: No Status: Chronic Qualifiers: Heart failure chronicity: chronic Assessment & Plan: Patient with chronic LE edema on Lasix 1. Hold diuretics for now 2. Continue after load reduction 3. Daily weights 4. PT Code(s): I50.9 - HEART FAILURE, UNSPECIFIED (4) Atrial fibrillation with RVR Current Visit: No Status: Chronic Assessment & Plan: Heart rate controlled but concerning with neuro symptoms 1. Continue Metoprolol/Dig 2. Continue antiplatelet agents 3. Telemetry 4. Monitor heart rate/rhythm 11/16 - HR increases with anxiety -HR improved last night and increased when awake and anxious - Monitor - resolved Code(s): I48.91 - UNSPECIFIED ATRIAL FIBRILLATION - Discharge Discharge Date: 11/17/23 Disposition: Home, Self-Care Condition: Stable Prescriptions: Continue Calcium Carbonate/Vitamin D3 [Calcium 500-Vit D3 200 Caplet] 600 mg PO BID@1200,2300 Magnesium 250 mg PO HS Potassium Chloride 10 meq PO BID Digoxin 0.125 mg Tablet [Lanoxin 0.125MG TABLET] 0.0625 mg PO QAM Metoprolol Tartrate 50 mg PO QAM Escitalopram Oxalate [Lexapro] 20 mg PO HS Zinc 50 mg PO DAILY Allopurinol 100 mg [Zyloprim 100 mg] 100 mg PO DAILY Loratadine 10 mg PO HS Fluticasone Propionate [Flonase NASAL] 1 gm NS QAM Albuterol 2.5 mg/0.5 ml [PROVENTIL Solution 2.5 MG/0.5 ML] 2.5 mg IH QID Multivit-Min/Iron/Folic Acid/K [Adults Multivitamin Tablet] 1 tablet PO HS Apixaban [Eliquis 5 mg Tablet] 5 mg PO BID Levothyroxine Sodium 75 Mcg [Synthroid 75 Mcg] 75 mcg PO DAILY Alendronate Sodium 70 mg [Fosamax 70 MG] 70 mg PO Q7D@0600 Aspirin EC 81 mg [Ecotrin 81 mg] 81 mg PO DAILY 30 Days #30 tablet Sulfamethoxazole/Trimethoprim [Sulfamethoxazole-Tmp Ds Tablet] 1 tab PO BID Cholecalciferol (Vitamin D3) [Vitamin D3] 25 mcg PO DAILY Ubidecarenone/Vit E Acet [Co Q-10 100 mg Softgel] 1 each PO DAILY Modafinil 100 mg [Provigil 100MG Tablet] 100 mg PO DAILY Furosemide 40 mg [Lasix 40 MG] 40 mg PO DAILY Ascorbic Acid [Vitamin C] 500 mg PO DAILY Metoprolol Tartrate 25 mg [Lopressor 25MG Tab] 25 mg PO HS Atorvastatin Calcium [Lipitor 40Mg] 40 mg PO HS Follow up with: NICHELLE HECK DO [Primary Care Provider] -
--- NOTE | 2023-11-17 15:17 | XRAY ---
CLINICAL HISTORY: right arm weakness/ numb COMPARISON: CT Head without contrast 10/07/2023 TECHNIQUE: Different pulse sequences of MR were performed in different planes without contrast injection for the brain. FINDINGS: Multiple T2w/FLAIR hyperintense foci scattered within the subcortical and periventricular white matter bilaterally, and brainstem, non-specific, of presumed vascular aetiology. Age-related global cerebral atrophic changes with prominent lateral ventricles and cortical CSF spaces were noted. No hyperacute or acute infarctions could be depicted. Normal MRI appearance of different anatomical parts of the brain stem namely the midbrain, [place], medulla oblongata. Normal MRI appearance of the vestibule cochlear nerves, and cerebellopontine angles with no definite masses. No shift of midline structures. No intracerebral or extra-axial hematomas. Normal MRI appearance of orbital structures, both globes, optic nerves, optic chiasm, optic tracts, and optic radiations. IMPRESSION: 1. Moderate white matter chronic ischaemic change ([place] 2). 2. Age-related global cerebral atrophic changes with prominent lateral ventricles and cortical CSF spaces were noted. 3. No interval changes. Electronically Signed by: Angeles Hurd MD. (11/17/2023 15:13:38 EDT)
[2023-11-17 15:47] VITALS: BP 118/70; PULSE 88; RESP 20; TEMP 97.6
[2023-11-17] MEDS ORDERED: ZOCOR 20MG PO SCH (22:00)
[2023-11-17] MEDS ORDERED: THERAGRAN MULTIVITAMIN PO SCH (22:00)
[2023-11-17] MEDS ORDERED: Lopressor 25MG Tab PO SCH (22:00)
[2023-11-17] MEDS ORDERED: CLARITIN 10 MG PO SCH (22:00)
[2023-11-17] MEDS ORDERED: Lexapro PO SCH (22:00)
[2023-11-18 12:57] VITALS: O2SAT 97
== END 2023-11-17 16:40 | disposition home or self-care (01) ==
LOC: ED 15:53 → MED SURG 22:10
PROVIDERS: ADMIT Internal Medicine Nephrology; ATTEND Internal Medicine Nephrology
DX: G45.9 Transient cerebral ischemic attack, unspecified (principal); I11.0 Hypertensive heart disease with heart failure; I50.9 Heart failure, unspecified; I48.20 Chronic atrial fibrillation, unspecified; M79.641 Pain in right hand; E78.5 Hyperlipidemia, unspecified; Z79.01 Long term (current) use of anticoagulants; Z79.899 Other long term (current) drug therapy
CPT/HCPCS: 36000; 36415; 70450; 70496; 70498; 70552; 80053; 80061; 81001; 83036; 83721; 84439; 84443; 84484; 85025; 85610; 93005; 93268; 93306; 94660; 94762; 99285; Q3014; A9270-GY; G0378

== ENCOUNTER 2024-03-24 17:20 | Emergency (ER) | payer MEDICARE ==
[2024-03-24 17:39] VITALS: TEMP 98.2
[2024-03-24 18:13] LABS: Absolute Neutrophil Ct (ANC) 5.59 x10^3/uL (1.56-6.13); BASOPHIL % 0.4 % (0.1-1.2); Basophil (Absolute #) 0.03 x10^3/uL (0.01-0.08); Eosinophil (Absolute #) 0.08 x10^3/uL (0.04-0.36); Hematocrit 36.3 % (34.1-44.9); Hemoglobin 11.3 g/dL (11.2-15.7); IMMATURE GRAN # 0.01 x10^3u/L (0.001-0.031); IMMATURE GRAN % 0.1 % (0.001-0.429); Lymphocytes % 21.9 % (19.3-51.7); Mean Cell Volume 86.8 fL (79.4-94.8); Mean Corpuscular Hgb Concent. 31.1 g/dL (32.2-35.5); Monocyte (Absolute #) 0.71 x10^3/uL (0.24-0.86); Monocytes % 8.6 % (4.7-12.5); Platelet Count 224 x10^3/uL (182-369); Red Blood Count 4.18 x10^6/uL (3.93-5.22); Red Cell Distribution Width 16.4 % (11.7-14.4); White Blood Count 8.2 x10^3/uL (3.98-10.04)
--- NOTE | 2024-03-24 18:13 | ERPHSYRPT ---
- History of Present Illness Historian: patient Exam Limitations: no limitations Patient Subjective Stated Complaint: pt c/o of pain when she swallows down by her stomach Triage Nursing Assessment: Pt brought to the ER by her , gasper wnl, denies pain at this time due to not swallowing, pulses normal, skin n/w/d, denies remembering anything getting stuck while eating, did have an issue with GERD and was taking omeprazole and seemed to be doing better until a couple of days ago Physician History: Patient has painful swallowing. It is around her lower esophageal gastric junction area. She says anytime she swallows food or drinks it is very painful. Even clearing her secretions is painful. She is only able to eat things like applesauce and protein shakes now. This has been going on for about 3 to 4 days and is getting worse. She had symptoms that she thought was esophageal reflux starting about 2 weeks ago. She was having some discomfort in her same area primarily after she would eat but it was more like a heartburn she thought. She got some [id number] proton pump inhibitors and was treating her self. It did not really help. She has no other complaints at this time. She is not regurgitating at this point. She says that the pain whenever she swallows is pretty severe. She did not have any choking episodes or food bolus type episodes that she can recall. Allergies/Adverse Reactions: cefaclor [From Ceclor] Allergy (Intermediate, Verified 03/24/24 17:39) Itching face tight, swelling, felt hot clindamycin HCl [From Cleocin] Allergy (Intermediate, Verified 03/24/24 17:39) clindamycin palmitate HCl [From Cleocin] Allergy (Intermediate, Verified 03/24/24 17:39) Hives entire body clindamycin phosphate [From Cleocin] Allergy (Intermediate, Verified 03/24/24 17:39) Penicillins Allergy (Intermediate, Verified 03/24/24 17:39) Rash Home Medications: Calcium Carbonate/Vitamin D3 [Calcium 500-Vit D3 200 Caplet] 600 mg PO BID@1200,2300 07/02/13 [History] Magnesium 250 mg PO HS 11/02/18 [History] Potassium Chloride 10 meq PO BID 11/13/18 [History] Digoxin 0.125 mg Tablet [Lanoxin 0.125MG TABLET] 0.0625 mg PO QAM 01/29/19 [History] Metoprolol Tartrate 50 mg PO QAM 03/21/19 [History] Escitalopram Oxalate [Lexapro] 20 mg PO HS 03/12/20 [History] Zinc 50 mg PO DAILY 04/20/21 [History] Albuterol 2.5 mg/0.5 ml [PROVENTIL Solution 2.5 MG/0.5 ML] 2.5 mg IH QID 10/07/21 [History] Allopurinol 100 mg [Zyloprim 100 mg] 100 mg PO DAILY 10/07/21 [History] Fluticasone Propionate [Flonase NASAL] 1 gm NS QAM 10/07/21 [History] Loratadine 10 mg PO HS 10/07/21 [History] Multivit-Min/Iron/Folic Acid/K [Adults Multivitamin Tablet] 1 tablet PO HS 02/25/22 [History] Apixaban [Eliquis 5 mg Tablet] 5 mg PO BID 05/01/22 [History] Alendronate Sodium 70 mg [Fosamax 70 MG] 70 mg PO Q7D@0600 06/21/23 [History] Levothyroxine Sodium 75 Mcg [Synthroid 75 Mcg] 75 mcg PO DAILY 06/21/23 [History] Ascorbic Acid [Vitamin C] 500 mg PO DAILY 11/16/23 [History] Atorvastatin Calcium [Lipitor 40Mg] 40 mg PO HS 11/16/23 [History] Cholecalciferol (Vitamin D3) [Vitamin D3] 25 mcg PO DAILY 11/16/23 [History] Furosemide 40 mg [Lasix 40 MG] 40 mg PO DAILY 11/16/23 [History] Metoprolol Tartrate 25 mg [Lopressor 25MG Tab] 25 mg PO HS 11/16/23 [History] Modafinil 100 mg [Provigil 100MG Tablet] 100 mg PO DAILY 11/16/23 [History] Sulfamethoxazole/Trimethoprim [Sulfamethoxazole-Tmp Ds Tablet] 1 tab PO BID 11/16/23 [History] Ubidecarenone/Vit E Acet [Co Q-10 100 mg Softgel] 1 each PO DAILY 11/16/23 [Hist ory] Hx Tetanus, Diphtheria Vaccination/Date Given: Yes Hx Influenza Vaccination/Date Given: Yes Hx Pneumococcal Vaccination/Date Given: Yes Travel Risk - International Travel Have you traveled outside of the country in past 3 weeks: No - Emerging Infectious Disease Are you exhibiting symptoms associated with any current EIDs: No - Review of Systems Constitutional: No Symptoms Eyes: No Symptoms Ears, Nose, & Throat: No Symptoms Respiratory: No Symptoms Cardiac: No Symptoms Genitourinary Symptoms: No Symptoms Musculoskeletal: No Symptoms All Other Systems: Reviewed and Negative - Past Medical History Pertinent Past Medical History: Yes Neurological History: Stroke, TIA ENT History: Cataracts, Other Cardiac History: Arrhythmia, Congenital Heart Disease, High Cholesterol Respiratory History: Sleep Apnea Endocrine Medical History: Hypothyroidism, Other Musculoskeletal History: Osteoarthritis, Osteoporosis GI Medical History: GI Bleed, Polyps History: No Pertinent History Psycho-Social History: Anxiety, Depression, Panic Disorder Female Reproductive Disorders: No Pertinent History Other Medical History: GOUT, CERVICAL OA, DEPRESSIVE DISORDER, MILD MEMORY DISTURBANCE. PATIENT ATTENDS GROUP THERAPY AT [employer] 2X/WEEK. - Past Surgical History Past Surgical History: Yes Neuro Surgical History: No Pertinent History Cardiac: No Pertinent History Respiratory: No Pertinent History Gastrointestinal: Appendectomy Genitourinary: No Pertinent History Musculoskeletal: Joint Replacement, Orthopedic Surgery Female Surgical History: Tubal Ligation, Other Other Surgical History: sinus surgery, tonsils, D&C x2, cataract, left KNEE REPLACEMENT , antibiotic spacer placement in left knee. Significant Family History: no pertinent family hx - Social History Smoking Status: Never smoker Exposure to second hand smoke: No Alcohol Use: None Drug Use: none Patient Lives Alone: No - Social Determinants of Health Will the patient participate in the screening: Yes Do you worry about a steady place to live?: No Do you have any problems with any of the following?: No known problems In the past 12 months,have you had to go without utilities?: No Transportation Issues: No Has anyone in your support network made you feel unsafe?: No Have you or anyone in your house had to go without enough: No - Nursing Vital Signs Nursing Vital Signs: Initial Vital Signs Temperature 98.2 F 03/24/24 17:30 Pulse Rate 86 03/24/24 17:30 Blood Pressure 121/59 03/24/24 17:30 O2 Sat by Pulse Oximetry 98 03/24/24 17:30 Pain Scale Pain Intensity 0 - Physical Exam General Appearance: no apparent distress Neck Exam: normal inspection, non-tender Respiratory Exam: normal breath sounds, chest tenderness, lungs clear Cardiovascular Exam: regular rate/rhythm, normal heart sounds Gastrointestinal/Abdomen Exam: soft, normal bowel sounds, tenderness Neurologic Exam: alert, 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, cooperative Skin Exam: normal color, warm SpO2: 98 - Course Nursing assessment & vital signs reviewed: Yes Ordered Tests: Active Orders 24 hr Category Date Time Status ABDOMEN WITH CONTRAST [CT] Stat Exams 03/24/24 18:14 Ordered CHEST WITH CONTRAST [CT] Stat Exams 03/24/24 18:14 Ordered CBC W DIFF Stat Lab 03/24/24 18:10 Completed CMP Stat Lab 03/24/24 18:10 Received LIPASE Stat Lab 03/24/24 18:10 Received Lab/Rad Data: Laboratory Result Diagrams 03/24/24 18:10 Laboratory Results 03/24/24 Range/Units 18:10 WBC 8.2 (3.98-10.04) x10^3/uL RBC 4.18 (3.93-5.22) x10^6/uL Hgb 11.3 (11.2-15.7) g/dL Hct 36.3 (34.1-44.9) % MCV 86.8 (79.4-94.8) fL MCH 27.0 (25.6-32.2) pg MCHC 31.1 L (32.2-35.5) g/dL RDW 16.4 H (11.7-14.4) % Plt Count 224 (182-369) x10^3/uL MPV 10.0 (9.4-12.3) fL Gran % 68.0 (34.0-71.1) % Immature Gran % (Auto) 0.1 (0.001-0.429) % Nucleat RBC Rel Count 0.0 (0.00-0.2) % Eos # (Auto) 0.08 (0.04-0.36) x10^3/uL Immature Gran # (Auto) 0.01 (0.001-0.031) x10^3u/L Absolute Lymphs (auto) 1.80 (1.18-3.74) x10^3/uL Absolute Monos (auto) 0.71 (0.24-0.86) x10^3/uL Absolute Nucleated RBC 0.00 (0.00-0.012) x10^3u/L Lymphocytes % 21.9 (19.3-51.7) % Monocytes % 8.6 (4.7-12.5) % Eosinophils % 1.0 (0.7-5.8) % Basophils % 0.4 (0.1-1.2) % Absolute Granulocytes 5.59 (1.56-6.13) x10^3/uL Basophils # 0.03 (0.01-0.08) x10^3/uL - Progress Progress: unchanged Progress Note: Patient was stable throughout stay. I called our surgeon on-call. She said that they will not be able to do upper endoscopy tomorrow and suggested that we transfer. We are now calling some local [facility]. Dr. Costa [facility] excepted the patient in transfer. We are currently waiting on labs and CT results 03/24/24 18:13 03/24/24 18:31 Medical Desision Making - Diagnostic Testing Diagnostic test were ordered, analyzed, and reviewed by me: Yes - Risk of complications The pt has a mod risk of morbidity or mortality based on: Need for minor surgical intervention in patient with know risk factors - Departure Departure Disposition: Transfer Clinical Impression: Dysphagia Qualifiers: Dysphagia type: esophageal phase Qualified Code(s): R13.19 - Other dysphagia Condition: Stable Critical Care Time: No Referrals: NICHELLE HECK DO [Primary Care Provider] - Follow up/PCP as directed
[2024-03-24 18:27] LABS: ALBUMIN 3.9 g/dL (3.5-5.0); ANION GAP 8.3 MEQ/L (5-15); BILIRUBIN,TOTAL 0.5 mg/dL (0.2-1.3); Calcium 8.9 mg/dL (8.4-10.2); Creatinine 1 0.91 mg/dL (0.52-1.04); EST GLOMERULAR FILTRATION RATE 63.4 ML/MIN; Potassium 3.5 mmol/L (3.5-5.1)
[2024-03-24 20:08] VITALS: O2SAT 96
--- NOTE | 2024-03-24 20:23 | XRAY ---
CLINICAL HISTORY: dysphagia COMPARISON: CR dated 08/20/2022. TECHNIQUE: Contiguous axial CT images of the chest were acquired with the administration of intravenous contrast. Coronal and sagittal reconstructions were obtained. 80cc of isovue 370 was administered intravenously. One of the following dose reduction techniques was utilized for this exam: Automated exposure control, adjustment of the mA and/or kV according to patient size, and use of iterative reconstruction. DLP: 527.94 mGy-cm, CTDI: 78.5 mGy. FINDINGS: Lungs: 6 mm calcified granuloma in the right lower lobe in the lateral basal segment. Minimal thin subpleural plate atelectatic changes in basal regions. No pleural effusion or pleural thickening. Mediastinum: Mild dilatation of esophagus throughout its course with minimal circumferential mural thickening in the mid and lower esophagus, including gastroesophageal junction with a 6 mm left para esophageal reactive appearing lymph node at the level of the rayray. Few millimetric calcified mediastinal nodes. The heart size is within normal limits. Trachea and Main Bronchi: The trachea and main bronchi are patent without evidence of obstruction or abnormality. Chest Wall: The chest wall is unremarkable with no evidence of soft tissue or bony abnormalities. Bone: Degenerative changes in the thoracic spine. Upper Abdomen: Please refer to the CT abdomen report for details findings. IMPRESSION: 1. Mild dilatation of the esophagus throughout its course with minimal circumferential mural thickening in the mid and lower esophagus, including the gastroesophageal junction. a 6 mm left para esophageal reactive appearing lymph node at the level of the rayray. The possibility of inflammatory/infective esophagitis appears likely. Other differentials could be the Presbyesophagus. Recommended endoscopic correlation. 2. 6 mm calcified granuloma in the right lower lobe in lateral basal segment. No follow-up is required. 3. Minimal thin subpleural plate atelectatic changes in basal regions. 4. Cross-modality comparison with prior chest radiograph suggests a possible resolution of right lower lobe opacification mentioned. Electronically Signed by: Angeles Hurd MD. (03/24/2024 20:19:45 EST)
--- NOTE | 2024-03-24 20:35 | XRAY ---
CLINICAL HISTORY: dysphagia COMPARISON: None. TECHNIQUE: CT of the abdomen was performed, with the following protocol: axial images, and reconstructed coronal and sagittal images. Intravenous contrast 80 cc Isovue 370 was administered. One of the following dose reduction techniques was utilized for this exam: Automated exposure control, adjustment of the mA and/or kV according to patient size, and use of iterative reconstruction. FINDINGS: Abdomen: Liver: Normal in size, and density. Few small non-enhancing lesions in both lobes of liver largest measuring 22 x 25 mm in segment likely hepatic cysts. Gallbladder and Biliary System: A small 4 mm calculus in the gallbladder lumen. No wall thickening or pericholecystic fluid was identified. Pancreas: Pancreatic head, body, and tail are visualized and appear normal in size and density. No pancreatic masses or calcifications were noted. Spleen: Normal in size, shape. Multiple tiny calcific granulomas in spleen. Kidneys and Adrenal Glands: Both kidneys are normal in size, shape, and position. Fat containing subcapsular area in lateral cortex of left kidney, sequelae to prior infection/insult or angiomyolipoma. Contrast in pelvicalyceal system limiting evaluation of calculus burden. Adrenal glands are unremarkable. Peritoneal and Retroperitoneal Structures: No free fluid or abnormal fluid collections were identified within the abdomen or pelvis. Few subcentimetric hepatogastric nodes noted. Atherosclerotic calcifications identified in the abdominal aorta Bowel: The visualized bowel loops are normal in caliber and appearance. Bones and Soft Tissues: Degenerative changes in lumbar spine. Grade I anterolisthesis of L4 over L5. Ill-defined area of sclerosis and lucency in bilateral iliac bones likely secondary to osteopenia. Please refer to the CT chest report for detailed findings. IMPRESSION: 1. Benign hepatic cysts. 2. Cholelithiasis, no evidence of acute cholecystitis. 3. Tiny old calcified granulomas in spleen. Electronically Signed by: Angeles Hurd MD. (03/24/2024 20:31:39 EST)
[2024-03-24 21:04] VITALS: BP 101/41; PULSE 95; RESP 16
== END 2024-03-24 21:50 | disposition short-term general hospital (02) ==
LOC: ED 17:20
DX: R13.10 Dysphagia, unspecified (principal)
CPT/HCPCS: 36415; 71260; 74160; 80053; 83690; 85025; 99285

== ENCOUNTER 2024-04-11 12:28 | Day surgery (SDC) | payer MEDICARE ==
[2024-04-11 13:04] VITALS: RESP 16
[2024-04-11 13:38] LABS: Calcium 9.4 mg/dL (8.4-10.2); Creatinine 1 1.18 mg/dL (0.52-1.04); EST GLOMERULAR FILTRATION RATE 46.4 ML/MIN; Potassium 4.2 mmol/L (3.5-5.1)
[2024-04-11] MEDS ORDERED: Xylocaine-Mpf 2% 5 Ml Vial ONE (14:46)
[2024-04-11] MEDS ORDERED: propofoL IV ONE (14:46)
[2024-04-11 15:38] VITALS: TEMP 97.6
[2024-04-11 15:51] VITALS: BP 108/81; PULSE 68; O2SAT 95
--- NOTE | 2024-04-12 15:01 | OP ---
SURGERY DATE/TIME: 04/11/2024 [id number] PREOPERATIVE DIAGNOSIS: Abnormal CT scan and dysphagia. POSTOPERATIVE DIAGNOSIS: Mild esophagitis mid esophagus. PROCEDURE: Esophagogastroduodenoscopy. SURGEON: Reji Castro MD ANESTHESIA: IV anesthesia. PATIENT CONDITION: Stable. COMPLICATIONS: None. SPECIMEN: Esophagus biopsy. INDICATION FOR PROCEDURE: The patient is an 83-year-old that on CT scan had an abnormality stuck in the end of the esophagus. She is also having some dysphagia, sometimes even with liquids. It hurts to go down. Nothing is getting stuck. I discussed with her. She elected to proceed with the EGD. FINDINGS: Mid esophagus mild esophagitis. DESCRIPTION OF PROCEDURE: Patient brought to the endoscopy suite, routinely positioned and prepared. IV anesthesia induced by Anesthesia. The gastroscope inserted through the mouth, advanced to the third portion of the duodenum. Duodenum was normal in appearance. The stomach is normal in appearance. Retroflexion, satisfactory. GE junction normal, but actually in the mid esophagus there is a mild esophagitis. There is no evidence of candidiasis. Biopsy was taken. The stomach was suctioned out. The scope was withdrawn. The patient tolerated the procedure well. RECOMMENDATIONS: We will give her a prescription for Carafate and we would followup in the office with the biopsy results.
== END 2024-04-11 16:05 | disposition home or self-care (01) ==
LOC: SDC 12:28
PROVIDERS: ATTEND Surgery
DX: K20.90 Esophagitis, unspecified without bleeding (principal); R13.10 Dysphagia, unspecified; R93.89 Abnormal findings on diagnostic imaging of other specified body structures
CPT/HCPCS: 36415; 80048; 99100; J2704

== ENCOUNTER 2024-05-13 20:10 | Emergency (ER) | payer MEDICARE ==
--- NOTE | 2024-05-13 20:49 | ERPHSYRPT ---
- History of Present Illness Time Seen by Provider: 05/13/24 20:49 Historian: patient, family Exam Limitations: no limitations Physician History: This is an 83-year-old white female patient who arrives by private vehicle accompanied by her spouse who provided additional, independent history for the complaint of epigastric, substernal chest pain that began with vomiting yesterday. Patient has not been feeling well over the last several days. Patient was diagnosed with thrush in March 2024. She underwent an upper endoscopy on 05/12/2024 which showed improvement in the thrush. However, yesterday she vomited significantly and today she began having some caudal s ubsternal and epigastric pain. Patient has a history of atrial fibrillation on Eliquis and digoxin. She has a history of hypothyroidism, CVA, anxiety and panic disorder. Timing/Duration: yesterday Quality: aching Abdominal Pain Onset Location: epigastric Pain Radiation: no radiation Severity of Pain-Max: mild Severity of Pain-Current: mild Modifying Factors: Improves With: vomiting Associated Symptoms: loss of appetite, nausea, vomiting, weakness Previous symptoms: no prior history, recently seen Allergies/Adverse Reactions: cefaclor [From Ceclor] Allergy (Intermediate, Verified 05/13/24 20:46) Itching face tight, swelling, felt hot clindamycin HCl [From Cleocin] Allergy (Intermediate, Verified 05/13/24 20:46) clindamycin palmitate HCl [From Cleocin] Allergy (Intermediate, Verified 05/13/24 20:46) Hives entire body clindamycin phosphate [From Cleocin] Allergy (Intermediate, Verified 05/13/24 20:46) Penicillins Allergy (Intermediate, Verified 05/13/24 20:46) Rash Home Medications: Calcium Carbonate/Vitamin D3 [Calcium 500-Vit D3 200 Caplet] 600 mg PO BID@1200,2300 07/02/13 [History] Magnesium 250 mg PO HS 11/02/18 [History] Potassium Chloride 10 meq PO BID 11/13/18 [History] Digoxin 0.125 mg Tablet [Lanoxin 0.125MG TABLET] 0.0625 mg PO QAM 01/29/19 [History] Metoprolol Tartrate 50 mg PO QAM 03/21/19 [History] Zinc 50 mg PO DAILY 04/20/21 [History] Albuterol 2.5 mg/0.5 ml [PROVENTIL Solution 2.5 MG/0.5 ML] 2.5 mg IH QID 10/07/21 [History] Allopurinol 100 mg [Zyloprim 100 mg] 100 mg PO DAILY 10/07/21 [History] Fluticasone Propionate [Flonase NASAL] 1 gm NS QAM 10/07/21 [History] Loratadine 10 mg PO HS 10/07/21 [History] Multivit-Min/Iron/Folic Acid/K [Adults Multivitamin Tablet] 1 tablet PO HS 02/25/22 [History] Apixaban [Eliquis 5 mg Tablet] 5 mg PO BID 05/01/22 [History] Alendronate Sodium 70 mg [Fosamax 70 MG] 70 mg PO Q7D@0600 06/21/23 [History] Levothyroxine Sodium 75 Mcg [Synthroid 75 Mcg] 75 mcg PO DAILY 06/21/23 [History] Ascorbic Acid [Vitamin C] 500 mg PO DAILY 11/16/23 [History] Atorvastatin Calcium [Lipitor 40Mg] 40 mg PO HS 11/16/23 [History] Cholecalciferol (Vitamin D3) [Vitamin D3] 25 mcg PO DAILY 11/16/23 [History] Furosemide 40 mg [Lasix 40 MG] 40 mg PO DAILY 11/16/23 [History] Metoprolol Tartrate 25 mg [Lopressor 25MG Tab] 25 mg PO HS 11/16/23 [History] Modafinil 100 mg [Provigil 100MG Tablet] 100 mg PO DAILY 11/16/23 [History] Ubidecarenone/Vit E Acet [Co Q-10 100 mg Softgel] 1 each PO DAILY 11/16/23 [History] Duloxetine HCl 60 mg PO DAILY 04/11/24 [History] Hx Tetanus, Diphtheria Vaccination/Date Given: Yes Hx Influenza Vaccination/Date Given: Yes Hx Pneumococcal Vaccination/Date Given: Yes Travel Risk - Emerging Infectious Disease Are you exhibiting symptoms associated with any current EIDs: Yes Symptoms: Abdominal Pain, Vomitting - Review of Systems Constitutional: Weakness Eyes: No Symptoms Ears, Nose, & Throat: No Symptoms Respiratory: No Symptoms Cardiac: Chest Pain (Caudal substernal midline) Abdominal/Gastrointestinal: Abdominal Pain (Midline epigastrium), Nausea, Vomiting, Appetite Changes Genitourinary Symptoms: No Symptoms Musculoskeletal: No Symptoms Skin: No Symptoms Neurological: No Symptoms Psychological: No Symptoms Endocrine: No Symptoms Hematologic/Lymphatic: No Symptoms Immunological/Allergic: No Symptoms All Other Systems: Reviewed and Negative - Past Medical History Pertinent Past Medical History: Yes Neurological History: Stroke, TIA ENT History: Cataracts, Other Cardiac History: Arrhythmia, Congenital Heart Disease, High Cholesterol Respiratory History: Sleep Apnea Endocrine Medical History: Hypothyroidism, Other Musculoskeletal History: Osteoarthritis, Osteoporosis GI Medical History: GI Bleed, Polyps History: No Pertinent History Psycho-Social History: Anxiety, Depression, Panic Disorder Female Reproductive Disorders: No Pertinent History Other Medical History: GOUT, CERVICAL OA, DEPRESSIVE DISORDER, MILD MEMORY DISTURBANCE. PATIENT ATTENDS GROUP THERAPY AT [employer] 2X/WEEK. - Past Surgical History Past Surgical History: Yes Neuro Surgical History: No Pertinent History Cardiac: No Pertinent History Respiratory: No Pertinent History Gastrointestinal: Appendectomy Genitourinary: No Pertinent History Musculoskeletal: Joint Replacement, Orthopedic Surgery Female Surgical History: Tubal Ligation, Other Other Surgical History: sinus surgery, tonsils, D&C x2, cataract, left KNEE REPLACEMENT , antibiotic spacer placement in left knee. Significant Family History: no pertinent family hx - Social History Smoking Status: Never smoker Exposure to second hand smoke: No Alcohol Use: None Drug Use: none Patient Lives Alone: No - Social Determinants of Health Will the patient participate in the screening: Yes Do you worry about a steady place to live?: No In the past 12 months,have you had to go without utilities?: No Transportation Issues: No Has anyone in your support network made you feel unsafe?: No Have you or anyone in your house had to go without enough: No - Nursing Vital Signs Nursing Vital Signs: Initial Vital Signs Temperature 98.3 F 05/13/24 20:47 Pulse Rate 99 H 05/13/24 20:47 Pain Scale Pain Intensity 3 - Physical Exam General Appearance: no apparent distress, alert, anxiety Eye Exam: PERRL/EOMI, eyes nml inspection Ears, Nose, Throat Exam: normal ENT inspection, moist mucous membranes Neck Exam: normal inspection, non-tender, supple, full range of motion Respiratory Exam: normal breath sounds, lungs clear, airway intact, No chest tenderness, No respiratory distress Cardiovascular Exam: regular rate/rhythm, normal heart sounds, normal peripheral pulses Gastrointestinal/Abdomen Exam: soft, normal bowel sounds, tenderness (Mild epigastrium), No rebound Pelvic Exam: not done Rectal Exam: not done Back Exam: normal inspection, normal range of motion, No CVA tenderness, No vertebral tenderness Extremity Exam: normal inspection, normal range of motion, pelvis stable Neurologic Exam: alert, 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, 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 No acute ischemia) Ordered Tests: Active Orders 24 hr Category Date Time Status EKG-ER Only STAT Care 05/13/24 21:04 Active IV Insertion STAT Care 05/13/24 21:04 Active ABDOMEN AND PELVIS W/0 CONTRAS [CT] Stat Exams 05/13/24 21:04 Taken CHEST WITHOUT CONTRAST [CT] Stat Exams 05/13/24 21:15 Taken AMYLASE Stat Lab 05/13/24 21:10 Completed BLOOD CULTURE Stat Lab 05/13/24 21:26 Received CBC W DIFF Stat Lab 05/13/24 21:04 Completed CMP Stat Lab 05/13/24 21:10 Completed CULTURE,URINE Stat Lab 05/13/24 22:20 Received LIPASE Stat Lab 05/13/24 21:10 Completed MONO SCREEN Stat Lab 05/13/24 21:10 Completed TROPONIN Q4H Lab 05/13/24 21:10 Completed TROPONIN Q4H Lab 05/14/24 01:15 Ordered TROPONIN Q4H Lab 05/14/24 05:15 Ordered UA W/RFX UR CULTURE Stat Lab 05/13/24 22:20 Completed Medication Summary Generic Name Dose Route Start Last Admin Trade Name Freq PRN Reason Stop Dose Admin Sodium Chloride 1,000 mls @ 100 mls/hr 05/13/24 21:15 05/13/24 21:09 Sodium Chloride 0.9% 1000 Ml IV 06/12/24 21:14 100 mls/hr .Q10H JOY Administration Discontinued Medications Generic Name Dose Route Start Last Admin Trade Name Livia PRN Reason Stop Dose Admin Ondansetron HCl 4 mg 05/13/24 21:04 05/13/24 21:10 Ondansetron Hcl 4 Mg/2 Ml Vial IV 05/13/24 21:05 4 mg STAT ONE Administration Ondansetron HCl Confirm 05/13/24 21:08 Ondansetron Hcl 4 Mg/2 Ml Vial Administered 05/13/24 21:09 Dose 4 mg .ROUTE .K-MED ONE Lab/Rad Data: Laboratory Result Diagrams 05/13/24 21:04 05/13/24 21:10 Laboratory Results 05/13/24 05/13/24 05/13/24 Range/Units 22:20 22:05 21:10 WBC (3.98-10.04) x10^3/uL RBC (3.93-5.22) x10^6/uL Hgb (11.2-15.7) g/dL Hct (34.1-44.9) % MCV (79.4-94.8) fL MCH (25.6-32.2) pg MCHC (32.2-35.5) g/dL RDW (11.7-14.4) % Plt Count (182-369) x10^3/uL MPV (9.4-12.3) fL Gran % (34.0-71.1) % Immature Gran % (Auto) (0.001-0.429) % Nucleat RBC Rel Count (0.00-0.2) % Eos # (Auto) (0.04-0.36) x10^3/uL Immature Gran # (Auto) (0.001-0.031) x10^3u/L Absolute Lymphs (auto) (1.18-3.74) x10^3/uL Absolute Monos (auto) (0.24-0.86) x10^3/uL Absolute Nucleated RBC (0.00-0.012) x10^3u/L Lymphocytes % (19.3-51.7) % Monocytes % (4.7-12.5) % Eosinophils % (0.7-5.8) % Basophils % (0.1-1.2) % Absolute Granulocytes (1.56-6.13) x10^3/uL Basophils # (0.01-0.08) x10^3/uL Sodium (135-145) mmol/L Potassium (3.5-5.1) mmol/L Chloride (98-107) mmol/L Carbon Dioxide (22-30) mmol/L Anion Gap (5-15) MEQ/L BUN (7-17) mg/dL Creatinine (0.52-1.04) mg/dL Estimated GFR ML/MIN Glucose (74-106) mg/dL Calcium (8.4-10.2) mg/dL Total Bilirubin (0.2-1.3) mg/dL AST (14-36) U/L ALT (0-35) U/L Alkaline Phosphatase (38-126) U/L Troponin I (0.000-0.033) ng/mL Serum Total Protein (6.3-8.2) g/dL Albumin (3.5-5.0) g/dL Amylase (30-110) U/L Lipase (23-300) U/L Urine Color Yellow (Yellow) Urine Appearance Clear (Clear) Urine pH 7.0 (4.6-8.0) Ur Specific [place] 1.010 (1.005-1.030) Urine Protein Trace A (Negative) Urine Glucose (UA) Negative (Negative) mg/dL Urine Ketones Negative (Negative) Urine Blood NHT (Negative) Urine Nitrite Negative (Negative) Urine Bilirubin Negative (Negative) Urine Urobilinogen 0.2 (0.2) mg/dL Ur Leukocyte Esterase Trace A (Negative) U Hyaline Cast (Auto) 6-10 A (0-2) /LPF Urine Microscopic RBC 6-10 A (0-5) /HPF Urine Microscopic WBC 0-2 (0-5) /HPF Ur Epithelial Cells None Seen (None Seen) /HPF Urine Bacteria None Seen (None Seen) /HPF Urine Culture Reflexed YES (NO) Digoxin (0.8-1.9) ng/mL Monoscreen NEGATIVE (NEGATIVE) Influenza Type A Ag NEGATIVE (NEGATIVE) Influenza Type B Ag NEGATIVE (NEGATIVE) RSV (PCR) NEGATIVE (NEGATIVE) SARS-CoV-2 (PCR) NEGATIVE (NEGATIVE) 02/10/25 02/10/25 02/10/25 Range/Units 21:10 21:10 21:10 WBC (3.98-10.04) x10^3/uL RBC (3.93-5.22) x10^6/uL Hgb (11.2-15.7) g/dL Hct (34.1-44.9) % MCV (79.4-94.8) fL MCH (25.6-32.2) pg MCHC (32.2-35.5) g/dL RDW (11.7-14.4) % Plt Count (182-369) x10^3/uL MPV (9.4-12.3) fL Gran % (34.0-71.1) % Immature Gran % (Auto) (0.001-0.429) % Nucleat RBC Rel Count (0.00-0.2) % Eos # (Auto) (0.04-0.36) x10^3/uL Immature Gran # (Auto) (0.001-0.031) x10^3u/L Absolute Lymphs (auto) (1.18-3.74) x10^3/uL Absolute Monos (auto) (0.24-0.86) x10^3/uL Absolute Nucleated RBC (0.00-0.012) x10^3u/L Lymphocytes % (19.3-51.7) % Monocytes % (4.7-12.5) % Eosinophils % (0.7-5.8) % Basophils % (0.1-1.2) % Absolute Granulocytes (1.56-6.13) x10^3/uL Basophils # (0.01-0.08) x10^3/uL Sodium 140 (135-145) mmol/L Potassium 4.2 (3.5-5.1) mmol/L Chloride 100 (98-107) mmol/L Carbon Dioxide 34 H (22-30) mmol/L Anion Gap 11.1 (5-15) MEQ/L BUN 28 H (7-17) mg/dL Creatinine 1.03 (0.52-1.04) mg/dL Estimated GFR 54.6 ML/MIN Glucose 75 (74-106) mg/dL Calcium 9.2 (8.4-10.2) mg/dL Total Bilirubin 0.60 (0.2-1.3) mg/dL AST 55 H (14-36) U/L ALT 44 H (0-35) U/L Alkaline Phosphatase 68 (38-126) U/L Troponin I < 0.012 (0.000-0.033) ng/mL Serum Total Protein 7.2 (6.3-8.2) g/dL Albumin 4.1 (3.5-5.0) g/dL Amylase 90 (30-110) U/L Lipase 305 H (23-300) U/L Urine Color (Yellow) Urine Appearance (Clear) Urine pH (4.6-8.0) Ur Specific [place] (1.005-1.030) Urine Protein (Negative) Urine Glucose (UA) (Negative) mg/dL Urine Ketones (Negative) Urine Blood (Negative) Urine Nitrite (Negative) Urine Bilirubin (Negative) Urine Urobilinogen (0.2) mg/dL Ur Leukocyte Esterase (Negative) U Hyaline Cast (Auto) (0-2) /LPF Urine Microscopic RBC (0-5) /HPF Urine Microscopic WBC (0-5) /HPF Ur Epithelial Cells (None Seen) /HPF Urine Bacteria (None Seen) /HPF Urine Culture Reflexed (NO) Digoxin 0.7 L (0.8-1.9) ng/mL Monoscreen (NEGATIVE) Influenza Type A Ag (NEGATIVE) Influenza Type B Ag (NEGATIVE) RSV (PCR) (NEGATIVE) SARS-CoV-2 (PCR) (NEGATIVE) 05/13/24 Range/Units 21:04 WBC 10.4 H (3.98-10.04) x10^3/uL RBC 5.13 (3.93-5.22) x10^6/uL Hgb 14.4 (11.2-15.7) g/dL Hct 45.6 H (34.1-44.9) % MCV 88.9 (79.4-94.8) fL MCH 28.1 (25.6-32.2) pg MCHC 31.6 L (32.2-35.5) g/dL RDW 16.0 H (11.7-14.4) % Plt Count 275 (182-369) x10^3/uL MPV 10.7 (9.4-12.3) fL Gran % 69.2 (34.0-71.1) % Immature Gran % (Auto) 0.4 (0.001-0.429) % Nucleat RBC Rel Count 0.0 (0.00-0.2) % Eos # (Auto) 0.09 (0.04-0.36) x10^3/uL Immature Gran # (Auto) 0.04 H (0.001-0.031) x10^3u/L Absolute Lymphs (auto) 2.09 (1.18-3.74) x10^3/uL Absolute Monos (auto) 0.91 H (0.24-0.86) x10^3/uL Absolute Nucleated RBC 0.00 (0.00-0.012) x10^3u/L Lymphocytes % 20.2 (19.3-51.7) % Monocytes % 8.8 (4.7-12.5) % Eosinophils % 0.9 (0.7-5.8) % Basophils % 0.5 (0.1-1.2) % Absolute Granulocytes 7.17 H (1.56-6.13) x10^3/uL Basophils # 0.05 (0.01-0.08) x10^3/uL Sodium (135-145) mmol/L Potassium (3.5-5.1) mmol/L Chloride (98-107) mmol/L Carbon Dioxide (22-30) mmol/L Anion Gap (5-15) MEQ/L BUN (7-17) mg/dL Creatinine (0.52-1.04) mg/dL Estimated GFR ML/MIN Glucose (74-106) mg/dL Calcium (8.4-10.2) mg/dL Total Bilirubin (0.2-1.3) mg/dL AST (14-36) U/L ALT (0-35) U/L Alkaline Phosphatase (38-126) U/L Troponin I (0.000-0.033) ng/mL Serum Total Protein (6.3-8.2) g/dL Albumin (3.5-5.0) g/dL Amylase (30-110) U/L Lipase (23-300) U/L Urine Color (Yellow) Urine Appearance (Clear) Urine pH (4.6-8.0) Ur Specific [place] (1.005-1.030) Urine Protein (Negative) Urine Glucose (UA) (Negative) mg/dL Urine Ketones (Negative) Urine Blood (Negative) Urine Nitrite (Negative) Urine Bilirubin (Negative) Urine Urobilinogen (0.2) mg/dL Ur Leukocyte Esterase (Negative) U Hyaline Cast (Auto) (0-2) /LPF Urine Microscopic RBC (0-5) /HPF Urine Microscopic WBC (0-5) /HPF Ur Epithelial Cells (None Seen) /HPF Urine Bacteria (None Seen) /HPF Urine Culture Reflexed (NO) Digoxin (0.8-1.9) ng/mL Monoscreen (NEGATIVE) Influenza Type A Ag (NEGATIVE) Influenza Type B Ag (NEGATIVE) RSV (PCR) (NEGATIVE) SARS-CoV-2 (PCR) (NEGATIVE) - Progress Progress: improved Progress Note: 05/13/24 21:28 My medical decision making and the assignment of moderate complexity to this patient's medical issue today is based on review of the patient's past medical history, review of patient's medication list, review the patient's drug allergy list, history present illness and physical findings on examination. The workup in this patient includes placement of intravenous line, infusion of normal saline solution, infusion of Zofran, CBC, CMP, amylase, lipase, monotest, viral swabs, troponin level, twelve-lead EKG, CT scan of the chest and CT scan of the abdomen pelvis, both without contrast. Differential diagnosis includes but is not limited to pancreatitis, myocardial infarction, electrolyte abnormalities, acute intrathoracic/abdomen/pelvis abnormality, viral illness 05/13/24 22:41 We are awaiting the viral studies. The remainder of the lab test did not show anything acute or emergent. CT scan of the chest without contrast was interpreted by the radiologist and I reviewed the impression. The impression states compared to 03/24/2024, there are no new, acute findings. There are chronic findings present including small hiatal hernia. The CT scan of the abdomen pelvis without contrast was interpreted by the ra diologist and I reviewed the impression. The impression states when compared to similar study dated 03/24/2024, there is, again, ascending and transverse colon fecal stasis that is mild. There are no new or acute findings. 05/13/24 22:56 In speaking to the patient and reviewing the study results with her and her spouse, both of them stated that the patient stopped taking the sucralfate and the clotrimazole to treat this patient's thrush. She stated that the sucralfate did help her pain as well as Pepto-Bismol. I recommended that she take her sucralfate as prescribed and can alternate Pepto-Bismol and Mylanta for prevention of the pain when she swallows cool liquids. I also recommend that she calls Dr. Castro (surgery) and her primary care provider tomorrow, 05/14/2024, to determine whether or not she is supposed to continue taking her clotrimazole. Counseled pt/family regarding: lab results, diagnosis, rad results Medical Desision Making - Independent Historian Additional History obtained from: Spouse - Diagnostic Testing Diagnostic test were ordered, analyzed, and reviewed by me: Yes Radiological Interpretation: Reviewed by me, Teleradiologist Report - Risk of complications Low Risk: Low risk of morbidity from additional dx testing or treatment - Departure Departure Disposition: Home Clinical Impression: Nonspecific chest pain, Nonspecific abdominal pain Condition: Stable Critical Care Time: No Referrals: NICHELLE HECK DO [Primary Care Provider] - Follow up/PCP as directed Additional Instructions: Avoid fatty greasy spicy foods. Approximately half hour prior to drinking/consuming cool foods, use your sucralfate and/or Pepto-Bismol, Mylanta as discussed. Call your primary care provider and your surgeon tomorrow, 05/14/2024, to determine whether or not you are to continue taking your clotrimazole.
[2024-05-13 20:59] VITALS: TEMP 98.3
[2024-05-13] MEDS ORDERED: Sodium Chloride 0.9% 1000 ML 1,000 ML ONE (21:08)
[2024-05-13] MEDS ORDERED: Zofran 4 MG/2 ML VIAL ONE (21:08)
[2024-05-13] MEDS: Sodium Chloride 0.9% 1000 ML 1,000 ML IV SCH (21:09)
[2024-05-13] MEDS: Zofran 4 MG/2 ML VIAL IV ONE (21:10)
[2024-05-13 21:41] LABS: Absolute Neutrophil Ct (ANC) 7.17 x10^3/uL (1.56-6.13); BASOPHIL % 0.5 % (0.1-1.2); Basophil (Absolute #) 0.05 x10^3/uL (0.01-0.08); Eosinophil % 0.9 % (0.7-5.8); Eosinophil (Absolute #) 0.09 x10^3/uL (0.04-0.36); Hematocrit 45.6 % (34.1-44.9); Hemoglobin 14.4 g/dL (11.2-15.7); IMMATURE GRAN # 0.04 x10^3u/L (0.001-0.031); IMMATURE GRAN % 0.4 % (0.001-0.429); Lymphocyte (Absolute #) 2.09 x10^3/uL (1.18-3.74); Lymphocytes % 20.2 % (19.3-51.7); Mean Cell Volume 88.9 fL (79.4-94.8); Mean Corpuscular Hemoglobin 28.1 pg (25.6-32.2); Mean Corpuscular Hgb Concent. 31.6 g/dL (32.2-35.5); Mean Platelet Volume 10.7 fL (9.4-12.3); Monocyte (Absolute #) 0.91 x10^3/uL (0.24-0.86); Monocytes % 8.8 % (4.7-12.5); Neutrophil % 69.2 % (34.0-71.1); Platelet Count 275 x10^3/uL (182-369); Red Blood Count 5.13 x10^6/uL (3.93-5.22); White Blood Count 10.4 x10^3/uL (3.98-10.04)
[2024-05-13 22:01] LABS: ALBUMIN 4.1 g/dL (3.5-5.0); ANION GAP 11.1 MEQ/L (5-15); BILIRUBIN,TOTAL 0.6 mg/dL (0.2-1.3); Calcium 9.2 mg/dL (8.4-10.2); Creatinine 1 1.03 mg/dL (0.52-1.04); EST GLOMERULAR FILTRATION RATE 54.6 ML/MIN; Potassium 4.2 mmol/L (3.5-5.1); Total Protein 7.2 g/dL (6.3-8.2)
[2024-05-13 22:31] LABS: Appearance Clear (Clear); Bacteria None Seen /HPF (None Seen); Bilirubin Negative (Negative); Blood NHT (Negative); Epithelial Cells None Seen /HPF (None Seen); Glucose, Urine Negative (Negative); Ketones Negative (Negative); Leukocyte Esterase Trace (Negative); Nitrite Negative (Negative); Protein,Urine Dip Trace (Negative); Urobilinogen 0.2 mg/dL (0.2); WBC 0-2 /HPF (0-5)
[2024-05-13 22:43] LABS: INFLUENZA A NEGATIVE (NEGATIVE); INFLUENZA B NEGATIVE (NEGATIVE); RESPIRATORY SYNCTIAL VIRUS NEGATIVE (NEGATIVE); SARS-CoV-2 Xpert Express NEGATIVE (NEGATIVE)
[2024-05-13 23:15] VITALS: BP 116/82; PULSE 102; RESP 21; O2SAT 98
--- NOTE | 2024-05-14 08:58 | XRAY ---
Indication: Chest pain. Multiple contiguous axial images obtained through the chest without contrast. Comparison: March 24, 2024 Lungs again demonstrates minimal bilateral dependent atelectasis, minimal lingula subsegmental atelectasis/scarring, and small right lower lobe calcified granuloma. No infiltrate, effusion, or pneumothorax. Heart not enlarged again with scattered coronary calcifications. Aorta again mildly arteriosclerotic. Stable small subcarinal and tiny right hilar calcified nodes. No pathologic mediastinal lymphadenopathy. Stable small hiatal hernia. Bony thorax intact again with osteopenia and flowing osteophytes throughout spine favoring diffuse idiopathic skeletal hyperostosis.. CT abdomen/pelvis reported separately. Impression: 1. Again chronic findings including atelectasis/scarring, hiatal hernia, arteriosclerotic disease, chronic bony findings, and old granulomatous disease. 2. No new/acute abnormalities on this noncontrast exam.
--- NOTE | 2024-05-14 09:02 | XRAY ---
Indication: Abdomen pain. Vomiting. Multiple contiguous axial images obtained through the abdomen and pelvis without contrast. Comparison: March 24, 2024 CT chest reported separately. Noncontrasted stomach and bowel loops nonobstructed. Again mild fecal debris in ascending and transverse colon more than before. Stable hepatic cysts, tiny gallstone, and tiny splenic calcified granulomas. No free fluid/air. Remaining liver, gallbladder, pancreas, spleen, adrenal glands, kidneys, ureters, bladder, and uterus are unremarkable for noncontrast exam. Again mild scattered aortoiliac calcifications without AAA. Osseous structures intact again with osteopenia, mild/moderate multilevel degenerative spondylosis, and minimal grade 1 listhesis L4 on L5. Impression: 1. Again mild fecal stasis. 2. Again chronic findings including hepatic cysts, gallstone, arteriosclerotic disease, chronic bony findings, and old granulomatous disease. 3. No new/acute findings on this noncontrast exam.
== END 2024-05-13 23:30 | disposition home or self-care (01) ==
LOC: ED 20:10
DX: R07.9 Chest pain, unspecified (principal); R10.13 Epigastric pain; R11.2 Nausea with vomiting, unspecified; E78.5 Hyperlipidemia, unspecified; Z79.01 Long term (current) use of anticoagulants; Z79.899 Other long term (current) drug therapy
CPT/HCPCS: 0241U; 36415; 71250; 74176; 80053; 80162; 81001; 82150; 83690; 84484; 85025; 86308; 87040; 87086; 93005; 96374; 99285; 99284; J2405

== ENCOUNTER 2024-08-15 11:03 | Observation (INO) | payer MEDICARE ==
[2024-08-15] MEDS: Sodium Chloride 0.9% 1000 ML 1,000 ML IV STA (11:50)
[2024-08-15] MEDS ORDERED: Sodium Chloride 0.9% 1000 ML 1,000 ML ONE (11:50)
[2024-08-15 11:55] LABS: Absolute Neutrophil Ct (ANC) 6.02 x10^3/uL (1.56-6.13); BASOPHIL % 0.6 % (0.1-1.2); Basophil (Absolute #) 0.05 x10^3/uL (0.01-0.08); Eosinophil % 0.5 % (0.7-5.8); Eosinophil (Absolute #) 0.04 x10^3/uL (0.04-0.36); Hematocrit 43.2 % (34.1-44.9); Hemoglobin 13.7 g/dL (11.2-15.7); IMMATURE GRAN # 0.04 x10^3u/L (0.001-0.031); IMMATURE GRAN % 0.5 % (0.001-0.429); Lymphocytes % 19.7 % (19.3-51.7); Mean Cell Volume 91.5 fL (79.4-94.8); Mean Corpuscular Hgb Concent. 31.7 g/dL (32.2-35.5); Mean Platelet Volume 10.4 fL (9.4-12.3); Monocyte (Absolute #) 0.77 x10^3/uL (0.24-0.86); Monocytes % 8.9 % (4.7-12.5); Neutrophil % 69.8 % (34.0-71.1); Platelet Count 223 x10^3/uL (182-369); Red Blood Count 4.72 x10^6/uL (3.93-5.22); Red Cell Distribution Width 14.8 % (11.7-14.4); White Blood Count 8.6 x10^3/uL (3.98-10.04)
--- NOTE | 2024-08-15 12:17 | XRAY ---
CLINICAL HISTORY: cp COMPARISON: 03/24/2024 reviewed TECHNIQUE: Xray image of the chest was obtained in frontal projection FINDINGS: No active parenchymatous lung lesion seen. The right lower zone calcific nodule is noted Right lower zone atelactatic bands Apices and CP angles are clear. The cardiac size is normal. Bilateral bulky abbi Bony thorax shows degenerative changes, with the left shoulder calcific tendinitis IMPRESSION: No acute pulmonary pathology is noted Rest of the findings are described above No interval changes. Electronically Signed by: Angeles Hurd MD. (08/15/2024 12:14:31 EDT)
[2024-08-15 12:25] LABS: ALBUMIN 4.1 g/dL (3.5-5.0); BILIRUBIN,TOTAL 0.5 mg/dL (0.2-1.3); Calcium 9.8 mg/dL (8.4-10.2); Creatinine 1 1.11 mg/dL (0.52-1.04); EST GLOMERULAR FILTRATION RATE 49.6 ML/MIN; Potassium 4.2 mmol/L (3.5-5.1); Total Protein 6.8 g/dL (6.3-8.2)
--- NOTE | 2024-08-15 12:34 | ERPHSYRPT ---
- History of Present Illness Time Seen by Provider: 08/15/24 11:28 Source: patient, family Exam Limitations: no limitations Patient Subjective Stated Complaint: pt states that she had chest pain at 10 this morning. pt states that now she is having abd pain Triage Nursing Assessment: pt came into the er via wheelchair; pt transfer to cot per self; pt is axo x4; c/o chest pain and abd pain; pt states 3/10 pain to abd; pt denies current chest pain; clear apical heart tone; clear lung sounds in all lobes; strong nadeen radial pulse; strong nadeen pedal pulse; no edema present; active bowel sounds in all quads; abd round, soft, tender in upper quads; c/o diarrhea; pt denies N/V; skin PDW; no respiratory distress present; vitals wnl Physician History: 84 years old female with multiple medical problems presented in the ER with complains of sudden onset tightness around mid to upper abdomen around 10 AM which she rated 6/10 intensity and when she tried to get off of the couch felt lightheaded/dizzy with some chest pain. Patient was feeling as if she was going to pass out. Denies any chest pain palpitations or shortness of breath now. Patient denies any abdominal discomfort currently. Does report having history of feeling dizzy lightheaded with sudden standing. Did have diarrhea this morning. Allergies/Adverse Reactions: cefaclor [From Ceclor] Allergy (Intermediate, Verified 08/15/24 11:09) Itching face tight, swelling, felt hot clindamycin HCl [From Cleocin] Allergy (Intermediate, Verified 08/15/24 11:09) clindamycin palmitate HCl [From Cleocin] Allergy (Intermediate, Verified 08/15/24 11:09) Hives entire body clindamycin phosphate [From Cleocin] Allergy (Intermediate, Verified 08/15/24 11:09) Penicillins Allergy (Intermediate, Verified 08/15/24 11:09) Rash Home Medications: Calcium Carbonate/Vitamin D3 [Calcium 500-Vit D3 200 Caplet] 600 mg PO BID@1200,2300 07/02/13 [History] Magnesium 250 mg PO HS 11/02/18 [History] Potassium Chloride 10 meq PO BID 11/13/18 [History] Digoxin 0.125 mg Tablet [Lanoxin 0.125MG TABLET] 0.0625 mg PO QAM 01/29/19 [History] Metoprolol Tartrate 50 mg PO QAM 03/21/19 [History] Zinc 50 mg PO DAILY 04/20/21 [History] Albuterol 2.5 mg/0.5 ml [PROVENTIL Solution 2.5 MG/0.5 ML] 2.5 mg IH QID 10/07/21 [History] Allopurinol 100 mg [Zyloprim 100 mg] 100 mg PO DAILY 10/07/21 [History] Fluticasone Propionate [Flonase NASAL] 1 gm NS QAM 10/07/21 [History] Loratadine 10 mg PO HS 10/07/21 [History] Multivit-Min/Iron/Folic Acid/K [Adults Multivitamin Tablet] 1 tablet PO HS 02/25/22 [History] Apixaban [Eliquis 5 mg Tablet] 5 mg PO BID 05/01/22 [History] Alendronate Sodium 70 mg [Fosamax 70 MG] 70 mg PO Q7D@0600 06/21/23 [History] Levothyroxine Sodium 75 Mcg [Synthroid 75 Mcg] 75 mcg PO DAILY 06/21/23 [History] Ascorbic Acid [Vitamin C] 500 mg PO DAILY 11/16/23 [History] Atorvastatin Calcium [Lipitor 40Mg] 40 mg PO HS 11/16/23 [History] Cholecalciferol (Vitamin D3) [Vitamin D3] 25 mcg PO DAILY 11/16/23 [History] Furosemide 40 mg [Lasix 40 MG] 40 mg PO DAILY 11/16/23 [History] Metoprolol Tartrate 25 mg [Lopressor 25MG Tab] 25 mg PO HS 11/16/23 [History] Modafinil 100 mg [Provigil 100MG Tablet] 100 mg PO DAILY 11/16/23 [History] Ubidecarenone/Vit E Acet [Co Q-10 100 mg Softgel] 1 each PO DAILY 11/16/23 [History] Duloxetine HCl 60 mg PO DAILY 04/11/24 [History] Hx Tetanus, Diphtheria Vaccination/Date Given: No Hx Influenza Vaccination/Date Given: Yes Hx Pneumococcal Vaccination/Date Given: Yes Immunizations Up to Date: No Travel Risk - International Travel Have you traveled outside of the country in past 3 weeks: No - Emerging Infectious Disease Are you exhibiting symptoms associated with any current EIDs: Yes Symptoms: Abdominal Pain, Diarrhea - Review of Systems Constitutional: Fatigue, Weakness Ears, Nose, & Throat: No Symptoms Respiratory: No Symptoms Cardiac: Chest Pain Abdominal/Gastrointestinal: Abdominal Pain, Diarrhea Genitourinary Symptoms: No Symptoms Musculoskeletal: Arthralgias Skin: No Symptoms Neurological: Dizziness Endocrine: No Symptoms Hematologic/Lymphatic: No Symptoms - Past Medical History Pertinent Past Medical History: Yes Neurological History: Stroke, TIA ENT History: Cataracts, Other Cardiac History: Arrhythmia, Congenital Heart Disease, High Cholesterol Respiratory History: Sleep Apnea Endocrine Medical History: Hypothyroidism, Other Musculoskeletal History: Osteoarthritis, Osteoporosis GI Medical History: GI Bleed, Polyps History: No Pertinent History Psycho-Social History: Anxiety, Depression, Panic Disorder Female Reproductive Disorders: No Pertinent History Other Medical History: GOUT, CERVICAL OA, DEPRESSIVE DISORDER, MILD MEMORY DISTURBANCE. PATIENT ATTENDS GROUP THERAPY AT [employer] 2X/WEEK. - Past Surgical History Past Surgical History: Yes Neuro Surgical History: No Pertinent History Cardiac: No Pertinent History Respiratory: No Pertinent History Gastrointestinal: Appendectomy Genitourinary: No Pertinent History Musculoskeletal: Joint Replacement, Orthopedic Surgery Female Surgical History: Tubal Ligation, Other Other Surgical History: sinus surgery, tonsils, D&C x2, cataract, left KNEE REPLACEMENT , antibiotic spacer placement in left knee. Significant Family History: no pertinent family hx - Social History Smoking Status: Never smoker Exposure to second hand smoke: No Drug Use: none - Social Determinants of Health Will the patient participate in the screening: Yes Do you worry about a steady place to live?: No Do you have any problems with any of the following?: No known problems In the past 12 months,have you had to go without utilities?: No Transportation Issues: No Has anyone in your support network made you feel unsafe?: No Have you or anyone in your house had to go w/o enough food: No - Nursing Vital Signs Nursing Vital Signs: Initial Vital Signs Pulse Rate 72 08/15/24 11:07 Respiratory Rate 23 08/15/24 11:07 Blood Pressure 117/68 08/15/24 11:07 O2 Sat by Pulse Oximetry 97 08/15/24 11:07 Pain Scale Pain Intensity 3 - Physical Exam General Appearance: no apparent distress, alert Eye Exam: PERRL/EOMI Ears, Nose, Throat Exam: normal ENT inspection Neck Exam: normal inspection, non-tender, supple, full range of motion Respiratory Exam: normal breath sounds, lungs clear Cardiovascular Exam: regular rate/rhythm, normal heart sounds Gastrointestinal/Abdomen Exam: soft, normal bowel sounds, No tenderness Back Exam: normal inspection, normal range of motion Extremity Exam: normal inspection, normal range of motion Neurologic Exam: alert, 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, cooperative Skin Exam: normal color SpO2 Interpretation: normal SpO2: 96 O2 Delivery: Room Air - Course EKG Interpreted by Me: RATE (73), A-fib, NORMAL AXIS, Right Bundle Branch Block, Q-wave, Non-specific ST Changes Ordered Tests: Active Orders 24 hr Category Date Time Status EKG-ER Only STAT Care 08/15/24 11:28 Active IV Insertion STAT Care 08/15/24 11:28 Active NPO (ED) STAT Care 08/15/24 11:28 Active Orthostatic Vital Signs STAT Care 08/15/24 11:29 Active ABDOMEN AND PELVIS W/0 CONTRAS [CT] Stat Exams 08/15/24 13:45 Completed CHEST 1 VIEW (PORTABLE) Stat Exams 08/15/24 11:29 Completed GALLBLADDER [US] Stat Exams 08/15/24 15:40 Ordered CBC W DIFF Stat Lab 08/15/24 11:50 Completed CMP Stat Lab 08/15/24 11:50 Completed CULTURE,URINE Stat Lab 08/15/24 14:50 Received LIPASE Stat Lab 08/15/24 11:50 Completed Lactic Acid Stat Lab 08/15/24 11:53 Completed TROPONIN Q4H Lab 08/15/24 11:50 Completed TROPONIN Q4H Lab 08/15/24 15:20 Completed TROPONIN Q4H Lab 08/15/24 19:30 Ordered UA W/RFX UR CULTURE Stat Lab 08/15/24 14:50 Completed Medication Summary Discontinued Medications Generic Name Dose Route Start Last Admin Trade Name Freq PRN Reason Stop Dose Admin Sodium Chloride 1,000 mls @ 999 mls/hr 08/15/24 11:49 08/15/24 12:56 Sodium Chloride 0.9% 1000 Ml IV 08/15/24 12:49 Infused .Q1H1M STA Infusion Sodium Chloride Confirm 05/15/25 11:50 Sodium Chloride 0.9% 1000 Ml Administered 08/15/24 11:51 Dose 1,000 mls [facility] Lab/Rad Data: Laboratory Result Diagrams 08/15/24 11:50 08/15/24 11:50 Laboratory Results 08/15/24 08/15/24 08/15/24 Range/Units 15:20 14:50 11:53 WBC (3.98-10.04) x10^3/uL RBC (3.93-5.22) x10^6/uL Hgb (11.2-15.7) g/dL Hct (34.1-44.9) % MCV (79.4-94.8) fL MCH (25.6-32.2) pg MCHC (32.2-35.5) g/dL RDW (11.7-14.4) % Plt Count (182-369) x10^3/uL MPV (9.4-12.3) fL Gran % (34.0-71.1) % Immature Gran % (Auto) (0.001-0.429) % Nucleat RBC Rel Count (0.00-0.2) % Eos # (Auto) (0.04-0.36) x10^3/uL Immature Gran # (Auto) (0.001-0.031) x10^3u/L Absolute Lymphs (auto) (1.18-3.74) x10^3/uL Absolute Monos (auto) (0.24-0.86) x10^3/uL Absolute Nucleated RBC (0.00-0.012) x10^3u/L Lymphocytes % (19.3-51.7) % Monocytes % (4.7-12.5) % Eosinophils % (0.7-5.8) % Basophils % (0.1-1.2) % Absolute Granulocytes (1.56-6.13) x10^3/uL Basophils # (0.01-0.08) x10^3/uL Sodium (135-145) mmol/L Potassium (3.5-5.1) mmol/L Chloride (98-107) mmol/L Carbon Dioxide (22-30) mmol/L Anion Gap (5-15) MEQ/L BUN (7-17) mg/dL Creatinine (0.52-1.04) mg/dL Estimated GFR ML/MIN Glucose (74-106) mg/dL Lactic Acid 1.2 (0.4-2.0) Calcium (8.4-10.2) mg/dL Total Bilirubin (0.2-1.3) mg/dL AST (14-36) U/L ALT (0-35) U/L Alkaline Phosphatase (38-126) U/L Troponin I < 0.012 (0.000-0.033) ng/mL Serum Total Protein (6.3-8.2) g/dL Albumin (3.5-5.0) g/dL Lipase (23-300) U/L Urine Color Yellow (Yellow) Urine Appearance Clear (Clear) Urine pH 6.5 (4.6-8.0) Ur Specific Coker <=1.005 (1.005-1.030) Urine Protein Negative (Negative) Urine Glucose (UA) Negative (Negative) mg/dL Urine Ketones Negative (Negative) Urine Blood Trace (Negative) Urine Nitrite Negative (Negative) Urine Bilirubin Negative (Negative) Urine Urobilinogen 0.2 (0.2) mg/dL Ur Leukocyte Esterase Small A (Negative) U Hyaline Cast (Auto) NONE SEEN (0-2) /LPF Urine Microscopic RBC 0-2 (0-5) /HPF Urine Microscopic WBC 6-10 A (0-5) /HPF Ur Epithelial Cells None Seen (None Seen) /HPF Urine Bacteria Rare A (None Seen) /HPF Urine Culture Reflexed YES (NO) 08/15/24 08/15/24 08/15/24 Range/Units 11:50 11:50 11:50 WBC 8.6 (3.98-10.04) x10^3/uL RBC 4.72 (3.93-5.22) x10^6/uL Hgb 13.7 (11.2-15.7) g/dL Hct 43.2 (34.1-44.9) % MCV 91.5 (79.4-94.8) fL MCH 29.0 (25.6-32.2) pg MCHC 31.7 L (32.2-35.5) g/dL RDW 14.8 H (11.7-14.4) % Plt Count 223 (182-369) x10^3/uL MPV 10.4 (9.4-12.3) fL Gran % 69.8 (34.0-71.1) % Immature Gran % (Auto) 0.5 H (0.001-0.429) % Nucleat RBC Rel Count 0.0 (0.00-0.2) % Eos # (Auto) 0.04 (0.04-0.36) x10^3/uL Immature Gran # (Auto) 0.04 H (0.001-0.031) x10^3u/L Absolute Lymphs (auto) 1.70 (1.18-3.74) x10^3/uL Absolute Monos (auto) 0.77 (0.24-0.86) x10^3/uL Absolute Nucleated RBC 0.00 (0.00-0.012) x10^3u/L Lymphocytes % 19.7 (19.3-51.7) % Monocytes % 8.9 (4.7-12.5) % Eosinophils % 0.5 L (0.7-5.8) % Basophils % 0.6 (0.1-1.2) % Absolute Granulocytes 6.02 (1.56-6.13) x10^3/uL Basophils # 0.05 (0.01-0.08) x10^3/uL Sodium 139 (135-145) mmol/L Potassium 4.2 (3.5-5.1) mmol/L Chloride 101 (98-107) mmol/L Carbon Dioxide 28 (22-30) mmol/L Anion Gap 15.0 (5-15) MEQ/L BUN 50 H (7-17) mg/dL Creatinine 1.11 H (0.52-1.04) mg/dL Estimated GFR 49.6 ML/MIN Glucose 90 (74-106) mg/dL Lactic Acid (0.4-2.0) Calcium 9.8 (8.4-10.2) mg/dL Total Bilirubin 0.50 (0.2-1.3) mg/dL AST 53 H (14-36) U/L ALT 38 H (0-35) U/L Alkaline Phosphatase 74 (38-126) U/L Troponin I < 0.012 (0.000-0.033) ng/mL Serum Total Protein 6.8 (6.3-8.2) g/dL Albumin 4.1 (3.5-5.0) g/dL Lipase 447 H (23-300) U/L Urine Color (Yellow) Urine Appearance (Clear) Urine pH (4.6-8.0) Ur Specific Coker (1.005-1.030) Urine Protein (Negative) Urine Glucose (UA) (Negative) mg/dL Urine Ketones (Negative) Urine Blood (Negative) Urine Nitrite (Negative) Urine Bilirubin (Negative) Urine Urobilinogen (0.2) mg/dL Ur Leukocyte Esterase (Negative) U Hyaline Cast (Auto) (0-2) /LPF Urine Microscopic RBC (0-5) /HPF Urine Microscopic WBC (0-5) /HPF Ur Epithelial Cells (None Seen) /HPF Urine Bacteria (None Seen) /HPF Urine Culture Reflexed (NO) - Progress Progress: improved Progress Note: 08/15/24 15:51 Differential diagnosis: ACS, atypical chest pain, orthostatic hypotension, anemia GERD, acute cholecystitis, pancreatitis, intestinal obstruction, colitis, constipation, kidney stones, gastroenteritis etc. 84 years old is evaluated in the ER for sudden onset upper abdominal pain with some lower chest discomfort and feeling dizzy lightheaded with standing. Patient most of the symptoms are improved on presentation in the ER. EKG showed A-fib rate controlled patient is already anticoagulated on Eliquis. No ST elevation and negative troponins x 2. Chest x-ray is negative for any acute cardiopulmonary findings interpreted by me followed by official read Has normal white count, chemistries with BUN of 50 and creatinine of 1.1 with a baseline BUN 30 and creatinine of 0.98. She is given 500 cc fluid bolus and continue with gentle hydration as patient has positive orthostatics dropping from 1 11-81 systolic with symptomatic dizziness/lightheadedness. Has a mildly elevated lipase in 400s, CT showing stone in the lumen of gallbladder with no signs of acute cholecystitis and no CT findings of acute pancreatitis. Patient has chronically mildly high lipase. Does not seem like patient has acute pancreatitis. She does have's moderate stool load and some other chronic intra-abdominal pelvic findings but no acute findings. Discussed with Dr. Farrell, reviewed history, workup, recommended obtaining right upper quadrant ultrasound which is ordered. Shared the results of workup with patient and family and recommended observation admission with hydration and reevaluation and may need adjustment in medication dosages which they understand and agree. Complexity of problems addressed: Moderate acute Complexity of data reviewed/analyzed: Extensive Risk of complication: Moderate to high Discussed with .: Other (Dr. Farrell hospitalist) Will see patient in: hospital (observation) Counseled pt/family regarding: lab results, diagnosis, rad results Medical Desision Making - Independent Historian Additional History obtained from: Spouse - Discussion of managment Care discussed with:: hospitalist Reviewed:: Test results Agreed on:: Treatment plan, place in obs Will see patient: in hospital - Diagnostic Testing Diagnostic test were ordered, analyzed, and reviewed by me: Yes Radiological Interpretation: Interpreted by me, Reviewed by me - Risk of complications The pt has a mod risk of morbidity or mortality based on: Need for prescription drug management The pt has a high risk of morbidity or mortality based on: Decision regarding hospitilization or escalation of hosp level of care - Departure Departure Disposition: Observation Clinical Impression: Orthostatic hypotension, Dehydration, Cholelithiasis, Chest pain Condition: Stable Critical Care Time: No Referrals: NICHELLE HECK DO [Primary Care Provider, [facility]] - Follow up/PCP as directed
[2024-08-15 15:03] LABS: Appearance Clear (Clear); Bacteria Rare /HPF (None Seen); Bilirubin Negative (Negative); Blood Trace (Negative); Epithelial Cells None Seen /HPF (None Seen); Glucose, Urine Negative (Negative); Hyaline Casts NONE SEEN /LPF (0-2); Ketones Negative (Negative); Leukocyte Esterase Small (Negative); Nitrite Negative (Negative); Ph 6.5 (4.6-8.0); Protein,Urine Dip Negative (Negative); RBC 0-2 /HPF (0-5); Specific Gravity <=1.005 (1.005-1.030); Urobilinogen 0.2 mg/dL (0.2)
--- NOTE | 2024-08-15 15:25 | XRAY ---
CLINICAL HISTORY: upper abd pain COMPARISON: CT dated 05/13/2024 and 03/24/2024 TECHNIQUE: Non contrast CT of the abdomen and pelvis was performed, with the following protocol: axial images, and reconstructed coronal and sagittal images. One of the following dose reduction techniques was utilized for this exam: Automated exposure control, adjustment of the mA and/or kV according to patient size, and use of iterative reconstruction. DLP: 256.24 mGy-cm, CTDI: 5.37 mGy. FINDINGS: Abdomen: Liver: Normal in size, and density. Few hypodense lesion measuring 22 x 25 mm in segment likely hepatic cyst. Gallbladder and Biliary System: A small 4 mm calculus in the gallbladder lumen. No wall thickening or pericholecystic fluid was identified. Pancreas: Pancreatic head, body, and tail are visualized and appear normal in size and density. No pancreatic masses or calcifications were noted. Spleen: Normal in size, shape. Multiple tiny calcific granulomas in spleen. Kidneys and Adrenal Glands: Both kidneys are normal in size, shape, and position. Fat containing subcapsular area in lateral cortex of left kidney, sequelae to prior infection/insult or angiomyolipoma. No stones Adrenal glands are unremarkable. Peritoneal and Retroperitoneal Structures: No free fluid or abnormal fluid collections were identified within the abdomen or pelvis. Few subcentimetric hepatogastric nodes noted. Extensive Atherosclerotic calcifications identified in the abdominal aorta Bowel: The visualized bowel loops are normal in caliber and appearance. Some fecal loading in colon. Bones and Soft Tissues: Degenerative changes in lumbar spine. Grade I anterolisthesis of L4 over L5. Ill-defined area of sclerosis and lucency in bilateral iliac bones likely secondary to osteopenia. Suggestion of osteitis pubis Pelvis : No uterine or adnexal masses Chest : Unremarkable lower esophagus 6 mm calcified granuloma in the right lower lobe in lateral basal segment. No follow-up is required. Minimal thin subpleural plate atelectatic changes in basal regions. IMPRESSION: 1. Limited non contrast study 2. No acute abdominal or pelvic abnormality on non contrast basis 3. Some fecal loading of colon 4. Hepatic cyst .. Cholelithiasis, no evidence of acute cholecystitis. 5. Tiny old calcified granulomas in spleen. 6. Few subcentimetric hepatogastric nodes. 7. Stable chronic findings compared to prior CT Electronically Signed by: Angeles Hurd MD. (08/15/2024 15:22:03 EDT)
--- NOTE | 2024-08-15 18:10 | PCM.HP ---
<CORINE GUERRERO - Last Filed: 08/15/24 18:05> History of Present Illness - Chief Complaint Chief Complaint: abdominal pain/dizziness Date: 08/15/24 History of Present Illness: is a 84 year old female with a complex medical history of atrial fibrillation (on Eliquis), prior TIA, hyperlipidemia, obstructive sleep apnea, hypothyroidism, osteoarthritis, anxiety, and depression presented to the emergency department on 08/15/24 for evaluation of sudden onset mid-upper abdominal discomfort, described as tightness, associated with lower chest pressure, diaphoresis, and significant lightheadedness upon standing. The episode occurred while at home around 10:00 AM. She described the sensation as severe enough to make her feel as though she might pass out. At the time of evaluation in the ED and during my interview, most of her symptoms had improved spontaneously. Upon arrival to ED,vitals stable. Orthostatic vitals were notable for a significant systolic blood pressure drop from 111 to 81 mmHg with associated dizziness, suggestive of orthostatic hypotension likely due to volume depletion. EKG showedchronic atrial fibrillation with rate control and no evidence of acute ischemia; serial troponins were negative. Chest x-ray, showed no acute cardiopulmonary abnormalities. Laboratory results showed a normal white blood cell count and stable basic metabolic panel aside from a BUN of 50 and creatinine of 1.1, mildly increased from her baseline creatinine of 0.98 and BUN of 30, indicating prerenal azotemia likely related to dehydration. Lipase was mildly elevated in the 400s. CT abdomen and pelvis demonstrated gallstones within the gallbladder lumen without radiologic evidence of acute cholecystitis or pancreatitis, as well as moderate fecal burden. There were no CT findings suggestive of acute intra-abdominal pathology. Given the patients history and mildly elevated lipase, acute pancreatitis was deemed unlikely.Right upper quadrant ultrasound pending to further assess for biliary pathology. The patient was treated with a 500 cc IV fluid bolus followed by gentle hydration given her positive orthostatics and clinical improvement with fluids. - Review of Systems Constitutional: No Symptoms Eyes: No Symptoms Ears, Nose, & Throat: No Symptoms Respiratory: No Symptoms Cardiac: No Symptoms Abdominal/Gastrointestinal: Abdominal Pain Genitourinary Symptoms: No Symptoms Musculoskeletal: No Symptoms Skin: No Symptoms Neurological: Dizziness Psychological: No Symptoms Endocrine: No Symptoms Hematologic/Lymphatic: No Symptoms Immunological/Allergic: No Symptoms Medications & Allergies Home Medications: Home Medication List Calcium Carbonate/Vitamin D3 [Calcium 500-Vit D3 200 Caplet] 600 mg PO BID@1200,2300 07/02/13 [History Confirmed 08/15/24] Magnesium 250 mg PO HS 11/02/18 [History Confirmed 08/15/24] Potassium Chloride 10 meq PO BID 11/13/18 [History Confirmed 08/15/24] Digoxin 0.125 mg Tablet [Lanoxin 0.125MG TABLET] 0.0625 mg PO QAM 01/29/19 [History Confirmed 08/15/24] Metoprolol Tartrate 50 mg PO QAM 03/21/19 [History Confirmed 08/15/24] Zinc 50 mg PO EVENING MEAL 04/20/21 [History Confirmed 08/15/24] Allopurinol 100 mg [Zyloprim 100 mg] 100 mg PO EVENING MEAL 10/07/21 [History Confirmed 08/15/24] Fluticasone Propionate [Flonase NASAL] 1 gm NS QAM 10/07/21 [History Confirmed 08/15/24] Loratadine 10 mg PO HS 10/07/21 [History Confirmed 08/15/24] Multivit-Min/Iron/Folic Acid/K [Adults Multivitamin Tablet] 1 tablet PO HS 02/25/22 [History Confirmed 08/15/24] Apixaban [Eliquis 5 mg Tablet] 5 mg PO BID 05/01/22 [History Confirmed 08/15/24] Alendronate Sodium 70 mg [Fosamax 70 MG] 70 mg PO Q7D@0600 06/21/23 [History Confirmed 08/15/24] Levothyroxine Sodium 75 Mcg [Synthroid 75 Mcg] 75 mcg PO UD 06/21/23 [History Confirmed 08/15/24] Aspirin EC 81 mg [Ecotrin 81 mg] 81 mg PO DAILY 30 Days #30 tablet 10/10/23 [Rx Confirmed 08/15/24] Ascorbic Acid [Vitamin C] 500 mg PO DAILY 11/16/23 [History Confirmed 08/15/24] Atorvastatin Calcium [Lipitor 40Mg] 40 mg PO HS 11/16/23 [History Confirmed 08/15/24] Cholecalciferol (Vitamin D3) [Vitamin D3] 25 mcg PO DAILY 11/16/23 [History Confirmed 08/15/24] Furosemide 40 mg [Lasix 40 MG] 40 mg PO DAILY 11/16/23 [History Confirmed 08/15/24] Metoprolol Tartrate 25 mg [Lopressor 25MG Tab] 25 mg PO HS 11/16/23 [History Confirmed 08/15/24] Modafinil 100 mg [Provigil 100MG Tablet] 100 mg PO DAILY 11/16/23 [History Confirmed 08/15/24] Ubidecarenone/Vit E Acet [Co Q-10 100 mg Softgel] 100 mg PO DAILY 11/16/23 [History Confirmed 08/15/24] Duloxetine HCl 60 mg PO HS 04/11/24 [History Confirmed 08/15/24] Famotidine 20 mg [Pepcid 20 MG] 40 mg PO HS 08/15/24 [History Confirmed 08/15/24] Furosemide [Lasix] 20 mg PO 1200 08/15/24 [History Confirmed 08/15/24] Hydroxychloroquine Sulfate 300 mg PO HS 08/15/24 [History Confirmed 08/15/24] Allergies/Adverse Reactions: Allergies Allergy/AdvReac Type Severity Reaction Status Date / Time cefaclor [From Ceclor] Allergy Intermediate Itching Verified 08/15/24 11:09 clindamycin HCl Allergy Intermediate Verified 08/15/24 11:09 [From Cleocin] clindamycin palmitate HCl Allergy Intermediate Hives Verified 08/15/24 11:09 [From Cleocin] clindamycin phosphate Allergy Intermediate Verified 08/15/24 11:09 [From Cleocin] Penicillins Allergy Intermediate Rash Verified 08/15/24 11:09 - Past Medical History Past Medical History: Yes Neurological History: Dementia, TIA ENT History: Cataracts Cardiac History: Angina, Arrhythmia, Congestive Heart Failure, High Cholesterol Respiratory History: Sleep Apnea Endocrine Medical History: Hypothyroidism Musculoskelatal History: Osteoarthritis, Osteoporosis GI Medical History: Polyps History: No Pertinent History Pyscho-Social History: Anxiety, Depression Reproductive Disorders: No Pertinent History Comment: Borderline dementia- testing a few weeks ago. Cataract surgery hx. Gout. - Past Surgical History Past Surgical History: Yes Neuro Surgical History: No Pertinent History Cardiac History: No Pertinent History Respiratory Surgery: No Pertinent History GI Surgical History: Appendectomy Genitourinary Surgical Hx: No Pertinent History Musculskeletal Surgical Hx: Joint Replacement, Orthopedic Surgery Female Surgical History: Tubal Ligation Other Surgical History: Sinus surgery, D&C x2, cataract, left knee replacement, antibiotic spacer placement in left knee. Significant Family History: cancer, stroke - Social History Smoking Status: Never smoker Exposure to second hand smoke: No Alcohol: None Drug Use: none - Social Determinants of Health Will the patient participate in the screening: Yes Do you worry about a steady place to live?: No Do you have any problems with any of the following?: No known problems In the past 12 months,have you had to go without utilities?: No Have you or anyone in your house had to go without enough: No Transportation Issues: No Has anyone in your support network made you feel unsafe?: No Does the patient want assistance with any of the above?: No - Physical Exam Vital Signs: Vital Signs - 24 hr Temp Pulse Pulse Resp BP BP Pulse Ox 08/15/24 17:00 78 20 112/60 97 08/15/24 16:30 77 22 115/87 97 08/15/24 16:00 76 20 129/86 99 08/15/24 15:58 96 08/15/24 15:30 74 21 115/52 98 08/15/24 15:00 82 19 121/72 97 08/15/24 14:49 68 20 138/90 98 08/15/24 14:30 78 22 127/78 93 L 08/15/24 14:19 74 18 113/66 98 08/15/24 14:18 81 16 98 08/15/24 14:00 80 18 130/80 97 08/15/24 13:46 80 21 112/73 97 08/15/24 13:30 81 22 125/71 97 08/15/24 13:15 82 19 118/71 98 08/15/24 13:00 74 21 114/74 98 08/15/24 12:52 77 21 120/76 98 08/15/24 12:50 88 15 08/15/24 12:30 117/71 08/15/24 12:23 77 17 119/65 94 L 08/15/24 12:06 73 17 104/59 96 08/15/24 11:47 72 29 H 81/61 92 L 08/15/24 11:44 88 21 111/63 92 L 08/15/24 11:30 79 16 106/67 95 08/15/24 11:09 96.1 F 72 72 20 117/68 98 08/15/24 11:07 72 23 117/68 97 General Appearance: no apparent distress Neurologic Exam: alert, 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, cooperative Eye Exam: PERRL/EOMI Ears, Nose, Throat Exam: normal ENT inspection Neck Exam: normal inspection Respiratory Exam: normal breath sounds, lungs clear Cardiovascular Exam: irregular Gastrointestinal/Abdomen Exam: soft, normal bowel sounds Pelvic Exam: not done Rectal Exam: deferred Back Exam: normal inspection Extremity Exam: normal inspection Skin Exam: normal color Results - Labs Lab/Micro Results: Lab Results-Last 24 Hours 08/15/24 08/15/24 08/15/24 Range/Units 11:50 11:50 11:50 WBC 8.6 (3.98-10.04) x10^3/uL RBC 4.72 (3.93-5.22) x10^6/uL Hgb 13.7 (11.2-15.7) g/dL Hct 43.2 (34.1-44.9) % MCV 91.5 (79.4-94.8) fL MCH 29.0 (25.6-32.2) pg MCHC 31.7 L (32.2-35.5) g/dL RDW 14.8 H (11.7-14.4) % Plt Count 223 (182-369) x10^3/uL MPV 10.4 (9.4-12.3) fL Gran % 69.8 (34.0-71.1) % Immature Gran % (Auto) 0.5 H (0.001-0.429) % Nucleat RBC Rel Count 0.0 (0.00-0.2) % Eos # (Auto) 0.04 (0.04-0.36) x10^3/uL Immature Gran # (Auto) 0.04 H (0.001-0.031) x10^3u/L Absolute Lymphs (auto) 1.70 (1.18-3.74) x10^3/uL Absolute Monos (auto) 0.77 (0.24-0.86) x10^3/uL Absolute Nucleated RBC 0.00 (0.00-0.012) x10^3u/L Lymphocytes % 19.7 (19.3-51.7) % Monocytes % 8.9 (4.7-12.5) % Eosinophils % 0.5 L (0.7-5.8) % Basophils % 0.6 (0.1-1.2) % Absolute Granulocytes 6.02 (1.56-6.13) x10^3/uL Basophils # 0.05 (0.01-0.08) x10^3/uL Sodium 139 (135-145) mmol/L Potassium 4.2 (3.5-5.1) mmol/L Chloride 101 (98-107) mmol/L Carbon Dioxide 28 (22-30) mmol/L Anion Gap 15.0 (5-15) MEQ/L BUN 50 H (7-17) mg/dL Creatinine 1.11 H (0.52-1.04) mg/dL Estimated GFR 49.6 ML/MIN Glucose 90 (74-106) mg/dL Lactic Acid (0.4-2.0) Calcium 9.8 (8.4-10.2) mg/dL Total Bilirubin 0.50 (0.2-1.3) mg/dL AST 53 H (14-36) U/L ALT 38 H (0-35) U/L Alkaline Phosphatase 74 (38-126) U/L Troponin I < 0.012 (0.000-0.033) ng/mL Serum Total Protein 6.8 (6.3-8.2) g/dL Albumin 4.1 (3.5-5.0) g/dL Lipase 447 H (23-300) U/L Urine Color (Yellow) Urine Appearance (Clear) Urine pH (4.6-8.0) Ur Specific Broadbent (1.005-1.030) Urine Protein (Negative) Urine Glucose (UA) (Negative) mg/dL Urine Ketones (Negative) Urine Blood (Negative) Urine Nitrite (Negative) Urine Bilirubin (Negative) Urine Urobilinogen (0.2) mg/dL Ur Leukocyte Esterase (Negative) U Hyaline Cast (Auto) (0-2) /LPF Urine Microscopic RBC (0-5) /HPF Urine Microscopic WBC (0-5) /HPF Ur Epithelial Cells (None Seen) /HPF Urine Bacteria (None Seen) /HPF Urine Culture Reflexed (NO) 08/15/24 08/15/24 08/15/24 Range/Units 11:53 14:50 15:20 WBC (3.98-10.04) x10^3/uL RBC (3.93-5.22) x10^6/uL Hgb (11.2-15.7) g/dL Hct (34.1-44.9) % MCV (79.4-94.8) fL MCH (25.6-32.2) pg MCHC (32.2-35.5) g/dL RDW (11.7-14.4) % Plt Count (182-369) x10^3/uL MPV (9.4-12.3) fL Gran % (34.0-71.1) % Immature Gran % (Auto) (0.001-0.429) % Nucleat RBC Rel Count (0.00-0.2) % Eos # (Auto) (0.04-0.36) x10^3/uL Immature Gran # (Auto) (0.001-0.031) x10^3u/L Absolute Lymphs (auto) (1.18-3.74) x10^3/uL Absolute Monos (auto) (0.24-0.86) x10^3/uL Absolute Nucleated RBC (0.00-0.012) x10^3u/L Lymphocytes % (19.3-51.7) % Monocytes % (4.7-12.5) % Eosinophils % (0.7-5.8) % Basophils % (0.1-1.2) % Absolute Granulocytes (1.56-6.13) x10^3/uL Basophils # (0.01-0.08) x10^3/uL Sodium (135-145) mmol/L Potassium (3.5-5.1) mmol/L Chloride (98-107) mmol/L Carbon Dioxide (22-30) mmol/L Anion Gap (5-15) MEQ/L BUN (7-17) mg/dL Creatinine (0.52-1.04) mg/dL Estimated GFR ML/MIN Glucose (74-106) mg/dL Lactic Acid 1.2 (0.4-2.0) Calcium (8.4-10.2) mg/dL Total Bilirubin (0.2-1.3) mg/dL AST (14-36) U/L ALT (0-35) U/L Alkaline Phosphatase (38-126) U/L Troponin I < 0.012 (0.000-0.033) ng/mL Serum Total Protein (6.3-8.2) g/dL Albumin (3.5-5.0) g/dL Lipase (23-300) U/L Urine Color Yellow (Yellow) Urine Appearance Clear (Clear) Urine pH 6.5 (4.6-8.0) Ur Specific Broadbent <=1.005 (1.005-1.030) Urine Protein Negative (Negative) Urine Glucose (UA) Negative (Negative) mg/dL Urine Ketones Negative (Negative) Urine Blood Trace (Negative) Urine Nitrite Negative (Negative) Urine Bilirubin Negative (Negative) Urine Urobilinogen 0.2 (0.2) mg/dL Ur Leukocyte Esterase Small A (Negative) U Hyaline Cast (Auto) NONE SEEN (0-2) /LPF Urine Microscopic RBC 0-2 (0-5) /HPF Urine Microscopic WBC 6-10 A (0-5) /HPF Ur Epithelial Cells None Seen (None Seen) /HPF Urine Bacteria Rare A (None Seen) /HPF Urine Culture Reflexed YES (NO) - Radiology Impressions Radiology Exams & Impressions: Radiology Procedures Category Date Time Status ABDOMEN AND PELVIS W/0 CONTRAS [CT] Stat Exams 08/15/24 13:45 Completed CHEST 1 VIEW (PORTABLE) Stat Exams 08/15/24 11:29 Completed GALLBLADDER [US] Stat Exams 08/15/24 15:40 Taken Assessment/Plan (1) Orthostatic hypotension Current Visit: Yes Status: Acute Assessment & Plan: -Orthostatic vitals positive with systolic BP drop from 111 to 81 mmHg, associated with dizziness -Administered IV fluid bolus in ED. -Continue with gentle IV hydration -Monitor orthostatic vitals every shift -Monitor renal function (BUN/Creatinine daily) -Reassess symptoms with postural changes - EKG with no ischemia- chronic afib -Tele -Med review for offending agents Code(s): I95.1 - ORTHOSTATIC HYPOTENSION (2) Colic, biliary Current Visit: Yes Status: Acute Assessment & Plan: -Suspected in the setting of cholelithiasis -CT abdomen showed gallstones within gallbladder lumen, no signs of acute cholecystitis or CT evidence of acute pancreatitis. -Lipase mildly elevated at 447 -No abdominal tenderness or signs of peritonitis on exam -RUQ US pending -CLD ADAT -Consider surgical or GI consultation based on ultrasound findings and clinical course Code(s): K80.50 - CALCULUS OF BILE DUCT W/O CHOLANGITIS OR CHOLECYST W/O OBST (3) CATA (acute kidney injury) Current Visit: Yes Status: Acute Assessment & Plan: -Elevated BUN/Cr ratio (BUN 50, Cr 1.1) consistent with volume depletion -Continue IVF -Monitor renal/lytes -avoid nephrotoxic agents Code(s): N17.9 - ACUTE KIDNEY FAILURE, UNSPECIFIED (4) Afib Current Visit: Yes Status: Acute Assessment & Plan: -EKG showed AFib with rate control -Continue Eliquis. -Troponins negative x2 -No acute ischemic changes on EKG -tele Code(s): I48.91 - UNSPECIFIED ATRIAL FIBRILLATION (5) History of stroke Current Visit: Yes Status: Acute Assessment & Plan: -No acute neurologic symptoms on this presentation -Continue current secondary stroke prevention measures (anticoagulation with Eliquis, lipid control). -Monitor blood pressure Code(s): Z86.73 - PRSNL HX OF TIA (TIA), AND CEREB INFRC W/O RESID DEFICITS (6) Constipation Current Visit: Yes Status: Acute Assessment & Plan: -CT abdomen revealed moderate stool burden without signs of obstruction -Initiate bowel regimen with docusate/miralax -Consider glycerin suppository if no bowel movement. -Encourage ambulation and oral hydration once safe. -Review chronic constipation management for outpatient follow-up Code(s): K59.00 - CONSTIPATION, UNSPECIFIED (7) MINDY (obstructive sleep apnea) Current Visit: Yes Status: Acute Assessment & Plan: -continue CPAP Code(s): G47.33 - OBSTRUCTIVE SLEEP APNEA (ADULT) (PEDIATRIC) (8) Elevated lipase Current Visit: Yes Status: Acute Assessment & Plan: -see biliary colic -No acute intervention. -Monitor clinically. -Address if significant changes on imaging or labs. Code(s): R74.8 - ABNORMAL LEVELS OF OTHER SERUM ENZYMES (9) Cholelithiasis Current Visit: Yes Status: Acute Assessment & Plan: -see plan above (10) Anxiety Current Visit: No Status: Acute Assessment & Plan: -continue home meds Code(s): F41.9 - ANXIETY DISORDER, UNSPECIFIED (11) Chest pain Current Visit: Yes Status: Acute Assessment & Plan: -Presented with lower chest pressure-like discomfort -EKG showed atrial fibrillation with rate control, no ST elevations -Troponins negative x2 -trend -Repeat EKG in the a.m. -Chest X-ray negative -No active chest pain currently Code(s): R07.9 - CHEST PAIN, UNSPECIFIED (12) Hyperlipidemia Current Visit: No Status: Chronic Assessment & Plan: -continue statin Code(s): E78.5 - HYPERLIPIDEMIA, UNSPECIFIED (13) Hypothyroidism Current Visit: No Status: Chronic Assessment & Plan: -Continue home thyroid replacement therapy -Monitor TSH outpatient if indicated VTE: Eliquis PPI: protonix Dispo: 1-2 days Code status: Full Code Code(s): E03.9 - HYPOTHYROIDISM, UNSPECIFIED Telemedicine Encounter - Telemedicine Encounter Telemedicine Encounter: "The entirety of this encounter was performed via Telemedicine" This visit was performed using real-time audio and video connection between my location and thepatients locationwith the assistance of a surrogateat the patients location. Written or verbal consent was obtained from the patient/guardian to perform this visit [facility]. Any patient questions regarding the telemedicine interaction were answered. <ISRAEL DIAZ - Last Filed: 08/15/24 22:24> History of Present Illness - Chief Complaint History of Present Illness: is a 84 year old female. - Physical Exam Vital Signs: Vital Signs - 24 hr Temp Pulse Pulse Resp BP BP Pulse Ox 08/15/24 19:45 97.7 F 85 16 113/66 95 08/15/24 19:09 115 H 18 94 L 08/15/24 17:44 97 F 75 18 109/59 95 08/15/24 17:00 78 20 112/60 97 08/15/24 16:30 77 22 115/87 97 08/15/24 16:00 76 20 129/86 99 08/15/24 15:58 96 08/15/24 15:30 74 21 115/52 98 08/15/24 15:00 82 19 121/72 97 05/15/25 14:49 68 20 138/90 98 08/15/24 14:30 78 22 127/78 93 L 08/15/24 14:19 74 18 113/66 98 08/15/24 14:18 81 16 98 08/15/24 14:00 80 18 130/80 97 08/15/24 13:46 80 21 112/73 97 08/15/24 13:30 81 22 125/71 97 08/15/24 13:15 82 19 118/71 98 08/15/24 13:00 74 21 114/74 98 08/15/24 12:52 77 21 120/76 98 08/15/24 12:50 88 15 08/15/24 12:30 117/71 08/15/24 12:23 77 17 119/65 94 L 08/15/24 12:06 73 17 104/59 96 08/15/24 11:47 72 29 H 81/61 92 L 08/15/24 11:44 88 21 111/63 92 L 08/15/24 11:30 79 16 106/67 95 08/15/24 11:09 96.1 F 72 72 20 117/68 98 08/15/24 11:07 72 23 117/68 97 Results - Labs Lab/Micro Results: Lab Results-Last 24 Hours 08/15/24 08/15/24 08/15/24 Range/Units 11:50 11:50 11:50 WBC 8.6 (3.98-10.04) x10^3/uL RBC 4.72 (3.93-5.22) x10^6/uL Hgb 13.7 (11.2-15.7) g/dL Hct 43.2 (34.1-44.9) % MCV 91.5 (79.4-94.8) fL MCH 29.0 (25.6-32.2) pg MCHC 31.7 L (32.2-35.5) g/dL RDW 14.8 H (11.7-14.4) % Plt Count 223 (182-369) x10^3/uL MPV 10.4 (9.4-12.3) fL Gran % 69.8 (34.0-71.1) % Immature Gran % (Auto) 0.5 H (0.001-0.429) % Nucleat RBC Rel Count 0.0 (0.00-0.2) % Eos # (Auto) 0.04 (0.04-0.36) x10^3/uL Immature Gran # (Auto) 0.04 H (0.001-0.031) x10^3u/L Absolute Lymphs (auto) 1.70 (1.18-3.74) x10^3/uL Absolute Monos (auto) 0.77 (0.24-0.86) x10^3/uL Absolute Nucleated RBC 0.00 (0.00-0.012) x10^3u/L Lymphocytes % 19.7 (19.3-51.7) % Monocytes % 8.9 (4.7-12.5) % Eosinophils % 0.5 L (0.7-5.8) % Basophils % 0.6 (0.1-1.2) % Absolute Granulocytes 6.02 (1.56-6.13) x10^3/uL Basophils # 0.05 (0.01-0.08) x10^3/uL Sodium 139 (135-145) mmol/L Potassium 4.2 (3.5-5.1) mmol/L Chloride 101 (98-107) mmol/L Carbon Dioxide 28 (22-30) mmol/L Anion Gap 15.0 (5-15) MEQ/L BUN 50 H (7-17) mg/dL Creatinine 1.11 H (0.52-1.04) mg/dL Estimated GFR 49.6 ML/MIN Glucose 90 (74-106) mg/dL Lactic Acid (0.4-2.0) Calcium 9.8 (8.4-10.2) mg/dL Total Bilirubin 0.50 (0.2-1.3) mg/dL AST 53 H (14-36) U/L ALT 38 H (0-35) U/L Alkaline Phosphatase 74 (38-126) U/L Troponin I < 0.012 (0.000-0.033) ng/mL Serum Total Protein 6.8 (6.3-8.2) g/dL Albumin 4.1 (3.5-5.0) g/dL Lipase 447 H (23-300) U/L TSH 3rd Generation (0.470-4.680) mIU/L Urine Color (Yellow) Urine Appearance (Clear) Urine pH (4.6-8.0) Ur Specific Broadbent (1.005-1.030) Urine Protein (Negative) Urine Glucose (UA) (Negative) mg/dL Urine Ketones (Negative) Urine Blood (Negative) Urine Nitrite (Negative) Urine Bilirubin (Negative) Urine Urobilinogen (0.2) mg/dL Ur Leukocyte Esterase (Negative) U Hyaline Cast (Auto) (0-2) /LPF Urine Microscopic RBC (0-5) /HPF Urine Microscopic WBC (0-5) /HPF Ur Epithelial Cells (None Seen) /HPF Urine Bacteria (None Seen) /HPF Urine Culture Reflexed (NO) 08/15/24 08/15/24 08/15/24 Range/Units 11:53 14:50 15:20 WBC (3.98-10.04) x10^3/uL RBC (3.93-5.22) x10^6/uL Hgb (11.2-15.7) g/dL Hct (34.1-44.9) % MCV (79.4-94.8) fL MCH (25.6-32.2) pg MCHC (32.2-35.5) g/dL RDW (11.7-14.4) % Plt Count (182-369) x10^3/uL MPV (9.4-12.3) fL Gran % (34.0-71.1) % Immature Gran % (Auto) (0.001-0.429) % Nucleat RBC Rel Count (0.00-0.2) % Eos # (Auto) (0.04-0.36) x10^3/uL Immature Gran # (Auto) (0.001-0.031) x10^3u/L Absolute Lymphs (auto) (1.18-3.74) x10^3/uL Absolute Monos (auto) (0.24-0.86) x10^3/uL Absolute Nucleated RBC (0.00-0.012) x10^3u/L Lymphocytes % (19.3-51.7) % Monocytes % (4.7-12.5) % Eosinophils % (0.7-5.8) % Basophils % (0.1-1.2) % Absolute Granulocytes (1.56-6.13) x10^3/uL Basophils # (0.01-0.08) x10^3/uL Sodium (135-145) mmol/L Potassium (3.5-5.1) mmol/L Chloride (98-107) mmol/L Carbon Dioxide (22-30) mmol/L Anion Gap (5-15) MEQ/L BUN (7-17) mg/dL Creatinine (0.52-1.04) mg/dL Estimated GFR ML/MIN Glucose (74-106) mg/dL Lactic Acid 1.2 (0.4-2.0) Calcium (8.4-10.2) mg/dL Total Bilirubin (0.2-1.3) mg/dL AST (14-36) U/L ALT (0-35) U/L Alkaline Phosphatase (38-126) U/L Troponin I < 0.012 (0.000-0.033) ng/mL Serum Total Protein (6.3-8.2) g/dL Albumin (3.5-5.0) g/dL Lipase (23-300) U/L TSH 3rd Generation (0.470-4.680) mIU/L Urine Color Yellow (Yellow) Urine Appearance Clear (Clear) Urine pH 6.5 (4.6-8.0) Ur Specific Broadbent <=1.005 (1.005-1.030) Urine Protein Negative (Negative) Urine Glucose (UA) Negative (Negative) mg/dL Urine Ketones Negative (Negative) Urine Blood Trace (Negative) Urine Nitrite Negative (Negative) Urine Bilirubin Negative (Negative) Urine Urobilinogen 0.2 (0.2) mg/dL Ur Leukocyte Esterase Small A (Negative) U Hyaline Cast (Auto) NONE SEEN (0-2) /LPF Urine Microscopic RBC 0-2 (0-5) /HPF Urine Microscopic WBC 6-10 A (0-5) /HPF Ur Epithelial Cells None Seen (None Seen) /HPF Urine Bacteria Rare A (None Seen) /HPF Urine Culture Reflexed YES (NO) 08/15/24 08/15/24 Range/Units 19:50 19:50 WBC (3.98-10.04) x10^3/uL RBC (3.93-5.22) x10^6/uL Hgb (11.2-15.7) g/dL Hct (34.1-44.9) % MCV (79.4-94.8) fL MCH (25.6-32.2) pg MCHC (32.2-35.5) g/dL RDW (11.7-14.4) % Plt Count (182-369) x10^3/uL MPV (9.4-12.3) fL Gran % (34.0-71.1) % Immature Gran % (Auto) (0.001-0.429) % Nucleat RBC Rel Count (0.00-0.2) % Eos # (Auto) (0.04-0.36) x10^3/uL Immature Gran # (Auto) (0.001-0.031) x10^3u/L Absolute Lymphs (auto) (1.18-3.74) x10^3/uL Absolute Monos (auto) (0.24-0.86) x10^3/uL Absolute Nucleated RBC (0.00-0.012) x10^3u/L Lymphocytes % (19.3-51.7) % Monocytes % (4.7-12.5) % Eosinophils % (0.7-5.8) % Basophils % (0.1-1.2) % Absolute Granulocytes (1.56-6.13) x10^3/uL Basophils # (0.01-0.08) x10^3/uL Sodium (135-145) mmol/L Potassium (3.5-5.1) mmol/L Chloride (98-107) mmol/L Carbon Dioxide (22-30) mmol/L Anion Gap (5-15) MEQ/L BUN (7-17) mg/dL Creatinine (0.52-1.04) mg/dL Estimated GFR ML/MIN Glucose (74-106) mg/dL Lactic Acid (0.4-2.0) Calcium (8.4-10.2) mg/dL Total Bilirubin (0.2-1.3) mg/dL AST (14-36) U/L ALT (0-35) U/L Alkaline Phosphatase (38-126) U/L Troponin I 0.015 (0.000-0.033) ng/mL Serum Total Protein (6.3-8.2) g/dL Albumin (3.5-5.0) g/dL Lipase (23-300) U/L TSH 3rd Generation 1.800 (0.470-4.680) mIU/L Urine Color (Yellow) Urine Appearance (Clear) Urine pH (4.6-8.0) Ur Specific Broadbent (1.005-1.030) Urine Protein (Negative) Urine Glucose (UA) (Negative) mg/dL Urine Ketones (Negative) Urine Blood (Negative) Urine Nitrite (Negative) Urine Bilirubin (Negative) Urine Urobilinogen (0.2) mg/dL Ur Leukocyte Esterase (Negative) U Hyaline Cast (Auto) (0-2) /LPF Urine Microscopic RBC (0-5) /HPF Urine Microscopic WBC (0-5) /HPF Ur Epithelial Cells (None Seen) /HPF Urine Bacteria (None Seen) /HPF Urine Culture Reflexed (NO) - Radiology Impressions Radiology Exams & Impressions: Radiology Procedures Category Date Time Status ABDOMEN AND PELVIS W/0 CONTRAS [CT] Stat Exams 08/15/24 13:45 Completed CHEST 1 VIEW (PORTABLE) Stat Exams 08/15/24 11:29 Completed GALLBLADDER [US] Stat Exams 08/15/24 15:40 Taken - Other Procedures and Tests Respiratory Therapy 08/15/24 18:25 BiPap/CPAP ROUTINE EKG REPEAT IN AM 08/15/24 19:09 Respiratory Therapy Assessment UD Telemedicine Encounter - Telemedicine Encounter Telemedicine Encounter: "The entirety of this encounter was performed via Telemedicine" This visit was performed using real-time audio and video connection between my location and thepatients locationwith the assistance of a surrogateat the patients location. Written or verbal consent was obtained from the patient/guardian to perform this visit usingFarmstrlemedicine technology. Any patient questions regarding the telemedicine interaction were answered. VERENICE Encounter - VERENICE Encounter Attestation VERENICE Encounter Attestation: "TEE Allen andhavediscussed pertinent aspects of their care with Corine Adames agree with the history, physical exam (any modifications based on my personal exam will be noted below), assessment, and plan as outlined in original note. Please see immediately below for my summary of findings and additional assessment and plan along with any meaningful corrections/explanations to the Subjective/Objective portions of the VERENICE note will be noted." My portion of the encounter took place via telemedicine. -Patient admitted with transient epigastric pain, possible biliary colic vs mild pancreatitis given the presence of gall bladder stones and mild elevation in lipase. Pain had resolved by the time patient was on the floor. Will recheck lipase and monitor symptoms. She was also found to be orthostatic, likely the cause of her dizziness. Will hydrate and reevaluate.
[2024-08-15] MEDS ORDERED: Zofran 4 MG/2 ML VIAL IV PRN (18:25)
[2024-08-15] MEDS ORDERED: TYLENOL 325 MG PO PRN (18:25)
[2024-08-15] MEDS ORDERED: SYNTHROID 75 MCG PO SCH (18:45)
[2024-08-15] MEDS ORDERED: NON-FORMULARY ITEM (Duloxetine Hcl [Duloxetine Hcl] 60 MG Capsule.Dr) PO SCH (22:00)
[2024-08-15] MEDS ORDERED: LIPITOR 40MG PO SCH (22:00)
[2024-08-15] MEDS ORDERED: NON-FORMULARY ITEM (Magnesium [Magnesium] 200 MG Tablet) PO SCH (22:00)
[2024-08-15] MEDS ORDERED: NON-FORMULARY ITEM (Apixaban*** [Eliquis 5 Mg Tablet***] 5 MG Tablet) PO SCH (22:00)
[2024-08-15] MEDS: MAG-OX 400 PO SCH (22:30)
[2024-08-15] MEDS: Miralax Powder 17GM PACKET PO SCH (22:30)
[2024-08-15] MEDS: ELIQUIS 2.5 MG TABLET PO SCH (22:30)
[2024-08-15] MEDS: Cymbalta 30 MG Capsule PO SCH (22:30)
[2024-08-15] MEDS: ZOCOR 20MG PO SCH (22:30)
[2024-08-15] MEDS ORDERED: ELIQUIS 2.5 MG TABLET ONE (22:36)
[2024-08-15] MEDS ORDERED: Cymbalta 30 MG Capsule ONE (22:36)
[2024-08-15] MEDS ORDERED: MAG-OX 400 ONE (22:37)
[2024-08-15] MEDS ORDERED: ZOCOR 20MG ONE (22:37)
[2024-08-15] MEDS: Pepcid 20 MG PO SCH (22:38)
[2024-08-15] MEDS: Lopressor 25MG Tab PO SCH (22:41)
[2024-08-15] MEDS: CLARITIN 10 MG PO SCH (22:41)
[2024-08-15] MEDS: Docusate Sodium 100 MG PO SCH (22:42)
[2024-08-15] MEDS: Klor Con PO SCH (22:42)
[2024-08-15] MEDS: Sodium Chloride 0.9% 1000 ML 1,000 ML IV SCH (22:45)
[2024-08-16] MEDS: HYDROXYCHLOROQUINE SULFATE 300 MG PO SCH (00:05)
[2024-08-16] MEDS: MULTIVIT MIN PO SCH (00:06)
[2024-08-16] MEDS: IRON PO SCH (00:06)
[2024-08-16] MEDS: [UNRECOGNIZED DRUG - OTHER] PO SCH (00:06)
[2024-08-16] MEDS: FOLIC ACID PO SCH (00:06)
[2024-08-16 04:53] LABS: Absolute Neutrophil Ct (ANC) 4.38 x10^3/uL (1.56-6.13); BASOPHIL % 0.9 % (0.1-1.2); Basophil (Absolute #) 0.06 x10^3/uL (0.01-0.08); Eosinophil % 0.7 % (0.7-5.8); Eosinophil (Absolute #) 0.05 x10^3/uL (0.04-0.36); Hematocrit 41.6 % (34.1-44.9); Hemoglobin 13.2 g/dL (11.2-15.7); IMMATURE GRAN # 0.03 x10^3u/L (0.001-0.031); IMMATURE GRAN % 0.4 % (0.001-0.429); Lymphocyte (Absolute #) 1.62 x10^3/uL (1.18-3.74); Lymphocytes % 23.9 % (19.3-51.7); Mean Corpuscular Hemoglobin 28.9 pg (25.6-32.2); Mean Corpuscular Hgb Concent. 31.7 g/dL (32.2-35.5); Mean Platelet Volume 10.3 fL (9.4-12.3); Monocyte (Absolute #) 0.64 x10^3/uL (0.24-0.86); Monocytes % 9.4 % (4.7-12.5); Neutrophil % 64.7 % (34.0-71.1); Platelet Count 198 x10^3/uL (182-369); Red Blood Count 4.57 x10^6/uL (3.93-5.22); Red Cell Distribution Width 14.9 % (11.7-14.4); White Blood Count 6.8 x10^3/uL (3.98-10.04)
[2024-08-16 05:22] LABS: ALBUMIN 3.6 g/dL (3.5-5.0); ANION GAP 9.6 MEQ/L (5-15); BILIRUBIN,TOTAL 0.5 mg/dL (0.2-1.3); Creatinine 1 0.98 mg/dL (0.52-1.04); EST GLOMERULAR FILTRATION RATE 57.6 ML/MIN; Potassium 3.7 mmol/L (3.5-5.1); Total Protein 6.4 g/dL (6.3-8.2)
[2024-08-16] MEDS ORDERED: MEDICATION INTERVENTION MC SCH ×2 (07:15)
[2024-08-16 08:27] VITALS: RESP 20; TEMP 97.1
--- NOTE | 2024-08-16 08:54 | XRAY ---
Indication: Pain. Acute cholecystitis. Two-dimensional gallbladder sonogram performed. Comparison: February 02, 2011 Visualized gallbladder normally distended with new 7 mm gallstone. No abnormal color wall thickening or pericholecystic fluid. Common bile duct measures 5.2 mm. No intrahepatic biliary distention. Previous hepatic cyst enlarged measuring 2.9 x 2.3 cm. No other focal solid/cystic hepatic mass, hepatomegaly, or ascites. Remaining visualized pancreas and right kidney are sonographically unremarkable. Right kidney measures 10.9 cm in length. Impression: New cholelithiasis. Negative for acute cholecystitis/biliary distention. Enlarging hepatic cyst. Comment: Preliminary report was given.
[2024-08-16] MEDS: Macrobid 100MG Capsule PO SCH (08:56)
[2024-08-16] MEDS: Calcium 500MG W/Vit D Tablet PO SCH (08:58)
[2024-08-16] MEDS ORDERED: NON-FORMULARY ITEM (Cholecalciferol (Vitamin D3) [Vitamin D3] 25 MCG Capsule) PO SCH (10:00)
[2024-08-16] MEDS ORDERED: NON-FORMULARY ITEM (Ubidecarenone/Vit E Acet [Co Q-10 100 Mg Softgel] 1 EACH Capsule) PO SCH (10:00)
[2024-08-16] MEDS ORDERED: ROCEPHIN 1 GM / 100 ML NaCl 1 GM/100 ML IVPB IV SCH (10:00)
[2024-08-16] MEDS ORDERED: Lopressor 25MG Tab PO SCH (10:00)
[2024-08-16] MEDS: Provigil 100MG Tablet PO SCH (10:17)
[2024-08-16] MEDS: VITAMIN D PO SCH (10:17)
[2024-08-16] MEDS: Vitamin C 500 MG PO SCH (10:17)
[2024-08-16] MEDS: ECOTRIN 81 MG PO SCH (10:17)
[2024-08-16] MEDS: Protonix 40MG Tablet PO SCH (10:19)
[2024-08-16] MEDS: Flonase NASAL NS SCH (10:19)
[2024-08-16] MEDS: Lopressor 50 MG PO SCH (10:19)
[2024-08-16] MEDS: Lanoxin 0.125MG TABLET PO SCH (10:20)
--- NOTE | 2024-08-16 10:29 | PCM.DS ---
Discharge Summary Date of Admission: 08/15/24 17:32 Date of Discharge: 08/16/24 Admitting Physician: ISRAEL DIAZ MD Primary Care Provider: NICHELLE HECK DO Allergies Allergies cefaclor [From Ceclor] Allergy (Intermediate, Verified 08/15/24 11:09) Itching face tight, swelling, felt hot clindamycin HCl [From Cleocin] Allergy (Intermediate, Verified 08/15/24 11:09) clindamycin palmitate HCl [From Cleocin] Allergy (Intermediate, Verified 08/15/24 11:09) Hives entire body clindamycin phosphate [From Cleocin] Allergy (Intermediate, Verified 08/15/24 11:09) Penicillins Allergy (Intermediate, Verified 08/15/24 11:09) Rash Hospital Summary - Hospital Course Hospital Course: Ms. Ewing is an 84-year-old female with a history of atrial fibrillation on Eliquis, prior TIA, hyperlipidemia, obstructive sleep apnea, hypothyroidism, osteoarthritis, anxiety, and depression, who presented with sudden onset of mid- upper abdominal discomfort, lower chest pressure, diaphoresis, and significant lightheadedness upon standing. Evaluation revealed orthostatic hypotension with a systolic blood pressure drop from 111 to 81 mmHg, likely secondary to volume depletion. EKG demonstrated chronic atrial fibrillation with rate control and no ischemia; serial troponins were negative. CT abdomen/pelvis identified cholelithiasis without signs of acute cholecystitis or pancreatitis. A right upper quadrant ultrasound confirmed gallstones but was negative for acute findings. Laboratory evaluation showed prerenal azotemia (BUN 50, Cr 1.1) which improved with IV fluid resuscitation. Additionally, a urine culture revealed gram-negative organisms, for which the patient is being discharged with a course of Macrobid. The patients orthostatic symptoms resolved with hydration, and she remained stable for discharge. Lasix will be held on discharge. She is advised follow up with cardiology and PCP. I spent 35 minutes [id number] with the patient on the day of discharge performing discharge exam, discussing hospital stay and discharge instructions with patient and caregivers, preparation of discharge records, prescriptions & referral forms and addressing any questions/concerns the patient had as documented above. - Vitals & Intake/Output Vital Signs: Vital Signs Temperature 97.1 F 08/16/24 08:00 Pulse Rate 91 H 08/16/24 08:00 Respiratory Rate 20 08/16/24 08:00 Blood Pressure 119/67 08/16/24 08:00 O2 Sat by Pulse Oximetry 93 L 08/16/24 08:00 Intake & Output: Intake & Output 08/13/24 08/14/24 08/15/24 08/16/24 11:59 11:59 11:59 11:59 Intake Total 420 Output Total 400 Balance 20 Weight 64.8 kg 63.4 kg - Lab Result Diagrams: 08/16/24 04:52 08/16/24 04:52 Lab Results-Last 24 Hrs: Lab Results-Last 24 Hours 08/15/24 08/15/24 08/15/24 Range/Units 11:50 11:50 11:50 WBC 8.6 (3.98-10.04) x10^3/uL RBC 4.72 (3.93-5.22) x10^6/uL Hgb 13.7 (11.2-15.7) g/dL Hct 43.2 (34.1-44.9) % MCV 91.5 (79.4-94.8) fL MCH 29.0 (25.6-32.2) pg MCHC 31.7 L (32.2-35.5) g/dL RDW 14.8 H (11.7-14.4) % Plt Count 223 (182-369) x10^3/uL MPV 10.4 (9.4-12.3) fL Gran % 69.8 (34.0-71.1) % Immature Gran % (Auto) 0.5 H (0.001-0.429) % Nucleat RBC Rel Count 0.0 (0.00-0.2) % Eos # (Auto) 0.04 (0.04-0.36) x10^3/uL Immature Gran # (Auto) 0.04 H (0.001-0.031) x10^3u/L Absolute Lymphs (auto) 1.70 (1.18-3.74) x10^3/uL Absolute Monos (auto) 0.77 (0.24-0.86) x10^3/uL Absolute Nucleated RBC 0.00 (0.00-0.012) x10^3u/L Lymphocytes % 19.7 (19.3-51.7) % Monocytes % 8.9 (4.7-12.5) % Eosinophils % 0.5 L (0.7-5.8) % Basophils % 0.6 (0.1-1.2) % Absolute Granulocytes 6.02 (1.56-6.13) x10^3/uL Basophils # 0.05 (0.01-0.08) x10^3/uL Sodium 139 (135-145) mmol/L Potassium 4.2 (3.5-5.1) mmol/L Chloride 101 (98-107) mmol/L Carbon Dioxide 28 (22-30) mmol/L Anion Gap 15.0 (5-15) MEQ/L BUN 50 H (7-17) mg/dL Creatinine 1.11 H (0.52-1.04) mg/dL Estimated GFR 49.6 ML/MIN Glucose 90 (74-106) mg/dL Lactic Acid (0.4-2.0) Calcium 9.8 (8.4-10.2) mg/dL Total Bilirubin 0.50 (0.2-1.3) mg/dL AST 53 H (14-36) U/L ALT 38 H (0-35) U/L Alkaline Phosphatase 74 (38-126) U/L Troponin I < 0.012 (0.000-0.033) ng/mL Serum Total Protein 6.8 (6.3-8.2) g/dL Albumin 4.1 (3.5-5.0) g/dL Lipase 447 H (23-300) U/L TSH 3rd Generation (0.470-4.680) mIU/L Urine Color (Yellow) Urine Appearance (Clear) Urine pH (4.6-8.0) Ur Specific [place] (1.005-1.030) Urine Protein (Negative) Urine Glucose (UA) (Negative) mg/dL Urine Ketones (Negative) Urine Blood (Negative) Urine Nitrite (Negative) Urine Bilirubin (Negative) Urine Urobilinogen (0.2) mg/dL Ur Leukocyte Esterase (Negative) U Hyaline Cast (Auto) (0-2) /LPF Urine Microscopic RBC (0-5) /HPF Urine Microscopic WBC (0-5) /HPF Ur Epithelial Cells (None Seen) /HPF Urine Bacteria (None Seen) /HPF Urine Culture Reflexed (NO) 08/15/24 08/15/2408/15/25 Range/Units 11:53 14:50 15:20 WBC (3.98-10.04) x10^3/uL RBC (3.93-5.22) x10^6/uL Hgb (11.2-15.7) g/dL Hct (34.1-44.9) % MCV (79.4-94.8) fL MCH (25.6-32.2) pg MCHC (32.2-35.5) g/dL RDW (11.7-14.4) % Plt Count (182-369) x10^3/uL MPV (9.4-12.3) fL Gran % (34.0-71.1) % Immature Gran % (Auto) (0.001-0.429) % Nucleat RBC Rel Count (0.00-0.2) % Eos # (Auto) (0.04-0.36) x10^3/uL Immature Gran # (Auto) (0.001-0.031) x10^3u/L Absolute Lymphs (auto) (1.18-3.74) x10^3/uL Absolute Monos (auto) (0.24-0.86) x10^3/uL Absolute Nucleated RBC (0.00-0.012) x10^3u/L Lymphocytes % (19.3-51.7) % Monocytes % (4.7-12.5) % Eosinophils % (0.7-5.8) % Basophils % (0.1-1.2) % Absolute Granulocytes (1.56-6.13) x10^3/uL Basophils # (0.01-0.08) x10^3/uL Sodium (135-145) mmol/L Potassium (3.5-5.1) mmol/L Chloride (98-107) mmol/L Carbon Dioxide (22-30) mmol/L Anion Gap (5-15) MEQ/L BUN (7-17) mg/dL Creatinine (0.52-1.04) mg/dL Estimated GFR ML/MIN Glucose (74-106) mg/dL Lactic Acid 1.2 (0.4-2.0) Calcium (8.4-10.2) mg/dL Total Bilirubin (0.2-1.3) mg/dL AST (14-36) U/L ALT (0-35) U/L Alkaline Phosphatase (38-126) U/L Troponin I < 0.012 (0.000-0.033) ng/mL Serum Total Protein (6.3-8.2) g/dL Albumin (3.5-5.0) g/dL Lipase (23-300) U/L TSH 3rd Generation (0.470-4.680) mIU/L Urine Color Yellow (Yellow) Urine Appearance Clear (Clear) Urine pH 6.5 (4.6-8.0) Ur Specific [place] <=1.005 (1.005-1.030) Urine Protein Negative (Negative) Urine Glucose (UA) Negative (Negative) mg/dL Urine Ketones Negative (Negative) Urine Blood Trace (Negative) Urine Nitrite Negative (Negative) Urine Bilirubin Negative (Negative) Urine Urobilinogen 0.2 (0.2) mg/dL Ur Leukocyte Esterase Small A (Negative) U Hyaline Cast (Auto) NONE SEEN (0-2) /LPF Urine Microscopic RBC 0-2 (0-5) /HPF Urine Microscopic WBC 6-10 A (0-5) /HPF Ur Epithelial Cells None Seen (None Seen) /HPF Urine Bacteria Rare A (None Seen) /HPF Urine Culture Reflexed YES (NO) 08/15/24 08/15/24 08/16/24 Range/Units 19:50 19:50 04:52 WBC 6.8 (3.98-10.04) x10^3/uL RBC 4.57 (3.93-5.22) x10^6/uL Hgb 13.2 (11.2-15.7) g/dL Hct 41.6 (34.1-44.9) % MCV 91.0 (79.4-94.8) fL MCH 28.9 (25.6-32.2) pg MCHC 31.7 L (32.2-35.5) g/dL RDW 14.9 H (11.7-14.4) % Plt Count 198 (182-369) x10^3/uL MPV 10.3 (9.4-12.3) fL Gran % 64.7 (34.0-71.1) % Immature Gran % (Auto) 0.4 (0.001-0.429) % Nucleat RBC Rel Count 0.0 (0.00-0.2) % Eos # (Auto) 0.05 (0.04-0.36) x10^3/uL Immature Gran # (Auto) 0.03 (0.001-0.031) x10^3u/L Absolute Lymphs (auto) 1.62 (1.18-3.74) x10^3/uL Absolute Monos (auto) 0.64 (0.24-0.86) x10^3/uL Absolute Nucleated RBC 0.00 (0.00-0.012) x10^3u/L Lymphocytes % 23.9 (19.3-51.7) % Monocytes % 9.4 (4.7-12.5) % Eosinophils % 0.7 (0.7-5.8) % Basophils % 0.9 (0.1-1.2) % Absolute Granulocytes 4.38 (1.56-6.13) x10^3/uL Basophils # 0.06 (0.01-0.08) x10^3/uL Sodium (135-145) mmol/L Potassium (3.5-5.1) mmol/L Chloride (98-107) mmol/L Carbon Dioxide (22-30) mmol/L Anion Gap (5-15) MEQ/L BUN (7-17) mg/dL Creatinine (0.52-1.04) mg/dL Estimated GFR ML/MIN Glucose (74-106) mg/dL Lactic Acid (0.4-2.0) Calcium (8.4-10.2) mg/dL Total Bilirubin (0.2-1.3) mg/dL AST (14-36) U/L ALT (0-35) U/L Alkaline Phosphatase (38-126) U/L Troponin I 0.015 (0.000-0.033) ng/mL Serum Total Protein (6.3-8.2) g/dL Albumin (3.5-5.0) g/dL Lipase (23-300) U/L TSH 3rd Generation 1.800 (0.470-4.680) mIU/L Urine Color (Yellow) Urine Appearance (Clear) Urine pH (4.6-8.0) Ur Specific [place] (1.005-1.030) Urine Protein (Negative) Urine Glucose (UA) (Negative) mg/dL Urine Ketones (Negative) Urine Blood (Negative) Urine Nitrite (Negative) Urine Bilirubin (Negative) Urine Urobilinogen (0.2) mg/dL Ur Leukocyte Esterase (Negative) U Hyaline Cast (Auto) (0-2) /LPF Urine Microscopic RBC (0-5) /HPF Urine Microscopic WBC (0-5) /HPF Ur Epithelial Cells (None Seen) /HPF Urine Bacteria (None Seen) /HPF Urine Culture Reflexed (NO) 08/16/24 Range/Units 04:52 WBC (3.98-10.04) x10^3/uL RBC (3.93-5.22) x10^6/uL Hgb (11.2-15.7) g/dL Hct (34.1-44.9) % MCV (79.4-94.8) fL MCH (25.6-32.2) pg MCHC (32.2-35.5) g/dL RDW (11.7-14.4) % Plt Count (182-369) x10^3/uL MPV (9.4-12.3) fL Gran % (34.0-71.1) % Immature Gran % (Auto) (0.001-0.429) % Nucleat RBC Rel Count (0.00-0.2) % Eos # (Auto) (0.04-0.36) x10^3/uL Immature Gran # (Auto) (0.001-0.031) x10^3u/L Absolute Lymphs (auto) (1.18-3.74) x10^3/uL Absolute Monos (auto) (0.24-0.86) x10^3/uL Absolute Nucleated RBC (0.00-0.012) x10^3u/L Lymphocytes % (19.3-51.7) % Monocytes % (4.7-12.5) % Eosinophils % (0.7-5.8) % Basophils % (0.1-1.2) % Absolute Granulocytes (1.56-6.13) x10^3/uL Basophils # (0.01-0.08) x10^3/uL Sodium 142 (135-145) mmol/L Potassium 3.7 (3.5-5.1) mmol/L Chloride 106 (98-107) mmol/L Carbon Dioxide 30 (22-30) mmol/L Anion Gap 9.6 (5-15) MEQ/L BUN 40 H (7-17) mg/dL Creatinine 0.98 (0.52-1.04) mg/dL Estimated GFR 57.6 ML/MIN Glucose 92 (74-106) mg/dL Lactic Acid (0.4-2.0) Calcium 9.0 (8.4-10.2) mg/dL Total Bilirubin 0.50 (0.2-1.3) mg/dL AST 53 H (14-36) U/L ALT 34 (0-35) U/L Alkaline Phosphatase 64 (38-126) U/L Troponin I (0.000-0.033) ng/mL Serum Total Protein 6.4 (6.3-8.2) g/dL Albumin 3.6 (3.5-5.0) g/dL Lipase 310 H (23-300) U/L TSH 3rd Generation (0.470-4.680) mIU/L Urine Color (Yellow) Urine Appearance (Clear) Urine pH (4.6-8.0) Ur Specific [place] (1.005-1.030) Urine Protein (Negative) Urine Glucose (UA) (Negative) mg/dL Urine Ketones (Negative) Urine Blood (Negative) Urine Nitrite (Negative) Urine Bilirubin (Negative) Urine Urobilinogen (0.2) mg/dL Ur Leukocyte Esterase (Negative) U Hyaline Cast (Auto) (0-2) /LPF Urine Microscopic RBC (0-5) /HPF Urine Microscopic WBC (0-5) /HPF Ur Epithelial Cells (None Seen) /HPF Urine Bacteria (None Seen) /HPF Urine Culture Reflexed (NO) Micro Results-Entire Visit: Microbiology 08/15/24 14:50 Urine Culture - Preliminary Clean Catch Midstream GRAM NEGATIVE ID AND SENSITIVITY PENDING - Radiology Exams Ordered Rad Exams-Entire Visit: Radiology Procedures Category Date Time Status ABDOMEN AND PELVIS W/0 CONTRAS [CT] Stat Exams 08/15/24 13:45 Completed CHEST 1 VIEW (PORTABLE) Stat Exams 08/15/24 11:29 Completed GALLBLADDER [US] Stat Exams 08/15/24 15:40 Completed - Procedures and Test Procedures and Tests throughout Hospitalization: Therapy Orders & Screens 08/15/24 18:19 RT Screen per Nursing Assess ONCE Comment: Protocol Order Physician Instructions: Greater than 3 points order RT Admission Screen Reason For Exam: Triggered on Admission Diagnosis: abdominal pain/dizziness Diagnosis: abdominal pain/dizziness Pneumonia: No Home O2: No Asthma: No CHF: Yes Home CPAP/BIPAP: Yes Home Nebs/MDI: No Total Points: 8 ST Screen per Nursing Assess ONCE Comment: Protocol Order Physician Instructions: Greater than [address] Admission Screening Reason For Exam: Triggered on Admission Diagnosis: abdominal pain/dizziness CVA/Dysphagia/Aphasia: No Cognitive Deficits: Yes Dehydration/Nutrition Deficit: Yes Reflux: No Oral-Motor Difficulties: No Pneumonia: No Longterm Resident: No Total Points: 8 08/15/24 18:25 BiPap/CPAP ROUTINE Comment: Diagnosis: abdominal pain/dizziness EKG REPEAT IN AM Comment: Diagnosis: abdominal pain/dizziness 08/15/24 19:09 Respiratory Therapy Assessment UD Comment: Diagnosis: abdominal pain/dizziness Discharge Exam General Appearance: no apparent distress Neurologic Exam: alert, 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, cooperative Eye Exam: PERRL Ears, Nose, Throat Exam: normal ENT inspection Neck Exam: normal inspection Respiratory Exam: normal breath sounds, lungs clear Cardiovascular Exam: irregular Gastrointestinal/Abdomen Exam: soft, normal bowel sounds Pelvic Exam: deferred Rectal Exam: deferred Back Exam: normal inspection Extremity Exam: normal inspection Skin Exam: normal color Final Diagnosis/Problem List - Final Discharge Diagnosis/Problem (1) Orthostatic hypotension Current Visit: Yes Status: Acute Assessment & Plan: Discontinue Lasix until reassessed by cardiology Encourage oral hydration to maintain euvolemia. Monitor blood pressure as outpatient. Educate patient on slow positional changes to minimize symptoms Code(s): I95.1 - ORTHOSTATIC HYPOTENSION (2) Colic, biliary Current Visit: Yes Status: Acute Assessment & Plan: Right upper quadrant ultrasound confirmed cholelithiasis without acute findings. Patient prefers outpatient discussion regarding surgical evaluation. Follow up with PCP or GI for further management. Code(s): K80.50 - CALCULUS OF BILE DUCT W/O CHOLANGITIS OR CHOLECYST W/O OBST (3) CATA (acute kidney injury) Current Visit: Yes Status: Acute Assessment & Plan: Hydration status improved with IV fluids; monitor renal function outpatient. Avoid nephrotoxic medications - hold home lasix Reinforce importance of adequate oral fluid intake. Code(s): N17.9 - ACUTE KIDNEY FAILURE, UNSPECIFIED (4) Afib Current Visit: Yes Status: Acute Assessment & Plan: Continue anticoagulation with Eliquis. No acute ischemic changes noted. Maintain outpatient cardiology follow-up. Continue home rate control regimen Code(s): I48.91 - UNSPECIFIED ATRIAL FIBRILLATION (5) History of stroke Current Visit: Yes Status: Acute Assessment & Plan: Continue secondary stroke prevention measures including anticoagulation and lipid control. Monitor blood pressure regularly Code(s): Z86.73 - PRSNL HX OF TIA (TIA), AND CEREB INFRC W/O RESID DEFICITS (6) Constipation Current Visit: Yes Status: Acute Assessment & Plan: Initiate bowel regimen with docusate and Miralax. Recommend glycerin suppository PRN if no bowel movement. Encourage mobility and hydration to promote bowel function Code(s): K59.00 - CONSTIPATION, UNSPECIFIED (7) MINDY (obstructive sleep apnea) Current Visit: Yes Status: Acute Assessment & Plan: Continue nightly CPAP therapy as previously prescribed. Code(s): G47.33 - OBSTRUCTIVE SLEEP APNEA (ADULT) (PEDIATRIC) (8) Elevated lipase Current Visit: Yes Status: Acute Assessment & Plan: No acute intervention required. Monitor clinically. Address if future symptoms or lab abnormalities arise. Code(s): R74.8 - ABNORMAL LEVELS OF OTHER SERUM ENZYMES (9) Cholelithiasis Current Visit: Yes Status: Acute Assessment & Plan: Right upper quadrant ultrasound confirmed cholelithiasis without acute findings. Patient prefers outpatient discussion regarding surgical evaluation. Follow up with PCP or GI for further management. (10) Anxiety Current Visit: No Status: Acute Assessment & Plan: Continue current home anxiolytic regimen Code(s): F41.9 - ANXIETY DISORDER, UNSPECIFIED (11) Chest pain Current Visit: Yes Status: Acute Assessment & Plan: No ischemic etiology identified. Return to ED for recurrent chest pain or new symptoms. Code(s): R07.9 - CHEST PAIN, UNSPECIFIED (12) Hyperlipidemia Current Visit: No Status: Chronic Assessment & Plan: Continue statin therapy for lipid control. Follow up with PCP for routine lipid monitoring Code(s): E78.5 - HYPERLIPIDEMIA, UNSPECIFIED (13) Hypothyroidism Current Visit: No Status: Chronic Assessment & Plan: Continue home thyroid replacement therapy. Code(s): E03.9 - HYPOTHYROIDISM, UNSPECIFIED (14) UTI (urinary tract infection) Current Visit: Yes Status: Acute Assessment & Plan: Complete prescribed course of Macrobid. Follow up on urine culture sensitivities. Monitor for resolution of urinary symptoms. Code(s): N39.0 - URINARY TRACT INFECTION, SITE NOT SPECIFIED - Discharge Discharge Date: 08/16/24 Disposition: Home, Self-Care Condition: Stable Prescriptions: New Nitrofurantoin Macro 100 mg [Macrobid 100MG Capsule] 100 mg PO BIDWM 7 Days #14 cap Continue Calcium Carbonate/Vitamin D3 [Calcium 500-Vit D3 200 Caplet] 600 mg PO BID@1200,2300 Magnesium 250 mg PO HS Potassium Chloride 10 meq PO BID Digoxin 0.125 mg Tablet [Lanoxin 0.125MG TABLET] 0.0625 mg PO QAM Metoprolol Tartrate 50 mg PO QAM Zinc 50 mg PO EVENING MEAL Allopurinol 100 mg [Zyloprim 100 mg] 100 mg PO EVENING MEAL Loratadine 10 mg PO HS Fluticasone Propionate [Flonase NASAL] 1 gm NS QAM Multivit-Min/Iron/Folic Acid/K [Adults Multivitamin Tablet] 1 tablet PO HS Apixaban [Eliquis 5 mg Tablet] 5 mg PO BID Levothyroxine Sodium 75 Mcg [Synthroid 75 Mcg] 75 mcg PO UD Alendronate Sodium 70 mg [Fosamax 70 MG] 70 mg PO Q7D@0600 Aspirin EC 81 mg [Ecotrin 81 mg] 81 mg PO DAILY 30 Days #30 tablet Cholecalciferol (Vitamin D3) [Vitamin D3] 25 mcg PO DAILY Ubidecarenone/Vit E Acet [Co Q-10 100 mg Softgel] 100 mg PO DAILY Modafinil 100 mg [Provigil 100MG Tablet] 100 mg PO DAILY Ascorbic Acid [Vitamin C] 500 mg PO DAILY Metoprolol Tartrate 25 mg [Lopressor 25MG Tab] 25 mg PO HS Atorvastatin Calcium [Lipitor 40Mg] 40 mg PO HS Duloxetine HCl 60 mg PO HS Famotidine 20 mg [Pepcid 20 MG] 40 mg PO HS Hydroxychloroquine Sulfate 300 mg PO HS Discontinued Furosemide 40 mg [Lasix 40 MG] 40 mg PO DAILY Furosemide [Lasix] 20 mg PO 1200 Follow up with: NICHELLE HECK DO [Primary Care Provider, FAMILY PRACTICE] - 08/23/24 3:00 pm KLEBER LAO [CONSULTING PHYSICIAN, CARDIOLOGY] - 08/20/24 2:30 pm
[2024-08-16 12:31] VITALS: BP 127/59; PULSE 92; O2SAT 97
[2024-08-16] MEDS ORDERED: NON-FORMULARY ITEM (Zinc [Zinc] 50 MG Tablet) PO SCH (18:00)
[2024-08-16] MEDS ORDERED: ZYLOPRIM 100 MG PO SCH (18:00)
[2024-08-16] MEDS ORDERED: Zinc Gluconate 50 MG PO SCH (18:00)
[2024-08-16] MEDS ORDERED: NON-FORMULARY ITEM PO SCH (22:00)
[2024-08-16] MEDS ORDERED: THERAGRAN MULTIVITAMIN PO SCH (22:00)
[2024-08-22] MEDS ORDERED: Fosamax 70 MG PO SCH (06:00)
== END 2024-08-16 15:30 | disposition home or self-care (01) ==
LOC: ED 11:03 → MED SURG 17:32
PROVIDERS: ADMIT Internal Medicine; ATTEND Internal Medicine
DX: I95.1 Orthostatic hypotension (principal); K80.50 Calculus of bile duct without cholangitis or cholecystitis without obstruction; N17.9 Acute kidney failure, unspecified; I48.91 Unspecified atrial fibrillation; Z86.73 Personal history of transient ischemic attack (TIA), and cerebral infarction without residual deficits; K59.00 Constipation, unspecified; G47.33 Obstructive sleep apnea (adult) (pediatric); R74.8 Abnormal levels of other serum enzymes; K80.20 Calculus of gallbladder without cholecystitis without obstruction; F41.9 Anxiety disorder, unspecified; R07.9 Chest pain, unspecified; E78.5 Hyperlipidemia, unspecified; E03.9 Hypothyroidism, unspecified; N39.0 Urinary tract infection, site not specified; Z79.01 Long term (current) use of anticoagulants; Z79.899 Other long term (current) drug therapy
CPT/HCPCS: 36415; 71045; 74176; 76705; 80053; 81001; 83605; 83690; 84443; 84484; 85025; 87077; 87086; 87186; 93005; 93041; 93268; 94002; 94760; 99285; A9270-GY; G0378

== ENCOUNTER 2025-01-30 09:57 | Day surgery (SDC) | payer MEDICARE ==
[2025-01-30] MEDS ORDERED: Lactated Ringers 1,000 ML IV ONE (10:02)
[2025-01-30 10:28] LABS: Hematocrit 41.6 % (34.1-44.9); Hemoglobin 13.0 g/dL (11.2-15.7); Mean Corpuscular Hemoglobin 29.1 pg (25.6-32.2); Mean Corpuscular Hgb Concent. 31.3 g/dL (32.2-35.5); Platelet Count 297 x10^3/uL (182-369); Red Blood Count 4.47 x10^6/uL (3.93-5.22); White Blood Count 10.1 x10^3/uL (3.98-10.04)
[2025-01-30] MEDS: Lactated Ringers 1,000 ML IV SCH (10:33)
[2025-01-30] MEDS: VANCOCIN INJECTION*** 1 GM in Sodium Chloride 0.9% 250 ML 250 ML IV ONE (10:34)
[2025-01-30 10:40] LABS: Calcium 9.8 mg/dL (8.4-10.2); Carbon Dioxide 27.0 mmol/L (22-30); Creatinine 1 1.36 mg/dL (0.52-1.04); EST GLOMERULAR FILTRATION RATE 38.9 ML/MIN; Glucose 93.0 mg/dL (74-106); Potassium 4.3 mmol/L (3.5-5.1); SGOT/AST 44.0 U/L (14-36); SGPT/ALT 36.0 U/L (0-35); Total Protein 8.2 g/dL (6.3-8.2)
[2025-01-30 10:43] LABS: INR 1.11 (0.8-3.0); PROTIME 12.4 SECONDS (9.4-12.5); PTT 27.6 SECONDS (25.1-36.5)
[2025-01-30] MEDS ORDERED: Xylocaine 1% Vial 30 ML PF IJ ONE (11:57)
[2025-01-30] MEDS ORDERED: Marcaine Mpf 0.5% Vial 30 Ml ONE (11:57)
[2025-01-30] MEDS ORDERED: Ketamine HCl 50 MG/ML ONE (12:34)
[2025-01-30] MEDS ORDERED: propofoL IV ONE (12:35)
[2025-01-30] MEDS ORDERED: Versed 2 MG/2 ML Injection ONE (12:35)
[2025-01-30 14:05] VITALS: RESP 16; TEMP 97.2
[2025-01-30 14:17] VITALS: BP 120/64; PULSE 68; O2SAT 98
--- NOTE | 2025-02-06 10:14 | OP ---
SURGERY DATE/TIME: 01/30/2025 [id number] PREOPERATIVE DIAGNOSES: 1) Traumatic hematoma, left lower extremity. 2) Left leg pain. 3) Pressure injury, left leg, unstageable. POSTOPERATIVE DIAGNOSES: 1) Traumatic hematoma, left lower extremity. 2) Left leg pain. 3) Pressure injury, left leg, unstageable. PROCEDURE: Incision and drainage of left leg hematoma. SURGEON: Darshan Presley DPM [employer] RESERVES: KATHRYN Loco. ANESTHESIA: Monitored anesthesia care. HEMOSTASIS: Pressure dressing. ESTIMATED BLOOD LOSS: Approximately 25 mL. MATERIALS: 3-0 nylon. INJECTABLES: None. INDICATIONS: The patient is a very pleasant 84-year-old female who presented to my service after a traumatic injury to the left lower extremity, referral from her PCP. The patient had a significant amount of pain and swelling with signs of possible hematoma formation to the anterior aspect of the left ankle. An ultrasound was obtained demonstrating a 9 cm x 1.5 x 2.5 cm hematoma causing significant amount of pain, however, at this time was also causing a significant amount of pressure and possible breakdown and necrosis of the anterior aspect of the hematoma. At this time, this was deemed to be an urgency and we proceeded to get the patient scheduled for surgical intervention. No compression dressings were utilized prior to evacuation of the hematoma. At this time, we decided to proceed. DESCRIPTION OF PROCEDURE AND FINDINGS: The patient was brought in the operating room and placed on the operating room table in supine position. Monitored anesthesia care was administered until the patient was adequately sedated. Two small 2.5 to 3 cm incisions were made at the proximal and distal pole of the hematoma that was identified on the ultrasound. This was deepened utilizing blunt dissection to the level of the hematoma which had clotted entirely. A significant amount of clotted blood was able to be removed through hand expression. However, at this time we did flush a significant amount of sterile saline under Pulsavac and then utilized a Yankauer from the other side of the incision site to suck out the remaining hematoma. This minimally invasive method was able to remove approximately 15 mL of hematoma and hand expression was able to express an additional 5 mL. From that standpoint, 3-0 nylon was utilized to completely close the proximal pole of the hematoma site and then simple interrupteds were placed at the distal and proximal aspects of the distal incision, allowing for small area for new bleeding to drain. A dressing consisting of Betadine, Adaptic, 4 x 4, Kerlix, ABD, and William was applied to the patient's left lower extremity at this time. The patient was reversed from anesthesia and returned to the postoperative anesthesia care unit with vital signs stable and vascular status intact. The patient handled the anesthesia as well as the procedure without significant complication. Postoperative orders are as indicated in the patient's discharge chart.
== END 2025-01-30 14:25 | disposition home or self-care (01) ==
LOC: SDC 09:57
PROVIDERS: ATTEND Podiatrist Foot & Ankle Surgery
DX: S80.12XA Contusion of left lower leg, initial encounter (principal); M79.662 Pain in left lower leg; L89.899 Pressure ulcer of other site, unspecified stage; Z79.01 Long term (current) use of anticoagulants